=== PATIENT | female | born 1940 | race African-American/Black ===

== ENCOUNTER 2016-11-08 18:01 | Inpatient (IN) | payer OTHER ==
[~2016-11-08] VITALS: Ht 157.5 cm; Wt 77.1 kg
--- NOTE | ~2016-11-08 | S ---
[facility] [place] [address] SURGICAL PATH RPT PROCEDURE Name: ANDRESSA RUTLEDGE Room #: 424-P ADM IN M.R.#: [id number] Admission: 11/08/16 Date of : 36 Discharge: Report #: [id number] Path Case #: [id number] PATHOLOGY REPORT COLLECTION DATE: 11/10/2016 RECEIVED DATE: 11/10/2016 SUBMITTING PHYS: Dr. Ignacio Fu OTHER PHYS: Dr. Herrera Al SPECIMEN(S) RECEIVED: A.Bx of gastritis * * * * * * * * * * * * FINAL DIAGNOSIS: "Bx of gastritis," biopsy: - Gastric mucosa with mild reactive changes and mild chronic inflammation. - Negative H. pylori immunohistochemical stain (block A1); control reacted appropriately. (CLW:; d/t: 11/11/16) PATHOLOGIST: Jazmine Baeza M.D. REPORT ELECTRONICALLY SIGNED BY: Jazmine Baeza M.D. DATE/TIME: 11/11/2016 13:41 * * * * * * * * * * * * GROSS PATHOLOGY: Received in formalin labeled "Andressa Rutledge and bx of gastritis," are 4 segments of faust soft tissue measuring 1.6 x 0.3 x 0.2 cm in aggregate dimensions and ranging from 0.2 to 0.6 cm in maximum dimension. The specimen is submitted entirely in cassette A1. (TTL; 11/10/2016) CLINICAL HISTORY: Anemia INITIAL CPT CODE(S): A; 71718, 29020 Professional services performed by [facility] at [facility] [address] , [place] [address] Technical services performed by [facility] at [address] [place] [address] [place] [address] SURGICAL PATH RPT PROCEDURE Name: ANDRESSA RUTLEDGE Room #: 424-P ADM IN M.R.#: [id number] Admission: 11/08/16 Date of : 38 Discharge: Report #: [id number] Path Case #: [id number] [place] [address]. [facility] [address] [place] [address] PHONE: [phone] DIRECTOR: Jag Alatorre M.D. * * * END OF REPORT * * *
--- NOTE | ~2016-11-08 | HC ---
[facility] [place] [address] CONSULTATION Name: SIN RAMOS Room #: 424-P ADM IN M.R.#: [id number] Admission: 11/08/16 Attend Phys: Herrera Travis MD Discharge: Date of : 38 Report #: [id number] THIS REPORT FOR: //name// CC: Aishwarya Travis REASON FOR CONSULTATION: The patient is a 75-year-old woman with multiple medical problems and anemia and Hemoccult-positive stools. HISTORY OF PRESENT ILLNESS: This is a 75-year-old woman who has a history of number of medical problems including diabetes and significant peripheral vascular disease including a right siovl-zfi-frfo amputation. She has chronic kidney disease and sees Dr. Deon Al. She has had a chronic anemia for which she has been on erythropoietin agents and also she takes iron chronically. Her hemoglobin over the past several years is varied from a low of 6.1 to a high of 10.5. More recently, she has had some dizziness and lightheadedness, especially a day or so prior to admission. She did not have any syncope. Stools are always dark because of iron. They have not been loose. She has not had abdominal pain, nausea, vomiting or hematemesis. She contacted her primary care physician and was direct to the emergency room, where she is evaluated. She was found to have hemoglobin of 7.1; however, it is noted that she is chronically anemic. Stools were found to be Hemoccult positive here and she is admitted for further evaluation and treatment and did receive blood. It is noted she has never had previous GI evaluation, including colonoscopy. PAST MEDICAL HISTORY: Notable for chronic anemia. She has insulin-dependent diabetes mellitus. She has had high blood pressure, hypothyroidism and elevated cholesterol. She has had congestive heart failure. She has peripheral vascular disease and she has had a right wnqgl-kxv-dgeb amputation. She has a foot ulcer as well. She had chronic kidney disease and creatinine usually runs in the low 2 range. She has also had problem with glaucoma and it sounds like she had a retinal hemorrhage, with treatment recently. ALLERGIES: No known drug allergies. MEDICATIONS: Usual home medicines include acetaminophen 650 mg every 6 hours as needed, hydrocodone 5/325 one to two every 4 hours as needed, bisacodyl suppositories 10 mg nightly as needed, brimonidine drops to both eyes twice daily, chewable Tums 500 mg with meals, Coreg 25 mg twice daily, Plavix 75 mg daily, collagenase topically to wound as needed, docusate 100 mg twice daily, iron sulfate 325 mg twice daily, glipizide 5 mg twice daily, NovoLog insulin [address] [address] CONSULTATION Name: SIN RAMOS Room #: 424-P [facility] IN M.R.#: [id number] Admission: 11/08/16 Attend Phys: Herrera Travis MD Discharge: Date of : 38 Report #: [id number] sliding scale, Levemir insulin 20 units subq, Levothyroxine 0.025 mg daily, losartan 50 mg daily, lovastatin 20 mg daily, timolol one drop twice daily each eye, torsemide 40 mg b.i.d. and tramadol 50-100 mg every 4 hours as needed. FAMILY HISTORY: No family history of colon cancer or ulcer disease. SOCIAL HISTORY: She does not smoke. She does not consume alcohol. REVIEW OF SYSTEMS: GENERAL: No change in weight, fever or chills. CENTRAL NERVOUS SYSTEM: Generalized weakness, but no focal weakness, numbness, loss of consciousness, seizure or strokes. HEENT: She has, what sounds like, retinal hemorrhage. No change in vision here. No soreness of mouth. PULMONARY: She has had known pneumonia in the past, but not recently. No chest pain, chest tightness or palpitations. GASTROINTESTINAL: No nausea or vomiting. No hematemesis. She has never had a colonoscopy. GENITOURINARY: No dysuria or pyuria. She has chronic kidney disease. GYNECOLOGIC: No breast problems, vaginal discharges or bleeding. MUSCULOSKELETAL: No arthralgias or myalgias. She does have a right azsxj-mue-cvybzvebvx and has prosthesis and she does have some itching. She does have a heel wound. PSYCHIATRIC: No depression, anxiety or bipolar illness. ENDOCRINE: She does have diabetes and thyroid disease. No other hormonal problems. HEMATOLOGIC: No bleeding or bruising malignancies. PHYSICAL EXAMINATION: GENERAL: The patient is a well-developed, well-nourished white woman in no acute distress. VITAL SIGNS: Blood pressure 143/98. HEENT: Anicteric. Pupils are equal, round and reactive to light. Oropharynx clear. NECK: Supple. CHEST: Clear. HEART: Regular rate and rhythm, normal S1 and S2. ABDOMEN: Obese. Normal bowel sounds. Soft, nontender, without hepatosplenomegaly, masses or bruits. RECTAL: Not done. EXTREMITIES: She has a right pwfpz-avr-xwta amputation. She does have prosthesis. She has a sore on her heel, but that was not examined today. ASSESSMENT: 1. Chronic anemia. 2. Hemoccult-positive stools. [facility] [address] [place] [address] CONSULTATION Name: SIN RAMOS Room #: 424-P [facility] IN ..#: [id number] Admission: 11/08/16 Attend Phys: Herrera Travis MD Discharge: Date of : 38 Report #: [id number] 3. Black stools, on iron. 4. Chronic kidney disease. 5. Diabetes mellitus, insulin dependent. 6. 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 7. Chronic kidney disease secondary to diabetes. 8. Peripheral vascular disease. 9. High blood pressure. 10. Hypothyroidism. 11. Congestive heart failure. 12. Glaucoma. PLAN: 1. Upper endoscopy planned to do tomorrow morning. 2. Consider colonoscopy depending on the results of upper endoscopy. 3. Monitor hemoglobin. <ELECTRONICALLY SIGNED> By: Ignacio Fu MD 11/10/16 1943 1323 1537 Ignacio Fu MD /nt
--- NOTE | ~2016-11-08 | D ---
[facility] [place] [address] DISCHARGE SUMMARY Name: SIN RAMOS Room #: 424-P [facility] IN M.R.#: [id number] Admission: 11/08/16 Attend Phys: Herrera Travis MD Discharge: Date of : 38 Report #: [id number] THIS REPORT FOR: //name// CC: Aishwarya Travis DATE OF SERVICE: 11/14/2016 TYPE OF DICTATION: Discharge summary. After bxwh-ev-wrzs encounter, I did see the patient and examined her on the day of discharge, 11/14/2016. DISCHARGE DIAGNOSES: 1. Anemia of acute blood loss. 2. Gastrointestinal bleed secondary to multiple duodenal ulcers. 3. Acute renal failure on top of chronic kidney disease. 4. Diabetes mellitus. 5. Left heel diabetic wound. 6. Hypertension. 7. Hypothyroidism. 8. Hyperlipidemia. 9. Glaucoma. 10. Congestive heart failure. 11. Right leg diabetic ketoacidosis. DISCHARGE MEDICATIONS: See discharge summary. HOSPITAL COURSE: The patient was admitted to the hospital secondary to dizziness and she was found to have a GI bleed. The patient underwent colonoscopy and EGD and she was found to have multiple duodenal ulcers. The patient was started on PPI and she is doing well, and her hemoglobin since then was stable. So, she was okay with GI to release the patient on the PPI twice a day for 8 weeks and to follow with as an outpatient in 6 weeks for repeat colonoscopy and EGD. During her stay in the hospital, she has also acute tubular necrosis with creatinine jumped up until it reached 2.8. Nephrology was following the patient and today, after a bolus of 500 mL, her creatinine is trending down and she was cleared by nephrology to go home. The patient has a left heel diabetic ulcer and she was followed by the wound team, Dr. Bob Arango and he recommended her to have a wound care clinic visit after 2-3 weeks with him and for now to have Betadine daily and heel protection. The patient is going home with home health for that and to be followed up with her [facility] [address] [place] [address] DISCHARGE SUMMARY Name: SIN RAMOS Room #: 424-P [facility] IN .R.#: [id number] Admission: 11/08/16 Attend Phys: Herrera Travis MD Discharge: Date of : 38 Report #: [id number] primary care doctor, renal doctor and with the GI and wound care. The patient is stable and she is going home with home health. <ELECTRONICALLY SIGNED> By: Manolo Dickinson MD 11/14/16 1438 1001 1058 Manolo Dickinson MD /nt
--- NOTE | ~2016-11-08 | HC ---
[facility] [place] [address] CONSULTATION Name: SIN RAMOS Room #: 424-P ADM IN M.R.#: [id number] Admission: 11/08/16 Attend Phys: Herrera Travis MD Discharge: Date of : 38 Report #: [id number] THIS REPORT FOR: //name// CC: Aishwarya Travis REASON FOR CONSULTATION: CKD. REASON FOR PRESENTATION: Anemia. HISTORY OF PRESENT ILLNESS: This is a very pleasant 75-year-old who sees Dr. Al in our clinic. She is known to have diabetes mellitus, longstanding, complicated by hypertension, diabetic complications including diabetic peripheral arterial disease culminating into right below-knee amputation. Looking back at her previous medical records, she does carry a diagnosis of chronic kidney disease with a baseline creatinine of 2. She was called by her primary care physician and was asked to come to the emergency room because of the low hemoglobin. She did have some dizziness associated with her low hemoglobin. On presentation, repeat labs revealed that the patient does have anemia with hemoglobin level of 7.1. She tested positive for occult. I was consulted to manage her chronic kidney disease while she is in the hospital. She has no active urinary symptoms. She is not aware of any hematochezia or melena. In terms of kidney function, as I have stated, she is chronic kidney disease patient of Dr. Al. We checked her labs in the last week and asked her to come to our facility. She currently is maintained on torsemide, losartan for the management of her chronic kidney disease. 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 CURRENT MEDICATIONS: 1. Hydrocodone. 2. Levemir. 3. Torsemide. 4. Tramadol. 5. Lovastatin. 6. Carvedilol. 7. Glipizide. 8. Losartan. 9. Plavix. 10. Levothyroxine. PAST MEDICAL AND SURGICAL HISTORY: 1. Diabetes mellitus, longstanding, with all related complications to that. 2. CKD. 3. Hypertension. 4. Significant peripheral arterial disease, status post amputation, below knee [facility] [address] [place] [address] CONSULTATION Name: SIN RAMOS Room #: 424-P [facility] IN ..#: [id number] Admission: 11/08/16 Attend Phys: Herrera Travis MD Discharge: Date of : 38 Report #: [id number] on the right side. 5. Hypothyroidism. 6. Hyperlipidemia. 7. Anemia. SOCIAL HISTORY: No drug or alcohol abuse. She lives with her daughter. FAMILY HISTORY: Very strong family history of diabetes mellitus and diabetic heart disease. REVIEW OF SYSTEMS: GENERAL: No fever or chills. CARDIOVASCULAR: No chest pain or palpitation. PULMONARY: No cough or hemoptysis. NEUROLOGICAL: Significant for dizziness. GENITOURINARY: No frequency, no urgency. GASTROINTESTINAL: Decreased p.o. intake, but no hematochezia and no melena. PHYSICAL EXAMINATION: GENERAL: She is alert, oriented. VITAL SIGNS: Pulse rate was 89, blood pressure was 130/60 and temperature 36.8. HEAD AND NECK: No jugular venous distention, no bruit, no thyromegaly. CHEST: Clear to auscultation. CARDIOVASCULAR: No rub detected. ABDOMEN: Soft, nontender. LOWER EXTREMITIES: Right below-knee amputation with an ulcer on the left heel. LABORATORY DATA: Laboratory values reviewed. Creatinine seems to be at her baseline at 2. Repeat hemoglobin was not received yet. Hemoglobin from yesterday is 7.1. She received couple of units of blood. IMAGING: No new images. ASSESSMENT, IMPRESSION AND PLAN: 1. Chronic kidney disease with baseline creatinine of 2. 2. Anemia related to blood loss. 3. Diabetes mellitus. 4. Hypertension. 5. Left diabetic heel ulcer. 6. Glaucoma. 7. From the renal perspective, she seems to be stable with her creatinine at her baseline. I would resume her medications including the losartan and the Demadex. 8. Blood pressure control. 9. Blood sugar control. 10. Thyroid medications. [address] [place] [address] [address] CONSULTATION Name: SIN RAMOS Room #: 424-P [facility] IN .R.#: [id number] Admission: 11/08/16 Attend Phys: Herrera Travis MD Discharge: Date of : 38 Report #: [id number] 11. Discontinue IV fluid. 12. Anemia workup including GI workup. 13. Avoid nephrotoxins. 14. Iron studies are pending. 15. Local wound care for her left heel ulcer. 16. Based on her initial GI workup, we will decide about further evaluation and management of her anemia from the CKD perspective. <ELECTRONICALLY SIGNED> By: Judy Cummins MD 11/14/16 0926 0922 1248 Judy Cummins MD /nt
--- NOTE | ~2016-11-08 | P ---
[facility] [place] [address] PROCEDURE REPORT Name: SIN RAMOS Room #: 424-P [facility] IN M.R.#: [id number] Admission: 11/08/16 Attend Phys: Herrera Travis MD Discharge: Date of : 38 Report #: [id number] THIS REPORT FOR: //name// CC: Aishwarya Travis BRIEF HISTORY: The patient is a 75-year-old woman, who was admitted with anemia requiring blood transfusion as well as Hemoccult positive stools. She has chronic kidney disease and has had longstanding anemia. PREOPERATIVE DIAGNOSES: Anemia and Hemoccult-positive stools. POSTOPERATIVE DIAGNOSES: 1. Multiple duodenal ulcers. 2. Duodenal diverticulum. 3. Diffuse gastritis. 4. Small hiatus hernia. MEDICATIONS: Deep sedation with propofol per anesthesia. SPECIMEN: Biopsies of gastritis. ESTIMATED BLOOD LOSS: 3 mL. PROCEDURE: EGD with biopsy. FINDINGS: Prior to propofol sedation, procedure of upper endoscopy was discussed with the patient as well as potential risks and its complications. She indicates she understands and desires to proceed. DESCRIPTION OF PROCEDURE: With the patient in left lateral decubitus position, the SnackFeedi video endoscope was inserted in the cervical esophagus under direct vision without difficulty. Examination of this organ through its entire length revealed normal esophageal mucosa down the squamocolumnar junction. Squamocolumnar junction was inspected and noted to be unremarkable. No ulcers, erosions or bleeding was seen. Scope was advanced into a 2-3 cm sliding type hiatus hernia. ____ was normal. Scope was advanced in the stomach, which was examined on end view as well as retroflexed views. There was some antral erythema, but no ulcers or erosions. There is no blood in the stomach. Upon retroflexion, no mucosal abnormalities were seen. Pylorus was normal. Examination of duodenal bulb revealed several superficial ulcerations in the range of about 3-4 mm in the distal bulb. The scope was advanced around the bulb. There were some bloody fluid seen. Upon further inspection, there was a moderately large duodenal diverticulum. There was some bloody fluid and a small [facility] [address] [place] [address] PROCEDURE REPORT Name: SIN RAMOS Room #: 424-P ADM IN [facility].#: [id number] Admission: 11/08/16 Attend Phys: Herrera Travis MD Discharge: Date of : 38 Report #: [id number] clot within the diverticulum. This was irrigated and cleaned out and active bleeding or an ulcer was not seen within the diverticulum. Third portion of duodenum was unremarkable. We very carefully inspected in particular the second portion of duodenum. Finally, an ulcer was found at the ____ of the bulb with second portion. He was seen tangentially but clearly an ulcer base was seen. Active bleeding was not seen. I do not see any most vessels or clots. At that point, the scope was slowly withdrawn and careful circumferential views confirmed the above findings. The patient tolerated the procedure well. Biopsies obtained of the gastritis. DISPOSITION: The patient with GI bleeding. Advised the patient to avoid use of nonsteroidals. She is currently on a PPI and we will have her continue PPI at this point in time. We will have her return as an outpatient in about 6 weeks to ____ view of her bleeding. Also, suggest screening colonoscopy at that point in time. She returned to the care of Dr. Dr. Al and Dr. Aishwarya De Souza. <ELECTRONICALLY SIGNED> By: Ignacio Fu MD 11/10/16 1943 1307 1359 Ignacio Fu MD /nt
[~2016-11-08 18:01] MED LIST: ALDACTONE25 MG PO; AMLODIPINE BESY10 MG PO; BISACODYL SUPP10 MG RECTAL; BRIMONIDINE TAR1 BO1 OPHTHALMIC; C-500500 MG PO; CARVEDILOL25 MG PO; CEPHALEXIN 500500 M1 PO; CIPROFLOXACIN500 M1 PO; COLACE100 MG PO; COMBIGAN EYE DR10 ML; COZAAR 50 MG TA50 M1 PO; COZAAR 50 MG TA50 MG PO; DEMADEX20 MG PO; ENOXAPARIN30 MG/0.1 SUBQ; FUROSEMIDE 40 M40 M1 PO; GLIPIZIDE XL5 MG PO; GLUCOTROL5 MG PO; GLUMETZA500 PO; GLYBURIDE 5 MG T5 MG PO; HYDROCODONE-AP1 EAC6 PO; IRON325 PO; KEFLEX500 MG PO; LEVEMIR SUBQ; LEVOTHYROXIN0.025 MG PO; LOVASTAT20 PO; NOVOLOG100 UNIT/1 SUBQ; ONGLYZA5 MG PO; PLAVIX 75 MG TA75 M1 PO; SANTYL OINTMENT30 G1 TOP; TIMOLOL GL0.5 %/5 M1 OPHTHALMIC; TRAMADOL 50 MG50 MG PO; TUMS PO; TYLENOL325 MG PO
[2016-11-08 18:02] VITALS: BP 156/71
[2016-11-08 18:51] LABS: ABSOLUTE NEUTROPHILS 3.6 thou/uL (1.4-8.2); BASOPHILS 0.5 % (0.0-2.0); MCH 30.6 pg (26.0-34.0); MCHC 33.5 % (28.0-37.0)
[2016-11-08 18:53] LABS: HEMATOCRIT 21.1 % (37.0-47.0); LYMPHOCYTES 25.1 % (24.0-44.0); MCV 91.3 fL (80.0-100.0); MONOCYTES 11.6 % (1.0-8.0); PLATELET COUNT 209 thou/uL (150-400); POLYS 60.8 % (36.0-66.0); RBC 2.31 mil/uL (4.20-5.00); WBC 5.9 thou/uL (4.0-11.0)
[2016-11-08 18:55] LABS: ANION GAP 8 mmol/L (7-16); BUN 69 mg/dL (7-18); CALCIUM 8.4 mg/dL (8.5-10.1); CHLORIDE 101 mmol/L (98-107); CO2 27 mmol/L (21-32); GLUCOSE 246 mg/dL (70-99); POTASSIUM 4.4 mmol/L (3.5-5.1); SODIUM 136 mmol/L (136-145)
[2016-11-08 18:57] LABS: HEMOGLOBIN 7.1 gm/dL (12.0-15.0); MANUAL DIFF NO
[2016-11-08 19:02] LABS: ALBUMIN 3.2 g/dL (3.4-5.0); ALKALINE PHOSPHATASE 96 U/L (46-116); SGOT < 5 U/L (15-37); SGPT 13 U/L (30-65); TOTAL BILIRUBIN 0.2 mg/dL (<0.1-1.0); TOTAL PROTEIN 6.5 g/dL (6.4-8.2)
[2016-11-08 19:03] LABS: APTT 22.5 Seconds (24.5-32.8); PROTIME 10.7 Seconds (9.3-11.4)
[2016-11-08 22:57] VITALS: BP 130/67; BP 161/59
[2016-11-09 02:47] VITALS: BP 130/61; BP 133/61
[2016-11-09 07:54] VITALS: BP 130/61
[2016-11-09 12:17] VITALS: BP 143/90
[2016-11-09 14:52] LABS: BASOPHILS 0.3 % (0.0-2.0); EOSINOPHILS 1.5 % (0.0-3.0); HEMATOCRIT 31.9 % (37.0-47.0); LYMPHOCYTES 22.2 % (24.0-44.0); MCH 30.8 pg (26.0-34.0); MCHC 33.1 % (28.0-37.0); MCV 93.1 fL (80.0-100.0); MONOCYTES 10.7 % (1.0-8.0); PLATELET COUNT 214 thou/uL (150-400); POLYS 65.3 % (36.0-66.0); RBC 3.42 mil/uL (4.20-5.00); RDW 14.1 % (10.5-14.5); WBC 7.7 thou/uL (4.0-11.0)
[2016-11-09 14:53] LABS: HEMOGLOBIN 10.5 gm/dL (12.0-15.0); MANUAL DIFF NO
[2016-11-09 15:15] LABS: ALBUMIN 3.3 g/dL (3.4-5.0); CALCIUM 8.8 mg/dL (8.5-10.1); CREATININE 1.6 mg/dL (0.6-1.3); MAGNESIUM 1.8 mg/dL (1.8-2.4); POTASSIUM 5.1 mmol/L (3.5-5.1); TOTAL BILIRUBIN 0.3 mg/dL (<0.1-1.0)
[2016-11-09 17:17] VITALS: BP 155/70
[2016-11-09 20:00] VITALS: BP 150/69
[2016-11-10 04:00] VITALS: BP 120/56
[2016-11-10 05:57] LABS: ALBUMIN 2.8 g/dL (3.4-5.0); CALCIUM 8.3 mg/dL (8.5-10.1); CREATININE 1.9 mg/dL (0.6-1.3); PHOSPHORUS 3.3 mg/dL (2.5-4.9); POTASSIUM 4.8 mmol/L (3.5-5.1)
[2016-11-10 08:07] LABS: % SATURATION 17 % (15-55); IRON 54 ug/dL (27-139); TIBC 310 ug/dL (250-450); UIBC 256 ug/dL (118-369)
[2016-11-10 08:29] VITALS: BP 139/57
[2016-11-10 14:30] VITALS: BP 146/65
[2016-11-10 16:19] VITALS: BP 122/50
[2016-11-10 20:00] VITALS: BP 146/72
[2016-11-11 04:00] VITALS: BP 132/50
[2016-11-11 05:37] LABS: HEMATOCRIT 30.2 % (37.0-47.0); HEMOGLOBIN 9.9 gm/dL (12.0-15.0); MCH 30.5 pg (26.0-34.0); MCHC 32.7 % (28.0-37.0); MCV 93.4 fL (80.0-100.0); RBC 3.24 mil/uL (4.20-5.00)
[2016-11-11 08:33] VITALS: BP 165/81
[2016-11-11 16:20] VITALS: BP 184/51
[2016-11-11 20:00] VITALS: BP 154/58
[2016-11-12 04:30] VITALS: BP 145/52
[2016-11-12 07:33] VITALS: BP 146/53
[2016-11-12 10:36] LABS: HEMATOCRIT 29.5 % (37.0-47.0); HEMOGLOBIN 9.8 gm/dL (12.0-15.0); MANUAL DIFF YES; MCH 30.8 pg (26.0-34.0); MCHC 33.2 % (28.0-37.0); MCV 92.7 fL (80.0-100.0); PLATELET COUNT 170 thou/uL (150-400); RBC 3.18 mil/uL (4.20-5.00); RDW 14.2 % (10.5-14.5); WBC 7.1 thou/uL (4.0-11.0)
[2016-11-12 10:43] LABS: CALCIUM 8.8 mg/dL (8.5-10.1); CREATININE 2.5 mg/dL (0.6-1.3); POTASSIUM 4.3 mmol/L (3.5-5.1)
[2016-11-12 11:18] LABS: ABSOLUTE NEUTROPHILS 4.8 thou/uL (1.4-8.2); TOTAL CELL COUNT 100
[2016-11-12 15:16] VITALS: BP 110/49
[2016-11-12 20:00] VITALS: BP 138/74
[2016-11-13 04:00] VITALS: BP 102/46
[2016-11-13 04:41] LABS: HEMATOCRIT 29.8 % (37.0-47.0); HEMOGLOBIN 9.7 gm/dL (12.0-15.0); MCH 30.7 pg (26.0-34.0); MCHC 32.5 % (28.0-37.0); MCV 94.6 fL (80.0-100.0); PLATELET COUNT 174 thou/uL (150-400); RBC 3.15 mil/uL (4.20-5.00); WBC 7.7 thou/uL (4.0-11.0)
[2016-11-13 04:42] LABS: MANUAL DIFF YES
[2016-11-13 04:51] LABS: ALBUMIN 2.9 g/dL (3.4-5.0); CALCIUM 8.9 mg/dL (8.5-10.1); CREATININE 2.8 mg/dL (0.6-1.3); PHOSPHORUS 4.2 mg/dL (2.5-4.9); POTASSIUM 4.3 mmol/L (3.5-5.1)
[2016-11-13 07:23] LABS: ABSOLUTE NEUTROPHILS 4.5 thou/uL (1.4-8.2); TOTAL CELL COUNT 100
[2016-11-13 07:24] LABS: ANISOCYTOSIS SLIGHT
[2016-11-13 08:30] VITALS: BP 128/45
[2016-11-13 17:30] VITALS: BP 160/58
[2016-11-13 22:00] VITALS: BP 152/53
[2016-11-14 04:08] VITALS: BP 126/65
[2016-11-14 06:30] LABS: HEMATOCRIT 29.8 % (37.0-47.0); HEMOGLOBIN 9.7 gm/dL (12.0-15.0); MANUAL DIFF YES; MCH 30.5 pg (26.0-34.0); MCHC 32.4 % (28.0-37.0); MCV 94.1 fL (80.0-100.0); PLATELET COUNT 164 thou/uL (150-400); RBC 3.17 mil/uL (4.20-5.00); RDW 13.5 % (10.5-14.5); WBC 7.3 thou/uL (4.0-11.0)
[2016-11-14 06:45] LABS: ALBUMIN 2.7 g/dL (3.4-5.0); CALCIUM 8.5 mg/dL (8.5-10.1); CREATININE 2.2 mg/dL (0.6-1.3); PHOSPHORUS 4.1 mg/dL (2.5-4.9); POTASSIUM 4.9 mmol/L (3.5-5.1)
[2016-11-14 08:07] LABS: ABSOLUTE NEUTROPHILS 4.7 thou/uL (1.4-8.2); TOTAL CELL COUNT 100
[2016-11-14 08:08] LABS: ANISOCYTOSIS 1+; POLYCHROMASIA OCCASIONAL
[2016-11-14 08:16] VITALS: BP 138/63
[2016-11-14] MEDS ORDERED: PANTOPRAZOLE SO40 M1 PO (10:06)
[2016-11-14 10:26] VITALS: BP 138/63
[2016-11-14 15:28] VITALS: BP 124/47
[2016-11-14 17:40] VITALS: BP 138/63
== END 2016-11-14 18:39 | disposition home or self-care (01) | DRG 377 ==
LOC: ER 18:01 → EROBS 19:24 → 4E 19:24 → EDBD 11-14 18:39 → 4E 11-14 18:39
PROVIDERS: Hospitalist; Internal Medicine Nephrology; Nurse Practitioner; Physician Assistant; Specialist
PROC: 30233N1 Transfusion of Nonautologous Red Blood Cells into Peripheral Vein, Percutaneous Approach (ICD-10-PCS; principal; 2016-11-08)
PROC: 0DB68ZX Excision of Stomach, Via Natural or Artificial Opening Endoscopic, Diagnostic (ICD-10-PCS; 2016-11-10)
DX: K26.4 Chronic or unspecified duodenal ulcer with hemorrhage (principal); N17.0 Acute kidney failure with tubular necrosis; D62 Acute posthemorrhagic anemia; L97.429 Non-pressure chronic ulcer of left heel and midfoot with unspecified severity; I13.0 Hypertensive heart and chronic kidney disease with heart failure and stage 1 through stage 4 chronic kidney disease, or unspecified chronic kidney disease; E44.0 Moderate protein-calorie malnutrition; H40.9 Unspecified glaucoma; E03.9 Hypothyroidism, unspecified; E78.5 Hyperlipidemia, unspecified; E10.42 Type 1 diabetes mellitus with diabetic polyneuropathy; E10.621 Type 1 diabetes mellitus with foot ulcer; E10.51 Type 1 diabetes mellitus with diabetic peripheral angiopathy without gangrene; E10.22 Type 1 diabetes mellitus with diabetic chronic kidney disease; N18.3 Chronic kidney disease, stage 3 (moderate); I50.9 Heart failure, unspecified; K44.9 Diaphragmatic hernia without obstruction or gangrene; D63.8 Anemia in other chronic diseases classified elsewhere; Z79.899 Other long term (current) drug therapy; Z79.4 Long term (current) use of insulin; Z89.429 Acquired absence of other toe(s), unspecified side; Z82.49 Family history of ischemic heart disease and other diseases of the circulatory system; Z83.3 Family history of diabetes mellitus; Z68.31 Body mass index [BMI] 31.0-31.9, adult
CPT/HCPCS: 10183; 62110; 62900; 70005

== ENCOUNTER → 2016-11-21 | Outpatient (CLI) | payer OTHER ==
[~2016-11-21] VITALS: Ht 154.9 cm; Wt 77.1 kg
[~2016-11-21] MED LIST changes: +PANTOPRAZOLE SO40 M1 PO
--- NOTE | ~2016-11-21 | CATHLAB ---
[facility] Kyle [address]ba [facility] [place] [address] INVASIVE PROCEDURE REPORT Name: LON RAMOSN Room #: REG CL Rufino#: [id number] Admission: 11/21/16 Attend Phys: Mustapha Brooks, Discharge: Date of : 36 Date of Service: 11/21/16 1033 Report #: [id number] THIS REPORT FOR: //name// CC: Aishwarya Brooks DATE OF SERVICE: 11/21/2016 NAME OF STUDY: 1. Aortogram and left lower extremity runoff angiogram. 2. Bilateral renal angiography. 3. Left superficial femoral artery atherectomy and stent placement. 4. Secondary thrombectomy, left superficial femoral artery. 5. Drug-coated balloon angioplasty, left superficial femoral artery. INDICATIONS: Peripheral arterial disease with nonhealing ulcer, left heel. Diabetes. Coronary artery disease. Hypertension. Hypercholesterolemia. PROCEDURE: Procedure and risk of aortogram and runoff were discussed with the patient as well as atherectomy and stent placement including the risk of limb loss and contrast-induced nephropathy requiring dialysis and consent obtained. The right groin was prepped and draped in normal sterile fashion. Ultrasound was used to interrogate the right groin and showed the right common femoral artery be patent. Under ultrasound guidance, access into the right common femoral artery was obtained and a 5-Welsh sheath was placed. Through this, a flush catheter was placed in the abdominal aorta and AP aortogram was performed. Catheter was positioned at the aortic bifurcation and MAZARIEGOS oblique view of the pelvis was obtained. Catheter was exchanged for a visceral catheter, which was placed into the right renal artery and right renal angiogram was obtained. Catheter was placed in the left renal artery and left renal angiogram was obtained. Catheter was placed to the level of the left common femoral artery and left leg runoff angiogram was obtained. The patient was given 4000 units of heparin. A 6-Welsh crossover sheath was placed via the right groin to the level of the left common femoral artery. I then performed atherectomy at the area of stenosis in the proximal left superficial femoral artery with a 1.7 Second Light laser catheter. Following this, it was noted some irregularity and possible small fragments of thrombus in the area of treatment and because of this, a mechanical suction thrombectomy catheter was used to perform a secondary thrombectomy throughout the left superficial femoral artery treatment area. Drug-coated balloon angioplasty in the proximal third of this left superficial femoral artery was carried out with a 5 x 120 Zipzoomtronic Admiral catheter. Follow up angiogram showed some flow limiting dissection in the mid section of the treatment area. Because of this, a 6 x 80 SMART control stent was deployed in the proximal portion of the left superficial femoral artery. Dilatation up to 5 mm throughout the stent was again accomplished. Follow up angiogram was performed. Catheters and wires were removed. Sheath was removed and hemostasis [facility] [address] [place] [address] INVASIVE PROCEDURE REPORT Name: SIN RAMOS Room #: REG MICHAEL Joy#: [id number] Admission: 11/21/16 Attend Phys: Mustapha Brooks, Discharge: Date of : 36 Date of Service: 11/21/16 1033 Report #: [id number] obtained using the ExoSeal device. No immediate complications. A total of 42 mL of iodinated contrast was used throughout the procedure. FINDINGS: AORTOGRAM: There is 1 right and 1 left renal artery. Moderate plaque in the infrarenal abdominal aorta without significant stenosis. The right and left common iliac arteries are patent. Both internal iliac arteries are patent. The right and left external iliac arteries are patent. Both the right and left common femoral and profunda femoral arteries are patent. RIGHT RENAL ANGIOGRAM: Moderate plaque at the origin of the right renal artery causes 30% stenosis, not felt to be flow limiting. No branch vessel stenosis. LEFT RENAL ANGIOGRAM: Mild plaque at the origin of the vessel raza not cause significant stenosis. LEFT LEG: Moderate plaque proximal superficial femoral artery causing 80% stenosis. The mid and distal SFA are widely patent. Minimal stenosis in the upper popliteal artery, again not flow limiting. The proximal and mid anterior tibial artery show complete occlusion. The tibioperoneal trunk and peroneal artery show good patency. The peroneal artery refills the distal anterior tibial artery, which is a good size vessel to runoff into a moderate size dorsalis pedis, which showed some filling of the metatarsal arch. The posterior tibial artery is occluded throughout its length. The distal most posterior tibial artery is small, but refills via peroneal collaterals and small plantar arteries. LEFT SUPERFICIAL FEMORAL ARTERY: Following procedure as above, the vessel is widely patent. IMPRESSION: 80% irregular stenosis, proximal portion of the left superficial femoral artery was treated as above with good patency restored. Occlusion of the left anterior and posterior tibial arteries as reviewed above. There is good single vessel left peroneal artery runoff as described. I will follow up with the patient in the office in 3 months regarding her progress. She will be maintained on aspirin and Plavix until that time. <ELECTRONICALLY SIGNED> By: Mustapha Brooks MD 11/24/16 1132 1033 1207 Mustapha Brooks MD /nt
[2016-11-21 08:09] VITALS: BP 149/62
[2016-11-21 09:44] LABS: HEMATOCRIT 25.6 % (37.0-47.0); HEMOGLOBIN 8.7 gm/dL (12.0-15.0); MCH 31.2 pg (26.0-34.0); MCV 91.7 fL (80.0-100.0); RBC 2.8 mil/uL (4.20-5.00); RDW 13.7 % (10.5-14.5); WBC 5.4 thou/uL (4.0-11.0)
[2016-11-21 10:00] LABS: CALCIUM 8.5 mg/dL (8.5-10.1); CREATININE 2.1 mg/dL (0.6-1.3); POTASSIUM 4.7 mmol/L (3.5-5.1)
[2016-11-21 10:30] VITALS: BP 128/61
[2016-11-21 10:45] VITALS: BP 115/48
[2016-11-21 11:00] VITALS: BP 126/96
== END ==
LOC: SPEC 07:41 → EDBD 07:41
PROVIDERS: Nuclear Medicine Nuclear Cardiology
DX: I70.244 Atherosclerosis of native arteries of left leg with ulceration of heel and midfoot (principal); I25.10 Atherosclerotic heart disease of native coronary artery without angina pectoris; I11.9 Hypertensive heart disease without heart failure; E78.00 Pure hypercholesterolemia, unspecified; E11.9 Type 2 diabetes mellitus without complications

== ENCOUNTER → 2016-11-28 | Outpatient (CLI) | payer OTHER | LOC: EDBD 05:03 → ULTRA 05:03 | DX: I73.9 Peripheral vascular disease, unspecified (principal) ==

== ENCOUNTER 2017-04-20 20:09 | Inpatient (IN) | payer OTHER ==
[~2017-04-20] VITALS: Ht 154.9 cm; Wt 76.8 kg
--- NOTE | ~2017-04-20 | P ---
[facility] [place] [address] PROCEDURE REPORT Name: SIN RAMOS Room #: 305-P [facility] IN .R.#: [id number] Admission: 04/20/17 Attend Phys: Herrera Travis MD Discharge: Date of : 36 Report #: [id number] THIS REPORT FOR: //name// CC: Aishwarya Travis MD DATE OF SERVICE: 04/24/2017 PROCEDURE PERFORMED: Colonoscopy with biopsies and tattoo. HISTORY OF PRESENT ILLNESS: The patient is a 76-year-old female with anemia and heme-positive stools. No previous history of colonoscopy. She underwent an upper endoscopy by my partner, Dr. Anderson, yesterday, which was essentially negative. Plan is for colonoscopy. PROCEDURE: The risks and benefits of the procedure were explained to the patient and family, those risks including, but not limited to bleeding, perforation and the risk of sedation. She understood these risks and gave informed consent. Sedation was given using propofol per anesthesia. Next, a digital rectal exam was initially performed, which was normal. Next, using a standard The 3Doodlerinon colonoscope, the scope was placed in the patient's anus and advanced under direct vision to the cecum. The overall prep was fairly poor in some areas. Multiple washings and aspirations were performed, but I was able to visualize most areas today. On the ileocecal valve, there was a large polyp/mass, no active bleeding. polyp/mass was approximately 2.5 cm in size. Biopsies obtained and the edges were tattooed. The ascending colon was normal, but again visualization was somewhat limited. However, in the transverse colon, a larger polyp/mass was noted. This was approximately 3-4 cm with multiple polyps noted in this area. Biopsies were also obtained and the edges were tattooed. 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 The scope was then slowly withdrawn. The descending and sigmoid colon were normal. The rectal mucosa was normal. The scope was then withdrawn and the procedure terminated. The patient tolerated the procedure well. IMPRESSION: Two separate large polyp/masses, one involving the ileocecal valve area, the other in the transverse colon, both of which would need to be resected surgically. Hopefully, a right hemicolectomy could be performed in which both could be removed at the same time. We will consult general surgery and await biopsy results. [address] [address] PROCEDURE REPORT Name: RACHELSIN Room #: 305-P [facility] IN .R.#: [id number] Admission: 04/20/17 Attend Phys: Herrera Travis MD Discharge: Date of : 36 Report #: [id number] Thank you for allowing me to participate in her care. <ELECTRONICALLY SIGNED> By: Elvis Lawson MD 05/04/17 1212 1113 1253 Elvis Lawson MD /shari
--- NOTE | ~2017-04-20 | EKG ---
[place] [address] [facility] [place] [address] ELECTROCARDIOGRAM REPORT Name: SIN RAMOS Room #: 305-P ADM IN .R.#: [id number] Admission: 04/20/17 Attend Phys: Herrera Travis MD Discharge: Date of : 38 Report #: [id number] THIS REPORT FOR: //name// 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
--- NOTE | ~2017-04-20 | EKG ---
[place] [address] [facility] [place] [address] ELECTROCARDIOGRAM REPORT Name: KENNEDIJOANNASIN Room #: 305-P ADM IN M.R.#: [id number] Admission: 04/20/17 Attend Phys: Herrera Travis MD Discharge: Date of : 38 Report #: [id number] THIS REPORT FOR: //name// 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 : 1940 Requested By: Nathan Hall Order Number: [id number] MD: Sharad Murray Measurements Intervals [place] Rate: 90 P: 66 DC: 179 QRS: -45 QRSD: 109 T: 59 QT: 369 QTc: 452 Interpretive Statements Sinus rhythm Left anterior fascicular block Left ventricular hypertrophy Poor R wave progression Baseline wander in lead(s) V2,V3 Compared to ECG 04/20/2017 20:57:54 Atrial premature complex(es) no longer present Electronically Signed On 05-04-2017 8:40:49 CDT by Sharad Murray [email or web address] <ELECTRONICALLY SIGNED> By: Sharad Murray MD, [facility] 05/04/17 0840 1031 1031 Sharad Murray MD, [facility] /EPI
--- NOTE | ~2017-04-20 | 2DMMODE ---
[facility] [address] [facility] [place] [address] 2 D/M-MODE ECHOCARDIOGRAM Name: KENNEDIJOANNASIN Room #: 305-P [facility] IN [facility]#: [id number] Admission: 04/20/17 Attend Phys: Herrera Travis MD Discharge: Date of : 36 Date of Service: 04/30/17 1249 Report #: [id number] THIS REPORT FOR: //name// APPROVED REPORT Study performed: 04/30/2017 11:22:43 EXAM: Comprehensive 2D, Doppler, and color-flow Echocardiogram Patient Location: Bedside Room #: 305 Other Information Study Quality: Good Indications Diabetes Dyspnea Hypertension/HDD 2D Dimensions RVDd: 33.70 mm LVEF(%): 50.22 (>50%) IVSd: 13.59 (7-11mm) LVOT Diam: 18.28 (18-24mm) LVDd: 42.10 mm PWd: 15.48 (7-11mm) Ascending Ao: 26.92 (22-36mm) LVDs: 31.47 (25-40mm) Aortic Root: 26.55 mm IVC: 22.00 mm Doran's LVEF: 50.22 % Volumes Left Atrial Volume (Systole) Single Plane 4CH: 69.36 mL Single Plane 2CH: 77.21 mL LA ESV Index: 44.00 mL/m2 Aortic Valve AoV Peak Yogesh.: 1.39 m/s AO Peak Gr.: 7.78 mmHg LVOT Max P.32 mmHg LVOT Max V: 0.91 m/s VELIA Vmax: 1.71 cm2 Mitral Valve E/A Ratio: 0.8 MV Decel. Time: 193.22 ms MV E Max Yogesh.: 1.64 m/s MV A Yogesh.: 2.00 m/s [facility] [place] [place] [address] 2 D/M-MODE ECHOCARDIOGRAM Name: SIN RAMOS Room #: 305-P [facility] IN ..#: [id number] Admission: 04/20/17 Attend Phys: Herrera Travis MD Discharge: Date of : 38 Date of Service: 04/30/17 1249 Report #: [id number] MV PHT: 56.03 ms IVRT: 55.36 ms Pulmonary Valve PV Peak Yogesh.: 0.96 m/s PV Peak Gr.: 3.65 mmHg Pulmonary Vein P Vein S: 0.58 m/s P Vein A: 0.13 m/s P Vein D: 0.41 m/s P Vein A Dur.: 90.0 msec P Vein S/D Ratio: 1.41 Tricuspid Valve TR Peak Yogesh.: 3.90 m/s RAP Estimate: 15.00 mmHg TR Peak Gr.: 60.73 mmHg Left Ventricle The left ventricle is normal size. Moderate concentric left ventricular hypertrophy. Left ventricular systolic function is normal. LVEF is 50-55%. Mild diastolic dysfunction is present (impaired relaxation pattern). Right Ventricle The right ventricle is normal size. The right ventricular systolic function is normal. Atria Left atrium is dilated. Right atrium is dilated. Aortic Valve The aortic valve is normal in structure. No aortic regurgitation is present. There is no aortic valvular stenosis. Mitral Valve Mitral annular calcification present. Mild to moderate mitral regurgitation. No evidence of mitral valve stenosis. Tricuspid Valve The tricuspid valve is normal in structure. Trace to mild tricuspid regurgitation. Pulmonic Valve The pulmonary valve is normal in structure. Trace to mild pulmonic regurgitation. Great Vessels The aortic root is normal in size. Aortic arch is not visualized. [address] [address] 2 D/M-MODE ECHOCARDIOGRAM Name: RACHELSIN L Room #: 305-P [facility] IN [facility]#: [id number] Admission: 04/20/17 Attend Phys: Herrera Travis MD Discharge: Date of : 36 Date of Service: 04/30/17 1249 Report #: [id number] is mildly dilated and collapses <50% with inspiration. Pericardium Pleural effusion is noted. <Conclusion> The left ventricle is normal size. LVEF is 50-55%. Left atrium is dilated. Right atrium is dilated. The aortic valve is normal in structure. Mitral annular calcification present. Mild to moderate mitral regurgitation. No evidence of mitral valve stenosis. The tricuspid valve is normal in structure. Trace to mild tricuspid regurgitation. The pulmonary valve is normal in structure. Trace to mild pulmonic regurgitation. Pleural effusion is noted. <ELECTRONICALLY SIGNED> By: Gonzalo Webb MD 04/30/17 1249 1249 1249 Gonzalo Webb MD /INF
--- NOTE | ~2017-04-20 | S ---
[facility] [place] [address] SURGICAL PATH RPT PROCEDURE Name: ANDRESSA RUTLEDGE Room #: 305-P ADM IN M.R.#: [id number] Admission: 04/20/17 Date of : 36 Discharge: Report #: [id number] Path Case #: [id number] PATHOLOGY REPORT COLLECTION DATE: 04/24/2017 RECEIVED DATE: 04/24/2017 SUBMITTING PHYS: Dr. Elvis Lawson OTHER PHYS: Dr. Aishwarya Travis SPECIMEN(S) RECEIVED: A.Cecal polyp B.Polyp at transverse colon * * * * * * * * * * * * FINAL DIAGNOSIS: A. 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 B. "Polyp at transverse colon", biopsy: - Tubular adenoma; no high-grade dysplasia. (CLW:laura; d/t: 04/27/2017) PATHOLOGIST: Jazmine Baeza M.D. REPORT ELECTRONICALLY SIGNED BY: Jazmine Baeza M.D. DATE/TIME: 04/27/2017 16:18 * * * * * * * * * * * * GROSS PATHOLOGY: A. Received in formalin labeled "Andressa Rutledge, polyp at cecum," are 4 segments of faust soft tissue measuring 0.9 x 0.4 x 0.2 cm in aggregate dimensions and ranging from 0.1 to 0.4 cm in maximum dimension. The specimen is submitted entirely in cassette A1. B. Received in formalin labeled "Andressa Rutledge, polyp at transverse colon," are 7 segments of faust soft tissue measuring 1.3 x 0.5 x 0.2 cm in aggregate dimensions and ranging from 0.1 to 0.5 cm in maximum dimension. The specimen is submitted entirely in cassette B1. (KAH; 04/25/2017) CLINICAL HISTORY: Pre-op diagnosis: Anemia, black stools Post-op diagnosis: Polyps INITIAL CPT CODE(S): A; 98023 B; [address] [address] SURGICAL PATH RPT PROCEDURE Name: ANDRESSA RUTLEDGE Room #: 305-P ADM IN M.R.#: [id number] Admission: 04/20/17 Date of : 36 Discharge: Report #: [id number] Path Case #: [id number] Professional services performed by [facility] at [address], [place] [address] Technical services performed by [facility] at [address] [place] [address], [facility] [address], [place] [address]. [facility] [address] [address] PHONE: [phone] DIRECTOR: Jag Alatorre M.D. * * * END OF REPORT * * *
--- NOTE | ~2017-04-20 | O ---
[facility] [place] [address] OPERATIVE REPORT Name: SIN RAMOS Room #: 305-P ADM IN .R.#: [id number] Admission: 04/20/17 Attend Phys: Herrera Travis MD Discharge: Date of : 38 Report #: [id number] THIS REPORT FOR: //name// CC: Aishwarya Travis DATE OF SERVICE: 04/27/2017 PREOPERATIVE DIAGNOSES: 1. Unresectable transverse colon and ileocecal valve polyps/masses. 2. Type 2 diabetes mellitus. 3. Anemia. POSTOPERATIVE DIAGNOSES: 1. Unresectable transverse colon and ileocecal valve polyps/masses. 2. Epigastric incarcerated ventral hernia. 3. Jejunal diverticulosis. 4. Type 2 diabetes mellitus. 5. Anemia. SURGEON: Carlos Draper M.D. PAY PER CLICK STRATEGIST: Barron Mayes M.D. SECOND PROPOSITION PLAYER: HASMUKH Bauman. PROCEDURE: 1. Laparoscopic right hemicolectomy with [id number] ileocolic anastomosis. 2. Primary repair of incarcerated epigastric ventral hernia. ANESTHESIA: General endotracheal anesthesia and local anesthetic. ESTIMATED BLOOD LOSS: 10 mL. SPECIMEN: Right colon (including the terminal ileum, appendix, and proximal transverse colon). COMPLICATIONS: None appreciated. INDICATIONS FOR PROCEDURE: This is a 76-year-old female patient, who has had difficulty with anemia and heme positive stools. She underwent an EGD initially earlier this year, which revealed gastritis and peptic ulcer disease. The patient was placed on a proton pump inhibitor and was to follow up with EGD and colonoscopy. This was not undertaken. The patient was found to be anemic by her primary care physician and she was sent back to [facility], [facility] [address] [place] [address] OPERATIVE REPORT Name: SIN RAMOS Room #: 305-P [facility] IN [facility]#: [id number] Admission: 04/20/17 Attend Phys: Herrera Travis MD Discharge: Date of : 38 Report #: [id number] where she underwent an EGD, which was essentially negative. Colonoscopy was then performed on 04/24/2017, which revealed two separate large polyps/masses, one of which involved the ileocecal valve and the other involving the transverse colon. The larger of the polyps was located in the transverse colon and they were not able to be endoscopically resected. The patient presents now for laparoscopic right hemicolectomy. OPERATIVE FINDINGS: Upon the entrance in the abdominal cavity, the tattooed areas of the transverse colon and cecum were able to be identified. There was no other significant intraabdominal pathology identified other than an incarcerated epigastric ventral hernia in the upper abdomen near the midline. After performing a right hemicolectomy and [id number] functional end-to-end ileocolic anastomosis, the anastomosis was palpably patent. There was no undue tension on the anastomosis. No other significant intraabdominal pathology was identified. At the conclusion of the operation, the sponge, needle, and instrument counts were correct. The hernia was able to be repaired primarily with closure of the fascia. The incision extended superiorly up to that area. The incarcerated tissue was Murcia ligament/abdominal wall fat/preperitoneal fat. There was no bowel involvement. In addition, diverticuli were seen on the proximal to mid jejunum, which did not appear to be pathologic as there was no chronic or acute inflammatory changes associated with the diverticuli. The diverticuli were wide mouthed and nonpathologic. At the conclusion of the operation, there was no evidence for iatrogenic injury. The sponge, needle and instrument counts were correct. DESCRIPTION OF PROCEDURE IN DETAIL: After the benefits and risks of procedure were explained to the patient, which include but not limited to risks of bleeding, infection, injury to the bowel and underlying organs, risks of DVT, pulmonary embolus, postoperative pain, postoperative expectations, informed consent was obtained. The patient was identified in the preoperative holding area. She was given IV antibiotics as documented in the chart in line with the SCIP protocol. The patient was then taken to the operating room and she was placed in the supine position. SCDs were placed on the patient's bilateral lower extremities and pneumatic compression was initiated. The patient was then given IV sedation and she was intubated without incident. A time-out was then performed to identify the correct patient and procedure. Local anesthetic was infiltrated into the skin and subcutaneous tissue in the upper abdomen where a longitudinal 5 mm incision was made. A 5 mm Visiport was placed intraperitoneally with a 0-degree angled laparoscope. Pneumoperitoneum was achieved with insufflation of carbon dioxide to 15 mmHg. A 30-degree angled laparoscope was then inserted. A suprapubic 5 mm and left lower quadrant 5 mm ports were each placed under direct visualization after local anesthetic was infiltrated into the skin and subcutaneous tissue and appropriately sized incisions were made. The midline incisions were vertical; the left lower quadrant incision was transverse. [facility] [address] [place] [address] OPERATIVE REPORT Name: SIN RAMOS Room #: 305-P [facility] IN [place]#: [id number] Admission: 04/20/17 Attend Phys: Herrera Travis MD Discharge: Date of : 38 Report #: [id number] The patient was placed in the Trendelenburg position, rotated to her left. The white line of Toldt was divided with appropriate traction and use of the ultrasonic dissector. A port was placed in the right lower quadrant of the abdomen under direct visualization to help with retraction. Dissection was carried up around the hepatic flexure. Decision was then made to enter the lesser sac. The gastrocolic omentum was opened with the ultrasonic dissector and appropriate traction. Dissection was carried up around the hepatic flexure of the colon. The tissue between the colon and gallbladder was carefully divided. The underlying duodenum was able to be identified and was protected throughout. Mobilization of the hepatic flexure, continued in a similar fashion. After the colon was adequately mobilized with care taken to dissect as far distally as necessary, an incision was made in the upper midline including the vertical port site incision. Electrocautery was used to dissect through the subcutaneous tissue down to the fascia. The fascia was then opened longitudinally. The terminal ileum had been grasped with an atraumatic grasper. This was delivered through the incision initially. An appropriate transection site was chosen. A blue load 75-mm MAURICIO stapler was then used to staple and divide the terminal ileum in this area with, in this area, which was approximately 8-10 cm proximal to the ileocecal valve. The mesentery was then divided. The suture was placed on the antimesenteric corner of the more proximal bowel. This was delivered through a wound protector/gel port. The Gelport was then placed. The inner sleeve was folded over to serve as a wound protector. The terminal ileum, cecum and transverse colon were then delivered through the opening, through the wound protector. An appropriate transection site in the transverse colon 10 cm from the tattooed area was chosen for the site of transection. The mesentery was opened with electrocautery. Blue load 75 mm MAURICIO stapler was then used to staple and divide the colon in this area. The mesentery was divided with the ultrasonic dissector and it was divided with the LigaSure impact device with good hemostasis. The mesentery was fully divided and the specimen was removed to be sent for pathologic evaluation. There was good hemostasis of the mesentery. The [id number]-[id number] functional end-to-side anastomosis was then created in a stapled fashion. The antimesenteric corners of the bowel and colon were aligned. Excess fat on the colon was cleaned off of the colon with electrocautery. A 3-0 PDS suture was then used to approximate the antimesenteric corners of the colon and bowel. The antimesenteric corners were then excised. Each limb of the 75 mm blue load MAURICIO stapler was then passed down to each limb of the bowel and colon. The stapler was then fired and removed. The common enterocolotomy was grasped with Allis clamps. A blue load 65 mm [place] stapler was then used to staple off the common enterocolotomy. The tissue was excised and sent for specimen as well. After releasing the stapler, a 3-0 PDS suture was placed in the crotch of the anastomosis for reinforcement and to serve as an anti-tension suture. The common enterocolotomy staple line was oversewn with interrupted 3-0 PDS sutures to imbricate the staple line. The [address] [address] OPERATIVE REPORT Name: SIN RAMOS Room #: 305-P [facility] IN M.R.#: [id number] Admission: 04/20/17 Attend Phys: Herrera Travis MD Discharge: Date of : 38 Report #: [id number] anastomosis was palpably patent. The mesenteric defect between the two was quite large and did not necessitate closure. It was again ensured that there was no twisting of the small bowel and that there was no tension on the anastomosis. The anastomosis was then returned to the abdominal cavity. The Gelport was connected and the abdominal cavity was reinsufflated. The laparoscope was then used to confirm no twisting of the bowel and colon. Other findings are as noted above. The abdominal cavity was then desufflated and the Gelport and wound protector were removed. A running #1 PDS suture was then used to approximate the fascial opening, which included the hernia. The herniated content had been sent for specimen. The abdominal cavity was palpated beneath the suture to ensure no incorporation of bowel or other intraabdominal content with the closure. The suture was then tied. The wound was irrigated with normal saline. A running 4-0 Stratafix suture was then used to close the midline skin. The other incisions were closed with interrupted subcuticular 4-0 Monocryl sutures. Dermabond was applied to each suture line. The patient tolerated the procedure well. She was awakened, extubated, and taken to recovery room in stable condition with no apparent intraoperative complications. <ELECTRONICALLY SIGNED> By: Carlos Draper MD, FACS 04/28/17 0830 2157 0013 Carlos Draper MD, FACS /nt
--- NOTE | ~2017-04-20 | S ---
[facility] [place] [address] SURGICAL PATH RPT PROCEDURE Name: ANDRESSA RUTLEDGE Room #: 305-P [facility] IN M.R.#: [id number] Admission: 04/20/17 Date of : 36 Discharge: 05/04/17 Report #: [id number] Path Case #: [id number] PATHOLOGY REPORT COLLECTION DATE: 04/27/2017 RECEIVED DATE: 04/28/2017 SUBMITTING PHYS: Dr. Carlos Draper OTHER PHYS: Dr. Herrera Hall ADDENDUM REPORT (Order Date: 05/06/2017 09:35) ADDENDUM COMMENT: Per [facility] Cancer committee protocol, mismatch repair (MMR) protein immunohistochemical staining was performed. Reason for testing: To evaluate for evidence of defective mismatch repair proteins. Method: Immunohistochemical staining for the presence or absence of protein expression of one or more of the following MMR protein markers: MLH1, MSH2, MSH6 and PMS2. Tumor type: Invasive carcinoma Results: MLH1 - Preserved (Weak positive) MSH2 - Preserved MSH6 - Preserved (Weak positive) PMS2 - Preserved Mismatch Repair Status: MMR Proficient (MMR-P) Interpretation: All four MMR proteins are preserved within tumor cells. This suggests the presence of normal DNA mismatch repair function within the tumor and an observable defect in mismatch repair is not identified. The likelihood that this patient has an inherited germline mutation syndrome due to defective mismatch repair is reduced but not totally eliminated. If the patient has a strong personal or family history of HPNCC/Beatty syndrome related cancers (colorectal, endometrial, gastric, ovarian, pancreatic, ureter/renal pelvis, biliary tract, brain, small bowel and Hildebran-Mani syndrome), consider MSI testing by PCR methodology. Suggest clinical correlation and follow up. Co-review: Dr. Jazmine Baeza. These test results are designed for screening purposes only and are useful tools in identifying cancer patients that are more likely to have Beatty Syndrome related diagnoses. Tests should be interpreted in the context of clinical findings, family history and laboratory data. 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 (IUV:saniya;05/06/2017) Professional services performed by [facility] at [facility] [address] [place] [address] Technical services performed by [facility] at [address] [place] [address], [address] [place] [address]. ELECTRONICALLY SIGNED BY: Michelle Bermudez M.D. DATE/TIME:05/06/2017 11:40 SPECIMEN(S) RECEIVED: A.Incarcerated hernia contents B.Terminal ileum and transverse colon * * * * * * * * * * * * FINAL DIAGNOSIS: A. Incarcerated hernia contents, repair: - Fibroadipose tissue with congestion and reactive changes. B. Small bowel and Large intestine, terminal ileum, appendix, right colon and portion of transverse colon, extended right hemicolectomy: - INVASIVE MODERATELY DIFFERENTIATED ADENOCARCINOMA ARISING IN A BACKGROUND OF TUBULAR ADENOMA WITH HIGH GRADE DYSPLASIA; INVADES MUSCULARIS PROPRIA. - SECOND 5.7 CM POLYP SHOWING A TUBULAR ADENOMA WITH FOCI OF HIGH GRADE DYSPLASIA. - Third 1.2 cm polyp showing tubular adenoma without high grade dysplasia. - Margins of resection widely free of dysplasia or malignancy. - 21 reactive lymph nodes without malignancy (0/21). - Appendix with no diagnostic abnormalities. - Omentum with reactive changes; negative for malignancy. SYNOPTIC CANCER STAGING REPORT SPECIMEN Specimen: Terminal ileum Cecum Appendix Ascending colon Transverse colon Procedure: Right hemicolectomy TUMOR [facility] [address] [place] [address] SURGICAL PATH RPT PROCEDURE Name: RACHELANDRESSA L Room #: 305-P [facility] IN M.R.#: [id number] Admission: 04/20/17 Date of : 36 Discharge: 05/04/17 Report #: [id number] Path Case #: [id number] Primary Tumor Site: Right (ascending) colon Histologic Type: Adenocarcinoma Histologic Grade: Low-grade (well differentiated to moderately differentiated) Tumor Size: Greatest dimension (cm): 2.9 Additional Dimension (cm): 2.7 Additional Dimension (cm): 0.9 Tumor Deposits: Not identified Tumor Extent Site(s) of Direct Extent of Tumor: None identified Microscopic Tumor Extension: Tumor invades muscularis propria Macroscopic Tumor Perforation: Not Identified Accessory Tumor Findings Lymph-Vascular Invasion: Not identified Perineural Invasion: Present MARGINS All margins uninvolved by invasive carcinoma Distance of Invasive Carcinoma from Closest Margin: Specify (cm): 8.8 Specify Margin: Proximal For Resection Specimens Only Proximal Margin: Uninvolved by invasive carcinoma Distance of Tumor from Margin: Specify (cm): 8.8 Distal Margin: Uninvolved by invasive carcinoma Distance of Tumor from Margin (required only for rectal tumors): Specify (cm): 22 Circumferential (Radial) Margin: Not applicable Mesenteric Margin: Uninvolved by invasive carcinoma Distance of Tumor from Margin: Specify (cm): 5.5 LYMPH NODES Regional Lymph Nodes: Number of Lymph Nodes Examined: Specify number: 21 Number of Lymph Nodes Involved: Specify number: 0 STAGE (PTNM) Primary Tumor (pT): pT2: Tumor invades muscularis propria Regional Lymph Nodes (pN): pN0: No regional lymph node metastasis COMMENT: Slides B3 and B4 coreviewed [address] Dr. Jazmine Baeza who concurs with my diagnosis. MSI markers (MLH1, MSH1, MSH6 and PMS2 immunohistochemical stains) [address] [address] SURGICAL PATH RPT PROCEDURE Name: ANDRESSA RUTLEDGE Room #: 897-P [facility] IN Rufino#: [id number] Admission: 04/20/17 Date of : 36 Discharge: 05/04/17 Report #: [id number] Path Case #: [id number] are ordered on block B4 and the results will be reported in an addendum to follow. (IUV; 04/30/17) PATHOLOGIST: Michelle Bermudez M.D. REPORT ELECTRONICALLY SIGNED BY: Michelle Bermudez M.D. DATE/TIME: 04/30/2017 17:33 * * * * * * * * * * * * GROSS PATHOLOGY: A. Received in formalin, labeled "Andressa Rutledge-Incarcerated hernia contents" is a 6.3 x 3.4 x 2.0 cm yellow-faust lobular fatty tissue fragment. The specimen is sectioned to reveal a bright yellow, predominantly fatty cut surface. No discrete hemorrhage or necrosis is grossly identified. Shoe Turner sections are submitted in cassette A1. B. Received in formalin, labeled "Andressa Rutledge-Terminal ileum and transverse colon" is a 26 cm segment of ascending colon, ranging in circumference from approximately 8.5 cm up to approximately 12 cm. There is an attached segment of terminal ileum measuring 7.5 cm in length by 1.9 cm in average diameter. The serosa is faust-christianson, smooth and glistening. The attached yellow lobular mesentery runs the length of the specimen and measures up to 6 cm. The specimen is opened along the antimesenteric aspect to reveal 2 faust-red polypoid masses. For grossing purposes, these will be denoted mass #1 and mass #2, from proximal to distal. Mass #1 measures 2.9 x 2.7 x 0.9 cm. Mass #1 is located approximately 1.3 cm from the appendiceal orifice, adjacent to the ileocecal valve, and approximately 22 cm from the colonic resection margin. This mass is anti-mesenteric and is located approximately 5.5 cm from the closest mesenteric resection margin. The mass invades through the muscularis propria grossly. Mass #2 measures approximately 5.7 x 2.7 x 1.3 cm. Mass #2 is located 10 cm from the ileocecal valve and 7.5 cm from the colonic resection margin. This mass is predominately mesenteric and is located approximately 2 cm from the closest mesenteric resection margin. Mass #2 grossly appears to involve the adjacent muscularis propria. Additionally, there is a 1.2 x 0.9 x 0.6 cm faust-pink apparent polyp located 4.3 cm distal to mass #1, 6.1 cm proximal to mass #2, approximately 4.5 cm from the ileocecal valve, and approximately 16.5 cm from the colonic resection margin. Grossly, the polyp appears confined to the mucosal surface. The remainder of the mucosa appears grossly unremarkable. At the base of the cecum, there is a 7.6 cm vermiform appendix measuring 0.6 cm in average diameter. The appendix is sectioned and appears grossly unremarkable. The attached mesenteric tissue is palpated to [address] [address] SURGICAL PATH RPT PROCEDURE Name: RACHELANDRESSA Room #: 305-P [facility] IN M.R.#: [id number] Admission: 04/20/17 Date of : 36 Discharge: 05/04/17 Report #: [id number] Path Case #: [id number] reveal multiple possible lymph nodes. Represent a sections are submitted as follows: B1-colonic resection margin, en face B2-ileal resection margin, en face P6-T5-vuwiqijnallnfr sections of mass #1 (B5 is mass #1 to ileocecal valve) B6-mesenteric resection margin closest to mass #1, en face W1-Q81-kaeoorgfgijcvr sections of mass #2 C53-hlpgpuamdm resection margin closest to mass #2, en face D18-C99-bbdms described above, trisected in its entirety G89-gaogwafjgsulsv sections of appendix (proximal aspect inked black) B15-2 possible lymph nodes B16-6 possible lymph nodes B17-6 possible lymph nodes B18-3 possible lymph nodes, one inked black, one inked blue, and all bisected B19-1 possible lymph node, bisected B20-1 possible lymph node, sectioned C57-V35-4 possible lymph node, sectioned Also within the container, there are 2 additional tissue fragments measuring 5.5 x 3.5 x 1.5 cm in aggregate. The smaller tissue fragment appears consistent with an additional segment of colon. This tissue displays silver metallic kalie and blue suture material, grossly suggestive of a donut. The sutures and kalie are removed, and the tissue is sectioned. No discrete masses are grossly identified. The second portion of tissue is yellow-faust and lobular, consistent with omental tissue. This tissue is sectioned, and no discrete masses or lesions are grossly identified. Shoe Turner sections of this tissue (including the smaller tissue fragment in its entirety) are submitted in cassettes B24-B25. ([facility]; 04/29/2017) CLINICAL HISTORY: Colon mass plus incarcerated hernia INITIAL CPT CODE(S): A; 66914 B; 85097, 06837, 99807, 63537, 93237 Professional services performed by [facility] at [facility] [address] [place] [address] Technical services performed by [facility] at [address] [place] [address], [address], [place] [address]. [facility] [address] [place] [address] SURGICAL PATH RPT PROCEDURE Name: LON RUTLEDGENga Clement Room #: 305-P [facility] IN M.R.#: [id number] Admission: 04/20/17 Date of : 36 Discharge: 05/04/17 Report #: [id number] Path Case #: [id number] [facility] [address] [address] PHONE: [phone] DIRECTOR: Jag Alatorre M.D. * * * END OF REPORT * * *
--- NOTE | ~2017-04-20 | P ---
[facility] [place] [address] [place] [address] PROCEDURE REPORT Name: SIN RAMOS Room #: 305-P ADM IN M.R.#: [id number] Admission: 04/20/17 Attend Phys: Herrera Travis MD Discharge: Date of : 36 Report #: [id number] THIS REPORT FOR: //name// CC: Aishwarya Travis MD DATE OF SERVICE: 04/22/2017 PATIENT OF: Dr. Herrera Travis and Dr. Aishwarya De Souza. INDICATION FOR PROCEDURE: The patient has had dark stools, heme positive, on oral iron. Hemoglobin was 6.6 on admission. She has a history of multiple duodenal ulcers in November of this year. EGD is being performed as a diagnostic test as the patient has been on Plavix until 48 hours ago to see if anything is bleeding in her top side at all. Informed consent for this procedure was obtained prior to the administration of any medication. The risks of the procedure, which include bleeding, perforation, infection, complications of sedation and the possibility I could miss something have been explained to the patient and she has indicated her consent by signing. Propofol was slowly titrated before and during this procedure for the patient comfort by the anesthesia service. The [employer] upper videoscope was introduced through the upper esophageal sphincter and advanced under direct visualization to the descending duodenum. Findings are noted on withdrawal of the scope. The duodenal mucosa appears normal throughout its entirety. There was bile in the second portion of the duodenum. Pylorus, normal mucosa. Antrum, mild erythema is noted. No biopsies are taken as the patient has been on Plavix as mentioned above. Body, normal mucosa. Cardia and fundus, normal mucosa. Retroflex view did not reveal any abnormalities. I saw no ulcerations in the stomach or the duodenum. The scope was withdrawn to the esophagus. The Z-line is appropriately located at the top of the gastric folds and appears normal. The esophageal mucosa appears normal throughout its entirety. The scope was withdrawn. The patient went to the recovery area in stable condition. She tolerated the procedure well. IMPRESSION: Normal EGD to descending duodenum except for some mild erythema of the antrum. RECOMMENDATION: My recommendations are to start her on a clear liquid diet. She will be off Plavix for 4 days by Thursday and I would recommend that we prep her tomorrow for a colonoscopy on Thursday that will be 4 days off of Plavix. [address] [address] PROCEDURE REPORT Name: SIN RAMOS Room #: 305-P [facility] IN .#: [id number] Admission: 04/20/17 Attend Phys: Herrera Travis MD Discharge: Date of : 38 Report #: [id number] Thank you very much once again for allowing me to participate in her care, Dr. Travis. <ELECTRONICALLY SIGNED> By: Elisha Anderson DO 04/22/17 1400 1202 1220 Elisha Anderson DO /nt
--- NOTE | ~2017-04-20 | HC ---
[facility] [place] [address] CONSULTATION Name: SIN RAMOS Room #: 305-P [facility] IN ..#: [id number] Admission: 04/20/17 Attend Phys: Herrera Travis MD Discharge: Date of : 36 Report #: [id number] THIS REPORT FOR: //name// CC: Aishwarya Travis ATTENDING PHYSICIAN: Dr. Herrera Travis. REASON FOR CONSULTATION: Unresectable colonic polyps/masses. HISTORY OF PRESENT ILLNESS: This is a 76-year-old female patient who was admitted on 04/20/2017. She was seen by her primary care physician and found to be anemic. She reports passage of black stools, attributable esophagitis and peptic ulcer disease diagnosed in November 2016. She was placed on proton pump inhibitors. EGD on this admission was essentially negative. She underwent colonoscopy, which showed unresectable polyps/masses at the transverse colon and ileocecal valve. Dr. Lawson tattooed both areas. I have been asked to see the patient for further evaluation and treatment. PAST MEDICAL HISTORY: Significant for diabetes mellitus, anemia, hypertension, hypercholesterolemia, respiratory failure, hypothyroidism, stage III CKD, peptic ulcer disease, peripheral vascular disease. PAST SURGICAL HISTORY: Includes right below the knee amputation. MEDICATIONS: Colace, Levemir insulin, NovoLog insulin, carvedilol, atorvastatin, torsemide, iron, glipizide, losartan, Plavix, Synthroid. FAMILY HISTORY: Reviewed and noncontributory to this hospitalization. SOCIAL HISTORY: Denies use of tobacco, alcohol, or illicit drugs. REVIEW OF SYSTEMS: As per history of present illness. In addition, GENERAL: The patient denies any unintentional weight loss. Denies fever or chills. CARDIOVASCULAR: Denies chest pain or palpitations. RESPIRATORY: Denies shortness of breath or COPD. GASTROINTESTINAL: Denies nausea, vomiting, diarrhea, bright red blood per rectum, or constipation. GENITOURINARY: Denies dysuria, urgency, increased urinary frequency or hematuria. MUSCULOSKELETAL: Denies myalgia, arthralgia or arthritis. NEUROLOGIC: Denies headaches, numbness or tingling. PSYCHIATRIC: Denies depression, anxiety or suicidal ideation. SKIN AND INTEGUMENTARY: Denies new skin lesions, rashes or moles. ENDOCRINE: Denies polydipsia, polyuria, heat or cold intolerance. HEMATOLOGIC: Reports anemia. Easy bleeding and bruising on Plavix. [address] [address] CONSULTATION Name: SIN RAMOS Room #: 305-P [facility] IN [facility]#: [id number] Admission: 04/20/17 Attend Phys: Herrera Travis MD Discharge: Date of : 38 Report #: [id number] All other review of systems is negative. PHYSICAL EXAMINATION: VITAL SIGNS: Temperature afebrile, blood pressure 129/64, pulse 97, respirations 16. GENERAL: This is a 76-year-old -Congolese female patient in no acute distress. HEENT: Atraumatic, normocephalic with moist mucosal membranes. Oropharynx is clear. She has no scleral icterus. NECK: Supple. No appreciable lymphadenopathy. Trachea is midline. CHEST: Clear bilaterally. No crackles or wheezes. CARDIOVASCULAR: Regular rate and rhythm. ABDOMEN: Soft, nontender, nondistended. No palpable masses, rebound or guarding. GENITOURINARY: Normal external female genitalia. EXTREMITIES: No clubbing, cyanosis or edema of her left lower extremity; right lower extremity BKA changes. NEUROLOGIC: Cranial nerves 2-12 are grossly intact. PSYCHIATRIC: Normal mood and affect. SKIN AND INTEGUMENTARY: No acute inflammatory changes, rashes or lesions are present. LABORATORY DATA: CBC from this morning showed a normal white blood cell count and hemoglobin last night was 8.8. IMPRESSION AND PLAN: This is a 76-year-old female with unresectable polyps of the transverse colon and ileocecal valve. We discussed the pathophysiology and natural history of unresectable polyps and possible colon cancer. We then discussed treatment alternatives and surgical options. The patient would benefit from laparoscopic partial colectomy. We discussed the risks, benefits, and expectations of operation in detail. The patient expressed understanding and wishes to proceed. I will discuss further with Dr. Lawson. I sincerely appreciate the opportunity to participate in the care of this patient and I will leave further recommendations and orders in the electronic medical record as appropriate. <ELECTRONICALLY SIGNED> By: Carlos Draper MD, FACS 04/27/17 1439 [id number] [id number] Carlos Draper MD, FACS /nt
[2017-04-20 20:11] VITALS: BP 123/51
[2017-04-20 21:00] LABS: HEMOGLOBIN 7.3 gm/dL (12.0-15.0); MCH 31.2 pg (26.0-34.0); MCHC 33.4 g/dL (28.0-37.0); MCV 93.3 fL (80.0-100.0); PLATELET COUNT 171 thou/uL (150-400); RBC 2.36 mil/uL (4.20-5.00); RDW 13.4 % (10.5-14.5); WBC 4.7 thou/uL (4.0-11.0)
[2017-04-20 21:01] LABS: MANUAL DIFF YES
[2017-04-20 21:09] LABS: CALCIUM 8.7 mg/dL (8.5-10.1); CREATININE 3.1 mg/dL (0.6-1.0); POTASSIUM 4.9 mmol/L (3.5-5.1)
[2017-04-20 21:14] LABS: ALBUMIN 3.4 g/dL (3.4-5.0); TOTAL BILIRUBIN 0.2 mg/dL (<0.1-1.0); TOTAL PROTEIN 7.3 g/dL (6.4-8.2)
[2017-04-20 21:22] LABS: ABSOLUTE NEUTROPHILS 2.4 thou/uL (1.4-8.2); TOTAL CELL COUNT 100
[2017-04-20 22:36] VITALS: BP 123/51
[2017-04-20 23:10] VITALS: BP 134/55
[2017-04-21] VITALS (9 sets, daily range): BP systolic 124–146; BP diastolic 49–61
[2017-04-21] MEDS ORDERED: ZANTAC 150MG T150 MG PO (01:16)
[2017-04-21] MEDS ORDERED: COREG6.25 MG PO (01:21)
[2017-04-21] MEDS ORDERED: LIPITOR10 MG PO (01:22)
[2017-04-21] MEDS ORDERED: DEMADEX20 MG PO (01:25)
[2017-04-21 10:01] LABS: HEMATOCRIT 26.9 % (37.0-47.0); MCH 31.7 pg (26.0-34.0); MCHC 34.5 g/dL (28.0-37.0); MCV 91.8 fL (80.0-100.0); RBC 2.93 mil/uL (4.20-5.00); RDW 13.5 % (10.5-14.5); WBC 5.9 thou/uL (4.0-11.0)
[2017-04-21 10:08] LABS: HEMOGLOBIN 9.3 gm/dL (12.0-15.0)
[2017-04-21 10:17] LABS: CALCIUM 8.5 mg/dL (8.5-10.1); CREATININE 2.5 mg/dL (0.6-1.0); POTASSIUM 4.9 mmol/L (3.5-5.1)
[2017-04-22 04:25] VITALS: BP 147/62
[2017-04-22 04:47] LABS: HEMATOCRIT 26.6 % (37.0-47.0); HEMOGLOBIN 9.1 gm/dL (12.0-15.0); MCH 31.8 pg (26.0-34.0); MCHC 34.2 g/dL (28.0-37.0); RBC 2.86 mil/uL (4.20-5.00); RDW 13.8 % (10.5-14.5); WBC 7.1 thou/uL (4.0-11.0)
[2017-04-22 04:54] LABS: CALCIUM 8.3 mg/dL (8.5-10.1); CREATININE 2.1 mg/dL (0.6-1.0); POTASSIUM 4.8 mmol/L (3.5-5.1)
[2017-04-22 16:41] VITALS: BP 174/83
[2017-04-22 19:17] VITALS: BP 153/70
[2017-04-23 02:50] VITALS: BP 145/68
[2017-04-23 09:13] VITALS: BP 140/54
[2017-04-23 10:46] LABS: HEMATOCRIT 26.4 % (37.0-47.0); HEMOGLOBIN 8.8 gm/dL (12.0-15.0)
[2017-04-23 15:54] VITALS: BP 147/74
[2017-04-23 20:00] VITALS: BP 159/68
[2017-04-24 04:00] VITALS: BP 149/64
[2017-04-24 04:39] LABS: HEMATOCRIT 26.1 % (37.0-47.0); HEMOGLOBIN 8.7 gm/dL (12.0-15.0); MCH 31.3 pg (26.0-34.0); MCHC 33.3 g/dL (28.0-37.0); MCV 94.1 fL (80.0-100.0); RBC 2.78 mil/uL (4.20-5.00); RDW 13.4 % (10.5-14.5); WBC 7.8 thou/uL (4.0-11.0)
[2017-04-24 04:46] LABS: CREATININE 1.5 mg/dL (0.6-1.0); POTASSIUM 5.4 mmol/L (3.5-5.1)
[2017-04-24 17:45] VITALS: BP 184/85
[2017-04-24 20:00] VITALS: BP 153/64
[2017-04-25 04:10] VITALS: BP 177/71
[2017-04-25 08:29] VITALS: BP 172/92
[2017-04-25 17:05] VITALS: BP 164/81
[2017-04-25 20:10] VITALS: BP 171/81
[2017-04-26 04:00] VITALS: BP 157/71
[2017-04-26 05:56] LABS: HEMATOCRIT 26.7 % (37.0-47.0); HEMOGLOBIN 9.1 gm/dL (12.0-15.0); MCH 31.5 pg (26.0-34.0); MCHC 34.1 g/dL (28.0-37.0); MCV 92.2 fL (80.0-100.0); RBC 2.9 mil/uL (4.20-5.00); RDW 13.3 % (10.5-14.5); WBC 5.8 thou/uL (4.0-11.0)
[2017-04-26 06:06] LABS: CALCIUM 8.5 mg/dL (8.5-10.1); CREATININE 1.1 mg/dL (0.6-1.0); POTASSIUM 4.9 mmol/L (3.5-5.1)
[2017-04-26 08:00] VITALS: BP 172/81
[2017-04-26 16:00] VITALS: BP 144/73
[2017-04-26 20:00] VITALS: BP 147/64
[2017-04-27] VITALS (11 sets, daily range): BP systolic 114–161; BP diastolic 52–81
[2017-04-28 00:30] VITALS: BP 148/55
[2017-04-28 03:50] VITALS: BP 149/74
[2017-04-28 07:47] VITALS: BP 127/51
[2017-04-28 16:12] VITALS: BP 102/60
[2017-04-28 20:00] VITALS: BP 125/50
[2017-04-29 04:00] VITALS: BP 123/49
[2017-04-29 08:00] VITALS: BP 117/55
[2017-04-29 09:02] LABS: RBC 2.14 mil/uL (4.20-5.00)
[2017-04-29 09:05] LABS: HEMATOCRIT 20.2 % (37.0-47.0); MCH 31.2 pg (26.0-34.0); MCV 94.4 fL (80.0-100.0); RDW 13.6 % (10.5-14.5); WBC 8.5 thou/uL (4.0-11.0)
[2017-04-29 09:10] LABS: HEMOGLOBIN 6.7 gm/dL (12.0-15.0)
[2017-04-29 09:18] LABS: CALCIUM 7.6 mg/dL (8.5-10.1); CREATININE 1.7 mg/dL (0.6-1.0); POTASSIUM 4.7 mmol/L (3.5-5.1)
[2017-04-29 11:11] VITALS: BP 123/47; BP 128/48
[2017-04-29 15:20] VITALS: BP 129/50
[2017-04-29 15:30] VITALS: BP 129/50; BP 136/60; BP 145/67
[2017-04-29 19:40] VITALS: BP 132/67
[2017-04-30 03:50] VITALS: BP 128/65
[2017-04-30 06:41] LABS: HEMATOCRIT 27.1 % (37.0-47.0)
[2017-04-30 06:44] LABS: HEMOGLOBIN 9.1 gm/dL (12.0-15.0)
[2017-04-30 07:30] VITALS: BP 154/77
[2017-04-30 16:11] VITALS: BP 146/69
[2017-04-30 17:47] VITALS: BP 139/71
[2017-04-30 19:48] VITALS: BP 152/56
[2017-05-01 04:22] VITALS: BP 112/61
[2017-05-01 07:45] VITALS: BP 156/80
[2017-05-01 08:53] LABS: HEMOGLOBIN 9.7 gm/dL (12.0-15.0); MCH 31.1 pg (26.0-34.0); MCHC 33.7 g/dL (28.0-37.0); MCV 92.4 fL (80.0-100.0); RBC 3.13 mil/uL (4.20-5.00); RDW 14.1 % (10.5-14.5); WBC 6.6 thou/uL (4.0-11.0)
[2017-05-01 09:00] LABS: CALCIUM 8.1 mg/dL (8.5-10.1); CREATININE 1.3 mg/dL (0.6-1.0); POTASSIUM 4.4 mmol/L (3.5-5.1)
[2017-05-01 16:33] VITALS: BP 153/78
[2017-05-01 20:00] VITALS: BP 150/71
[2017-05-02 04:10] VITALS: BP 164/84
[2017-05-02 08:21] VITALS: BP 162/73
[2017-05-02 12:46] LABS: HEMATOCRIT 29.1 % (37.0-47.0); HEMOGLOBIN 9.8 gm/dL (12.0-15.0); MCH 30.9 pg (26.0-34.0); MCHC 33.8 g/dL (28.0-37.0); MCV 91.5 fL (80.0-100.0); RBC 3.18 mil/uL (4.20-5.00); RDW 13.8 % (10.5-14.5); WBC 5.8 thou/uL (4.0-11.0)
[2017-05-02 13:14] LABS: CALCIUM 8.1 mg/dL (8.5-10.1); CREATININE 1.3 mg/dL (0.6-1.0); POTASSIUM 4.4 mmol/L (3.5-5.1)
[2017-05-02 16:36] VITALS: BP 128/58
[2017-05-02 20:00] VITALS: BP 145/64
[2017-05-03 04:00] VITALS: BP 139/54
[2017-05-03 09:03] VITALS: BP 146/67
[2017-05-03 09:07] LABS: HEMATOCRIT 29.4 % (37.0-47.0); MCV 91.4 fL (80.0-100.0); RBC 3.22 mil/uL (4.20-5.00); RDW 13.8 % (10.5-14.5); WBC 6.1 thou/uL (4.0-11.0)
[2017-05-03 09:15] LABS: ANION GAP 7 mmol/L (7-16); BUN 26 mg/dL (7-18); CALCIUM 8.4 mg/dL (8.5-10.1); CHLORIDE 109 mmol/L (98-107); CO2 25 mmol/L (21-32); CREATININE 1.4 mg/dL (0.6-1.0); GLUCOSE 67 mg/dL (74-106); POTASSIUM 3.7 mmol/L (3.5-5.1); SODIUM 141 mmol/L (136-145)
[2017-05-03 09:22] LABS: TROPONIN-I < 0.04 ng/mL (<0.04-0.07)
[2017-05-03 09:32] LABS: MAGNESIUM 0.8 mg/dL (1.8-2.4)
[2017-05-03 16:57] LABS: CALCIUM 8.2 mg/dL (8.5-10.1); CREATININE 1.6 mg/dL (0.6-1.0); MAGNESIUM 1.5 mg/dL (1.8-2.4); POTASSIUM 4.6 mmol/L (3.5-5.1)
[2017-05-03 17:06] VITALS: BP 141/62
[2017-05-03 19:17] VITALS: BP 120/45
[2017-05-04 04:15] VITALS: BP 136/55
[2017-05-04 07:43] VITALS: BP 155/59
[2017-05-04 08:06] LABS: CALCIUM 8.4 mg/dL (8.5-10.1); CREATININE 1.7 mg/dL (0.6-1.0); POTASSIUM 3.8 mmol/L (3.5-5.1)
[2017-05-04] MEDS ORDERED: AMLODIPINE BESY10 MG PO (13:37)
[2017-05-04] MEDS ORDERED: LOPRESSOR25 PO (13:38)
== END 2017-05-04 13:46 | DRG 329 ==
LOC: ER 20:09 → 3N 21:52 → EROBS 21:52 → 3N 22:35
PROVIDERS: Hospitalist; Internal Medicine; Nurse Practitioner Acute Care; Nurse Practitioner Adult Health; Physician Assistant
PROC: 30233N1 Transfusion of Nonautologous Red Blood Cells into Peripheral Vein, Percutaneous Approach (ICD-10-PCS; 2017-04-21)
PROC: 0DJ08ZZ Inspection of Upper Intestinal Tract, Via Natural or Artificial Opening Endoscopic (ICD-10-PCS; 2017-04-22)
PROC: 0DBL8ZX Excision of Transverse Colon, Via Natural or Artificial Opening Endoscopic, Diagnostic (ICD-10-PCS; 2017-04-24)
PROC: 0DBC8ZX Excision of Ileocecal Valve, Via Natural or Artificial Opening Endoscopic, Diagnostic (ICD-10-PCS; 2017-04-24)
PROC: 0DTF4ZZ Resection of Right Large Intestine, Percutaneous Endoscopic Approach (ICD-10-PCS; principal; 2017-04-27)
PROC: 0WQF4ZZ Repair Abdominal Wall, Percutaneous Endoscopic Approach (ICD-10-PCS; principal; 2017-04-27)
DX: K92.2 Gastrointestinal hemorrhage, unspecified (principal); I50.33 Acute on chronic diastolic (congestive) heart failure; I13.0 Hypertensive heart and chronic kidney disease with heart failure and stage 1 through stage 4 chronic kidney disease, or unspecified chronic kidney disease; K43.6 Other and unspecified ventral hernia with obstruction, without gangrene; D62 Acute posthemorrhagic anemia; N17.9 Acute kidney failure, unspecified; I47.1 Supraventricular tachycardia; D12.3 Benign neoplasm of transverse colon; H40.9 Unspecified glaucoma; D12.0 Benign neoplasm of cecum; K57.10 Diverticulosis of small intestine without perforation or abscess without bleeding; E11.621 Type 2 diabetes mellitus with foot ulcer; L97.509 Non-pressure chronic ulcer of other part of unspecified foot with unspecified severity; E11.649 Type 2 diabetes mellitus with hypoglycemia without coma; N18.3 Chronic kidney disease, stage 3 (moderate); E11.51 Type 2 diabetes mellitus with diabetic peripheral angiopathy without gangrene; I34.0 Nonrheumatic mitral (valve) insufficiency; L53.9 Erythematous condition, unspecified; E03.9 Hypothyroidism, unspecified; E78.00 Pure hypercholesterolemia, unspecified; E11.22 Type 2 diabetes mellitus with diabetic chronic kidney disease; Z89.511 Acquired absence of right leg below knee; Z91.14 Patient's other noncompliance with medication regimen; Z79.4 Long term (current) use of insulin; Z79.899 Other long term (current) drug therapy; Z98.62 Peripheral vascular angioplasty status; Z87.11 Personal history of peptic ulcer disease
CPT/HCPCS: 10096; 23012; 27001; 50010; 50093; 50101; 50221; 50249; 50386; 50455; 50555; 50962; 51435; 51708; 51712; 52265; 53307; 54118; 56462; 56525; 56526; 56530; 57092; 62110; 62900; 70005

== ENCOUNTER → 2017-05-20 | Outpatient (CLI) | payer OTHER ==
[~2017-05-20] MED LIST changes: +COREG6.25 MG PO; +LIPITOR10 MG PO; +LOPRESSOR25 PO; +ZANTAC 150MG T150 MG PO
== END ==
LOC: EDBD → HYPER 01-08 07:10
DX: E11.621 Type 2 diabetes mellitus with foot ulcer (principal); L97.422 Non-pressure chronic ulcer of left heel and midfoot with fat layer exposed; E11.51 Type 2 diabetes mellitus with diabetic peripheral angiopathy without gangrene; D63.1 Anemia in chronic kidney disease; D50.9 Iron deficiency anemia, unspecified; E11.39 Type 2 diabetes mellitus with other diabetic ophthalmic complication; H40.9 Unspecified glaucoma; E03.9 Hypothyroidism, unspecified; E78.00 Pure hypercholesterolemia, unspecified; E11.22 Type 2 diabetes mellitus with diabetic chronic kidney disease; N18.9 Chronic kidney disease, unspecified; I50.9 Heart failure, unspecified; Z79.4 Long term (current) use of insulin; Z79.84 Long term (current) use of oral hypoglycemic drugs; Z89.511 Acquired absence of right leg below knee

== ENCOUNTER 2018-09-19 01:24 | Inpatient (IN) | payer OTHER ==
[~2018-09-19] VITALS: Ht 157.5 cm; Wt 79.4 kg
[2018-09-19] VITALS (7 sets, daily range): BP systolic 97–146; BP diastolic 39–65
--- NOTE | ~2018-09-19 | HC ---
[facility] [place] [address] CONSULTATION Name: SIN RAMOS Urbano Room #: 224-P ADM IN M.R.#: [id number] Admission: 09/19/18 Attend Phys: Felipe Nelson MD Discharge: Date of : 36 Report #: [id number] THIS REPORT FOR: //name// CC: Aishwarya Nelson DATE OF SERVICE: 09/20/2018 PERSONAL PHYSICIAN: Dr. Hall. CHIEF COMPLAINT: Left lateral foot ulceration. HISTORY OF PRESENT ILLNESS: This is a 77-year-old white female who is actually hospitalized for right shoulder pain, which has been present for the past 3 days. The patient states that she has been sleeping on her right side because the ulceration on her left lateral foot causes her pain. The patient describes his pain almost is a neuropathic, burning-type pain and the pain does not radiate. The patient states the pain is worse at night, better during the day. The patient states the ulceration has been present for approximately a year off and on. Says it comes almost where it is actually closed up and then will recur. The patient states that occasionally, she will have what looks like whitish creamy pus-colored fluid that comes out of the ulceration. The patient just placed a Band-Aid over that site. The patient has not sought medical care for the ulceration itself. The patient states she has had a previous ulceration on her right foot, which ended up in a lnneu-kae-xrcx amputation. PAST MEDICAL HISTORY: History of chronic renal failure, diabetes, history of previous right foot wound with now subsequent right vgnbf-nsy-suus amputation, history of hypertension, high cholesterol, congestive heart failure, peripheral arterial disease with a stent in her left leg. CURRENT MEDICATIONS: Multiple and reviewed the patient's medication list. DRUG ALLERGIES: None. SOCIAL HISTORY: The patient does not smoke or drink alcohol. Prior to this, she was living independently. FAMILY HISTORY: Not pertinent to current medical condition. REVIEW OF SYSTEMS: CONSTITUTIONAL: The patient denies fevers or chills. NEUROLOGIC: The patient has overall generalized weakness, but no isolated weakness in arms or legs. EYES: No complaints. ENT: No complaints. [address] [address] CONSULTATION Name: SIN RAMOS Room #: 224-P [facility] IN ..#: [id number] Admission: 09/19/18 Attend Phys: Felipe Nelson MD Discharge: Date of : 36 Report #: [id number] CARDIAC: The patient denies chest pain, palpitations or peripheral edema. RESPIRATORY: The patient denies shortness of breath, cough or wheezes. GASTROINTESTINAL: The patient denies nausea, vomiting or abdominal pain. GENITOURINARY: The patient denies urgency or frequency. MUSCULOSKELETAL: The patient has pain in her right shoulder. SKIN: There is a chronic ulceration on the lateral aspect of the left foot limited to breakdown of subcutaneous tissue. PHYSICAL EXAMINATION: VITAL SIGNS: Temperature 36.3, pulse 77, respirations 18, BP 143/72. GENERAL: This is an alert and oriented x 3, pleasant black female who is in absolutely no distress. HEENT: Normocephalic, atraumatic. Mucous membranes are somewhat dry. Pupils are round. Sclerae are white. NECK: Supple, nontender, without JVD. BACK: Nontender. LUNGS: Clear. HEART: Regular, 2/6 systolic ejection murmur. ABDOMEN: Soft, nontender without organomegaly. EXTREMITIES: The patient has a rwskk-twp-jhym amputation on the right with a prosthesis in place. On the left lower extremity, there is trace edema with 1+ dorsalis pedis and faint posterior tibial pulse. On the lateral aspect of the left foot along the base of fifth metatarsal, is an ulceration, which appears chronic. It is 100% slough covered. There is minimal serous drainage noted, but no actual pus. It is slightly tender to palpation, but the periulcer is without erythema, warmth or tenderness is noted to the exposed bone. NEUROLOGIC: Cranial nerves 2-12 grossly intact. Motor and sensory are grossly intact. LABORATORY DATA: White count 5.1, hemoglobin 7.7. Sed rate was 40. C-reactive protein is pending. Albumin is 2.8. IMPRESSION: 1. Chronic ulceration, left lateral foot limited to breakdown of subcutaneous tissue. 2. Diabetes mellitus with foot ulcer. 3. History of peripheral arterial disease with a stent in the left lower extremity. 4. History of previous right foot infection requiring invgt-mcs-qbgo amputation. 5. Protein calorie malnutrition -- moderate with albumin of 2.8. 6. Generalized debility. 7. Right shoulder pain, unknown etiology. Workup undergoing. PLAN: At this time, we will place the foam dressing over the ulceration pending further workup. Wound culture will be obtained. We will check an arterial [facility] [address] [place] [address] CONSULTATION Name: SIN RAMOS Room #: 224-P ADM IN M.R.#: [id number] Admission: 09/19/18 Attend Phys: Felipe Nelson MD Discharge: Date of : 36 Report #: [id number] Doppler to make sure the patient does not need any intervention on the left lower extremity for healing, make sure we maximize the patient's oral protein supplementation for healing. We utilize physical and occupational therapy for strengthening. Continue all other current medications and we will continue to follow the patient. By: 1513 0625 Bbo Arango MD /shari
[~2018-09-19 01:24] MED LIST changes: -LEVOTHYROXIN0.025 MG PO; +SYNTHROID50 MCG PO
[2018-09-19 03:17] LABS: HEMATOCRIT 25.9 % (37.0-47.0); HEMOGLOBIN 8.6 gm/dL (12.0-15.0); MCH 29.9 pg (26.0-34.0); MCHC 33.1 g/dL (28.0-37.0); MCV 90.3 fL (80.0-100.0); PLATELET COUNT 169 thou/uL (150-400); RBC 2.86 mil/uL (4.20-5.00); RDW 13.2 % (10.5-14.5); WBC 5.9 thou/uL (4.0-11.0)
[2018-09-19 03:25] LABS: CALCIUM 9.1 mg/dL (8.5-10.1); CREATININE 2.2 mg/dL (0.6-1.0); POTASSIUM 5.2 mmol/L (3.5-5.1)
[2018-09-19 03:26] LABS: BE(vivo) -3.4 mmol/L (-2 to +3); HCO3 22.9 mmol/L (22.0-26.0); PCO2 VENOUS 47.1 mmHg (41.0-51.0); PO2 VENOUS 34.9 mmHg (35.0-45.0)
[2018-09-19 03:49] LABS: URINE BILIRUBIN NEGATIVE (Negative); URINE BLOOD 3+ (Negative); URINE CLARITY TURBID; URINE GLUCOSE-RANDOM* 2+ (Negative); URINE KETONES NEGATIVE (Negative); URINE NITRITE-REFLEX NEGATIVE (Negative); URINE PROTEIN (DIPSTICK) 1+ (Negative); URINE SPECIFIC GRAVITY 1.025 (1.005-1.035); URINE UROBILINOGEN 0.2 E.U./dl (0.2-1.0)
[2018-09-19 03:54] LABS: URINE COLOR DARK YELLOW; URINE LEUKOCYTES-REFLEX 2+ (Negative)
[2018-09-19 03:55] LABS: BACTERIA-REFLEX >30 Many /HPF (None Seen); URINE WBC-REFLEX >25 Many /HPF (0-5)
[2018-09-19 03:56] LABS: CASTS None Seen /LPF (None Seen); CRYSTALS None Seen /LPF (None Seen); MUCUS 0-3 Light strn/LPF (None Seen); SQUAMOUS 0-3 Few /LPF (0-3)
[2018-09-19 03:57] LABS: URINE RBC 0-2 Rare /HPF (0-2)
[2018-09-19 04:02] LABS: ABSOLUTE NEUTROPHILS 3.2 thou/uL (1.4-8.2)
[2018-09-19] MEDS ORDERED: LOPRESSOR25 PO (05:34)
[2018-09-19] MEDS ORDERED: TRAZODONE HCL50 MG PO (05:36)
[2018-09-20 00:09] LABS: GLYCOHEMOGLOBIN (HGB A1C) 9.9 % (4.8-5.6)
[2018-09-20 04:03] LABS: HEMATOCRIT 23.2 % (37.0-47.0); HEMOGLOBIN 7.7 gm/dL (12.0-15.0); MCH 30.3 pg (26.0-34.0); MCHC 33.1 g/dL (28.0-37.0); MCV 91.4 fL (80.0-100.0); PLATELET COUNT 156 thou/uL (150-400); RBC 2.54 mil/uL (4.20-5.00); RDW 13.4 % (10.5-14.5); WBC 5.1 thou/uL (4.0-11.0)
[2018-09-20 04:07] VITALS: BP 133/63
[2018-09-20 04:20] LABS: ALBUMIN 2.8 g/dL (3.4-5.0); CALCIUM 8.2 mg/dL (8.5-10.1); CREATININE 2.5 mg/dL (0.6-1.0); MAGNESIUM 1.7 mg/dL (1.8-2.4); POTASSIUM 5.1 mmol/L (3.5-5.1); TOTAL BILIRUBIN 0.2 mg/dL (<0.1-1.0)
[2018-09-20 08:02] VITALS: BP 143/72
[2018-09-20 08:40] LABS: ABSOLUTE NEUTROPHILS 3.2 thou/uL (1.4-8.2); PLATELET ESTIMATE NORMAL
[2018-09-20 17:24] VITALS: BP 119/47
[2018-09-21 07:43] LABS: HEMATOCRIT 24.6 % (37.0-47.0); HEMOGLOBIN 8.2 gm/dL (12.0-15.0); MCH 30.5 pg (26.0-34.0); MCHC 33.3 g/dL (28.0-37.0); MCV 91.6 fL (80.0-100.0); RBC 2.69 mil/uL (4.20-5.00); RDW 13.8 % (10.5-14.5); WBC 6.6 thou/uL (4.0-11.0)
[2018-09-21 07:45] VITALS: BP 154/66
[2018-09-21 07:52] LABS: CALCIUM 8.6 mg/dL (8.5-10.1); CREATININE 1.9 mg/dL (0.6-1.0); MAGNESIUM 1.9 mg/dL (1.8-2.4)
[2018-09-21 09:50] LABS: FOLIC ACID 6.1 ng/mL (8.6-58.9)
[2018-09-21] MEDS ORDERED: CEFUROXIME250 MG PO (13:54)
[2018-09-21] MEDS ORDERED: LOPRESSOR25 PO (13:54)
[2018-09-21 14:02] VITALS: BP 154/66
[2018-09-21 21:03] VITALS: BP 154/66
== END 2018-09-21 21:00 | disposition home health service (06) | DRG 683 ==
LOC: ER 01:24 → EROBS 04:10 → 4E 04:10 → SICU 09-20 16:58
PROVIDERS: Internal Medicine; Nurse Practitioner Acute Care; Student in an Organized Health Care Education/Training Program
DX: N17.9 Acute kidney failure, unspecified (principal); N30.00 Acute cystitis without hematuria; I13.0 Hypertensive heart and chronic kidney disease with heart failure and stage 1 through stage 4 chronic kidney disease, or unspecified chronic kidney disease; L97.528 Non-pressure chronic ulcer of other part of left foot with other specified severity; E44.0 Moderate protein-calorie malnutrition; T68.XXXA Hypothermia, initial encounter; E78.00 Pure hypercholesterolemia, unspecified; E03.9 Hypothyroidism, unspecified; H40.9 Unspecified glaucoma; E11.65 Type 2 diabetes mellitus with hyperglycemia; M62.84 Sarcopenia; D63.8 Anemia in other chronic diseases classified elsewhere; N18.4 Chronic kidney disease, stage 4 (severe); E11.22 Type 2 diabetes mellitus with diabetic chronic kidney disease; E11.51 Type 2 diabetes mellitus with diabetic peripheral angiopathy without gangrene; E11.621 Type 2 diabetes mellitus with foot ulcer; M25.511 Pain in right shoulder; I50.9 Heart failure, unspecified; E83.42 Hypomagnesemia; E53.8 Deficiency of other specified B group vitamins; Z68.32 Body mass index [BMI] 32.0-32.9, adult; Z89.511 Acquired absence of right leg below knee; Z95.820 Peripheral vascular angioplasty status with implants and grafts; Z79.02 Long term (current) use of antithrombotics/antiplatelets; Z79.4 Long term (current) use of insulin; Z79.899 Other long term (current) drug therapy
CPT/HCPCS: 10084; 15002

== ENCOUNTER 2018-09-23 09:01 | Inpatient (IN) | payer OTHER ==
[2018-09-23] VITALS (31 sets, daily range): BP systolic 99–149; BP diastolic 38–72
[~2018-09-23] VITALS: Ht 162.6 cm; Wt 84.1 kg
--- NOTE | ~2018-09-23 | HC ---
[facility] [place] [address] CONSULTATION Name: RACHELSIN L Room #: 203-P ADM IN .R.#: [id number] Admission: 09/23/18 Attend Phys: Chas Palafox MD Discharge: Date of : 38 Report #: [id number] THIS REPORT FOR: //name// CC: Chas De Souza DATE OF SERVICE: 09/25/2018 REASON FOR CONSULTATION: Chronic kidney disease and rising creatinine level. HISTORY OF PRESENT ILLNESS: This is a 77-year-old female who actually presented on 09/19/2018, was discharged 2 days later with a diagnosis of some urinary tract infection and some of her chronic medical conditions as I will discuss below. She was then readmitted 2 days later on 09/23/2018 when she presented with weakness and dyspnea. She was found to have an infiltrative process in her left lung. She was intubated and moved to the Intensive Care Unit. She has been on antibiotic therapy since that time. She improved enough that she was extubated earlier this morning. Cultures have been negative. She remains on antibiotics. She is now breathing on her own, but has a sore throat and is unable to talk too much. From a renal standpoint, we have followed this patient for years. 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 She has longstanding hypertension and diabetes mellitus. She has been followed in our office since that time as well as intermittently in the hospital by Dr. Deon Al. He saw her a couple of months ago, she was fairly stable from a renal standpoint. She runs a creatinine level generally in the low 2s. During this past week, she has been between 1.9 and 2.5, but today was up to 2.6 and this prompted our consultation. As the patient was just extubated, she is not able to talk to me much or give me much history or what has gone on over the past few days, most of that is obtained from the medical records and talking with nursing and Respiratory Therapy staff. She has diabetes and hypertension probably nearly for 20 years now. She has hypothyroidism and is on replacement. She has peripheral vascular disease and has right lhizi-wob-jnfi amputation. She requires multiple medications for control of her hypertension. MEDICATIONS ON ADMISSION: Include levothyroxine 0.05 mg daily, trazodone 50 mg daily, insulin both long acting and short acting, calcium, ranitidine 300 mg daily, atorvastatin 10 mg daily, torsemide 40 mg daily, losartan 50 mg daily, Plavix 75 mg daily, several p.r.n. medications, glipizide 5 mg b.i.d., metoprolol 25 mg b.i.d. ALLERGIES: No known medical allergies. [address] [address] CONSULTATION Name: SIN RAMOS Room #: 203-P [facility] IN M.R.#: [id number] Admission: 09/23/18 Attend Phys: Chas Palafox MD Discharge: Date of : 38 Report #: [id number] FAMILY HISTORY: Noncontributory. SOCIAL HISTORY: The patient is , lives in [place], [place]. REVIEW OF SYSTEMS: Again, not much available from the patient at this time. PHYSICAL EXAMINATION: GENERAL: The patient is pleasant, awake and responsive, although mildly lethargic. Again, speech is difficult. VITAL SIGNS: Blood pressure 151/62, heart rate is 107, oxygen saturation 93% with respiratory rate of 24. She is afebrile today. HEENT: Pupils are equal and reactive. Sclerae nonicteric. Oral mucosa is somewhat dry as she was just extubated. NECK: Supple, no JVD. CHEST: Shows some rales and rhonchi diffusely with rather poor air excursion at this time. HEART: Has a regular tachycardia with what appears to be a sinus rhythm. ABDOMEN: Has active bowel sounds, soft and nontender. EXTREMITIES: She has the jrvhb-gro-pffz amputation noted. She has no peripheral edema at this time. LABORATORY DATA: Today, sodium 146, potassium 4.5, chloride 114, bicarbonate 21, BUN 59, creatinine 2.6, glucose 219, calcium 8.6. Hemoglobin 8.0, hematocrit 24.2, white count 9.3. Urinalysis from 2 days ago, specific gravity of 1.020, pH of 5.5, 1+ protein, 3+ glucose, 2+ blood with greater than 25 white cells and a few bacteria. Cultures are negative at this point. ASSESSMENT: 1. Chronic kidney disease stage 4 due to longstanding diabetes and hypertension. She has some lability associated with this. I think the acute rise in her creatinine up to her current level is related to her acute illness, intubation, and mild changes in hemodynamic status. Blood pressure is actually good at this time. Volume is not bad. I expect this should turn around fairly readily. Concerning her long-term chronic kidney disease, we need to keep a blood pressure controlled. We will get her back on her usual management once things stabilize. 2. Hypertension, longstanding. Again, she normally requires several different medications and we will work to get her back on those as she is cleared to take things orally. 3. Respiratory failure with recent infiltrate. Remains on multiple antibiotics. She is now extubated and oxygenating adequately. 4. Peripheral vascular disease, prior right opnan-qoj-eseo amputation. 5. Anemia. PLAN: 1. At this point, I think we can stop her current IV fluids. Serum sodium is [facility] [address] [place] [address] CONSULTATION Name: SIN RAMOS Room #: 203-P ADM IN ..#: [id number] Admission: 09/23/18 Attend Phys: Chas Palafox MD Discharge: Date of : 38 Report #: [id number] borderline high. She is on D5W with 3 amps of sodium bicarbonate, which gives concentration of 150 mEq per liter. Again, we do not want to boost that sodium even higher. We will need to stop that and see how she does. I think she will equilibrate fairly readily. We will let that bag of IV fluids run and then stop it altogether. 2. Repeat labs in the morning. 3. Going forward, we will get her back on her losartan for renal protection measures. Again, we will wait till things start to stabilize more. 4. We will follow along the care of this patient. <ELECTRONICALLY SIGNED> By: Dheeraj Velazquez MD 10/11/18 0719 1210 1256 Dheeraj Velazquez MD /nt
--- NOTE | ~2018-09-23 | EKG ---
[address] [place] [address] ELECTROCARDIOGRAM REPORT Name: LON RAMOSN Urbano Room #: 170-6 ADM IN ..#: [id number] Admission: 09/23/18 Attend Phys: Chas Palafox MD Discharge: Date of : 38 Report #: [id number] THIS REPORT FOR: //name// [facility] ED Test Date: 2018-09-23 Test Time: 09:26:06 Pat Name: SIN RAMOS Department: Room: 170 Gender: F Post Secondary Professional: : 1940 Requested By: Kash Gibbs Order Number: [id number] MD: Sharad Murray Measurements Intervals [place] Rate: 95 P: 69 AK: 210 QRS: -37 QRSD: 122 T: 47 QT: 365 QTc: 459 Interpretive Statements Sinus rhythm Borderline prolonged AK interval Left bundle branch block Baseline wander in lead(s) I,aVR Compared to ECG 05/03/2017 10:31:24 Left bundle-branch block now present Electronically Signed On 09-23-2018 10:54:18 [employer] by Sharad Murray [email or web address] <ELECTRONICALLY SIGNED> By: Sharad Murray MD, FACC 09/23/18 1054 5 Sharad Murray MD, [facility] /EPI
--- NOTE | ~2018-09-23 | HC ---
[facility] [place] [address] CONSULTATION Name: SIN RAMOS Room #: 203-P ADM IN ..#: [id number] Admission: 09/23/18 Attend Phys: Chas Palafox MD Discharge: Date of : 38 Report #: [id number] THIS REPORT FOR: //name// CC: Chas De Souza DATE OF SERVICE: 10/07/2018 CHIEF COMPLAINT: Left foot ulceration. HISTORY OF PRESENT ILLNESS: This is a 77-year-old female patient with whom I am familiar from previous hospitalization. She has been admitted here in mid-September with right shoulder pain. She is also noted to have a foot ulcer with some drainage. I have been asked to see her with regard to wound care. PAST MEDICAL HISTORY: Positive for diabetes, anemia, hypertension, hypothyroidism, hyperlipidemia, congestive heart failure, and chronic kidney disease. ALLERGIES: None. ADMISSION MEDICATIONS: Include Synthroid, Desyrel, brimonidine, Colace, [place], Levemir, NovoLog, timolol ophthalmic solution, Ultram, Tums, Tylenol, Zantac, Lipitor, Demadex, iron, glipizide, Cozaar, Dulcolax, Plavix, Combigan. SOCIAL HISTORY: Negative for alcohol or tobacco. FAMILY HISTORY: Noncontributory. REVIEW OF SYSTEMS: CONSTITUTIONAL: The patient denies fever, chills or weight loss. NEUROLOGICAL: The patient denies focal weakness, numbness or tingling. EYES: The patient denies visual changes, redness or drainage. ENT: The patient denies earache, drainage or sore throat. CARDIOVASCULAR: The patient denies chest pain, palpitations or diaphoresis. PULMONARY: The patient denies cough or shortness of breath. CARDIOVASCULAR: The patient has had some chest pain on her initial admission. Denies any presently. ORTHOPEDIC: The patient denies pain, swelling, or limitation in range of motion. EXTREMITIES: She does have a previous right below knee amputation. She does complain of burning in her left foot. Other systems are negative. PHYSICAL EXAMINATION: VITAL SIGNS: At this time include pulse rate 116, respiratory rate of 16, blood pressure 150/60, temperature 98.3. [address] [address] CONSULTATION Name: SIN RAMOS Room #: 203-P [facility] IN [facility]#: [id number] Admission: 09/23/18 Attend Phys: Chas Palafox MD Discharge: Date of : 38 Report #: [id number] GENERAL: This is a chronically ill-appearing female patient who appears to be in no distress. HEENT: Head normocephalic. Nose and throat clear. NECK: Supple. HEART: Irregular. LUNGS: Diminished. ABDOMEN: Soft. EXTREMITIES: Lower extremities demonstrate right below knee amputation. She has left foot intact. She has a small circular ulcer at the base of the left fifth metatarsal. There is some fibrin on the surface that is easily came cleaned away revealing some clean bleeding tissue with no evidence of infection or exposure of deep structures. CLINICAL IMPRESSION: 1. 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 2. Obesity. 3. Chronic kidney disease. RECOMMENDATIONS: At this point in time, we will recommend local care with a bordered foam to the left foot. Recommend PRAFO boot while in bed for pressure prophylaxis. She appears to have good pulses and I do not think any further vascular assessment is required at this time. Recommend continuing current medications, aggressive nutritional support to maximize wound healing and glycemic control. <ELECTRONICALLY SIGNED> By: Devon Vazquez MD 10/11/18 0754 2319 0108 Devon Vazquez MD /nt
[~2018-09-23 09:01] MED LIST changes: +CEFUROXIME250 MG PO; +TRAZODONE HCL50 MG PO
[2018-09-23 09:32] LABS: HEMATOCRIT 25.7 % (37.0-47.0); HEMOGLOBIN 8.2 gm/dL (12.0-15.0); MCH 30.1 pg (26.0-34.0); MCHC 31.9 g/dL (28.0-37.0); MCV 94.3 fL (80.0-100.0); RBC 2.73 mil/uL (4.20-5.00); RDW 14.3 % (10.5-14.5)
[2018-09-23 09:33] LABS: PLATELET COUNT 300 thou/uL (150-400)
[2018-09-23 09:35] LABS: ANION GAP 8 mmol/L (7-16); BUN 58 mg/dL (7-18); CHLORIDE 109 mmol/L (98-107); CO2 20 mmol/L (21-32); GLUCOSE 479 mg/dL (74-106); POTASSIUM 5.3 mmol/L (3.5-5.1); SODIUM 137 mmol/L (136-145)
[2018-09-23 09:44] LABS: TROPONIN-I <0.06 ng/mL (<0.06)
[2018-09-23 09:47] LABS: BE(vivo) -11.5 mmol/L (-2 to +3); HCO3 15.7 mmol/L (22.0-26.0); PCO2 40.4 mmHg (35.0-45.0); PO2 67.2 mmHg (80.0-100.0); pH 7.206 (7.360-7.450); sO2 89.3 % (92.0-98.0)
[2018-09-23 10:02] LABS: ABSOLUTE NEUTROPHILS 16.2 thou/uL (1.4-8.2); PLATELET ESTIMATE NORMAL
[2018-09-23 14:06] LABS: BE(vivo) -9.5 mmol/L (-2 to +3); HCO3 16.9 mmol/L (22.0-26.0); PCO2 39.1 mmHg (35.0-45.0); pH 7.254 (7.360-7.450); sO2 96.3 % (92.0-98.0)
[2018-09-23 15:01] LABS: URINE BILIRUBIN NEGATIVE (Negative); URINE BLOOD 2+ (Negative); URINE CLARITY CLEAR; URINE COLOR YELLOW; URINE GLUCOSE-RANDOM* 3+ (Negative); URINE KETONES NEGATIVE (Negative); URINE NITRITE-REFLEX NEGATIVE (Negative); URINE PROTEIN (DIPSTICK) 1+ (Negative); URINE UROBILINOGEN 0.2 E.U./dl (0.2-1.0)
[2018-09-23 15:02] LABS: URINE LEUKOCYTES-REFLEX 1+ (Negative)
[2018-09-23 15:31] LABS: BACTERIA-REFLEX 1-9 Few /HPF (None Seen); CASTS None Seen /LPF (None Seen); CRYSTALS None Seen /LPF (None Seen); SQUAMOUS 0-3 Few /LPF (0-3); URINE RBC 0-2 Rare /HPF (0-2); URINE WBC-REFLEX >25 Many /HPF (0-5)
[2018-09-24] VITALS (18 sets, daily range): BP systolic 94–129; BP diastolic 37–66
[2018-09-24 04:42] LABS: MCH 30.8 pg (26.0-34.0)
[2018-09-24 04:46] LABS: MCHC 33.4 g/dL (28.0-37.0); MCV 92.2 fL (80.0-100.0); RBC 1.91 mil/uL (4.20-5.00); RDW 13.9 % (10.5-14.5); WBC 9.7 thou/uL (4.0-11.0)
[2018-09-24 04:49] LABS: CALCIUM 8.9 mg/dL (8.5-10.1); CREATININE 2.2 mg/dL (0.6-1.0); HEMATOCRIT 17.6 % (37.0-47.0); HEMOGLOBIN 5.9 gm/dL (12.0-15.0); POTASSIUM 4.7 mmol/L (3.5-5.1)
[2018-09-24 05:15] LABS: MCH 30.6 pg (26.0-34.0); RBC 1.87 mil/uL (4.20-5.00); WBC 9.2 thou/uL (4.0-11.0)
[2018-09-24 05:16] LABS: MCHC 33.2 g/dL (28.0-37.0); RDW 14.3 % (10.5-14.5)
[2018-09-24 05:18] LABS: HEMATOCRIT 17.2 % (37.0-47.0); HEMOGLOBIN 5.7 gm/dL (12.0-15.0)
[2018-09-24 11:42] LABS: HEMOGLOBIN 6.6 gm/dL (12.0-15.0)
[2018-09-24 19:18] LABS: HEMOGLOBIN 7.8 gm/dL (12.0-15.0)
[2018-09-25] VITALS (24 sets, daily range): BP systolic 99–179; BP diastolic 38–116
[2018-09-25 04:40] LABS: ABSOLUTE NEUTROPHILS 7.6 thou/uL (1.4-8.2); BASOPHILS 0.7 % (0.0-2.0); EOSINOPHILS 1.1 % (0.0-3.0); HEMATOCRIT 24.2 % (37.0-47.0); LYMPHOCYTES 8.9 % (24.0-44.0); MCV 90.8 fL (80.0-100.0); MONOCYTES 8.1 % (1.0-8.0); PLATELET COUNT 168 thou/uL (150-400); POLYS 81.2 % (36.0-66.0); RBC 2.66 mil/uL (4.20-5.00); RDW 15.6 % (10.5-14.5); WBC 9.3 thou/uL (4.0-11.0)
[2018-09-25 04:49] LABS: CALCIUM 8.6 mg/dL (8.5-10.1); CREATININE 2.6 mg/dL (0.6-1.0); POTASSIUM 4.5 mmol/L (3.5-5.1)
[2018-09-25 05:07] LABS: BE(vivo) -9.6 mmol/L (-2 to +3); HCO3 16.8 mmol/L (22.0-26.0); PCO2 38.9 mmHg (35.0-45.0); PO2 104.5 mmHg (80.0-100.0)
[2018-09-25 05:08] LABS: pH 7.254 (7.360-7.450)
[2018-09-25 09:13] LABS: BE(vivo) -8.5 mmol/L (-2 to +3); HCO3 17.3 mmol/L (22.0-26.0); PCO2 36.7 mmHg (35.0-45.0); PO2 94.4 mmHg (80.0-100.0); pH 7.292 (7.360-7.450); sO2 96.5 % (92.0-98.0)
[2018-09-25 15:35] LABS: BE(vivo) -4.6 mmol/L (-2 to +3); HCO3 21.9 mmol/L (22.0-26.0); PCO2 46.7 mmHg (35.0-45.0); sO2 79.7 % (92.0-98.0)
[2018-09-25 15:47] LABS: PO2 48.8 mmHg (80.0-100.0); pH 7.288 (7.360-7.450)
[2018-09-26] VITALS (24 sets, daily range): BP systolic 116–165; BP diastolic 37–83
[2018-09-26 04:46] LABS: ABSOLUTE NEUTROPHILS 9.7 thou/uL (1.4-8.2); BASOPHILS 0.4 % (0.0-2.0); EOSINOPHILS 0.8 % (0.0-3.0); HEMATOCRIT 25.1 % (37.0-47.0); HEMOGLOBIN 8.4 gm/dL (12.0-15.0); LYMPHOCYTES 5.9 % (24.0-44.0); MCHC 33.4 g/dL (28.0-37.0); MCV 89.8 fL (80.0-100.0); MONOCYTES 10.4 % (1.0-8.0); PLATELET COUNT 174 thou/uL (150-400); POLYS 82.5 % (36.0-66.0); RBC 2.79 mil/uL (4.20-5.00); RDW 15.2 % (10.5-14.5); WBC 11.8 thou/uL (4.0-11.0)
[2018-09-26 04:53] LABS: CALCIUM 8.8 mg/dL (8.5-10.1); CREATININE 2.5 mg/dL (0.6-1.0); POTASSIUM 3.8 mmol/L (3.5-5.1)
[2018-09-26 09:56] LABS: BE(vivo) -3.2 mmol/L (-2 to +3); HCO3 21.8 mmol/L (22.0-26.0); PCO2 38.9 mmHg (35.0-45.0); pH 7.366 (7.360-7.450)
[2018-09-26 09:57] LABS: PO2 53.7 mmHg (80.0-100.0)
[2018-09-27] VITALS (24 sets, daily range): BP systolic 95–135; BP diastolic 38–65
[2018-09-27 02:49] LABS: CALCIUM 8.6 mg/dL (8.5-10.1); CREATININE 3.2 mg/dL (0.6-1.0)
[2018-09-27 02:52] LABS: ABSOLUTE NEUTROPHILS 10.9 thou/uL (1.4-8.2); BASOPHILS 0.3 % (0.0-2.0); EOSINOPHILS 0.2 % (0.0-3.0); HEMATOCRIT 23.7 % (37.0-47.0); HEMOGLOBIN 7.6 gm/dL (12.0-15.0); LYMPHOCYTES 6.4 % (24.0-44.0); MCH 29.4 pg (26.0-34.0); MCV 91.8 fL (80.0-100.0); PLATELET COUNT 162 thou/uL (150-400); POLYS 84.1 % (36.0-66.0); RBC 2.58 mil/uL (4.20-5.00); RDW 15.3 % (10.5-14.5)
[2018-09-28] VITALS (28 sets, daily range): BP systolic 95–131; BP diastolic 41–59
[2018-09-28 05:37] LABS: ALBUMIN 1.8 g/dL (3.4-5.0); CALCIUM 8.8 mg/dL (8.5-10.1); PHOSPHORUS 4.6 mg/dL (2.5-4.9); POTASSIUM 4.7 mmol/L (3.5-5.1)
[2018-09-28 05:42] LABS: MCH 30.2 pg (26.0-34.0)
[2018-09-28 05:44] LABS: ABSOLUTE NEUTROPHILS 8.6 thou/uL (1.4-8.2); BASOPHILS 0.5 % (0.0-2.0); EOSINOPHILS 0.5 % (0.0-3.0); LYMPHOCYTES 8.1 % (24.0-44.0); MCHC 32.7 g/dL (28.0-37.0); MCV 92.5 fL (80.0-100.0); PLATELET COUNT 150 thou/uL (150-400); POLYS 81.9 % (36.0-66.0); RBC 2.12 mil/uL (4.20-5.00); RDW 16.2 % (10.5-14.5); WBC 10.5 thou/uL (4.0-11.0)
[2018-09-28 05:49] LABS: HEMATOCRIT 19.7 % (37.0-47.0); HEMOGLOBIN 6.4 gm/dL (12.0-15.0)
[2018-09-28 17:17] LABS: HEMATOCRIT 24.3 % (37.0-47.0)
[2018-09-29] VITALS (29 sets, daily range): BP systolic 90–125; BP diastolic 35–58
[2018-09-29 05:12] LABS: HEMATOCRIT 24.8 % (37.0-47.0); HEMOGLOBIN 8.2 gm/dL (12.0-15.0); MCH 30.5 pg (26.0-34.0); MCHC 33.2 g/dL (28.0-37.0); MCV 91.9 fL (80.0-100.0); RBC 2.7 mil/uL (4.20-5.00); RDW 15.4 % (10.5-14.5); WBC 9.8 thou/uL (4.0-11.0)
[2018-09-29 05:15] LABS: ALBUMIN 1.7 g/dL (3.4-5.0); CALCIUM 8.9 mg/dL (8.5-10.1); PHOSPHORUS 5.6 mg/dL (2.5-4.9); POTASSIUM 4.8 mmol/L (3.5-5.1)
[2018-09-29 05:22] LABS: CREATININE 6.4 mg/dL (0.6-1.0)
[2018-09-29 09:42] LABS: HEMATOCRIT 25.2 % (37.0-47.0); HEMOGLOBIN 8.4 gm/dL (12.0-15.0)
[2018-09-29 15:06] LABS: HEPATITIS B SURFACE AG Negative (Negative)
[2018-09-29 18:32] LABS: HEMATOCRIT 26.4 % (37.0-47.0); HEMOGLOBIN 8.9 gm/dL (12.0-15.0)
[2018-09-30] VITALS (61 sets, daily range): BP systolic 92–147; BP diastolic 37–67
[2018-09-30 05:51] LABS: POTASSIUM 4.2 mmol/L (3.5-5.1)
[2018-09-30 05:54] LABS: CREATININE 4.5 mg/dL (0.6-1.0)
[2018-09-30 05:55] LABS: HEMATOCRIT 24.5 % (37.0-47.0); HEMOGLOBIN 8.3 gm/dL (12.0-15.0); MCH 30.6 pg (26.0-34.0); MCHC 33.7 g/dL (28.0-37.0); MCV 90.8 fL (80.0-100.0); RBC 2.7 mil/uL (4.20-5.00); RDW 15.2 % (10.5-14.5); WBC 7.5 thou/uL (4.0-11.0)
[2018-09-30 11:05] LABS: HEMATOCRIT 24.9 % (37.0-47.0); HEMOGLOBIN 8.4 gm/dL (12.0-15.0)
[2018-10-01] VITALS (46 sets, daily range): BP systolic 94–152; BP diastolic 28–60
[2018-10-01 04:36] LABS: HEMATOCRIT 24.1 % (37.0-47.0); HEMOGLOBIN 8.3 gm/dL (12.0-15.0); MCH 30.9 pg (26.0-34.0); MCHC 34.5 g/dL (28.0-37.0); MCV 89.5 fL (80.0-100.0); RBC 2.69 mil/uL (4.20-5.00); RDW 15.4 % (10.5-14.5); WBC 8.5 thou/uL (4.0-11.0)
[2018-10-01 05:01] LABS: ALBUMIN 1.6 g/dL (3.4-5.0); CALCIUM 7.5 mg/dL (8.5-10.1); MAGNESIUM 1.8 mg/dL (1.8-2.4); POTASSIUM 3.6 mmol/L (3.5-5.1); TOTAL BILIRUBIN 0.9 mg/dL (<0.1-1.0); TOTAL PROTEIN 4.8 g/dL (6.4-8.2)
[2018-10-02] VITALS (28 sets, daily range): BP systolic 93–140; BP diastolic 30–51
[2018-10-02 06:10] LABS: POTASSIUM 3.5 mmol/L (3.5-5.1)
[2018-10-02 06:21] LABS: CALCIUM 7.4 mg/dL (8.5-10.1); CREATININE 3.4 mg/dL (0.6-1.0)
[2018-10-03] VITALS (21 sets, daily range): BP systolic 110–154; BP diastolic 27–59
[2018-10-03 03:26] LABS: ALBUMIN 1.6 g/dL (3.4-5.0); CALCIUM 7.8 mg/dL (8.5-10.1); CREATININE 4.5 mg/dL (0.6-1.0); PHOSPHORUS 2.8 mg/dL (2.5-4.9); POTASSIUM 3.3 mmol/L (3.5-5.1)
[2018-10-04] VITALS (13 sets, daily range): BP systolic 136–174; BP diastolic 48–68
[2018-10-04 04:24] LABS: CALCIUM 7.8 mg/dL (8.5-10.1); CREATININE 4.9 mg/dL (0.6-1.0); POTASSIUM 3.5 mmol/L (3.5-5.1)
[2018-10-04 04:31] LABS: HEMATOCRIT 24.5 % (37.0-47.0); HEMOGLOBIN 8.1 gm/dL (12.0-15.0); MCH 29.8 pg (26.0-34.0); MCHC 33.3 g/dL (28.0-37.0); MCV 89.5 fL (80.0-100.0); RBC 2.74 mil/uL (4.20-5.00); RDW 15.4 % (10.5-14.5); WBC 12.7 thou/uL (4.0-11.0)
[2018-10-05 00:28] VITALS: BP 143/50
[2018-10-05 04:29] LABS: ALBUMIN 1.9 g/dL (3.4-5.0); CALCIUM 7.9 mg/dL (8.5-10.1); CREATININE 2.7 mg/dL (0.6-1.0); PHOSPHORUS 2.5 mg/dL (2.5-4.9); POTASSIUM 4.1 mmol/L (3.5-5.1)
[2018-10-05 05:01] VITALS: BP 153/72
[2018-10-05 07:40] VITALS: BP 151/66
[2018-10-05 11:25] VITALS: BP 153/68
[2018-10-05 19:39] VITALS: BP 134/61
[2018-10-06 05:39] VITALS: BP 155/75
[2018-10-06 06:30] LABS: ALBUMIN 1.8 g/dL (3.4-5.0); CALCIUM 8.2 mg/dL (8.5-10.1); CREATININE 3.4 mg/dL (0.6-1.0); PHOSPHORUS 4.2 mg/dL (2.5-4.9); POTASSIUM 4.8 mmol/L (3.5-5.1)
[2018-10-06 07:10] VITALS: BP 137/65
[2018-10-06 11:52] VITALS: BP 139/63
[2018-10-06 15:05] VITALS: BP 149/59
[2018-10-06 19:50] VITALS: BP 158/68
[2018-10-07 04:33] VITALS: BP 158/62
[2018-10-07 05:46] LABS: ALBUMIN 1.9 g/dL (3.4-5.0); CALCIUM 8.3 mg/dL (8.5-10.1); CREATININE 3.7 mg/dL (0.6-1.0); PHOSPHORUS 4.4 mg/dL (2.5-4.9); POTASSIUM 4.4 mmol/L (3.5-5.1)
[2018-10-07 05:47] LABS: HEMOGLOBIN 7.7 gm/dL (12.0-15.0); MCH 30.2 pg (26.0-34.0); MCHC 33.3 g/dL (28.0-37.0); MCV 90.8 fL (80.0-100.0); RBC 2.53 mil/uL (4.20-5.00); RDW 15.3 % (10.5-14.5); WBC 9.8 thou/uL (4.0-11.0)
[2018-10-07 08:22] VITALS: BP 176/55
[2018-10-07 12:02] VITALS: BP 149/68
[2018-10-07 15:57] VITALS: BP 171/80
[2018-10-07 20:30] VITALS: BP 161/54
[2018-10-08 04:30] VITALS: BP 175/86
[2018-10-08 05:56] LABS: HEMATOCRIT 24.2 % (37.0-47.0); HEMOGLOBIN 7.9 gm/dL (12.0-15.0); MCH 29.7 pg (26.0-34.0); MCHC 32.6 g/dL (28.0-37.0); MCV 91.3 fL (80.0-100.0); PLATELET COUNT 279 thou/uL (150-400); RBC 2.65 mil/uL (4.20-5.00); RDW 15.6 % (10.5-14.5); WBC 10.3 thou/uL (4.0-11.0)
[2018-10-08 06:05] LABS: ALBUMIN 2.1 g/dL (3.4-5.0); CALCIUM 8.6 mg/dL (8.5-10.1); CREATININE 3.8 mg/dL (0.6-1.0); PHOSPHORUS 3.8 mg/dL (2.5-4.9); POTASSIUM 5.4 mmol/L (3.5-5.1)
[2018-10-08 07:29] LABS: ABSOLUTE NEUTROPHILS 7.5 thou/uL (1.4-8.2); ANISOCYTOSIS SLIGHT; ATYPICAL LYMPHS 1 %; LARGE PLATELETS OCCASIONAL; MYELOCYTES 1 %; POIKILOCYTOSIS SLIGHT; POLYCHROMASIA SLIGHT
[2018-10-08 08:07] VITALS: BP 167/81
[2018-10-08 10:08] LABS: CALCIUM 8.5 mg/dL (8.5-10.1); CREATININE 3.9 mg/dL (0.6-1.0); POTASSIUM 5.5 mmol/L (3.5-5.1)
[2018-10-08 11:13] LABS: CALCIUM 8.6 mg/dL (8.5-10.1); CREATININE 3.8 mg/dL (0.6-1.0); POTASSIUM 5.7 mmol/L (3.5-5.1)
[2018-10-08 11:20] VITALS: BP 149/67
[2018-10-08 15:45] VITALS: BP 158/76
[2018-10-08 20:43] VITALS: BP 150/68
[2018-10-09 05:07] VITALS: BP 141/68
[2018-10-09 05:12] LABS: CALCIUM 8.3 mg/dL (8.5-10.1); PHOSPHORUS 3.4 mg/dL (2.5-4.9)
[2018-10-09 07:25] VITALS: BP 141/71; BP 155/74
[2018-10-09 11:13] VITALS: BP 151/75
[2018-10-09 16:00] VITALS: BP 156/71
[2018-10-09 19:53] VITALS: BP 155/70
[2018-10-10 04:54] VITALS: BP 148/70
[2018-10-10 04:58] LABS: ALBUMIN 2.1 g/dL (3.4-5.0); CALCIUM 7.9 mg/dL (8.5-10.1); CREATININE 3.9 mg/dL (0.6-1.0); PHOSPHORUS 4.1 mg/dL (2.5-4.9)
[2018-10-10 11:05] VITALS: BP 150/58
[2018-10-10 15:13] VITALS: BP 135/56
[2018-10-10 19:42] VITALS: BP 170/72
[2018-10-11 03:05] VITALS: BP 181/78
[2018-10-11 04:43] VITALS: BP 138/68
[2018-10-11 05:24] LABS: ALBUMIN 2.3 g/dL (3.4-5.0); CALCIUM 7.8 mg/dL (8.5-10.1); CREATININE 3.6 mg/dL (0.6-1.0); PHOSPHORUS 3.6 mg/dL (2.5-4.9); POTASSIUM 5.7 mmol/L (3.5-5.1)
[2018-10-11 05:40] LABS: HEMATOCRIT 23.9 % (37.0-47.0); HEMOGLOBIN 7.7 gm/dL (12.0-15.0); MCH 29.9 pg (26.0-34.0); MCHC 32.1 g/dL (28.0-37.0); MCV 93.1 fL (80.0-100.0); RBC 2.57 mil/uL (4.20-5.00); RDW 15.9 % (10.5-14.5); WBC 10.6 thou/uL (4.0-11.0)
[2018-10-11 08:44] LABS: APTT 29.4 Seconds (24.5-32.8); INR 1.1; PROTIME 11.1 Seconds (9.3-11.4)
[2018-10-11 12:45] VITALS: BP 168/75
[2018-10-11 15:35] VITALS: BP 126/58
[2018-10-11 19:17] VITALS: BP 127/56
[2018-10-12 04:16] VITALS: BP 134/73
[2018-10-12 05:12] LABS: ALBUMIN 2.3 g/dL (3.4-5.0); CALCIUM 7.7 mg/dL (8.5-10.1); PHOSPHORUS 4.1 mg/dL (2.5-4.9); POTASSIUM 4.9 mmol/L (3.5-5.1)
[2018-10-12 05:34] LABS: HEMATOCRIT 21.4 % (37.0-47.0); HEMOGLOBIN 7.2 gm/dL (12.0-15.0); MCH 31.2 pg (26.0-34.0); MCHC 33.7 g/dL (28.0-37.0); MCV 92.6 fL (80.0-100.0); RBC 2.31 mil/uL (4.20-5.00); RDW 15.5 % (10.5-14.5); WBC 7.6 thou/uL (4.0-11.0)
[2018-10-12 07:15] VITALS: BP 150/77
[2018-10-12 11:00] VITALS: BP 112/41
[2018-10-12 15:25] VITALS: BP 114/53
[2018-10-12 19:51] VITALS: BP 121/30
[2018-10-13 02:56] LABS: ALBUMIN 2.3 g/dL (3.4-5.0); CALCIUM 7.5 mg/dL (8.5-10.1); CREATININE 2.8 mg/dL (0.6-1.0); PHOSPHORUS 3.4 mg/dL (2.5-4.9); POTASSIUM 4.6 mmol/L (3.5-5.1)
[2018-10-13 03:51] LABS: HEMATOCRIT 20.7 % (37.0-47.0); MCH 31.4 pg (26.0-34.0); MCHC 33.8 g/dL (28.0-37.0); MCV 92.8 fL (80.0-100.0); RBC 2.23 mil/uL (4.20-5.00); RDW 16.4 % (10.5-14.5); WBC 6.8 thou/uL (4.0-11.0)
[2018-10-13 06:18] VITALS: BP 132/34
[2018-10-13 07:31] VITALS: BP 121/53
[2018-10-13 11:17] VITALS: BP 115/41
[2018-10-13 15:24] VITALS: BP 121/42
[2018-10-13 19:42] VITALS: BP 106/40
[2018-10-14 04:07] LABS: ALBUMIN 2.2 g/dL (3.4-5.0); CALCIUM 7.9 mg/dL (8.5-10.1); HEMOGLOBIN 6.6 gm/dL (12.0-15.0); PHOSPHORUS 5.1 mg/dL (2.5-4.9); POTASSIUM 4.6 mmol/L (3.5-5.1); WBC 8.9 thou/uL (4.0-11.0)
[2018-10-14 04:11] LABS: HEMATOCRIT 20.3 % (37.0-47.0); MCH 30.7 pg (26.0-34.0); MCHC 32.7 g/dL (28.0-37.0); MCV 93.9 fL (80.0-100.0); RBC 2.16 mil/uL (4.20-5.00); RDW 16.7 % (10.5-14.5)
[2018-10-14 04:13] LABS: CREATININE 3.9 mg/dL (0.6-1.0)
[2018-10-14 05:15] VITALS: BP 144/76
[2018-10-14 07:53] VITALS: BP 131/46
[2018-10-14] MEDS ORDERED: LOPRESSOR25 PO (13:44)
[2018-10-14 15:36] VITALS: BP 127/49
== END 2018-10-14 18:00 | DRG 871 ==
LOC: ER 09:01 → EROBS 10:45 → ICU 10:45 → 2N 10-04 10:57
PROVIDERS: Emergency Medicine; Hospitalist; Internal Medicine; Internal Medicine Nephrology; Internal Medicine Pulmonary Disease; Nurse Practitioner Family; Pediatrics; Radiology Vascular & Interventional Radiology
PROC: 5A1945Z Respiratory Ventilation, 24-96 Consecutive Hours (ICD-10-PCS; principal; 2018-09-23)
PROC: 0BH17EZ Insertion of Endotracheal Airway into Trachea, Via Natural or Artificial Opening (ICD-10-PCS; principal; 2018-09-23)
PROC: 5A09357 Assistance with Respiratory Ventilation, Less than 24 Consecutive Hours, Continuous Positive Airway Pressure (ICD-10-PCS; 2018-09-26)
PROC: 5A09357 Assistance with Respiratory Ventilation, Less than 24 Consecutive Hours, Continuous Positive Airway Pressure (ICD-10-PCS; 2018-09-27)
PROC: 5A09357 Assistance with Respiratory Ventilation, Less than 24 Consecutive Hours, Continuous Positive Airway Pressure (ICD-10-PCS; 2018-09-28)
PROC: 5A1D70Z Performance of Urinary Filtration, Intermittent, Less than 6 Hours Per Day (ICD-10-PCS; 2018-09-29)
PROC: 5A1D70Z Performance of Urinary Filtration, Intermittent, Less than 6 Hours Per Day (ICD-10-PCS; 2018-09-30)
PROC: 5A1D70Z Performance of Urinary Filtration, Intermittent, Less than 6 Hours Per Day (ICD-10-PCS; 2018-10-01)
PROC: 5A1D70Z Performance of Urinary Filtration, Intermittent, Less than 6 Hours Per Day (ICD-10-PCS; 2018-10-04)
PROC: 5A1D70Z Performance of Urinary Filtration, Intermittent, Less than 6 Hours Per Day (ICD-10-PCS; 2018-10-11)
PROC: 02H633Z Insertion of Infusion Device into Right Atrium, Percutaneous Approach (ICD-10-PCS; 2018-10-11)
PROC: 02H633Z Insertion of Infusion Device into Right Atrium, Percutaneous Approach (ICD-10-PCS; 2018-10-11)
PROC: 0JH83XZ Insertion of Tunneled Vascular Access Device into Abdomen Subcutaneous Tissue and Fascia, Percutaneous Approach (ICD-10-PCS; 2018-10-11)
PROC: 30233N1 Transfusion of Nonautologous Red Blood Cells into Peripheral Vein, Percutaneous Approach (ICD-10-PCS; 2018-10-11)
PROC: B244YZZ Ultrasonography of Right Heart using Other Contrast (ICD-10-PCS; 2018-10-11)
PROC: 5A1D70Z Performance of Urinary Filtration, Intermittent, Less than 6 Hours Per Day (ICD-10-PCS; 2018-10-12)
PROC: 5A1D70Z Performance of Urinary Filtration, Intermittent, Less than 6 Hours Per Day (ICD-10-PCS; 2018-10-14)
DX: A41.9 Sepsis, unspecified organism (principal); J18.9 Pneumonia, unspecified organism; L89.303 Pressure ulcer of unspecified buttock, stage 3; J96.01 Acute respiratory failure with hypoxia; I50.33 Acute on chronic diastolic (congestive) heart failure; G92 Toxic encephalopathy; N18.4 Chronic kidney disease, stage 4 (severe); E87.0 Hyperosmolality and hypernatremia; D62 Acute posthemorrhagic anemia; I13.0 Hypertensive heart and chronic kidney disease with heart failure and stage 1 through stage 4 chronic kidney disease, or unspecified chronic kidney disease; N17.9 Acute kidney failure, unspecified; R65.20 Severe sepsis without septic shock; H40.9 Unspecified glaucoma; E03.9 Hypothyroidism, unspecified; E78.00 Pure hypercholesterolemia, unspecified; E11.22 Type 2 diabetes mellitus with diabetic chronic kidney disease; E11.51 Type 2 diabetes mellitus with diabetic peripheral angiopathy without gangrene; E78.5 Hyperlipidemia, unspecified; E11.621 Type 2 diabetes mellitus with foot ulcer; E66.9 Obesity, unspecified; E87.8 Other disorders of electrolyte and fluid balance, not elsewhere classified; E87.70 Fluid overload, unspecified; Y95 Nosocomial condition; R13.10 Dysphagia, unspecified; E11.65 Type 2 diabetes mellitus with hyperglycemia; E87.5 Hyperkalemia; E83.42 Hypomagnesemia; Z79.4 Long term (current) use of insulin; Z89.429 Acquired absence of other toe(s), unspecified side; Z95.820 Peripheral vascular angioplasty status with implants and grafts; Z89.511 Acquired absence of right leg below knee; Z68.31 Body mass index [BMI] 31.0-31.9, adult; Z87.11 Personal history of peptic ulcer disease
CPT/HCPCS: 10078; 10081; 10196; 32100

== ENCOUNTER 2019-02-07 13:37 | Emergency (ER) | payer OTHER ==
[~2019-02-07] VITALS: Ht 154.9 cm; Wt 77.1 kg
[~2019-02-07 13:37] MED LIST changes: -COMBIGAN EYE DR10 ML; +COMBIGAN EYE DR10 ML OPHTHALMIC
[2019-02-07 14:07] LABS: URINE BILIRUBIN NEGATIVE (Negative); URINE BLOOD 2+ (Negative); URINE CLARITY CLOUDY; URINE COLOR YELLOW; URINE GLUCOSE-RANDOM* NEGATIVE (Negative); URINE KETONES NEGATIVE (Negative); URINE LEUKOCYTES 3+ (Negative); URINE NITRITE NEGATIVE (Negative); URINE PROTEIN (DIPSTICK) 2+ (Negative); URINE SPECIFIC GRAVITY 1.015 (1.005-1.035); URINE UROBILINOGEN 0.2 E.U./dl (0.2-1.0)
[2019-02-07 14:14] LABS: BACTERIA >30 Many /HPF (None Seen); CASTS None Seen /LPF (None Seen); CRYSTALS None Seen /LPF (None Seen); SQUAMOUS 0-3 Few /LPF (0-3); URINE RBC None Seen /HPF (0-2); URINE WBC >25 Many /HPF (0-5)
[2019-02-07] MEDS ORDERED: LOPRESSOR25 PO (14:29)
[2019-02-07] MEDS ORDERED: NOVOLOG FL100 UNIT/M SUBQ (14:31)
[2019-02-07] MEDS ORDERED: CLARITIN10 MG PO (14:32)
[2019-02-07] MEDS ORDERED: ANTACID650 MG PO (14:38)
[2019-02-07] MEDS ORDERED: TYLENOL EXTRA500 MG PO (14:47)
[2019-02-07] MEDS ORDERED: OTHER (14:48)
[2019-02-07 15:25] LABS: HEMATOCRIT 26.1 % (37.0-47.0); HEMOGLOBIN 8.9 gm/dL (12.0-15.0); MCH 31.4 pg (26.0-34.0); MCHC 34.3 g/dL (28.0-37.0); MCV 91.8 fL (80.0-100.0); PLATELET COUNT 204 thou/uL (150-400); RBC 2.85 mil/uL (4.20-5.00); RDW 14.3 % (10.5-14.5); WBC 7.6 thou/uL (4.0-11.0)
[2019-02-07 15:36] LABS: ANION GAP 6 mmol/L (7-16); BUN 59 mg/dL (7-18); CALCIUM 9.8 mg/dL (8.5-10.1); CHLORIDE 106 mmol/L (98-107); CO2 25 mmol/L (21-32); CREATININE 1.8 mg/dL (0.6-1.0); GLUCOSE 120 mg/dL (74-106); POTASSIUM 5.1 mmol/L (3.5-5.1); SODIUM 137 mmol/L (136-145)
[2019-02-07 15:41] LABS: ALBUMIN 3.3 g/dL (3.4-5.0); MAGNESIUM 1.7 mg/dL (1.8-2.4); SGOT 10 U/L (15-37); SGPT 13 U/L (30-65); TOTAL BILIRUBIN 0.3 mg/dL (<0.1-1.0); TOTAL PROTEIN 6.9 g/dL (6.4-8.2); TROPONIN-I <0.06 ng/mL (<0.06)
[2019-02-07 15:48] LABS: ABSOLUTE NEUTROPHILS 3.7 thou/uL (1.4-8.2); ANISOCYTOSIS 1+; HYPOCHROMASIA 1+
[2019-02-07 15:49] LABS: POLYCHROMASIA OCCASIONAL
[2019-02-07] MEDS ORDERED: KEFLEX500 M1 PO (16:28)
[2019-02-07] MEDS ORDERED: MAG-OXIDE400 MG PO (16:28)
[2019-02-07 17:04] VITALS: BP 154/67
--- NOTE | 2019-02-08 16:39 | EKG ---
[address] [place] [address] ELECTROCARDIOGRAM REPORT Name: LON RAMOSN Urbano Room #: [facility]#: [id number] ������������������ Admission: 02/07/19 ������������������ Attend Phys: Discharge: 02/07/19 ������������������ Date of : 38 Report #: [id number] ����������������������������������������������������������������� [id number] THIS REPORT FOR: //name// ED Test Date: 2019-02-07 Test Time: 15:16:22 Pat Name: SIN RAMOS Department: Room: Gender: F Supervisor [employer]: ORALIA : 1940 Requested By: Armand Earl Order Number: [id number] MD: Sharad Murray Measurements Intervals [place] Rate: 75 P: 54 ME: 208 QRS: -46 QRSD: 115 T: 11 QT: 405 QTc: 453 Interpretive Statements Sinus rhythm Left anterior fascicular block Poor R wave progression Compared to ECG 09/23/2018 09:26:06 ST and T wave abnormality is less pronounced Electronically Signed On 02-08-2019 16:39:37 CDT by Sharad Murray [email or web address] ��������������������������������������������� <ELECTRONICALLY SIGNED> ���������������������������������������� By: Sharad Murray MD, [facility] ��������������������������������������������� 02/08/19 1639 1516 1516 Sharad Murray MD, [facility] /EPI
== END 2019-02-07 17:05 | disposition home or self-care (01) ==
LOC: ER 13:37
PROVIDERS: Emergency Medicine
DX: I13.0 Hypertensive heart and chronic kidney disease with heart failure and stage 1 through stage 4 chronic kidney disease, or unspecified chronic kidney disease (principal); N18.3 Chronic kidney disease, stage 3 (moderate); I50.9 Heart failure, unspecified; N39.0 Urinary tract infection, site not specified; E83.42 Hypomagnesemia; D64.9 Anemia, unspecified; E78.00 Pure hypercholesterolemia, unspecified; R53.1 Weakness; E03.9 Hypothyroidism, unspecified

== ENCOUNTER 2019-04-28 12:42 | Inpatient (IN) | payer OTHER ==
[~2019-04-28] VITALS: Ht 154.9 cm; Wt 76.7 kg
--- NOTE | ~2019-04-28 | HC ---
[facility] [place] [address] CONSULTATION Name: SIN RAMOS Room #: 429-P ADM IN M.R.#: [id number] Admission: 04/28/19 ������������������ Attend Phys: Chas Palafox MD Discharge: ������������������ Date of : 38 Report #: [id number] THIS REPORT FOR: //name// CC: Chas De Souza DATE OF SERVICE: 04/29/2019 ATTENDING PHYSICIAN: Dr. Palafox REASON FOR CONSULTATION: Chronic kidney disease. HISTORY OF PRESENT ILLNESS: The patient is well known to us, followed in the office for many years with diabetic nephropathy. She has been on and off dialysis a couple of times. She has had previous right BKA for peripheral arterial disease, has wounds on her left foot, is being followed for those. She has had diabetes with chronic kidney disease and has been on Procrit for anemia chronically. She also has hypothyroidism. She also has a history of colon cancer and has had a partial colectomy, most recent colonoscopy was within the last couple of months. REVIEW OF SYSTEMS: In general, she has been feeling reasonably well. She was admitted with a possible rectal bleeding, possible vaginal bleeding really unknown. SOCIAL HISTORY: No cigarettes or alcohol. REVIEW OF SYSTEMS: GENERAL: She has been feeling reasonably well. EYES: Her vision is okay. ENT: Hearing okay, swallows okay. No mouth sores or ulcers. ENDOCRINE: Positive for the diabetes. RESPIRATORY: Not short of air. CARDIAC: No chest pain or angina. GASTROINTESTINAL: No nausea, vomiting or diarrhea and again unclear where the blood is coming from. GENITOURINARY: No dysuria, flank pain, renal stones. NEUROLOGIC: Mentally, she is actually quite competent, of course she has the amputation and some peripheral neuropathy. PHYSICAL EXAMINATION: GENERAL: This is a reasonably appearing, lucid, pleasant patient, in no acute distress. SKIN: Otherwise unremarkable. SKELETAL: Right csuld-dhe-qpcu amputation. HEENT: Extraocular movements are full. Vision is intact. No scleral icterus. [facility] [address] [place] [address] CONSULTATION Name: SIN RAMOS Room #: 429-[facility] IN ..#: [id number] Admission: 04/28/19 ������������������ Attend Phys: Chas Palafox MD Discharge: ������������������ Date of : 38 Report #: [id number] Hearing intact. Mucous membranes moist. Tongue, buccal mucosa benign. NECK: Supple. CHEST: Clear to auscultation. HEART: Regular. ABDOMEN: Soft. EXTREMITIES: The wounds on the left foot are wrapped up. BKA noted. LABORATORY DATA: Hemoglobin is 9.5, white count 6.8, platelets 198. Sodium 143, potassium 5, chloride 110, bicarbonate 24, BUN 48, creatinine 1.8. ASSESSMENT: 1. Chronic kidney disease rather stable, followed in the office. Overall GFR is likely worsening as her creatinine would indicate due to decreased muscle mass. 2. Peripheral arterial disease, status post right eeyox-oxe-imlb amputation wounds on the left foot. 3. Rectal versus vaginal bleed, unknown. She did have a colonoscopy within the last couple of months. 4. History of colon cancer status post resection. 5. Diabetes mellitus with nephropathy and neuropathy. 6. History of hypertension. ��������������������������������������������� ���������������������������������������� By: ��������������������������������������������� 1035 0257 Deon Al MD /nt
[~2019-04-28 12:42] MED LIST changes: +ANTACID650 MG PO; +CLARITIN10 MG PO; +KEFLEX500 M1 PO; +MAG-OXIDE400 MG PO; +NOVOLOG FL100 UNIT/M SUBQ; +OTHER; +TYLENOL EXTRA500 MG PO
[2019-04-28 12:43] VITALS: BP 170/76
[2019-04-28 13:12] LABS: HEMATOCRIT 32.4 % (37.0-47.0); HEMOGLOBIN 10.6 gm/dL (12.0-15.0); MCH 29.7 pg (26.0-34.0); MCHC 32.9 g/dL (28.0-37.0); MCV 90.2 fL (80.0-100.0); PLATELET COUNT 235 thou/uL (150-400); RBC 3.59 mil/uL (4.20-5.00); RDW 14.7 % (10.5-14.5); WBC 8.3 thou/uL (4.0-11.0)
[2019-04-28 13:26] LABS: POTASSIUM 4.6 mmol/L (3.5-5.1)
[2019-04-28 13:29] LABS: APTT 27.3 Seconds (24.5-32.8)
[2019-04-28 13:32] LABS: ALBUMIN 3.1 g/dL (3.4-5.0); TOTAL BILIRUBIN 0.3 mg/dL (<0.1-1.0); TOTAL PROTEIN 6.7 g/dL (6.4-8.2)
[2019-04-28 13:39] LABS: ABSOLUTE NEUTROPHILS 5.6 thou/uL (1.4-8.2); PLATELET ESTIMATE NORMAL
[2019-04-28 15:24] LABS: URINE BILIRUBIN NEGATIVE (Negative); URINE BLOOD 3+ (Negative); URINE CLARITY CLOUDY; URINE GLUCOSE-RANDOM* TRACE (Negative); URINE KETONES NEGATIVE (Negative); URINE LEUKOCYTES-REFLEX 3+ (Negative); URINE NITRITE-REFLEX NEGATIVE (Negative); URINE PROTEIN (DIPSTICK) 3+ (Negative); URINE SPECIFIC GRAVITY 1.015 (1.005-1.035); URINE UROBILINOGEN 0.2 E.U./dl (0.2-1.0)
[2019-04-28 15:25] LABS: URINE COLOR DARK YELLOW
[2019-04-28] MEDS ORDERED: NORVASC5 MG PO (15:25)
[2019-04-28] MEDS ORDERED: MIRALAX17 GM PO (15:28)
[2019-04-28 15:32] LABS: AMORPHOUS URATES Few /LPF (None Seen); CASTS None Seen /LPF (None Seen); SQUAMOUS None Seen /LPF (0-3); URINE RBC >20 Many /HPF (0-2); URINE WBC-REFLEX >25 Many /HPF (0-5)
[2019-04-28] MEDS ORDERED: CEFDINIR300 MG PO (18:06)
[2019-04-28 19:40] VITALS: BP 162/74
[2019-04-28 19:55] VITALS: BP 167/74
[2019-04-28] MEDS ORDERED: VITAMINC500 PO (20:50)
[2019-04-28 21:30] VITALS: BP 164/59
[2019-04-29 04:42] LABS: CALCIUM 8.4 mg/dL (8.5-10.1); CREATININE 1.8 mg/dL (0.6-1.0); MAGNESIUM 1.5 mg/dL (1.8-2.4)
[2019-04-29 04:57] VITALS: BP 145/59
[2019-04-29 05:15] LABS: HEMATOCRIT 28.8 % (37.0-47.0); HEMOGLOBIN 9.5 gm/dL (12.0-15.0); MCHC 33.1 g/dL (28.0-37.0); MCV 90.7 fL (80.0-100.0); RBC 3.17 mil/uL (4.20-5.00); RDW 14.9 % (10.5-14.5); WBC 6.8 thou/uL (4.0-11.0)
--- NOTE | 2019-04-29 06:35 | NUR ---
PT ARRIVED TO UNIT APPROX 2029, ADMISSION AND ASSESSMENT COMPLETED, CONSENTS SIGNED. VERIFIED MEDICAL HISTORY WITH DAUGHTER/DPOA RANDALL, WHOM PT LIVES WITH. ACCORDING TO RANDALL, SHE AND HER BROTHER YARIEL ARE THE DPOA FOR MRS. RAMOS; THE OTHER DAUGHTER MELISA MARQUES, CAN KNOW THE PT'S MEDICAL STATUS, BUT IS NOT ALLOWED TO MAKE ANY DECISIONS FOR HER; RANDALL STATED THAT MELISA HAS CALLED IN AND PRETENDED TO BE HER IN ORDER TO AFFECT CHANGES TO HER MOTHER'S CARE. RANDALL WOULD PREFER ANY COMMUNICATIONS TO ORIGINATE FROM THE HOSPITAL TO HER, RATHER THAN IF SHE CALLED IN, JUST TO ENSURE HER SISTER IS NOT THE ONE SPEAKING. PT A&Ox4, PLEASANT, ANSWERS APPROPRIATELY. HISTORY OF RIGHT BKA AND USES PROSTHESIS AND WALKER TO AMBULATE SHORT DISTANCES. PT IS TYPICALLY CONTINENT DURING THE DAY, BUT HAS SOME INCONT AT NIGHT; ADMITTED WITH BLOOD IN EITHER URINE OR VAGINAL DISCHARGE, BUT HAVE NOT NOTED ANY BLOOD OUT OVERNIGHT. ACCUCHECK AC/HS, GAVE 20 UNITS LANTUS AT HS. IV FLUIDS INFUSING OVERNIGHT. PT REPORTS OCCASIONAL PAIN IN LEFT FOOT WHERE SHE HAS 3 WOUNDS RELATED TO PVD/DIABETES, SEE WOUND DOCUMENTATION. NO OTHER CONCERNS, WILL CONTINUE TO MONITOR.
[2019-04-29 07:43] VITALS: BP 136/50
--- NOTE | 2019-04-29 07:50 | EKG ---
[address] [address] [facility] [place] [address] ELECTROCARDIOGRAM REPORT Name: RACHELSIN L Room #: 429-P ADM IN M.R.#: [id number] ������������������ Admission: 04/28/19 ������������������ Attend Phys: Chas Palafox MD Discharge: ������������������ Date of : 38 Report #: [id number] ����������������������������������������������������������������� [id number] THIS REPORT FOR: //name// [facility] ED Test Date: 2019-04-28 Test Time: 12:46:31 Pat Name: SIN RAMOS Department: Room: 429 Gender: F Supervisor [employer]: RJ : 1940 Requested By: Milind Henley Order Number: [id number] MD: Sharad Murray Measurements Intervals [place] Rate: 83 P: 71 NE: 205 QRS: -55 QRSD: 118 T: -18 QT: 383 QTc: 450 Interpretive Statements Sinus rhythm LVH with IVCD, LAD and secondary repol abnrm Poor R wave progression Compared to ECG 02/07/2019 15:16:22 T wave abnormality is now present Electronically Signed On 04-29-2019 7:50:23 CDT by Sharad Murray [email or web address] ��������������������������������������������� <ELECTRONICALLY SIGNED> ���������������������������������������� By: Sharad Murray MD, [facility] ��������������������������������������������� 04/29/19 0750 1246 1246 Sharad Murray MD, [facility] /EPI
--- NOTE | 2019-04-29 09:44 | NUR ---
Assess due to RD consult received for pt with wounds to left foot. Wound care has been consulted. Admission is not related to wounds, but for hematuria, pyelonephrostomy. Has hx right BKA, DM. Required dialysis in past but not currently on. Visit during breakfast, sitting up in chair and eating. States appetite is fine, does not eat as much at home as she is doing here. Large wt fluctuations in past related to fluids and additionally pt states sometimes they weigh her with leg prostesis on or off. Without it, reports UBW around 170 lb. Pt denied protein drinks at this time. Recommend remove renal diet restriction and just order carb controlled. Low nutrition risk
--- NOTE | 2019-04-29 09:48 | NUR ---
Recommend liberalize diet order by removing renal diet restriction and just order carb controlled
--- NOTE | 2019-04-29 12:34 | NUR ---
WOUND CONSULT; ROUNDING WITH DR CANDIDA VAZ AND [facility]. THE LEFT LAT AND LEFT LAT HEEL WOUNDS HAVE SOME FIBRINOUS DEBRIS IN THE WOUND BED. CURRENTLY USING THERAHONEY, WE WILL CONTINUE THIS IT REMAINS APPROPRIATE. NO ODEOR OR ANY S/S OF INFECTION IDENTIFIED. OLIMPIA, BOARDERED FOAM CHANGE M/W/F DISCUSSD WITH SNOW
--- NOTE | 2019-04-29 15:24 | NUR ---
PT ADMITTED RELATED TO BLEEDING, UTI, PYELO. CM REVIEWED CHART AND SPOKE WITH CARE TEAM. CM MET WITH PT AT BEDSIDE THIS DAY. PT IS A&O X4. CM ROLE INTRODUCED. PT INDICTED SHE LIVES IN A HOUSE WITH HER DTR, GRAND DAUGHTERS, AND GREAT GRANDKIDS. SHE INDICTED THERE IS A RAMP TO ENTER AND 7 STEPS TO HER BEDROOM. PT INDICATED SHE HAS A FWW AND A WHEELCHAIR. PT HAS RIGHT PROSTHESIS. PT IS ON SERVICE WITH [facility]. SHE INDICATED SHE WANTS TO RESUME WITH THEM [place]. PT PLANS TO RETURN HOME ONCE MEDICALLY STABLE.
[2019-04-29 15:46] VITALS: BP 141/50
--- NOTE | 2019-04-29 15:55 | NUR ---
PT HAD [facility] FAXED REFERRAL TO [facility] [place] SPOKE WITH ERICK IN ADM SHE WILL BE ABLE TO [facility] [place]. IF PT DISCHARGES OVER WEEKEND FAX DC ORDERS/SUMMARY TO [phone] AND CALL [phone].
--- NOTE | 2019-04-29 18:26 | NUR ---
PT UP IN BEDSIDE CHAIR ALERT XS 4. NO PAIN OR RESP DISTRESS. WOUND CARE TEAM DID TREATMENT CHANGES, DR BROWN AWARE OF PATIENT AND HER CARE. PT IS ON IV ABT FOR UTI UNDER CARE OF DR HAYWOOD. HAS RIGHT BKA PROTHESIS ON.
[2019-04-29 20:10] VITALS: BP 145/61
--- NOTE | 2019-04-30 03:19 | NUR ---
PATIENT ALERT AND ORIENTED X4. UP WITH WALKER TO BSC AND FROM CHAIR TO BED WITH PROSTHESIS AND TWO ASSIST. IVF INFUSING W/O COMPLICATION. MEDICATED X1 FOR LEFT FOOT PAIN. NO BLOOD NOTED IN URINE AT TIME OF NOTE. DAUGHTER AT BEDSIDE IN EARLY EVENING. THIS NURSE ANSWERED QUESTIONS. DAUGHTER WILL BE BACK IN THE AM TO SPEAK WITH DOCTOR ON ROUNDS. BS MONITORED PER ORDER. RESTING QUIETLY AT TIME OF NOTE. LEFT LOWER LEG WITH WRAP DRY AND INTACT. WILL MONITOR.
[2019-04-30 05:12] VITALS: BP 159/72
[2019-04-30 07:26] VITALS: BP 156/70
[2019-04-30 16:55] VITALS: BP 150/59
[2019-04-30 19:30] VITALS: BP 155/33
[2019-05-01 05:39] LABS: ALBUMIN 2.3 g/dL (3.4-5.0); CREATININE 1.8 mg/dL (0.6-1.0); PHOSPHORUS 3.4 mg/dL (2.5-4.9); POTASSIUM 4.9 mmol/L (3.5-5.1)
--- NOTE | 2019-05-01 05:53 | NUR ---
PT LYING IN BED. DENIES PAIN. VOIDING PER BEDPAN. RESTING COMFORTABLY. NO NEEDS VOICED. CALL LIGHT WITHIN REACH. WILL CONTINUE TO PROVIDE FREQUENT OBSERVATION.
[2019-05-01 08:15] VITALS: BP 159/78
[2019-05-01 17:20] VITALS: BP 164/60
[2019-05-01 19:33] VITALS: BP 164/60
[2019-05-01 19:40] VITALS: BP 136/55
[2019-05-02] VITALS (7 sets, daily range): BP systolic 128–135; BP diastolic 59–70
[2019-05-02 05:54] LABS: ALBUMIN 2.5 g/dL (3.4-5.0); CALCIUM 8.3 mg/dL (8.5-10.1); CREATININE 1.8 mg/dL (0.6-1.0); PHOSPHORUS 3.5 mg/dL (2.5-4.9); POTASSIUM 5.4 mmol/L (3.5-5.1)
--- NOTE | 2019-05-02 11:57 | NUR ---
PT A&OX4, AMBULATES WITH WALKER AND ASSIST X1. IV INTACT IN R AC. R BKA NOTED USES PROSTHETIC. DAUGHTER AT BEDSIDE. DENIES ANY PAIN VSS. WILL CONT POC.
--- NOTE | 2019-05-02 13:11 | NUR ---
WOUND CARE FOLLOW UP; ROUNDING WITH DR VAZ AND KATHY RN. THE LEFT LAT AND HIGH ANKLE WOUNDS ARE 90% CLEAN WOUND BEDS. NO S/S OF INFECTION. PLAN; CONTINUE CURRENT ORDERS/PATIENT MAY HAVE WRAPS OFF HS. DISCUSSED WITH RN
--- NOTE | 2019-05-02 13:16 | NUR ---
WOUND CARE FOLLOW UP; ROUNDING WITH DR VAZ AND K[facility]Y ADAMSON. THE WOUNDS ARE HEALED. DRY FLAKEY, VENOUS INSUFFICENCY SKIN CHANGES REMAIN. PLAN USE AMMOINIA LACTATE LOTION AND D/C WRAPS, USE TUBIGRIP INSTEAD. DISCUSSED WITH RN
--- NOTE | 2019-05-02 13:36 | HC ---
[facility] [place] [address] CONSULTATION Name: SIN RAMOS Room #: 429-P ADM IN .R.#: [id number] Admission: 04/28/19 ������������������ Attend Phys: Chas Palafox MD Discharge: ������������������ Date of : 38 Report #: [id number] THIS REPORT FOR: //name// CC: Chas De Souza DATE OF SERVICE: 04/29/2019 PERSONAL PHYSICIAN: Deon Al MD CHIEF COMPLAINT: Left lower extremity leg ulcers -- chronic. HISTORY OF PRESENT ILLNESS: This is an 78-year-old white female who was admitted through the Emergency Department last evening for what she thought was rectal bleeding; however, it turned out to be a blood in her urine secondary to pyelonephritis. The patient upon admission was noted to have chronic ulceration on her left lateral lower extremity as well as a healed previous ulceration on her left heel. We have been asked to consult for these chronic ulcerations on her left leg. The patient denies pain in legs, ulcers. The patient does have a history of venous insufficiency with mild edema. The patient had a previous right dtiri-xez-sncu amputation. The patient denies any other associated ulcerations at this time. The patient states that what she noticed was blood when she wiped after urination. She felt it was coming possibly from her rectum given the fact she has got a previous history of colon cancer. PAST MEDICAL HISTORY: Significant for insulin-dependent diabetes, hypertension, hypercholesterolemia, congestive heart failure, chronic renal insufficiency with previous dialysis now off dialysis. History of right xuzni-sza-bhzp amputation, peripheral arterial disease with left leg stent, history of colon cancer in 2017 with colon resection. CURRENT MEDICATIONS: Multiple, I reviewed the patient's medication list. DRUG ALLERGIES: None. SOCIAL HISTORY: The patient does not smoke or drink alcohol. Lives independently. FAMILY HISTORY: Not pertinent to current medical condition. REVIEW OF SYSTEMS: CONSTITUTIONAL: The patient denies fevers or chills. NEUROLOGIC: The patient has mild generalized weakness, but no isolated weakness in arms or legs. EYES: No complaints. ENT: No complaints. [facility] [address] [place] [address] CONSULTATION Name: RACHELSIN L Room #: 429-P [facility] IN [facility]#: [id number] Admission: 04/28/19 ������������������ Attend Phys: Chas Palafox MD Discharge: ������������������ Date of : 38 Report #: [id number] CARDIAC: The patient denies chest pain, palpitations. Does have chronic mild lower extremity edema in the left leg. RESPIRATORY: The patient denies shortness of breath, cough or wheezes. GASTROINTESTINAL: The patient thought that she possibly had blood in her stools, but no associated nausea, vomiting, abdominal pain. GENITOURINARY: The patient was noted to have blood in her urine in the Emergency Department, no urgency or frequency. MUSCULOSKELETAL: No complaints. SKIN: There is chronic ulceration in the left lower extremity secondary to venous insufficiency. PHYSICAL EXAMINATION: VITAL SIGNS: Temperature 37.5, pulse 89, respirations 17, BP 136/50. GENERAL: This is an alert and oriented x 3, pleasant, elderly black female who is in no obvious distress. HEENT: Normocephalic, atraumatic. Mucous membranes are somewhat dry. Pupils are round. Sclerae white. NECK: Supple, nontender, without JVD. LUNGS: Clear. HEART: Regular. ABDOMEN: Soft, nontender. EXTREMITIES: The patient has mnwyx-luy-pgdl amputation on the right with prosthesis in place. Evaluation of left lower extremity reveals chronic ulcerations x 2 on the lateral aspect of the left lower extremity just above the malleolus. These are 100% slough filled with serous drainage without odor. Periwound is intact. There is no undermining or tunneling. Left heel was slightly boggy. However, there are no open ulcerations. There is no tenderness. Left dorsalis pedis is 1+, left posterior tibial pulse is faint, left foot and toes are without open ulcerations. NEUROLOGIC: Cranial nerves 2-12 grossly intact. Motor and sensory grossly intact. LABORATORY DATA: White count 6.8, hemoglobin 9.5, BUN 48, creatinine 1.8, glucose 248, albumin 3.1. IMPRESSION: 1. Chronic venous leg ulceration on the left x 2, limited breakdown of subcutaneous tissue. 2. History of venous insufficiency with mild left lower extremity swelling. 3. History of peripheral arterial disease. 4. Status post below-knee amputation on the right. 5. Chronic kidney disease stage 3. 6. Urinary tract infection with pyelonephritis. PLAN: At this time, we will start TheraHoney to both the ulcerations, cover with gauze and then place ABD over the top of this with Kerlix and Marcos from toes [address] [address] CONSULTATION Name: SIN RAMOS Room #: 429-P [facility] IN M.R.#: [id number] Admission: 04/28/19 ������������������ Attend Phys: Chas Palafox MD Discharge: ������������������ Date of : 38 Report #: [id number] to knee for control of mild edema. We will have this changed every 2 days. Maximized the patient's protein supplementation as per her renal diet for healing. We will consult physical and occupational therapy for strengthening. We will continue all other current medications. We will continue to follow the patient. I appreciate the ability to consult. ��������������������������������������������� <ELECTRONICALLY SIGNED> ���������������������������������������� By: Bob Arango MD ��������������������������������������������� 05/02/19 1336 1020 0209 Bob Arango MD /nt
[2019-05-02] MEDS ORDERED: DOXYCYCLINE HYC50 MG PO ×2 (14:26→14:38)
[2019-05-02] MEDS ORDERED: TIMOLOL MALEATE5 M1 OPHTHALMIC (14:27)
--- NOTE | 2019-05-02 14:47 | NUR ---
PT DISCHARGING TODAY TO HOME WITH [facility] . FAXED DC ORDERS/SUMMARY TO [facility] SPOKE WITH ERICK IN INTAKE AND SHE RECEIVED DC ORDERS AND WILL NOTIFY PT AND FAMILY TIME OF VISITS.
--- NOTE | 2019-05-02 19:35 | NUR ---
DC ORDERS RECEIVED.IV REMOVED FROM R AC. DC INSTRUCTIONS, F/U APPOIBNT, SCRIPTS CALLED TO PHARMACY BY ANJEL TORRES NP. VOLUNTEE WHEELED PT TO MAIN ENTRANCE.
== END 2019-05-02 19:15 | disposition home health service (06) | DRG 689 ==
LOC: ER 12:42 → 4E 19:23 → EROBS 19:23 → 4E 20:19 → ENTRNSPT 05-02 18:58 → 4E 05-02 19:15
PROVIDERS: Emergency Medicine; Hospitalist; Nurse Practitioner Acute Care; ADMIT Hospitalist
DX: N12 Tubulo-interstitial nephritis, not specified as acute or chronic (principal); E43 Unspecified severe protein-calorie malnutrition; I13.0 Hypertensive heart and chronic kidney disease with heart failure and stage 1 through stage 4 chronic kidney disease, or unspecified chronic kidney disease; L97.829 Non-pressure chronic ulcer of other part of left lower leg with unspecified severity; E11.39 Type 2 diabetes mellitus with other diabetic ophthalmic complication; H42 Glaucoma in diseases classified elsewhere; E03.9 Hypothyroidism, unspecified; E78.00 Pure hypercholesterolemia, unspecified; E11.22 Type 2 diabetes mellitus with diabetic chronic kidney disease; I50.9 Heart failure, unspecified; E11.51 Type 2 diabetes mellitus with diabetic peripheral angiopathy without gangrene; I87.2 Venous insufficiency (chronic) (peripheral); E11.40 Type 2 diabetes mellitus with diabetic neuropathy, unspecified; N18.4 Chronic kidney disease, stage 4 (severe); D63.8 Anemia in other chronic diseases classified elsewhere; E11.649 Type 2 diabetes mellitus with hypoglycemia without coma; E87.5 Hyperkalemia; E83.42 Hypomagnesemia; B96.1 Klebsiella pneumoniae [K. pneumoniae] as the cause of diseases classified elsewhere; Z89.511 Acquired absence of right leg below knee; Z85.79 Personal history of other malignant neoplasms of lymphoid, hematopoietic and related tissues; Z90.49 Acquired absence of other specified parts of digestive tract; Z79.4 Long term (current) use of insulin; Z79.899 Other long term (current) drug therapy; Z68.31 Body mass index [BMI] 31.0-31.9, adult
CPT/HCPCS: 10084; 10183

== ENCOUNTER 2019-07-04 19:27 | Emergency (ER) | payer OTHER ==
[~2019-07-04] VITALS: Ht 154.9 cm; Wt 77.1 kg
[~2019-07-04 19:27] MED LIST changes: +CEFDINIR300 MG PO; +DOXYCYCLINE HYC50 MG PO; +MIRALAX17 GM PO; +NORVASC5 MG PO; +TIMOLOL MALEATE5 M1 OPHTHALMIC; +VITAMINC500 PO
[2019-07-04 20:08] LABS: HEMATOCRIT 31.2 % (37.0-47.0); HEMOGLOBIN 10.2 gm/dL (12.0-15.0); MCH 30.8 pg (26.0-34.0); MCHC 32.8 g/dL (28.0-37.0); MCV 93.8 fL (80.0-100.0); PLATELET COUNT 247 thou/uL (150-400); RBC 3.32 mil/uL (4.20-5.00); RDW 14.1 % (10.5-14.5); WBC 5.7 thou/uL (4.0-11.0)
[2019-07-04 20:16] LABS: URINE BILIRUBIN NEGATIVE (Negative); URINE BLOOD 3+ (Negative); URINE CLARITY SL CLOUDY; URINE COLOR YELLOW; URINE GLUCOSE-RANDOM* 3+ (Negative); URINE KETONES NEGATIVE (Negative); URINE NITRITE-REFLEX NEGATIVE (Negative); URINE PROTEIN (DIPSTICK) 2+ (Negative); URINE UROBILINOGEN 0.2 E.U./dl (0.2-1.0)
[2019-07-04 20:18] LABS: URINE LEUKOCYTES-REFLEX 2+ (Negative)
[2019-07-04 20:21] LABS: CALCIUM 9.1 mg/dL (8.5-10.1)
[2019-07-04 20:25] LABS: SQUAMOUS 0-3 Few /LPF (0-3); URINE WBC-REFLEX >25 Many /HPF (0-5)
[2019-07-04 20:25] LABS: POTASSIUM 6.1 mmol/L (3.5-5.1)
[2019-07-04 20:26] LABS: CASTS None Seen /LPF (None Seen); CRYSTALS None Seen /LPF (None Seen)
[2019-07-04 20:53] LABS: CALCIUM 8.8 mg/dL (8.5-10.1); POTASSIUM 5.2 mmol/L (3.5-5.1)
[2019-07-04 21:28] LABS: ABSOLUTE NEUTROPHILS 3.7 thou/uL (1.4-8.2); LARGE PLATELETS OCCASIONAL; PROMYELOCYTES 1 %
[2019-07-04] MEDS ORDERED: KEFLEX500 M2 PO (21:42)
[2019-07-04 22:00] VITALS: BP 155/64
--- NOTE | 2019-07-05 09:14 | EKG ---
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: : 1940 Requested By: Miles Pierre Order Number: [id number] MD: Sharad Murray Measurements Intervals [place] Rate: 88 P: 63 SC: 216 QRS: -52 QRSD: 121 T: 64 QT: 362 QTc: 438 Interpretive Statements Sinus rhythm Borderline prolonged SC interval Left anterior hemiblock Poor R wave progression LVH Compared to ECG 04/28/2019 12:46:31 T-wave abnormality is less pronounced Electronically Signed On 07-05-2019 9:14:27 CDT by Sharad Murray [email or web address] <ELECTRONICALLY SIGNED> By: Sharad Murray MD, [facility] 07/05/1916 23 23 Sharad Murray MD, [facility] /EPI
== END 2019-07-04 22:11 | disposition home or self-care (01) ==
LOC: ER 19:27
PROVIDERS: Emergency Medicine
DX: N39.0 Urinary tract infection, site not specified (principal); I13.0 Hypertensive heart and chronic kidney disease with heart failure and stage 1 through stage 4 chronic kidney disease, or unspecified chronic kidney disease; I50.9 Heart failure, unspecified; N18.3 Chronic kidney disease, stage 3 (moderate); E11.22 Type 2 diabetes mellitus with diabetic chronic kidney disease; E03.9 Hypothyroidism, unspecified; E78.00 Pure hypercholesterolemia, unspecified; Z85.038 Personal history of other malignant neoplasm of large intestine; Z89.511 Acquired absence of right leg below knee; Z79.4 Long term (current) use of insulin; Z86.2 Personal history of diseases of the blood and blood-forming organs and certain disorders involving the immune mechanism

== ENCOUNTER 2019-07-17 23:40 | Inpatient (IN) | payer OTHER ==
[~2019-07-17] VITALS: Ht 157.5 cm; Wt 74.8 kg
[~2019-07-17 23:40] MED LIST changes: +KEFLEX500 M2 PO
[2019-07-17 23:41] VITALS: BP 197/90
[2019-07-18 00:21] LABS: HEMOGLOBIN 9.3 gm/dL (12.0-15.0); RBC 3.04 mil/uL (4.20-5.00)
[2019-07-18 00:23] LABS: HEMATOCRIT 28.2 % (37.0-47.0); MCH 30.6 pg (26.0-34.0); MCHC 33.1 g/dL (28.0-37.0); MCV 92.6 fL (80.0-100.0); PLATELET COUNT 224 thou/uL (150-400); RDW 14.4 % (10.5-14.5)
[2019-07-18 00:32] LABS: URINE BILIRUBIN NEGATIVE (Negative); URINE BLOOD 3+ (Negative); URINE CLARITY CLEAR; URINE COLOR YELLOW; URINE GLUCOSE-RANDOM* NEGATIVE (Negative); URINE KETONES NEGATIVE (Negative); URINE NITRITE-REFLEX NEGATIVE (Negative); URINE PROTEIN (DIPSTICK) 3+ (Negative); URINE UROBILINOGEN 0.2 E.U./dl (0.2-1.0)
[2019-07-18 00:38] LABS: AMP/METHAMP Negative (Negative); BARBITURATES Negative (Negative); BENZODIAZEPINES Negative (Negative); COCAINE Negative (Negative); METHADONE Negative (Negative); OPIATES Negative (Negative); PCP Negative (Negative)
[2019-07-18 00:39] LABS: URINE LEUKOCYTES-REFLEX 3+ (Negative)
[2019-07-18 00:41] LABS: BACTERIA-REFLEX >30 Many /HPF (None Seen); CASTS None Seen /LPF (None Seen); CRYSTALS None Seen /LPF (None Seen); MUCUS 0-3 Light strn/LPF (None Seen); SQUAMOUS 4-10 Moderate /LPF (0-3); URINE RBC >20 Many /HPF (0-2); URINE WBC-REFLEX >25 Many /HPF (0-5)
[2019-07-18 00:54] LABS: LARGE PLATELETS FEW
[2019-07-18 01:01] LABS: ABSOLUTE NEUTROPHILS 4.4 thou/uL (1.4-8.2)
[2019-07-18 01:19] LABS: ANION GAP 10 mmol/L (7-16); BUN 70 mg/dL (7-18); CHLORIDE 107 mmol/L (98-107); CO2 25 mmol/L (21-32); GLUCOSE 175 mg/dL (74-106); POTASSIUM 5.7 mmol/L (3.5-5.1); SODIUM 142 mmol/L (136-145)
[2019-07-18 01:28] LABS: CALCIUM 9.4 mg/dL (8.5-10.1); TROPONIN-I <0.06 ng/mL (<0.06)
[2019-07-18 04:11] VITALS: BP 187/96
[2019-07-18 04:50] VITALS: BP 182/76
--- NOTE | 2019-07-18 06:41 | NUR ---
PATIENT AOX2 AND FORGETFUL. PATIENT HAS A DIABETIC ULCER ON RLE 3 X 2 X 0. WOUND HAD MINIMUM DRAINAGE, NO ODOR. PICURE TAKEN AND IN THE CHART. DAUGHTER AT BEDSIDE AND HELPED WITH ASSESSMENT. PATIENT HAS RIGHT BTK. FALL PRECAUTION IN PLACE. PATIENT NEEDS MAXIMUM ASSISTANCE WITH ADL, BED MOBILITY, TRANSFER AND TOILETING, X 2 ASSIST. PATIENT USES BED VENEGAS. PATIENT VOIDED THIS SHIFT NO BLEEDING THIS SHIFT. PATIENT DENIED PAIN OR DISCOMFORT. PATIENT IN BED ASLEEP AT THIS TIME BREATHING REGULAR AND UNLABOURED.
[2019-07-18 07:11] VITALS: BP 156/65
--- NOTE | 2019-07-18 08:02 | EKG ---
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
--- NOTE | 2019-07-18 11:29 | NUR ---
PT A&OX3 AND FORGETFUL, VSS, DENIES PAIN. PT HAS RIGHT BKA STUMP INTACT, WARM TO TOUCH. LEFT LEG DARK/DISCOLORED, SKIN COOL, WEAK PULSE FELT. PT ABLE TO MOVE TOES AND FEEL SENSATION. PT HAS ULCER NEAR LEFT CALF. WOUND ORDERS IN PLACE. LOOSE STOOL OBSERVED, URINE YELLOW NO BLOOD OBSERVED. WILL CONTINUE TO MONITOR.
--- NOTE | 2019-07-18 13:13 | NUR ---
dp sent hh referral to [facility]/ Patient wants to resume hh upon discharge iwmiri Miranda. DC date unknown at this time.
--- NOTE | 2019-07-18 14:36 | NUR ---
PT ADMITTED RELATED TO DERLIUM. CM REVIEWED CAHRT AND SPOKE WITH CARE TEAM. CM MET WITH PT AND HER DTR RANDALL AT BEDSIDE THIS DAY. PT WAS SLEEPING SO DTR ANSWERED ASSESSMENT QUESTIONS. SHE INDICATED PT RESIDES IN A HOUSE WITH FAMILY WITH A RAMP TO ENTER AND 6 OR 7 STEPS SHE USES INSIDE. SHE INDICATED THAT PT HAS A WC, FWW, PROSTHESIS, GRAB BARS, AND BED RAILS TO ASSIST WITH MOBILITY AT HOME. SHE INDICATED THAT PT HAD BEEN ON SERVICE WITH [facility] REMELT OPERATOR AND THAY THEY WOULD LIKE TO RESUME SERVICES WITH THEM UPON DC. DTR INDICATED THAT THEY ANTICIPATE PT RETURNING HOME ONCE MEDICALLY STABLE. CM TO FOLLOW INDICATED WITH DC PLANNING. PT AND OT WERE ORDERED TO SEE PT.
[2019-07-18 19:55] VITALS: BP 155/63
--- NOTE | 2019-07-19 02:39 | NUR ---
PATIENT AOX3 MAKES NEEDS KNOWN. PATIENT BLOOD SUGAR WAS 75 PATIENT REFUSED LANTUS. LLE WOUND DRESSING IS C/D/I. PATIENT DENIED PAIN OR DISCOMFORT. FALL PRECAUTION IN PLACE. CALL LIGHT WITHIN REACH. PATIENT IN BED ASLEEP AT THIS TIME BREATHING REGULAR AND UNLABOURED.
[2019-07-19 06:07] LABS: CALCIUM 9.1 mg/dL (8.5-10.1); CREATININE 1.7 mg/dL (0.6-1.0); POTASSIUM 4.7 mmol/L (3.5-5.1)
[2019-07-19 07:40] LABS: TSH 5.124 uIU/mL (0.358-3.740)
[2019-07-19 07:46] VITALS: BP 152/51
[2019-07-19 16:08] VITALS: BP 161/65
[2019-07-19 19:28] VITALS: BP 152/64
--- NOTE | 2019-07-19 21:07 | NUR ---
PT A&OX4, VSS, DENIES PAIN. PT TOLERATED PHYSICAL THERAPY TODAY. PT CAN PLACE OWN PROSTHESIS TO RIGHT LEG, AND PIVOT WITH 1 ASSIST TO BEDSIDE COMMODE. NO SIGNS OF DISTRESS. PATIENT TOLERATING DIET. MISSING MEDICATION FROM MED REC VERIFIED WITH DOCTOR AND PLACED ON EMAR PER PHONE VERBAL ORDER. WILL CONTINUE TO MONITOR.
--- NOTE | 2019-07-20 03:20 | NUR ---
assumed care of pt @1900. pt a&ox4. no c/o pain. pt recieved both of her eye drops before bed. pt gets up with 1 assist stand pivot to bsc but would rather use the bedpan overnight. no s/s of distress. fall prec in place. call wagner within reach. will cont to monitor
[2019-07-20 07:29] VITALS: BP 149/53
[2019-07-20 15:34] VITALS: BP 141/56
[2019-07-20 19:10] VITALS: BP 174/57
--- NOTE | 2019-07-20 21:06 | NUR ---
PATIENT UP WITH MINIMAL ASSIST USING GAIT BELT, WALKER, AND PROSTHETIC. FALL PRECAUTIONS IN PLACE, CALLS FOR ASSIST. PATIENT AMBULATED TO DOOR IN ROOM AND BACK WITH THERAPY THIS SHIFT.
[2019-07-20 23:38] VITALS: BP 172/66
--- NOTE | 2019-07-21 01:33 | NUR ---
ASSESSMENT COMPLETED. PT A&OX4. CALL APPROP AND LET NEEDS KNOWN. PT USES THE BEDPAN OVERNIGHT BUT CAN GET UP TO THE BSC. WOUND CARE DONE. THERE WAS NO THERAHONEY TO CHANGE DRESSING WITH, SALINE WAS USED TO CLEANSE WOUND AND OPTIFOAM WITH SILVER WAS PLACED OVER IT. A REQUEST FOR THERAHONEY WAS PLACED. CALL POZO WITHIN REACH, FALL PREC IN PLACE. NO S/S OF DISTRESS. WILL CONT TO MONITOR
[2019-07-21 07:39] VITALS: BP 160/57
[2019-07-21 11:02] LABS: HEMATOCRIT 25.3 % (37.0-47.0); HEMOGLOBIN 8.3 gm/dL (12.0-15.0); MCH 30.9 pg (26.0-34.0); MCHC 32.6 g/dL (28.0-37.0); MCV 94.5 fL (80.0-100.0); RBC 2.68 mil/uL (4.20-5.00); RDW 14.2 % (10.5-14.5); WBC 6.5 thou/uL (4.0-11.0)
[2019-07-21 11:14] LABS: CALCIUM 8.8 mg/dL (8.5-10.1); CREATININE 1.7 mg/dL (0.6-1.0); MAGNESIUM 1.6 mg/dL (1.8-2.4); POTASSIUM 5.1 mmol/L (3.5-5.1)
--- NOTE | 2019-07-21 12:20 | HC ---
[facility] [place] [address] CONSULTATION Name: SIN RAMOS Room #: 452-P ADM IN M.R.#: [id number] Admission: 07/18/19 Attend Phys: Chas Palafox MD Discharge: Date of : 38 Report #: [id number] THIS REPORT FOR: //name// CC: Chas De Souza DATE OF SERVICE: 07/18/2019 WOUND CARE CONSULTATION PERSONAL PHYSICIAN: Non-staff. CHIEF COMPLAINT: Left lower extremity ulcer. HISTORY OF PRESENT ILLNESS: This is an 78-year-old white female who has been a patient of mine in the past for chronic ulceration, left lower extremity secondary to venous insufficiency. The patient is currently admitted to the hospital for altered mental status associated with the urinary tract infection. While here we have been asked to see the patient for care of the wound. The patient and the patient's daughter states there are no new associated wounds. The patient has been having home health come out and do 3 times a week dressing changes. The patient denies any other associated concerns at this time. PAST MEDICAL HISTORY: Significant for diabetes mellitus, hypertension, chronic kidney disease, hypothyroidism, previous right nssuh-mpq-wfvw amputation secondary to leg infection, recurrent urinary tract infections. CURRENT MEDICATIONS: Multiple, I reviewed the patient's medication list. DRUG ALLERGIES: Include IRON. SOCIAL HISTORY: The patient resides at home with family, has noted no history of smoking or alcohol use. FAMILY HISTORY: Not pertinent to current medical condition. REVIEW OF SYSTEMS: CONSTITUTIONAL: The patient denies fevers or chills. NEUROLOGIC: The patient had altered mental status prior to admission, which was felt to be secondary to urinary tract infection. The patient now denies any associated headache, numbness, tingling or isolated weakness in arms or legs. EYES: No complaints. ENT: No complaints. CARDIAC: The patient denies chest pain, palpitations or peripheral edema. RESPIRATORY: The patient denies shortness of breath, cough or wheezes. GASTROINTESTINAL: The patient denies nausea, vomiting or abdominal pain. [facility] [address] [place] [address] CONSULTATION Name: SIN RAMOS Urbano Room #: 452-P [facility] IN ..#: [id number] Admission: 07/18/19 Attend Phys: Chas Palafox MD Discharge: Date of : 38 Report #: [id number] GENITOURINARY: The patient denies urgency or frequency. MUSCULOSKELETAL: No complaints. SKIN: Chronic ulcer on the left lateral lower extremity. PHYSICAL EXAMINATION: VITAL SIGNS: Temperature 36.8, pulse 86, respirations 16, BP 155/63. GENERAL: This is an alert and oriented x [address], but not time, elderly white female who is in no obvious distress. HEENT: Normocephalic, atraumatic. Mucous membranes are dry. Pupils are round. Sclerae white. NECK: Without JVD. LUNGS: Clear. HEART: Regular. ABDOMEN: Obese, soft, nontender. EXTREMITIES: The patient has trace to 1+ edema bilateral lower extremities. Distal pulses are 1+. Evaluation of left heel, foot and toes are without open ulcerations. Right lower extremity has had ukzbs-iyl-hpjq amputation with a well-healed incision on the left lateral leg just proximal to the lateral malleolus. It is chronic venous leg ulcer, which is 100% slough. There are no undermining or tunneling. There are no signs of distal deeper structure involvement. There is moderate amount of serosanguineous drainage noted without odor. Lluvia-wound is otherwise intact. NEUROLOGIC: Cranial nerves 2-12 grossly intact. Motor and sensory grossly intact. LABORATORY DATA: White count 6.0, hemoglobin 9.3. Previous albumin back in 05/02/2019 was 2.5. IMPRESSION: 1. Chronic venous leg ulcer on left lateral lower extremity, full thickness with involvement of subcutaneous tissue. 2. Venous insufficiency with mild edema. 3. History of urinary tract infection with altered mental status. 4. History of protein-calorie malnutrition -- severe. 5. Generalized debility. PLAN: At this time, we will start TheraHoney to the ulcer site covered with a foam dressing changes three times weekly. We will use Kerlix and Marcos for control of mild edema of the left lower extremity. 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 We will continue to maximize the patient's oral protein supplementation [place] [address] CONSULTATION Name: SIN RAMOS Room #: 452-P [facility] IN ..#: [id number] Admission: 07/18/19 Attend Phys: Chas Palafox MD Discharge: Date of : 38 Report #: [id number] physical and occupational therapy for strengthening. We will continue to follow the patient. I appreciate the ability to consult. <ELECTRONICALLY SIGNED> By: Bob Arango MD 07/21/19 1220 0839 2059 Bob Arango MD /nt
[2019-07-21 13:51] VITALS: BP 160/57
--- NOTE | 2019-07-21 14:47 | NUR ---
PT A&OX4, VSS, DENIES PAIN. PATIENT HAS USED BEDSIDE COMMODE AND SAT IN RECLINER. PATIENT HAS PARTICIPATED IN PT AND OT. RIGHT BKA SKIN INTACT. LEFT LOWER LEG, HYPERPIGMENTED WITH ULCER. WOUND CARE COMPLETED TODAY TO ADD THERAHONEY TO WOUND BED. 1+ PULSE IN LEFT FOOT, SENSATION FELT, SKIN WARM TO TOUCH. DOCTOR AWARE OF PT FLUCTUATING BLOOD SUGAR. PATIENT REMAINS ASYMPTOMATIC. NO SIGNS OF DISTRESS, WILL CONTINUE TO MONITOR.
[2019-07-21] MEDS ORDERED: B-12500 MCG PO (15:06)
[2019-07-21] MEDS ORDERED: CEFUROXIME500 MG PO (15:06)
[2019-07-21] MEDS ORDERED: LANTUS SUBQ (15:06)
[2019-07-21] MEDS ORDERED: LOPRESSOR50 PO (15:06)
--- NOTE | 2019-07-21 15:37 | NUR ---
DISCHARGE ORDERS [id number]. PATIENT DISCHARGING TO HOME WITH [facility]. DISCHARGE/HH ORDERS AND DISCHARGE SUMMARY FAXED TO [facility]. CALL PLACED TO [facility] TO NOTIFY. [facility] TO FACILITATE HH NEEDS.
[2019-07-21 17:03] VITALS: BP 160/57
[2019-07-21 19:40] VITALS: BP 158/54
--- NOTE | 2019-07-22 03:14 | NUR ---
assumed care of pt @ 1900. pt was discharged to go home with [facility]. daughter was concernedd about pt's low BG in the morning. long acting insulin was changed from BID to HS. Daughter wanted pt to stay the night for some monitoring. PONDMAN Marj was notified. Spot check BG @0300 was 60. apple juice given. pt is assymptomatic. will cont to monitor. call wagner within reach
[2019-07-22 07:51] VITALS: BP 145/55
[2019-07-22] MEDS ORDERED: LANTUS100 UNIT/M SUBQ (12:47)
[2019-07-22 14:30] VITALS: BP 151/52
--- NOTE | 2019-07-22 16:27 | NUR ---
PT DISCHARGED HOME WITH HOME HEALTH. A&OX4, VSS, BLOOD SUGAR STABLE, DENIES PAIN, DENIES SOA. WOUND DRESSING CHANGED. DISCHARGE PHOTO TAKEN 07/21/19 LESS THAN 24 HOURS. NO SIGNS OF DISTRESS. IV REMOVED, ALL BELONGINGS WITH PATIENT. DAUGHTER AT BEDSIDE. DAUGHTER STATES SHE WILL MAKE APPOINTMENT WITH DR SOFIA TO FOLLOW PT AND BLOOD SUGAR.
[2019-07-22 16:31] VITALS: BP 160/57
== END 2019-07-22 17:45 | disposition home health service (06) | DRG 871 ==
LOC: ER 23:40 → EROBS 07-18 03:58 → 4W 07-18 03:58 → 4S 07-22 12:11 → ENTRNSPT 07-22 17:01 → 4S 07-22 17:45
PROVIDERS: Emergency Medicine; Internal Medicine; ADMIT Hospitalist
DX: A41.9 Sepsis, unspecified organism (principal); G92 Toxic encephalopathy; L97.929 Non-pressure chronic ulcer of unspecified part of left lower leg with unspecified severity; N12 Tubulo-interstitial nephritis, not specified as acute or chronic; I13.0 Hypertensive heart and chronic kidney disease with heart failure and stage 1 through stage 4 chronic kidney disease, or unspecified chronic kidney disease; N18.4 Chronic kidney disease, stage 4 (severe); N17.9 Acute kidney failure, unspecified; R41.0 Disorientation, unspecified; E11.22 Type 2 diabetes mellitus with diabetic chronic kidney disease; E11.622 Type 2 diabetes mellitus with other skin ulcer; E11.65 Type 2 diabetes mellitus with hyperglycemia; E03.9 Hypothyroidism, unspecified; E78.00 Pure hypercholesterolemia, unspecified; I50.9 Heart failure, unspecified; I87.2 Venous insufficiency (chronic) (peripheral); D50.9 Iron deficiency anemia, unspecified; E53.8 Deficiency of other specified B group vitamins; E87.5 Hyperkalemia; D63.8 Anemia in other chronic diseases classified elsewhere; Z79.4 Long term (current) use of insulin; Z89.511 Acquired absence of right leg below knee; Z85.038 Personal history of other malignant neoplasm of large intestine
CPT/HCPCS: 10040

== ENCOUNTER 2019-08-05 13:09 | Inpatient (IN) | payer OTHER ==
[~2019-08-05] VITALS: Ht 154.9 cm; Wt 78.9 kg
[~2019-08-05 13:09] MED LIST changes: +B-12500 MCG PO; +CEFUROXIME500 MG PO; +LANTUS SUBQ; +LANTUS100 UNIT/M SUBQ; +LOPRESSOR50 PO
[2019-08-05 13:47] LABS: ABSOLUTE NEUTROPHILS 3.7 thou/uL (1.4-8.2); BASOPHILS 0.5 % (0.0-2.0); EOSINOPHILS 2.4 % (0.0-3.0); HEMATOCRIT 22.8 % (37.0-47.0); HEMOGLOBIN 7.4 gm/dL (12.0-15.0); LYMPHOCYTES 18.4 % (24.0-44.0); MCH 31.1 pg (26.0-34.0); MCHC 32.6 g/dL (28.0-37.0); MCV 95.4 fL (80.0-100.0); MONOCYTES 9.8 % (1.0-8.0); PLATELET COUNT 180 thou/uL (150-400); POLYS 68.9 % (36.0-66.0); RBC 2.39 mil/uL (4.20-5.00); RDW 15.5 % (10.5-14.5); WBC 5.4 thou/uL (4.0-11.0)
[2019-08-05 13:58] LABS: ANION GAP 11 mmol/L (7-16); BUN 72 mg/dL (7-18); CALCIUM 8.9 mg/dL (8.5-10.1); CHLORIDE 105 mmol/L (98-107); CO2 21 mmol/L (21-32); CREATININE 1.7 mg/dL (0.6-1.0); GLUCOSE 277 mg/dL (74-106); POTASSIUM 5.6 mmol/L (3.5-5.1); SODIUM 137 mmol/L (136-145)
[2019-08-05 14:00] LABS: URINE BILIRUBIN NEGATIVE (Negative); URINE BLOOD 1+ (Negative); URINE CLARITY CLEAR; URINE COLOR YELLOW; URINE GLUCOSE-RANDOM* NEGATIVE (Negative); URINE KETONES NEGATIVE (Negative); URINE LEUKOCYTES-REFLEX 3+ (Negative); URINE NITRITE-REFLEX NEGATIVE (Negative); URINE PROTEIN (DIPSTICK) 3+ (Negative); URINE UROBILINOGEN 0.2 E.U./dl (0.2-1.0)
[2019-08-05 14:07] LABS: TROPONIN-I <0.06 ng/mL (<0.06)
[2019-08-05 14:29] LABS: BACTERIA-REFLEX >30 Many /HPF (None Seen); CASTS None Seen /LPF (None Seen); CRYSTALS None Seen /LPF (None Seen); SQUAMOUS 0-3 Few /LPF (0-3); URINE RBC 0-2 Rare /HPF (0-2); URINE WBC-REFLEX >25 Many /HPF (0-5)
[2019-08-05 16:03] VITALS: BP 178/70
[2019-08-05 16:45] VITALS: BP 183/63
[2019-08-05 17:36] VITALS: BP 156/58
--- NOTE | 2019-08-05 18:16 | NUR ---
Admitted from ER at 1730 due
[2019-08-05 18:59] VITALS: BP 141/53
--- NOTE | 2019-08-05 19:54 | NUR ---
Admitted from the ER due to weakness, transferred to bed safely. A+Ox4. On O2 at 2lpm via nasal cannula due to comfort, pt not on any home O2. Assisted in ADLs. On blood sugar monitoring, taken and recorded, pre-insulin dinner not given, pt just had a portion of her dinner- maintenance technician 3rd shift nurse informed. Admission forms signed, admission care rendered. With SL at L AC- intact and flushing well. Med rec done as reported by ER staff. Admission photo to be taken- maintenance technician 3rd shift informed. With Right BKA, with prosthesis at bedside. With LLE diabetic foot ulcer- wound care consult placed, a/w assessment. To continue monitoring.
--- NOTE | 2019-08-06 03:58 | NUR ---
assumed care of of pt @1915. pt a&ox4. no c/o of pain. pt had a restful night with no concerns. picture of left lower ext diabetic ulcer taken and dressing changed to the site. wound is well approximated with minimal drainage. pt used bedpan overnight for elimination. pt can transfer to the bsc with 1 assist. fall prec in place. no s/s of distress. callbell within reach. following with POC
[2019-08-06 04:04] VITALS: BP 148/49
[2019-08-06 06:46] LABS: ABSOLUTE NEUTROPHILS 3.3 thou/uL (1.4-8.2); BASOPHILS 0.6 % (0.0-2.0); EOSINOPHILS 2.5 % (0.0-3.0); LYMPHOCYTES 17.4 % (24.0-44.0); MCH 31.9 pg (26.0-34.0); MCHC 33.2 g/dL (28.0-37.0); MONOCYTES 9.1 % (1.0-8.0); PLATELET COUNT 170 thou/uL (150-400); POLYS 70.4 % (36.0-66.0); RBC 2.19 mil/uL (4.20-5.00); RDW 15.8 % (10.5-14.5); WBC 4.6 thou/uL (4.0-11.0)
[2019-08-06 07:06] LABS: ALBUMIN 2.6 g/dL (3.4-5.0); CALCIUM 8.4 mg/dL (8.5-10.1); CREATININE 1.8 mg/dL (0.6-1.0); MAGNESIUM 1.7 mg/dL (1.8-2.4); PHOSPHORUS 4.2 mg/dL (2.5-4.9); POTASSIUM 5.4 mmol/L (3.5-5.1)
[2019-08-06 08:00] VITALS: BP 148/65
--- NOTE | 2019-08-06 12:14 | NUR ---
Received awake on bed. Due medicatons given as prescribed, able to swallow meds w/o difficulty. A+Ox4. With O2 at 1lpm via nasal cannula, night clerk auditor nurse informed me that she tried to wean pt off oxygen but she desaturated to 89%, oxygen continued at 1lpm via nasal cannula. On blood sugar monitoring- taken and recorded accordingly, with prescribed insulin given as prescribed. Vital signs stable. Able to sit out on chair. Assisted in ADLs. Tolerating meals, no nausea, no vomiting and abdominal pain noted. With wound at LLE, dressing C/D/I.
[2019-08-06 15:00] VITALS: BP 117/38
[2019-08-06 19:55] VITALS: BP 135/45
[2019-08-07 04:22] LABS: WBC 5.1 thou/uL (4.0-11.0)
[2019-08-07 04:26] LABS: MCH 31.6 pg (26.0-34.0); MCHC 32.9 g/dL (28.0-37.0); MCV 96.3 fL (80.0-100.0); RBC 2.03 mil/uL (4.20-5.00); RDW 15.8 % (10.5-14.5)
[2019-08-07 04:41] LABS: % SATURATION 34 % (20-39); IRON 68 ug/dL (50-170); TIBC 201 ug/dL (250-450)
[2019-08-07 04:43] LABS: ALBUMIN 2.4 g/dL (3.4-5.0); CALCIUM 8.5 mg/dL (8.5-10.1); CREATININE 2.1 mg/dL (0.6-1.0); PHOSPHORUS 3.9 mg/dL (2.5-4.9); POTASSIUM 5.3 mmol/L (3.5-5.1)
[2019-08-07 04:47] LABS: HEMATOCRIT 19.5 % (37.0-47.0); HEMOGLOBIN 6.4 gm/dL (12.0-15.0)
--- NOTE | 2019-08-07 05:24 | HC ---
[facility] [place] [address] CONSULTATION Name: SIN RAMOS Urbano Room #: 451-P ADM IN M.Ivet.#: [id number] Admission: 08/05/19 Attend Phys: Felipe Nelson MD Discharge: Date of : 38 Report #: [id number] THIS REPORT FOR: //name// CC: Aishwarya Nelson DATE OF SERVICE: 08/06/2019 INFECTIOUS DISEASE CONSULTATION ATTENDING PHYSICIAN: Dr. Nelson. REASON FOR EVALUATION: Complicated urinary tract infection with relapse. HISTORY OF PRESENT ILLNESS: Chart reviewed, patient examined. This is an 78-year-old woman with extensive medical history, has diabetes mellitus with significant sequelae including vasculopathy, she has previous right below knee amputation, has prosthesis, chronic left distal lower extremity foot wounds, who was admitted through the Emergency Room, had progressive weakness, fatigue, does have some urinary difficulties. Urinalysis showed marked pyuria, marked bacteriuria. Lactic acid of 0.7. White count was in the normal range. She was fairly profoundly anemic, felt to have suspected complicated urinary tract infection. She was started on single dose of ceftriaxone. Review of cultures from July of this year showed Klebsiella pneumoniae, which was resistant to ampicillin, intermediate to nitrofurantoin, although quite susceptible. At this point, she states she feels better. She is on low-dose supplemental oxygen at half a liter, although sat was 99%. Denies significant pulmonary or gastrointestinal related complaints. She states her appetite has been only fair. She is not encephalopathic. ALLERGIES: IRON. CURRENT MEDICATIONS: Include ceftriaxone, lactobacillus, cyanocobalamin, metoprolol, ascorbic acid, loratadine, pantoprazole, levothyroxine, trazodone, ferrous sulfate. PAST MEDICAL HISTORY: Includes diabetes mellitus type 2 complicated by vasculopathy, has known peripheral vascular disease, previous right below knee amputation, left lower extremity stenting. She has chronic ulceration, history of glaucoma, hypertension, hypothyroidism, high cholesterol, cardiomyopathy, history of congestive heart failure, chronic renal insufficiency, history of colon cancer with partial colectomy in 2017, recurrent urinary tract infections. SOCIAL HISTORY: Nonsmoker, no ethanol, no illicit drug use. FAMILY HISTORY: Noncontributory. [facility] [address] [place] [address] CONSULTATION Name: SIN RAMOS Room #: 451-P [facility] IN [facility].#: [id number] Admission: 08/05/19 Attend Phys: Felipe Nelson MD Discharge: Date of : 38 Report #: [id number] REVIEW OF SYSTEMS: Otherwise, unremarkable 10-point review of systems except noted above. PHYSICAL EXAMINATION: GENERAL: She appears chronically ill, undernourished. She is pleasant, cooperative, perhaps some mild degree of dementia, in ruvz-wc-agwsiurs distress. VITAL SIGNS: Temperature 97.8, pulse 72, respirations 17, blood pressure 140/49. SKIN: Warm, dry, excessively so on her distal left lower extremity. HEENT: Normocephalic. Extraocular muscles intact. NECK: Supple. LUNGS: Diminished breath sounds. HEART: Regular, soft systolic murmur. ABDOMEN: Soft, nontender, nondistended. EXTREMITIES: Distal left lower extremity is quite dry. There is somewhat of an eschar over the lateral aspect. There is no clear ulcer at this point, diminished pulses. /RECTAL: Deferred. LABORATORY DATA: Initial CBC: White count of 5.4, H and H 7.4 and 22.8, platelets of 180. Electrolytes: Sodium 137, potassium 5.6, chloride 105, bicarbonate is 21, anion gap of 11, BUN and creatinine 72 and 1.7, glucose of 277. Urinalysis described above, greater than 25 white cells, greater than 30 bacteria. Lactic acid 0.7. ASSESSMENT AND PLAN: Complicated urinary tract infection, apparently recurrence. We will await culture results. Noted to have Klebsiella in mid July based on hospitalization here, was generally susceptible. Continue the ceftriaxone for now. We will not expectantly add incentive spirometry. Certainly limited in her mobility but increasing activity, I think would be beneficial try to optimize her nutritional status. <ELECTRONICALLY SIGNED> By: González Cummings MD 08/07/19 0524 0721 [id number] González Cummings MD /nt
[2019-08-07 07:57] VITALS: BP 152/53
[2019-08-07 08:24] VITALS: BP 155/54; BP 162/70
--- NOTE | 2019-08-07 08:41 | NUR ---
PROGRESS VSS, PT DENIES PAIN, IV ANTIBIOTICS GIVEN ORDERED HGB DOWN TO 6.4 AGA NEIL NOTIFIED 1 UNIT PRBC'S ORDERED PT AWARE CONSENT PREPARED DAY SHIFT TO TRANSFUSE
[2019-08-07 12:02] LABS: HEMATOCRIT 25.9 % (37.0-47.0)
[2019-08-07 12:03] LABS: HEMOGLOBIN 8.5 gm/dL (12.0-15.0)
--- NOTE | 2019-08-07 12:06 | HC ---
[facility] [place] [address] CONSULTATION Name: SIN RAMOS Ubrano Room #: 451-P [facility] IN M.R.#: [id number] Admission: 08/05/19 Attend Phys: Felipe Nelson MD Discharge: Date of : 38 Report #: [id number] THIS REPORT FOR: //name// CC: Aishwarya Nelson DATE OF SERVICE: 08/06/2019 CONSULTING PHYSICIAN: Carolyn Berman. REASON FOR CONSULTATION: Uncontrolled type 2 diabetes mellitus. HISTORY OF PRESENT ILLNESS: This is an 78-year-old female patient with an extensive medical background as noted for type 2 diabetes mellitus, hypertension, chronic kidney disease, peripheral vascular disease, and hypothyroidism. The patient was admitted yesterday after having presented to the ER with complaints of progressive weakness, tiredness, and fatigue. She was found to have a hemoglobin of 7 as well as a UTI and was admitted for further monitoring and management. The patient notes that she has been a diabetic for many years and that she is currently insulin-dependent on a regimen of Lantus insulin 8 units q.p.m. in addition to Humalog insulin 5-6 units t.i.d. a.c. She is pretty certain that she is not currently on oral antidiabetic agents. The patient believes that her blood glucose control over the past month has been fairly steady with most values falling into the low-to-mid 100 mg/dL range and without much hypoglycemia. The patient has cataracts and a history of diabetic retinopathy, she also is known to have chronic kidney disease and peripheral neuropathy. Moreover, the patient is status post right BKA in 2011 and currently uses a prosthesis and utilizes a walker to ambulate. The patient believes that she has some form of heart disease, but was not able to elaborate further on the nature of that disease. The patient is also known to have hypothyroidism and is maintained on levothyroxine 25 mcg daily. REVIEW OF SYSTEMS: CONSTITUTIONAL: Fatigue, tiredness, intermittent subjective fever. HEENT: Negative for sinus pain, ear drainage, eye itching, or lacrimation. PULMONARY: Occasional shortness of breath and cough, but no hemoptysis. CARDIAC: Lower extremity edema, dyspnea on exertion, but no chest pain or palpitations. GASTROINTESTINAL: Occasional abdominal distention and discomfort, nausea but no vomiting, or major changes in bowel movement frequency. NEUROLOGY: Negative for loss of consciousness, severe frequent headaches, or [facility] [address] [place] [address] CONSULTATION Name: LON RAMOSNga Clement Room #: 451-P [facility] IN [facility].#: [id number] Admission: 08/05/19 Attend Phys: Felipe Nelson MD Discharge: Date of : 38 Report #: [id number] seizure activity. SKIN: Negative for rash, ulceration, or other major abnormalities. PSYCH: Negative for hallucinations, delusions, or other major psych issues. Otherwise, review of systems is noncontributory other than those mentioned in HPI. PAST MEDICAL HISTORY: 1. Type 2 diabetes mellitus. 2. Diabetic retinopathy. 3. Cataracts. 4. Diabetic nephropathy and chronic kidney disease. 5. Diabetic neuropathy. 6. Peripheral vascular disease, status post right BKA in 2011. 7. Hypothyroidism. 8. Anemia. 9. Paroxysmal atrial tachycardia. 10. UTI. 11. Iron deficiency anemia. 12. Hyperlipidemia. 13. Hypertension. 14. Glaucoma. 15. Lower extremity stent placement due to peripheral vascular disease. 16. Colon cancer. ALLERGIES: IV IRON. OUTPATIENT MEDICATIONS: Trazodone 50 mg at bedtime, ferrous sulfate 325 mg p.o. b.i.d., levothyroxine 25 mcg daily, Combigan eyedrops b.i.d., Demadex 20 mg daily, NovoLog insulin 5-6 units t.i.d. a.c., Lantus insulin 8 units q.p.m., loratadine 10 mg daily. SOCIAL HISTORY: The patient has 4 children. She denies use of tobacco or alcohol. She lives with her daughter. PHYSICAL EXAMINATION: GENERAL: Pleasant, -Eth[place]ian female patient who is not in apparent pain or distress. She is sitting comfortably in her chair. VITAL SIGNS: Blood pressure is 148/65 mmHg, heart rate is 76 beats per minute, respirations 20 per minute, temperature 36.7 degrees. CONSTITUTIONAL: She appears comfortable, sitting in her reclining chair, not in apparent distress. HEENT: Anicteric sclerae. Intact extraocular motions. NECK: Supple, without JVD, carotid bruits, or lymphadenopathy. I do not appreciate thyromegaly. HEART: Regular rate and rhythm without murmurs, rubs, or gallops. CHEST: Moderate air entry bilaterally. Scattered rales and rhonchi. [facility] [address] [address] CONSULTATION Name: SIN RAMOS Room #: 451-P [facility] IN M.R.#: [id number] Admission: 08/05/19 Attend Phys: Felipe Nelson MD Discharge: Date of : 38 Report #: [id number] crackles, but no wheezes. ABDOMEN: Soft and lax without tenderness or organomegaly. She has active bowel sounds. EXTREMITIES: Lower extremity exam is noted for a right BKA with prosthesis in place. Left lower extremity is noted for +1 edema and stasis dermatitis. NEUROLOGIC: Awake, alert, and oriented to time, place and person, moves all extremities spontaneously. PSYCHIATRY: Awake, alert, pleasant, interactive. Normal mood and affect. SKIN: No rash, ulceration, or other major abnormalities. LABORATORY RESULTS: Blood glucose values during her current stay have ranged from 180-297 mg/dL, sodium 139, potassium 5.4, chloride 108, CO2 24, anion gap 7, BUN 75, creatinine 1.8, AST 13, total bilirubin 0.3, calcium 8.4, phosphorus 4.2, magnesium 1.7, albumin 2.6, EGFR 33, lactic acid 0.7. Troponin undetectable. White blood count 4.6, hemoglobin 7.0, hematocrit 21, platelets 170. TSH is 5.124 in July 2019. Hemoglobin A1c was 9.9% in September 2018. ASSESSMENT AND PLAN: 1. Type 2 diabetes mellitus, uncontrolled. The patient seems to have an uncontrolled baseline as per her previous hemoglobin A1c values on reported blood glucose values in addition to the occurrence of several, severe end-organ complications including retinopathy, peripheral vascular disease, culminating in right BKA and chronic kidney disease. However, the patient notes that as of recently, her blood glucose control had been reasonably within target on her stated home regimen. That said, I will raise her Lantus insulin to 8 units q.p.m. and include a fixed dose of Humalog at 4 units before meals in addition to coverage with low-intensity Humalog supplemental scale. Blood glucose monitoring will commence a.c. and at bedtime to help adjust her antidiabetic regimen as needed. I would like to get an up-to-date hemoglobin A1c to gain a better understanding of her glycemic state over the past few months. 2. Hypothyroidism. The patient stated as hypothyroid and is placed on levothyroxine 25 mcg daily. Her TFTs were indicative of inadequately controlled hypothyroidism last month. I will update those as well to get a better understanding of her current state and as to whether or not therapeutic changes will need to be made. 3. Hypertension. The patient is currently on torsemide, metoprolol, and tolerating these well, she is to continue with the same. 4. Chronic kidney disease. The patient has stage 3b/stage 4 chronic kidney disease and seems to be her baseline more or less. [facility] is following this closely. I certainly appreciate this consultation. <ELECTRONICALLY SIGNED> By: Samantha Yan MD 08/07/19 1206 1153 1358 Samantha Yan MD /nt
--- NOTE | 2019-08-07 13:21 | EKG ---
[place] [address] [facility] [place] [address] ELECTROCARDIOGRAM REPORT Name: LON RAMOSN Urbano Room #: 451-P ADM IN M.R.#: [id number] Admission: 08/05/19 Attend Phys: Felipe Nelson MD Discharge: Date of : 38 Report #: [id number] THIS REPORT FOR: //name// [facility] ED Test Date: 2019-08-05 Test Time: 14:13:26 Pat Name: SIN RAMOS Department: Room: [facility] Gender: F Pharmacy Intake Technician: [place] : 1940 Requested By: Kash Gibbs Order Number: [id number] MD: Sharad Murray Measurements Intervals [place] Rate: 76 P: 73 MA: 202 QRS: -44 QRSD: 121 T: 20 QT: 404 QTc: 455 Interpretive Statements Sinus rhythm Nonspecific IVCD with LAD Left ventricular hypertrophy Anterior Q waves, possibly due to LVH Compared to ECG 07/18/2019 00:09:56 No significant change was found Electronically Signed On 08-07-2019 13:21:11 CDT by Sharad Murray [email or web address] <ELECTRONICALLY SIGNED> By: Sharad Murray MD, [facility] 08/07/19 1321 1413 1413 Sharad Murray MD, [facility] /EPI
[2019-08-07 14:33] VITALS: BP 171/60
[2019-08-07 19:55] VITALS: BP 135/56
--- NOTE | 2019-08-07 19:55 | NUR ---
PT A&OX4, VSS, DENIES PAIN. WOUND CARE COMPLETED TO LEFT LEG. PATIENT HAS HAD NAUSEA AND VOMITING TWICE TODAY, ZOFRAN GIVEN. PATIENT WANTED TO SIT IN RECLINER MOST OF DAY. BLOOD SUGAR DROPPED TO 35 DURING DINNER ACCU CHECK. 8OZ OF APPLE JUICE GIVEN AND CRACKERS. PATIENTS BLOOD SUGAR UP TO 96, INSULIN HELD FOR DINNER, PATIENT WAS ASYMPTOMATIC AND STATED SHE FELT FINE. NO SIGNS OF DISTRESS. WILL CONTINUE TO MONITOR.
--- NOTE | 2019-08-08 04:10 | NUR ---
Pt. rested quietly during the night when checked on during frequent rounds. She offers no c/o nausea or pain. Dressing to left leg is intact. HS blood sugar was 171. Bedtime snack was given. Bed alarm is on.
[2019-08-08 05:08] LABS: HEMATOCRIT 23.1 % (37.0-47.0); HEMOGLOBIN 7.4 gm/dL (12.0-15.0); MCH 30.6 pg (26.0-34.0); MCHC 32.3 g/dL (28.0-37.0); RBC 2.43 mil/uL (4.20-5.00); RDW 16.1 % (10.5-14.5); WBC 5.1 thou/uL (4.0-11.0)
[2019-08-08 05:17] LABS: ALBUMIN 2.3 g/dL (3.4-5.0); CALCIUM 8.3 mg/dL (8.5-10.1); CREATININE 2.1 mg/dL (0.6-1.0); PHOSPHORUS 4.4 mg/dL (2.5-4.9); POTASSIUM 5.5 mmol/L (3.5-5.1)
[2019-08-08 07:25] VITALS: BP 136/45
--- NOTE | 2019-08-08 08:50 | NUR ---
WOUND CONSULT; THIS IS A KNOWN PT TO [facility] ADMITTED 08/05/19. THERE IS A WOUND TO THE POSTERIOR LE THAT IS MACERATED, WITH A PALE WOUNDBED. SEROUS DRAINAGE. PT DENIES PAIN. THERE IS SOME NON PITTING EDEMA. NO CLASSIS S/S OF INFECTION BUT THE WOUND IS SUGGESTIVE OF COMTAMINATION. RECOMMENDATION; APPLY AQUACEL AG TO WOUND BED, COVER WITH A BOARDERED FOAM,SECURE WITH AN AGUILA WRAP. ELEVATE THE EXTREMITY ANS MUCH POSSIBLE. DISCUSSED WITH STAFF
--- NOTE | 2019-08-08 14:04 | NUR ---
Assess due to RD consult received. Admit with UTI, weakness, iron def anemia, and hyperkalemia. Hx DM, and temp dialysis in past. Also with diabetic foot ulcer to LL extremity. Pt reportss appetite is good, wts stable around 175 lb since April, sometimes higher when weighed with prosthesis on. visit during lunch, ate 100% of hamburger and requesting addition of glucerna on trays. obtained food preferences, needed explanation of low K food to avoid due to K of 5.5. Otherwise low nutrition risk
[2019-08-08 14:05] VITALS: BP 125/42
--- NOTE | 2019-08-08 16:14 | NUR ---
PT ADMITTED RELATED TO UTI; WEAKNESS; ANEMIA. CM REVIEWED CHART AND SPOKE WITH CARE TEAM. PT IS FAMILIAR TO CM FROM PREVIOUS ADMISSION. CM MET WITH PT AT BEDSIDE THIS DAY. PT IS A&O X4. CM ROLE INTRODUCED. PT INDICATED SHE LIVES IN A HOUSE WITH HER DTR, GRANDDTRS, AND GREAT GRANDKIDS. PT INDICATED SHE HAD USED A WC AND A FWW TO ASSIST WITH MOBILITY BURSAR. PT INDICATED SHE HAD BEEN ON SERVICE WITH [facility] B[facility] AND THAT SHE HOPES TO USE THEM AGAIN UPON DC. CM TO FOLLOW INDICATED WITH DC PLANNING.
--- NOTE | 2019-08-08 16:50 | NUR ---
dp sending hh referral to [facility], possible discharge tomorrow.
--- NOTE | 2019-08-08 17:57 | HC ---
[facility] [place] [address] CONSULTATION Name: LON RAMOSNga Clement Room #: 451-P ADM IN M.R.#: [id number] Admission: 08/05/19 Attend Phys: Felipe Nelson MD Discharge: Date of : 38 Report #: [id number] THIS REPORT FOR: //name// CC: Aishwarya Nelson DATE OF SERVICE: 08/06/2019 NEPHROLOGY CONSULTATION REASON FOR CONSULTATION: Chronic kidney disease and related problems. HISTORY OF PRESENT ILLNESS: This is an 78-year-old female who we have seen multiple times. She has been a long-term patient in our practice. She has come in frequently to the hospital with a combination of problems including chronic kidney disease, urinary tract infections, hematuria, GI blood losses, progressive anemia. In fact, she has numerous hospitalizations over the last 12 months. Her chronic kidney disease is due to diabetic nephropathy. She has had longstanding proteinuria. She also has longstanding hypertension. She runs a creatinine level between 1.8 and 2. She likely has worse renal function that would be indicated by her labs due to very poor muscle mass. She continues on medications for control of blood pressure. She has chronic lower extremity edema. She also has recurrent urinary tract infections. She thinks she has had some gross hematuria. Really not much in the way of dysuria at this time. She has not been febrile since admission. Urine showed significant pyuria which is not a new finding for her. She has been started on broad-spectrum antibiotic. Additionally, she has had recurring GI bleeds and that has been worked up in the past. She continues to be anemic with a hemoglobin on admission of 7.4 and at 7.0 today. No overt blood loss has been seen since admission. PAST MEDICAL HISTORY: In addition to the hypertension, diabetes, chronic kidney disease and anemia she has had a prior right czain-nyp-pvdi amputation for peripheral artery disease. She has chronic edema of the left leg. She has had recurring urinary tract infection. She also has hypothyroidism and a prior partial colectomy for colon cancer with no recurrence. MEDICATIONS: Include levothyroxine 0.05 mg daily, torsemide 20 mg daily, sodium bicarbonate 650 mg p.o. b.i.d., loratadine 10 mg daily, iron 325 mg b.i.d., trazodone 50 mg at bedtime, insulin and metoprolol 50 mg daily. ALLERGIES: She has had some reaction to IRON INFUSIONS in the past. Again she was maintained on the oral iron. [address] [address] CONSULTATION Name: SIN RAMOS Room #: 451-P [facility] IN [facility]#: [id number] Admission: 08/05/19 Attend Phys: Felipe Nelson MD Discharge: Date of : 38 Report #: [id number] FAMILY HISTORY: Noncontributory. SOCIAL HISTORY: The patient is , lives in [place], [place]. She has a daughter who helps with the care. REVIEW OF SYSTEMS: Today, she states that she is feeling a better normal self. She denies dyspnea or cough. No chest pain or palpitations. She has eaten breakfast without nausea or vomiting. She has been trying to have a bowel movement this morning. No diarrhea. No gross hematochezia or melena. No hematemesis. She says urination has been mildly difficult and she thought she had some gross hematuria. No other additional pain, fevers, chills or sweats. PHYSICAL EXAMINATION: GENERAL: Very pleasant 78-year-old female. VITAL SIGNS: Blood pressure 148/65, heart rate 76, respiratory rate 20, oxygen saturation 97%, temperature 36.7 and she has been afebrile since admission. HEENT: Shows pupils are equal and reactive. Sclerae nonicteric. Oral mucosa is moist. NECK: Shows no adenopathy, thyromegaly, JVD or bruit. CHEST: Clear bilaterally. CARDIOVASCULAR: Heart has a regular rate and rhythm. ABDOMEN: Has active bowel sounds, is soft and nontender. EXTREMITIES: Show the right xhelq-myn-wbhp amputation. She has 2+ brawny edema of the left lower extremity. LABORATORY DATA: From the Emergency Room sodium 137, potassium 5.6, chloride 105, bicarb 21, BUN 72, creatinine 1.7, glucose 227, calcium 8.4, phosphorus 4.2, magnesium 1.7. White count 5.4, hemoglobin 7.4, hematocrit 22.8. This morning hemoglobin 7.0, hematocrit 21.0, platelets 180,000. Urinalysis, specific gravity of 1.020, pH 6.0, 3+ protein, 1+ blood, greater than 25 white cells, many bacteria. ASSESSMENT: 1. Chronic kidney disease stage 4. She is at baseline. She has mild lower extremity edema which is a chronic problem. We will get her back on her usual torsemide. Hemodynamically her blood pressure is good and her volume is otherwise okay. She has very mild hyperkalemia, which should help be controlled with the addition of the torsemide. 2. Anemia, chronic and severe. She has had numerous hospitalizations requiring transfusions. If she goes any lower, we will transfuse her again at this time. I will recheck iron and iron parameters and erythropoietin levels. 3. Hypertension, currently well controlled. 4. Recurring GI bleeds, no evidence at this time. 5. Prior right tlxcx-enc-hejh amputation, stable. PLAN: [facility] [address] [place] [address] CONSULTATION Name: RACHELSIN Room #: 451-P ADM IN M.R.#: [id number] Admission: 08/05/19 Attend Phys: Felipe Nelson MD Discharge: Date of : 38 Report #: [id number] 1. Await urine cultures. In the meantime, she is on Rocephin. 2. Check iron studies and erythropoietin. 3. Recheck labs in the morning with consideration of need for transfusion of packed red blood cells. 4. Continue to follow along in her renal function. 5. We will continue to follow along the care of this pleasant patient. <ELECTRONICALLY SIGNED> By: Dheeraj Velazquez MD 08/08/19 1757 1119 1323 Dheeraj Velazquez MD /nt
[2019-08-08 19:56] VITALS: BP 140/52
--- NOTE | 2019-08-08 21:17 | NUR ---
PT A&OX4, VSS, DENIES PAIN. WOUND CARE COMPLETED BY WOUND NURSE. DAUGHTER AT BEDSIDE. NO SIGNS OF DISTRESS. ANTIBIOTICS RAN ORDERED. PROCRIT NEW ORDER PLACED PER DOCTOR. WILL CONTINUE TO MONITOR.
--- NOTE | 2019-08-09 04:49 | NUR ---
Assumed pt care at 1900. Pt is A/OX4, VSS. Denies pain on assessment. Pt voiding w/o complaining of any dysuria.Pt normally gets up with assist of .Fall precautions in place,calls appropriately. Resting quietly at this time,no distress noted. Will continue to monitor pt.
[2019-08-09 08:00] VITALS: BP 149/56
[2019-08-09 15:00] VITALS: BP 141/53
--- NOTE | 2019-08-09 15:50 | NUR ---
REFERRAL HAD BEEN SENT TO [facility] YESTERDAY PT HAD BEEN ON SERVICE WITH THEM FIRST FRONT VENTILATOR. THIS CALLED CM THIS AM AND INDICATED THAT THEY WOULDN'T ACCEPT PT BACK DUE TO NONCOMPLIANCE. CM NOTIFIED PT'S DTR AND SHE DIDN'T INDICATED ANOTHER PROVIDER THEY MIGHT WANT. CM ASKED [facility] [employer] TO FAX REFERRAL TO [facility] FOR REVIEW. IT IS ANTICPATED THAT PT WILL DC HOME WITH HH ONCE MEDICALLY STABLE. CM TO FOLLOW INDICATED WITH DC PLANNING.
--- NOTE | 2019-08-09 15:53 | NUR ---
cat sent hh referral to [facility] HH patient to [facility] today or tomorrow. cat called [facility] and spoke with Nola, she received referral and it is under review, they will let us know if they can accept.
--- NOTE | 2019-08-09 17:01 | NUR ---
Assumed pt care this am, eight BKA stump with skin intact. Wound care done on the left lower leg, hyperpigmentation and excesive dryness is noted on this leg, and skin is cool to the tough. Pt denies any pain. Pt has urinary urgency and and may be incontinent at times, pt was able to void a big amount when she was placed on the commode. Fall precautions in place, pt spent her afternoon on the recliner. Blood sugar was low this am, resolved with apple juice and breakfast. No signs or verbalizations of distress have been noted, POC followed, will continue to monitor.
[2019-08-09 20:43] VITALS: BP 143/43
--- NOTE | 2019-08-10 03:40 | NUR ---
ASSUMED CARE AROUND 1900. AXOX4. REFUSES SUBQ INSULIN. PER PT, BUTCHER HELPER TOLD PT THAT SHE DOES NOT REQUIRE INSULIN ANYMORE. TRIED TO EXPLAIN THAT THE AC SS WAS DISCONTINUED AND LONG ACTING INSULIN DOESE WAS ADJUSTED BY PT STILL REQUIRES SS AT BEDTIME. STILL REFUSED INSULIN. WILL GIVE REPORT TO DAY RN SO CAN MAYBE CLARIFY TO PT ABOUT SLIDING SCALE INSULIN. BLADDER SCAN COMPLETE PER 'S ORDER AND PT DID NOT REQUIRE STRAIGHT CATH. NO S/S ACUTED DISTRESS NOTED OR REPORTED AT THIS TIME. WILL CONT TO MONITOR FOR ANY CHANGES IN CONDITION.
[2019-08-10 05:45] LABS: ALBUMIN 2.4 g/dL (3.4-5.0); CALCIUM 8.5 mg/dL (8.5-10.1); CREATININE 2.4 mg/dL (0.6-1.0); PHOSPHORUS 4.6 mg/dL (2.5-4.9)
[2019-08-10 07:13] VITALS: BP 164/56
--- NOTE | 2019-08-10 10:17 | NUR ---
WOUND CONSULT; A SMALL AMOUNT OF DRAINAGE NOTED, YELLOW TINGED, NO ODOR. PT DENIED PAIN. NO ODOR OR ANY OTHER S/S OF INFECTION SEEN. RECOMMENDATION; WE WILL CHANGE THE TREATMENT TO THERAHONEY. AND ADD A SLIGHT BIT OF COMPRESSION WITH AN AGUILA WRAP. DISCUSSED WITH RN
[2019-08-10] MEDS ORDERED: CEFDINIR300 MG PO (11:49)
[2019-08-10] MEDS ORDERED: LANTUS SUBQ (11:53)
[2019-08-10 12:52] LABS: HEMATOCRIT 23.7 % (37.0-47.0); HEMOGLOBIN 7.8 gm/dL (12.0-15.0); MCH 31.3 pg (26.0-34.0); RBC 2.49 mil/uL (4.20-5.00); RDW 16.2 % (10.5-14.5); WBC 6.5 thou/uL (4.0-11.0)
[2019-08-10 13:14] VITALS: BP 164/56
[2019-08-10 13:29] VITALS: BP 164/56
[2019-08-10 14:38] VITALS: BP 164/56
[2019-08-10 14:41] VITALS: BP 135/43
--- NOTE | 2019-08-10 15:09 | NUR ---
DISCHARGE ORDERS COMPLETED. PATIENT DISCHARGING TO HOME WITH [facility] AND NEW OXYGEN NEEDS. [facility] TO PROVIDE OXYGEN TO PATIENT PRIOR TO DISCHARGE. DISCHARGE ORDERS FAXED TO [facility]. CALL PLACED TO NAIDA TO NOTIFY. [facility] TO FACILITATE.
--- NOTE | 2019-08-10 15:26 | NUR ---
CARE TEAM INDICATED THAT PT IS MEDICALLY STABLE TO DC HOME THIS DAY. PT QUALIFIED FOR HOME O2 WITH 2L WITH ACTIVITY. CM SENT ORDER TO [facility] AND WE ARE AWAITING DELIVERY OF PORTABLE TANK AT THIS TIME. PT IS TO HAVE [facility] HOME [facility] PT, OT, AND NURSING UPON DC. CM NOTIFIED PT'S DTR SHE IS AWARE AND AGREEABLE. NO OTHER CM INTERVENTION INDICATED. CASE CLOSED.
--- NOTE | 2019-08-10 18:32 | NUR ---
Assumed pt care in the am, vs stable. PT worked with the pt and her O2c sat went down to [address] Palafox, repeat CBC done and O2 study done by RT. REcommendation is to have 2L of O2 via nasal cannula when doing activity. CM set up home health, O2 tank delivered, instructed the daughter to call [facility] to facilitate when tank for the home is to be delivered. Pt was able to ambulate and tranfer from bed to commed and walk around the room with a gait belt and walker. DC orders given. Wound care done and pictures taken, IV removed. DC instructions given, prescriptions were sent electronically to the pharmacy of choice as per Hallie Palafox. Awaiting onesimo for burr picker.
== END 2019-08-10 19:36 | disposition home health service (06) | DRG 811 ==
LOC: ER 13:09 → 4W 15:50 → EROBS 15:50 → 4W 16:36
PROVIDERS: Emergency Medicine; Hospitalist; Internal Medicine; Internal Medicine Nephrology; Nurse Practitioner; ADMIT Internal Medicine
PROC: 30233N1 Transfusion of Nonautologous Red Blood Cells into Peripheral Vein, Percutaneous Approach (ICD-10-PCS; principal; 2019-08-07)
DX: D50.9 Iron deficiency anemia, unspecified (principal); E43 Unspecified severe protein-calorie malnutrition; N39.0 Urinary tract infection, site not specified; N18.4 Chronic kidney disease, stage 4 (severe); I13.0 Hypertensive heart and chronic kidney disease with heart failure and stage 1 through stage 4 chronic kidney disease, or unspecified chronic kidney disease; I42.9 Cardiomyopathy, unspecified; L97.929 Non-pressure chronic ulcer of unspecified part of left lower leg with unspecified severity; E03.9 Hypothyroidism, unspecified; E11.22 Type 2 diabetes mellitus with diabetic chronic kidney disease; E11.51 Type 2 diabetes mellitus with diabetic peripheral angiopathy without gangrene; E11.65 Type 2 diabetes mellitus with hyperglycemia; E11.42 Type 2 diabetes mellitus with diabetic polyneuropathy; E11.649 Type 2 diabetes mellitus with hypoglycemia without coma; E11.319 Type 2 diabetes mellitus with unspecified diabetic retinopathy without macular edema; E87.5 Hyperkalemia; R31.9 Hematuria, unspecified; E78.00 Pure hypercholesterolemia, unspecified; B96.89 Other specified bacterial agents as the cause of diseases classified elsewhere; I50.9 Heart failure, unspecified; Z85.038 Personal history of other malignant neoplasm of large intestine; Z89.511 Acquired absence of right leg below knee; Z79.84 Long term (current) use of oral hypoglycemic drugs; Z79.899 Other long term (current) drug therapy; Z88.8 Allergy status to other drugs, medicaments and biological substances; Z95.828 Presence of other vascular implants and grafts
CPT/HCPCS: 10040

== ENCOUNTER 2019-09-14 00:56 | Emergency (ER) | payer OTHER ==
[~2019-09-14] VITALS: Ht 162.6 cm; Wt 72.6 kg
[2019-09-14 01:06] VITALS: BP 185/75
== END 2019-09-14 01:25 | disposition home or self-care (01) ==
LOC: ER 00:56
DX: I13.0 Hypertensive heart and chronic kidney disease with heart failure and stage 1 through stage 4 chronic kidney disease, or unspecified chronic kidney disease (principal); I50.9 Heart failure, unspecified; N18.3 Chronic kidney disease, stage 3 (moderate); E11.22 Type 2 diabetes mellitus with diabetic chronic kidney disease; Z79.4 Long term (current) use of insulin; Z88.8 Allergy status to other drugs, medicaments and biological substances

== ENCOUNTER 2019-10-05 09:37 | Inpatient (IN) | payer OTHER ==
[~2019-10-05] VITALS: Ht 154.9 cm; Wt 73.5 kg
[2019-10-05 09:38] VITALS: BP 106/72
[2019-10-05 10:17] LABS: ABSOLUTE NEUTROPHILS 3.8 thou/uL (1.4-8.2); BASOPHILS 0.7 % (0.0-2.0); EOSINOPHILS 1.8 % (0.0-3.0); HEMATOCRIT 22.7 % (37.0-47.0); HEMOGLOBIN 7.2 gm/dL (12.0-15.0); LYMPHOCYTES 15.8 % (24.0-44.0); MCH 30.6 pg (26.0-34.0); MCHC 31.6 g/dL (28.0-37.0); MONOCYTES 8.4 % (1.0-8.0); PLATELET COUNT 149 thou/uL (150-400); POLYS 73.3 % (36.0-66.0); RBC 2.34 mil/uL (4.20-5.00); RDW 18.7 % (10.5-14.5); WBC 5.2 thou/uL (4.0-11.0)
[2019-10-05 10:25] LABS: ANION GAP 7 mmol/L (7-16); BUN 80 mg/dL (7-18); CALCIUM 9.2 mg/dL (8.5-10.1); CHLORIDE 113 mmol/L (98-107); CO2 22 mmol/L (21-32); GLUCOSE 350 mg/dL (74-106); POTASSIUM 5.9 mmol/L (3.5-5.1); SODIUM 142 mmol/L (136-145)
[2019-10-05 10:34] LABS: MAGNESIUM 2.4 mg/dL (1.8-2.4); TROPONIN-I <0.06 ng/mL (<0.06)
[2019-10-05 10:42] LABS: URINE BILIRUBIN NEGATIVE (Negative); URINE BLOOD TRACE (Negative); URINE CLARITY SL CLOUDY; URINE COLOR YELLOW; URINE GLUCOSE-RANDOM* 2+ (Negative); URINE KETONES NEGATIVE (Negative); URINE LEUKOCYTES-REFLEX NEGATIVE (Negative); URINE NITRITE-REFLEX NEGATIVE (Negative); URINE PROTEIN (DIPSTICK) 3+ (Negative); URINE SPECIFIC GRAVITY 1.025 (1.005-1.035); URINE UROBILINOGEN 0.2 E.U./dl (0.2-1.0)
[2019-10-05] MEDS ORDERED: LEVEMIR100 UNIT/1 SUBQ (10:58)
[2019-10-05] MEDS ORDERED: NOVOLOG100 UNIT/M SUBQ (10:58)
[2019-10-05] MEDS ORDERED: TORSEMIDE20 MG PO (10:59)
[2019-10-05 11:27] LABS: AMORPHOUS URATES Moderate /LPF (None Seen); CASTS None Seen /LPF (None Seen); SQUAMOUS 0-3 Few /LPF (0-3)
[2019-10-05 11:28] LABS: URINE RBC 0-2 Rare /HPF (0-2); URINE WBC-REFLEX 0-5 Rare /HPF (0-5)
[2019-10-05 12:10] LABS: ANISOCYTOSIS 2+
[2019-10-05 12:12] LABS: MACROCYTES FEW; MICROCYTES FEW; POLYCHROMASIA OCCASIONAL
[2019-10-05 12:13] LABS: TEARDROPS OCCASIONAL
[2019-10-05 15:03] VITALS: BP 154/53
[2019-10-05 15:21] VITALS: BP 125/56
--- NOTE | 2019-10-05 17:22 | NUR ---
PT CARE ASSUMED APPROX 1600. ASSESSMENT CHARTED. PT DENIES PAIN AND SOA. VSS. GRANDDAUGHTER AT BEDSIDE. PROVIDING MEDICAL INFO NEEDED. PT ALSO APPROVED FOR GRAND-DAUGHTER TO SIGN ADMISSION PAPERWORK. PT TEMP WAS LOW SO ORDER OBTAINED FOR [facility]. IN PLACE AT THIS TIME. NO ASYMPTOMATIC OF LOW TEMP. UP IN BED EATING DINNER AT THIS TIME. NO DISTRESS NOTED.
[2019-10-05 19:40] VITALS: BP 142/58
[2019-10-06 05:29] VITALS: BP 151/55
--- NOTE | 2019-10-06 05:44 | NUR ---
ASSUMED CARE OF PT AT 1900. A&Ox2, COOPERATIVE. VS STABLE. DPOA WAS AT BEDSIDE, ASKED LOTS OF QUESTIONS. SHE WAS VERY CONCERNED ABOUT TESTS AND HGB LEVEL. SHE STATED THE LAST TIMES HER LEVELS WERE THIS LOW THEY FOUND AN UPPER GI BLEED AND THE NEXT TIME A LOWER GI BLEED. DPOA STATED SHE WANTS LOTS OF TESTS DONE TO FIGURE OUT WHY THEY ARE ON THIS CONTINUOUS CYCLE OF GOING TO THE HOSPITAL. PT'S GLUCOSE LEVELS WERE HIGH ALL DAY, 295-306. 8 UNITS OF LONG-ACTING GIVEN AND SS WAS INCREASED TO MODERATE DOSE PER PROTOCOL. GIVEN W/ SNACKS BUT PT WOULD NOT EAT. PT C/O NOT FEELING WELL. CHECKED GLUCOSE, 65. SNACKS, JUICE GIVEN AGAIN, GLUCOSE INCREASED TO 88. PT AGAIN C/O NOT FEELING WELL, GLUCOSE WAS 42. 1 AMP D50 GIVEN, GLUCOSE IS NOW 122. WILL CONTINUE TO MONITOR. PT CONTINUED TO FEEL SOA W/ PURSED LIP BREATHING. 2.5 L O2 NC CONTINUED. SLOW PROGRESSION TOWARDS POC GOALS.
[2019-10-06 06:08] LABS: HEMOGLOBIN 6.6 gm/dL (12.0-15.0)
[2019-10-06 06:16] LABS: HEMATOCRIT 20.3 % (37.0-47.0); MCH 31.4 pg (26.0-34.0); MCHC 32.6 g/dL (28.0-37.0); MCV 96.5 fL (80.0-100.0); PLATELET COUNT 123 thou/uL (150-400); RDW 19.5 % (10.5-14.5); WBC 6.6 thou/uL (4.0-11.0)
[2019-10-06 06:19] LABS: CALCIUM 9.1 mg/dL (8.5-10.1); CREATININE 2.3 mg/dL (0.6-1.0); MAGNESIUM 2.2 mg/dL (1.8-2.4)
[2019-10-06 06:30] LABS: POTASSIUM 6.2 mmol/L (3.5-5.1)
[2019-10-06 07:58] VITALS: BP 145/60
[2019-10-06 09:02] LABS: ABSOLUTE NEUTROPHILS 4.8 thou/uL (1.4-8.2); ANISOCYTOSIS 2+; HYPOCHROMASIA 2+; NUCLEATED RBCS 3 /100WBC; PLATELET ESTIMATE NORMAL
[2019-10-06 11:14] VITALS: BP 127/51
--- NOTE | 2019-10-06 14:12 | NUR ---
INITIAL ASSESSMENT: SW reviewed chart and spoke with nursing and attending physician. Pt was admitted from home due to pneumonia/pleural effusion/weakness. SW met with pt and granddtr at bedside. Introduced role of SW. Pt is alert/orientated. Pt lives at home with her dtr, Josefina. Pt with hx of right BKA and has prosthesis. Pt has a w/c, walker and home O2 ([facility]) in place. Pt is currently on service with [facility] . Pt's PCP is Dr. Aishwarya De Souza. SW discussed possible post-acute placement. Pt's granddtr states that pt has been to [facility] in the past. Family is agreeable with SNF referral should pt need placement. community development planner to fax referral to [facility] for review. SW notified [facility] agency service coordinator of new referral. Awaiting therapy evals at this time. MARCE is following to assist as needed with discharge planning.
--- NOTE | 2019-10-06 14:31 | NUR ---
DISCHARGE PLANNING. POSSIBLE POST ACUTE NEEDED AT DISCHARGE, PENDING THERAPY RECOMMENDDATIONS. PATIENT REFERRAL FAXED TO [facility]. CALL PLACED TO [place] [facility] ADMISSIONS TO NOTIFY. NO DISCHARGE DATE AT THIS TIME. FOLLOWING TO ASSIST WITH DISCHARGE NEEDS.
[2019-10-06 15:30] VITALS: BP 138/60
--- NOTE | 2019-10-06 17:26 | EKG ---
[place] [address] [facility] [place] [address] ELECTROCARDIOGRAM REPORT Name: KENNEDIJOANNASIN Room #: 363-P ADM IN .R.#: [id number] Admission: 10/05/19 Attend Phys: Herrera Travis MD Discharge: Date of : 38 Report #: [id number] THIS REPORT FOR: //name// [facility] ED Test Date: 2019-10-05 Test Time: 09:49:37 Pat Name: SIN RAMOS Department: Room: 363 Gender: F Overlock Hemmer: ULICES : 1940 Requested By: Miles Pierre Order Number: [id number] MD: Sharad Murray Measurements Intervals [place] Rate: 59 P: -15 PA: 212 QRS: -39 QRSD: 125 T: -24 QT: 448 QTc: 444 Interpretive Statements Sinus rhythm Borderline prolonged PA interval Nonspecific IVCD with LAD Nonspecific ST and T wave abnormality Compared to ECG 08/05/2019 14:13:26 No significant change was found Electronically Signed On 10-06-2019 17:25:53 [employer] by Sharad Murray [email or web address] <ELECTRONICALLY SIGNED> By: Sharad Murray MD, [facility] 10/06/19 1725 0949 0949 Sharad Murray MD, [facility] /EPI
--- NOTE | 2019-10-06 18:35 | NUR ---
Patient has rested in bed through the day. she is alert oriened x4. Diet downgraded this pm. she denies pain. pleasant with care. assisted to bedside commode where she had a good bm. will cont with plan of care.
[2019-10-06 19:32] VITALS: BP 137/58
[2019-10-06 23:43] VITALS: BP 152/58
--- NOTE | 2019-10-07 00:25 | NUR ---
PT RESTING IN BED UPON ARRIVAL TO SHIFT. O2 PER NC. GRAND DAUGHTER AT BEDSIDE. PT LLE EDEMA +1, FOAM DRESSING ON ANKLE INTACT. R BKA. HEART RATE DISTANT, LUNGS DIMINISHED. BS DECREASED. FEMALE EXTERNAL CATHETER INTACT. PT FSBS 69 HAD JUICE INCREASED TO 140. PTS DAUGHTER DPOA VISITED THIS LICHA, DAUGHTER FROM [place] CALLED. REMAINS ON PUREED DIET THIN LIQUIDS. PT ASSISTS WITH REPOSITIONING, ALERT OX4. BLUNTED AFFECT.
[2019-10-07 04:38] VITALS: BP 153/63
[2019-10-07 05:59] LABS: ALBUMIN 2.4 g/dL (3.4-5.0); CALCIUM 8.5 mg/dL (8.5-10.1); CREATININE 2.5 mg/dL (0.6-1.0); PHOSPHORUS 4.8 mg/dL (2.5-4.9)
[2019-10-07 06:00] LABS: POTASSIUM 6.2 mmol/L (3.5-5.1)
[2019-10-07 07:50] VITALS: BP 165/66
--- NOTE | 2019-10-07 08:09 | HC ---
[facility] [place] [address] CONSULTATION Name: SIN RAMOS Urbano Room #: 363-P [facility] IN [facility]#: [id number] Admission: 10/05/19 Attend Phys: Herrera Travis MD Discharge: Date of : 38 Report #: [id number] THIS REPORT FOR: //name// CC: Aishwarya Travis DATE OF SERVICE: 10/06/2019 CONSULTING PHYSICIAN: Dr. Chas Palafox. REASON FOR CONSULTATION: Uncontrolled type 2 diabetes mellitus. HISTORY OF PRESENT ILLNESS: This is an 78-year-old female patient whose medical background is significant for multiple medical issues including type 2 diabetes mellitus, hypertension, hyperlipidemia, hypothyroidism as well as chronic kidney disease, who presented to the ER following progressive issues with generalized weakness, fatigue, and decline in her well being. On arrival to the ER, the patient was noted to have an oxygen saturation of 80% on room air as well as a blood sugar of 340 mg/dL and it was decided to admit her for further care and monitoring. The patient notes that she had been diagnosed with diabetes mellitus for many years and that she is currently maintained on a home insulin regimen that is essentially based on basal bolus therapy. The patient takes Levemir insulin at 10 units q.p.m. as well as a NovoLog insulin at a variable dose according to her blood glucose and food intake, but averaging at about 10 units 2-3 times a day with meals. She is not currently on oral antidiabetic therapy. The patient notes that over the past few months, her blood glucose values were predominantly elevated. Denies having dealt with much hypoglycemia difficulties. The patient is not aware of background that is noted for diabetic retinopathy, but does have glaucoma. The patient does have chronic kidney disease. She reports occasional numbness in her hands and left foot. She is status post right BKA a few years ago. Also, the patient has hypothyroidism and is on chronic therapy with levothyroxine 50 mcg daily. The patient has hypertension and is also reported to have hyperlipidemia. REVIEW OF SYSTEMS: CONSTITUTIONAL: Fatigue, tiredness, intermittent issues with fever, chills, decline in appetite, possible weight loss. HEENT: Negative for sore throat, ear pain, ear drainage, sinus pain. PULMONARY: Occasional difficulties with shortness of breath and cough, but no hemoptysis. CARDIAC: Occasional dyspnea on exertion, lower extremity edema, but negative for chest pain or palpitations. [address] [address] CONSULTATION Name: LON RAMOSN Urbano Room #: 363-P [facility] IN [facility]#: [id number] Admission: 10/05/19 Attend Phys: Herrera Travis MD Discharge: Date of : 38 Report #: [id number] NEUROLOGY: Negative for loss of consciousness, headaches or seizure activity. GASTROINTESTINAL: Intermittent abdominal discomfort, abdominal distention, but no nausea, vomiting or dramatic changes in bowel movements. PSYCHIATRIC: Negative for delusions, hallucinations. Otherwise, review of systems noncontributory other than those mentioned in HPI. PAST MEDICAL HISTORY: 1. Type 2 diabetes mellitus. 2. Hypertension. 3. Hypothyroidism. 4. Hyperlipidemia. 5. Congestive heart failure. 6. Chronic kidney disease, baseline creatinine is 2.0. 7. Peripheral vascular disease, status post right below-knee amputation. 8. Colon cancer, status post colectomy. 9. Recurrent issues with UTI and pyelonephritis. 10. Glaucoma. OUTPATIENT MEDICATIONS: Include metoprolol 50 mg daily, vitamin B12 daily, trazodone 50 mg at bedtime, vitamin C daily, ferrous sulfate 325 mg b.i.d., NovoLog insulin 10 units b.i.d. to t.i.d., Levemir insulin 10 units q.p.m., Claritin 10 mg daily, levothyroxine 50 mcg daily, torsemide 20 mg daily. ALLERGIES: IRON INFUSIONS. FAMILY HISTORY: Noncontributory. SOCIAL HISTORY: The patient lives with her daughter and granddaughter. She denies use of tobacco, alcohol or illicit drugs. PHYSICAL EXAMINATION: GENERAL: Pleasant -Stateless female patient who is not in apparent pain or distress, but she appears lethargic and somewhat somnolent. VITAL SIGNS: Blood pressure is 127/51 mmHg, heart rate of 74 beats per minute, respirations 20 per minute, temperature 36.9 degrees. CONSTITUTIONAL: The patient appears lethargic, somnolent, but not in apparent pain or distress. HEENT: Anicteric sclerae. Intact extraocular motions. NECK: Supple, without JVD, carotid bruits and no thyromegaly. CHEST: Noted for moderate entry bilaterally with scattered rales and rhonchi. HEART: Regular rate and rhythm without murmurs or gallops. ABDOMEN: Soft and lax without tenderness or guarding. She has active bowel sounds. EXTREMITIES: Lower extremity exam is noted for right BKA. Left lower extremity is noted for pitting edema up to the knee level. Stasis dermatitis. No skin breaks. Pedal pulses are faint. Sensation to light touch is significantly [facility] [address] [place] [address] CONSULTATION Name: SIN RAMOS Room #: 363-P ADM IN [place]#: [id number] Admission: 10/05/19 Attend Phys: Herrera Travis MD Discharge: Date of : 38 Report #: [id number] diminished. NEUROLOGIC: Lethargic, somnolent. Moves all extremities spontaneously. Sensory deficit over lower extremities. PSYCHIATRIC: Pleasant, cooperative, answers my questions appropriately, but tired and somnolent. LABORATORY DATA: Blood glucose on arrival was 295. Shortly thereafter went as high as 306 and then followed by 65, 88 and a low of 42. Her most recent was 51 mg/dL. Other labs, sodium 144, potassium 5.4, chloride 114, CO2 of 20, anion gap 10, BUN 83, creatinine 2.3. Total bilirubin 0.3, alkaline phosphatase 129. EGFR 25. Lactic acid 0.8. Troponin undetectable. BNP 15,349, free T4 in 07/2019 was 1.1. White blood count 6.6, hemoglobin 6.6, hematocrit 20.3, platelets 123. TSH in July was 5.124. Hemoglobin A1c in 08/2019 was 8.0. ASSESSMENT AND PLAN: 1. Type 2 diabetes mellitus. As noted above, the patient has had a prolonged course with type 2 diabetes mellitus with several significant end-organ complications including advanced chronic kidney disease as well as peripheral vascular disease, culminating in her right lower extremity limb loss. The patient is maintained on basal bolus insulin therapy at home and describes having had to deal with persistent hyperglycemia at home, which is also echoed by her hemoglobin A1c 2 months ago at 8.0%. Nonetheless, since coming in, the patient has received minimal insulin therapy with Lantus at 8 units q.p.m. as well as a moderate scale Humalog supplemental scale. With that, the patient developed severe hypoglycemia repeatedly including shortly before this dictation. This represents the significant and interesting change from her baseline insulin responsiveness, and as such, I would be interested in examining the possibility of adrenal insufficiency as a potential cause for this change. Another factor that could have led to this dynamic change could be advancing and worsening chronic kidney disease, whereby she is currently in stage 4 chronic kidney disease. Regardless of the immediate cause of this dynamic change, it would be prudent to employ extreme caution when approaching her glycemic management so as to avoid hypoglycemia. That said, I will hold all long-acting insulin therapy and I would instead resort to a customized low-dose insulin therapy, whereby she would receive insulin only if her blood glucose is above 200 mg/dL. Blood glucose monitoring will commence a.c. and at bedtime as she gets started on Tradjenta monotherapy for the time being. Later on, as the patient's overall state settles, we could certainly advise her therapeutic needs and go from there. 2. Hypothyroidism. The patient has a longstanding history of hypothyroidism. Thyroid function studies done 3 months ago were indicative of a slight under replacement on her current regimen. I would like to visit this again with a TSH and free T4 to help adjust her regimen as needed. 3. Hypertension. The patient's level of blood pressure control has fluctuated, but has been mostly reasonable, she is to continue with the same. [address] [address] CONSULTATION Name: SIN RAMOS Room #: 363-P [facility] IN M.R.#: [id number] Admission: 10/05/19 Attend Phys: Herrera Travis MD Discharge: Date of : 38 Report #: [id number] 4. Chronic kidney disease. The patient's current kidney function studies are consistent with stage 4 chronic kidney disease. I will defer further care and monitoring to the Hospital Medicine team. I have reviewed clinical care notes, laboratory results both current and past that are pertinent to this patient's care for over 35 minutes. I appreciate this consultation by Dr. Palafox. <ELECTRONICALLY SIGNED> By: Samantha Yan MD 10/07/19 0809 1224 [id number] Samantha Yan MD /nt
--- NOTE | 2019-10-07 08:10 | HC ---
[facility] [place] [address] CONSULTATION Name: LON RAMOSNga Clement Room #: 363-P [facility] IN ..#: [id number] Admission: 10/05/19 Attend Phys: Herrera Travis MD Discharge: Date of : 38 Report #: [id number] THIS REPORT FOR: //name// CC: Aishwarya Travis DATE OF SERVICE: 10/06/2019 ENDOCRINE CONSULTATION NOTE CONSULTING PHYSICIAN: Chas Palafox M.D. REASON FOR CONSULTATION: Uncontrolled type 2 diabetes mellitus. HISTORY OF PRESENT ILLNESS: This is an 78-year-old female patient whose medical background is significant for multiple medical issues including type 2 diabetes mellitus, hypertension, hyperlipidemia, and hypothyroidism, who presented yesterday to the Emergency Department with progressive generalized weakness. On presentation, the patient was found to have severe hyperglycemia at 340 mg/dL with an O2 sat of 80% and was subsequently admitted for further care and monitoring. It appears that this course had progressed rapidly over the few days preceding admission. The patient indicates that she has had type 2 diabetes mellitus for many years and that she is maintained on a combination of Lantus insulin 10 units at night in addition to NovoLog insulin that is taken at variable doses as per sliding scale at about 10 units per meal 2-3 times a day. She notes that she predominantly deals with hyperglycemia and does not have major issues with hypoglycemia at home. The patient is not aware of diabetic retinopathy issues, but does have glaucoma. She is status post right below knee amputation, she has end-stage kidney disease. DICTATION ENDS HERE <ELECTRONICALLY SIGNED> By: Samantha Yan MD 10/07/19 0810 0941 [id number] Samantha Yan MD /nt
[2019-10-07 11:08] VITALS: BP 138/52
[2019-10-07 12:17] LABS: % SATURATION 28 % (20-39); IRON 57 ug/dL (50-170); TIBC 206 ug/dL (250-450)
--- NOTE | 2019-10-07 14:16 | NUR ---
MARCE reviewed chart and spoke with nursing and attending physician. Pt is slowly progressing towards goals for discharge. No weekend discharge planned. [facility] is able to accept pt when discharged. MARCE spoke with pt's dtr, Josefina, via phone to provide update. Josefina is agreeable with plan and states that she will discuss with pt. MARCE is following to assist as needed with discharge planning.
[2019-10-07 14:59] VITALS: BP 130/46; BP 156/57
--- NOTE | 2019-10-07 16:02 | NUR ---
ASSUMED CARE OF PT AT 0700. PT AOX3 IN NO ACUTE DISTRESS. REPORTS NO COMPLAINTS. SOCIALIZING WITH FAMILY AT BEDSIDE. GOOD APPETITE. CURRENTLY TRANSFUSING 1 UNIT PRBC PER ORDER. INCONTINENT OF BOWEL BLADDER. SHOWING NO SIGNS OF BLEEDING TODAY. VITALS STABLE. WILL CONT TO MONITOR.
[2019-10-07 17:35] VITALS: BP 156/57
[2019-10-07 19:17] VITALS: BP 134/48
--- NOTE | 2019-10-08 03:03 | NUR ---
Patient making slow progress towards outcome goals. Vital signs and rhythm stable. Uses call ligh appropriately for needs. Diuresing from Lasix. No active signs of bleeding.
[2019-10-08 04:24] VITALS: BP 158/69
[2019-10-08 06:31] LABS: ALBUMIN 2.4 g/dL (3.4-5.0); CALCIUM 8.7 mg/dL (8.5-10.1); CREATININE 2.5 mg/dL (0.6-1.0); PHOSPHORUS 5.3 mg/dL (2.5-4.9)
[2019-10-08 06:40] LABS: POTASSIUM 6.2 mmol/L (3.5-5.1)
--- NOTE | 2019-10-08 06:45 | NUR ---
Urine final culture VRE. Contact isolation. Patient educated, verbalized understanding.
[2019-10-08 08:36] VITALS: BP 171/62
[2019-10-08 09:30] LABS: ABSOLUTE NEUTROPHILS 4.5 thou/uL (1.4-8.2); BASOPHILS 0.8 % (0.0-2.0); EOSINOPHILS 3.9 % (0.0-3.0); HEMATOCRIT 25.3 % (37.0-47.0); MCH 30.8 pg (26.0-34.0); MCHC 31.7 g/dL (28.0-37.0); MCV 97.4 fL (80.0-100.0); PLATELET COUNT 105 thou/uL (150-400); POLYS 69.3 % (36.0-66.0); RBC 2.59 mil/uL (4.20-5.00); RDW 18.8 % (10.5-14.5); WBC 6.6 thou/uL (4.0-11.0)
[2019-10-08 17:12] VITALS: BP 156/60
--- NOTE | 2019-10-08 18:05 | NUR ---
DR CRANDALL NOTIFIED STAFF PATIENT ID POSITIVE FOR VRE...CONTACT ISOLATION INITIATED AND ANTIBIOTICS CHANGED PER DR MUNOZ...DAUGHTER MATTHEW NOTIFIED OF ISOLATION...
[2019-10-08 19:30] VITALS: BP 140/62
--- NOTE | 2019-10-09 03:24 | NUR ---
Pt making slow progress towards outcome goals. Vital signs and rhythm stable. No active signs of bleeding. Diuresing from lasix, large urine output.
[2019-10-09 04:05] VITALS: BP 155/58
[2019-10-09 05:51] LABS: ALBUMIN 2.4 g/dL (3.4-5.0); CREATININE 2.6 mg/dL (0.6-1.0); PHOSPHORUS 5.2 mg/dL (2.5-4.9); POTASSIUM 5.6 mmol/L (3.5-5.1)
[2019-10-09 07:56] VITALS: BP 178/64
--- NOTE | 2019-10-09 08:35 | HC ---
[facility] [place] [address] CONSULTATION Name: LON RAMOSNga Clement Room #: 363-P ADM IN ..#: [id number] Admission: 10/05/19 Attend Phys: Herrera Travis MD Discharge: Date of : 38 Report #: [id number] THIS REPORT FOR: //name// CC: Aishwarya Travis DATE OF SERVICE: 10/06/2019 REASON FOR PRESENTATION: Shortness of breath. REASON FOR CONSULTATION: Chronic kidney disease. HISTORY OF PRESENT ILLNESS: This is an 78-year-old with past medical history of chronic kidney disease with a baseline creatinine of around 2.5. She previously required dialysis. She has longstanding diabetes mellitus, hypertension, anemia, hypothyroidism, peripheral vascular disease, status post right below knee amputation. She was followed by Dr. Al in our clinic. She has had repeated episodes of urinary tract infection and she just finished a course of antibiotic. She presented with worsening shortness of breath over the last few days. This was associated with what seems to be fever, chills, loss of appetite. The patient was unable to function as she used to function. She denies any nausea or vomiting. She denies any changes in the medications. She presented to the hospital for further evaluation and was found to have what seems to be right-sided pleural effusion. She was also found to be anemic and thrombocytopenic. Potassium was mildly elevated; however, her creatinine is at her baseline. PAST MEDICAL HISTORY: 1. Chronic kidney disease with a baseline creatinine of around 2.5. 2. Diabetes mellitus. 3. Recurrent urinary tract infections. 4. Anemia. 5. Hyperlipidemia. 6. Hypothyroidism. 7. Status post right below knee amputation. 8. Colon cancer with colon resection. 9. Repeated hospitalizations for numerous issues including nosocomial infections, hyponatremia. 10. Previously required dialysis. SOCIAL HISTORY: Nonpertinent. FAMILY HISTORY: Hypertension. MEDICATIONS: 1. Omnicef. [facility] [address] [place] [address] CONSULTATION Name: SIN RAMOS Room #: 363-P [facility]#: [id number] Admission: 10/05/19 Attend Phys: Herrera Travis MD Discharge: Date of : 38 Report #: [id number] 2. Sodium bicarbonate. 3. Levothyroxine. 4. Torsemide. 5. Metoprolol. 6. Cyanocobalamin. REVIEW OF SYSTEMS: GENERAL: Significant for weakness and lethargy. CARDIOVASCULAR: Significant for shortness of breath. No chest pain. PULMONARY: Significant for cough and shortness of breath. GASTROINTESTINAL: Significant for decreased oral intake, but no nausea or vomiting. GENITOURINARY: No frequency, no urgency, recently finished a course of antibiotic. SKIN: She has some ulcers on her left foot. NEUROLOGICAL: Significant for weakness, but no seizure activities. MUSCULOSKELETAL: Status post right below knee amputation. She is using prosthesis. Occasional back pain and myalgias. PHYSICAL EXAMINATION: VITAL SIGNS: Mildly distressed with a temperature of 37.8, blood pressure 140/60. She is on binasal oxygen. HEAD AND NECK: No jugular venous distention. CHEST: Bilateral crackles. CARDIOVASCULAR: No rub detected. Regular. ABDOMEN: Soft, nontender. EXTREMITIES: Lower extremities, right below-knee amputation. LABORATORY DATA: Values reviewed. White blood cell count is 6.6, platelet is 123. Sodium is 144, potassium 6.2, BUN is 83, creatinine is 2.3. ASSESSMENT, IMPRESSION AND PLAN: 1. Chronic kidney disease at baseline. 2. Pulmonary edema and right-sided pleural effusion. 3. Hyperkalemia. 4. Anemia. 5. Multiple other comorbid conditions including diabetes mellitus, hypertension, and peripheral vascular disease. 6. We will initiate the patient on appropriate diuretic regimen. 7. Obtain Pulmonary consultation. 8. Initiated on antibiotic yesterday. 9. Anemia workup given her low hemoglobin. I will review her clinic course and [address] [address] CONSULTATION Name: LON RAMOSN Urbano Room #: 363-P [facility] IN [facility]#: [id number] Admission: 10/05/19 Attend Phys: Herrera Travis MD Discharge: Date of : 38 Report #: [id number] medication to decide about erythropoietin dosage. 10. We will continue to follow. <ELECTRONICALLY SIGNED> By: Judy Cummins MD 10/09/19 0835 0839 0849 Judy Cummins MD /shari
[2019-10-09 15:44] VITALS: BP 170/67
[2019-10-09 19:22] VITALS: BP 144/55
--- NOTE | 2019-10-09 20:24 | NUR ---
PT AND DAUGHTER WANT TO DISCUSS POSSIBLE EGD/COLONOSCOPY WITH GI DR TOMORROW...
--- NOTE | 2019-10-10 03:26 | NUR ---
Bairon making slow progress towads outcome goals. Vital signs and rhythm stable. No active signs of bleeding. Uses call light appropriately for needs.
[2019-10-10 04:18] VITALS: BP 181/69
[2019-10-10 05:19] LABS: HEMATOCRIT 25.7 % (37.0-47.0); HEMOGLOBIN 8.2 gm/dL (12.0-15.0); MCHC 32.1 g/dL (28.0-37.0); MCV 96.3 fL (80.0-100.0); RBC 2.66 mil/uL (4.20-5.00); RDW 17.3 % (10.5-14.5); WBC 6.3 thou/uL (4.0-11.0)
[2019-10-10 05:26] LABS: ALBUMIN 2.5 g/dL (3.4-5.0); CALCIUM 8.9 mg/dL (8.5-10.1); CREATININE 2.7 mg/dL (0.6-1.0); PHOSPHORUS 4.6 mg/dL (2.5-4.9); POTASSIUM 5.6 mmol/L (3.5-5.1)
[2019-10-10 07:43] VITALS: BP 185/83
--- NOTE | 2019-10-10 10:08 | NUR ---
WOUND CARE CONSULT daughter at , states wound on left lower started last summer after pt was off diuretic and leg swelling causing this wound, has seen wound dr and cardiac/vascular sonographer in past but has not seen dr regarding wound in last 2 months, has home health seeing pt for wound care, daughter called home health agency to find out tx at home, was using silver foam drsg, wound healing according to daughter, pink viable tissue present, feet warm, pulses weak, no edema, skin dry, encouraged to keep wound, pillow support prn RECOMMENDATIONS; silver foam drsg 3x week, M/W/F, and prn, will order low air loss pump for bed, pressure relief, off loading encouraged aoc aadc operations staff officerSNOW shelley
[2019-10-10 16:36] VITALS: BP 179/79
[2019-10-10 19:43] VITALS: BP 169/70
--- NOTE | 2019-10-10 20:12 | NUR ---
PT CURRENTLY LIVES WITH HER DTR AND GRANDTR BUT PLANS TO DISCHARGE TO [facility] FOR A SHORT STAY THEN RETURN HOME WITH HER FAMILY..PLANS FOR EGD TOMORROW OLIVIA 10/11 @ NOON...
[2019-10-11 04:52] VITALS: BP 151/66
[2019-10-11 05:33] LABS: HEMATOCRIT 24.7 % (37.0-47.0); HEMOGLOBIN 7.9 gm/dL (12.0-15.0); MCH 31.1 pg (26.0-34.0); MCHC 32.1 g/dL (28.0-37.0); MCV 96.9 fL (80.0-100.0); RBC 2.55 mil/uL (4.20-5.00); RDW 16.6 % (10.5-14.5); WBC 6.3 thou/uL (4.0-11.0)
--- NOTE | 2019-10-11 05:43 | NUR ---
PATIENT IS ADVANCING SLOWLY IN HER CARE PLAN. VITAL SIGNS STABLE WITH PATIENT HAVING NO COMPLAINTS OF PAIN OR NAUSEA. CONFUSED, PATIENT IS UNABLE TO CALL APPROPRIATELY FOR NEEDS AND REQUIRES FREQUENT ROUNDING. BREATHING STABLE ON OXYGEN EVIDENCED BY ASSESSMENT AND SPOT OXYGENATION CHECKS. PATIENT HAS BEEN NPO FROM MIDNIGHT IN ANTICIPATION OF TODAYS PROCEDURE. GOOD OUTPUT THROUGH EXTERNAL CATHETER. PATIENT WAS CHECKED FREQUENTLY FOR BOWEL INCONTINENCE AND WAS PROVIDED SKIN CARE. CONTINUE PLAN OF CARE.
[2019-10-11 06:05] LABS: ALBUMIN 2.5 g/dL (3.4-5.0); CALCIUM 9.3 mg/dL (8.5-10.1); CREATININE 2.7 mg/dL (0.6-1.0); PHOSPHORUS 4.5 mg/dL (2.5-4.9); POTASSIUM 5.6 mmol/L (3.5-5.1)
[2019-10-11 07:27] VITALS: BP 185/75
[2019-10-11 12:45] LABS: CALCIUM 9.7 mg/dL (8.5-10.1); CREATININE 2.7 mg/dL (0.6-1.0); POTASSIUM 5.3 mmol/L (3.5-5.1)
--- NOTE | 2019-10-11 15:58 | NUR ---
Assumed care approx. 0700 this AM. Patient drowsy but oriented x4. Female external cath in place. 1 incont BM that was dark green in color. Right AC IV taken out as it wouldn't flush. Right hand IV started in GI lab prior to EGD. Family to visit at bedside today. Contact isolation remains in place. No new changes thus far. Pt progressing toward plan of care goals.
[2019-10-11 16:30] VITALS: BP 151/60
[2019-10-11 19:36] VITALS: BP 127/55
[2019-10-12 04:23] VITALS: BP 168/66
[2019-10-12 05:10] LABS: ALBUMIN 2.5 g/dL (3.4-5.0); CALCIUM 8.7 mg/dL (8.5-10.1); CREATININE 2.8 mg/dL (0.6-1.0); PHOSPHORUS 4.5 mg/dL (2.5-4.9); POTASSIUM 5.9 mmol/L (3.5-5.1)
--- NOTE | 2019-10-12 05:52 | NUR ---
PT HAS SLEPT WELL TONIGHT. REMAINS WITH HTN AT TIMES. PT SR ON MONITOR. PT TOLERATING 1L O2 PER NC SATS WELL.
[2019-10-12 08:45] VITALS: BP 173/71
--- NOTE | 2019-10-12 10:05 | NUR ---
WOUND CARE F/U assess wound w/ waitstaff REANNA, ulcer left lower leg healing, pink viable tissue, pt cooperative and alert, daughter present, encouraged to turn more, pressure relief, photo taken RECOMMENDATIONS cont current tx w/ optifoam AG, M/W/F and prn, cont low air loss pump to bed, encouraged to turn more, pressure relief, waitstaff aware
[2019-10-12 12:29] VITALS: BP 147/58
--- NOTE | 2019-10-12 16:45 | NUR ---
SW reviewed chart and spoke with nursing and attending physician. Pt is progressing towards goals for discharge. [place] [facility] [place]. Pt's dtr notified by information systems planner. SW is following to assist as needed with discharge planning.
[2019-10-12 17:30] VITALS: BP 140/58
--- NOTE | 2019-10-12 18:20 | NUR ---
ASSUMED CARE 0700. ALERT X 4, SLOW TO RESPOND, PAIN IN LEFT LOWER EXTREMITY WITH MOVEMENT. WOUND CARE PROVIDED BY WOUND NURSE WITH PICTURE TAKEN. LIKELY DC TO SNF TOMORROW. ELVATED POTASSIUM TX WITH [facility] PER DR FINNEY ORDERS. REPISTIONS TOLERATED. ATE 40% MEALS DRINKS 100% OF SUPPLEMENT. CALLS FOR ASSISTANCE.
[2019-10-12 19:38] VITALS: BP 145/52
[2019-10-13 00:10] VITALS: BP 119/45
[2019-10-13 05:18] VITALS: BP 157/64
--- NOTE | 2019-10-13 06:10 | NUR ---
Patient was assisted with ananya-care related to incontinence NOC PRN. Her heels were floated. Nuring will continue to monitor.
[2019-10-13 08:09] VITALS: BP 141/56
[2019-10-13 10:58] LABS: CALCIUM 9.3 mg/dL (8.5-10.1); CREATININE 3.2 mg/dL (0.6-1.0); POTASSIUM 5.1 mmol/L (3.5-5.1)
[2019-10-13] MEDS ORDERED: LINEZOLID600 MG PO (12:04)
[2019-10-13] MEDS ORDERED: NORVASC10 MG PO (12:05)
[2019-10-13] MEDS ORDERED: VELTASSA8.4 GM PO (12:05)
[2019-10-13] MEDS ORDERED: MUCINEX600 MG PO (12:05)
[2019-10-13] MEDS ORDERED: PULMICORT0.5 MG/21 INH (12:05)
[2019-10-13] MEDS ORDERED: TRADJENTA5 MG PO (12:06)
[2019-10-13] MEDS ORDERED: HUMALOG100 UNIT/1 SUBQ (12:06)
[2019-10-13] MEDS ORDERED: SYNTHROID75 MCG PO (12:07)
--- NOTE | 2019-10-13 14:45 | NUR ---
DISCHARGE NOTE: SW reviewed chart and spoke with nursing and attending physician. Pt is medically stable for discharge to [facility] today. systems planner to coordinate and notify family. Chart copy requested. Nursing provided with number to call report. Stretcher transportation scheduled for 1630. No additional SW needs identified at this time, but is available to assist should needs arise.
[2019-10-13 16:26] VITALS: BP 116/74
--- NOTE | 2019-10-13 17:05 | NUR ---
pt knows her name, but pt reponses questions slowly, pt is continuing o2 3L/MIN/NC, PT'S vs , BS and o2sat are stable, pt needs help ADL and meals, pt was D/C TO SNF AT 1640PM, RN has giving report, and pt's daughter has notified about pt's DC.
--- NOTE | 2019-10-19 08:11 | P ---
[facility] [place] [address] PROCEDURE REPORT Name: LON RAMOSNga Clement Room #: 363-P [facility]#: [id number] Admission: 10/05/19 Attend Phys: Herrera Travis MD Discharge: 10/13/19 Date of : 36 Report #: [id number] THIS REPORT FOR: //name// CC: Judy Travis MD DATE OF SERVICE: 10/11/2019 PROCEDURE PERFORMED: Upper endoscopy. HISTORY OF PRESENT ILLNESS: The patient is an 78-year-old female with multiple medical problems, has a history of chronic anemia, Hemoccult positive stool during this hospitalization, she received 1 unit of packed cells. She had a Hemoccult positive stool in August. She has a previous history of colon cancer diagnosed in 2016, status post right hemicolectomy, apparently did have a colonoscopy at a different facility in March showing surgical anastomosis, internal hemorrhoids, but otherwise essentially negative. She has been having dark stool. She is on iron. Prior to this admission, she was not on PPI therapy, she has been since this admission. She was diagnosed with pleural effusion as well as possible infiltrate. She has been on antibiotics since her admission. She is currently on 2 liters nasal cannula oxygen. Plan is for EGD. DESCRIPTION OF PROCEDURE: The risks and benefits of the procedure were explained to the patient, those risks including but not limited to bleeding, perforation and the risk of sedation. She and her family understood these risks and gave informed consent. Sedation was given using propofol per anesthesia. Next, using a standard Olympus upper endoscope, the scope was placed in the patient's mouth and advanced under direct vision through the esophagus, stomach and into the second portion of the duodenum. The larynx was normal in appearance. The esophagus was normal throughout. The GE junction was normal. Upon entering the stomach, a small hiatal hernia was noted. There was a mild gastritis noted in the body. Several erosions were noted. Previous biopsies by Dr. Fu my partner 2 years ago were negative for H. pylori. There was no evidence of active bleeding noted. The gastric antrum was normal. The pylorus was normal and patent. The duodenal bulb and first portion were normal. In the second portion, a duodenal diverticulum was noted. There was no blood noted in the duodenum. No AVMs were seen. No evidence of ulcerations. At this point, the scope was then withdrawn and the procedure terminated. The patient tolerated the procedure well. IMPRESSION: 1. Gastritis with several small erosions. No active bleeding. 2. Small hiatal hernia. 3. Otherwise, normal upper endoscopy. [address] [address] PROCEDURE REPORT Name: SIN RAMOS Room #: 363-P [facility] IN M.R.#: [id number] Admission: 10/05/19 Attend Phys: Herrera Travis MD Discharge: 10/13/19 Date of : 36 Report #: [id number] RECOMMENDATIONS: Would continue daily PPI therapy and monitoring hemoglobin. The patient may have had bleeding from gastric erosions recently, which are now in the process of healing as she has been on PPI therapy for the last week. If her anemia persists, could consider next an M2 capsule endoscopy for further evaluation. Thank you for allowing me to participate in her care. <ELECTRONICALLY SIGNED> By: Elvis Lawson MD 10/19/19 0811 [id number] [id number] Elvis Lawson MD /nt
== END 2019-10-13 17:12 | DRG 682 ==
LOC: ER 09:37 → 3W 10:53 → EROBS 10:53 → 3W 15:39
PROVIDERS: Anesthesiology; Emergency Medicine; Hospitalist; Nurse Practitioner; ADMIT Hospitalist
PROC: 30233N1 Transfusion of Nonautologous Red Blood Cells into Peripheral Vein, Percutaneous Approach (ICD-10-PCS; principal; 2019-10-07)
PROC: 0DJ08ZZ Inspection of Upper Intestinal Tract, Via Natural or Artificial Opening Endoscopic (ICD-10-PCS; 2019-10-11)
DX: N17.9 Acute kidney failure, unspecified (principal); J18.9 Pneumonia, unspecified organism; J96.01 Acute respiratory failure with hypoxia; E46 Unspecified protein-calorie malnutrition; N39.0 Urinary tract infection, site not specified; I13.0 Hypertensive heart and chronic kidney disease with heart failure and stage 1 through stage 4 chronic kidney disease, or unspecified chronic kidney disease; N12 Tubulo-interstitial nephritis, not specified as acute or chronic; E87.70 Fluid overload, unspecified; E11.621 Type 2 diabetes mellitus with foot ulcer; E87.5 Hyperkalemia; D50.9 Iron deficiency anemia, unspecified; E03.9 Hypothyroidism, unspecified; E78.00 Pure hypercholesterolemia, unspecified; I50.9 Heart failure, unspecified; N18.3 Chronic kidney disease, stage 3 (moderate); E11.22 Type 2 diabetes mellitus with diabetic chronic kidney disease; E78.5 Hyperlipidemia, unspecified; E11.51 Type 2 diabetes mellitus with diabetic peripheral angiopathy without gangrene; K29.70 Gastritis, unspecified, without bleeding; K44.9 Diaphragmatic hernia without obstruction or gangrene; E11.622 Type 2 diabetes mellitus with other skin ulcer; K21.9 Gastro-esophageal reflux disease without esophagitis; E11.649 Type 2 diabetes mellitus with hypoglycemia without coma; B95.2 Enterococcus as the cause of diseases classified elsewhere; Z79.4 Long term (current) use of insulin; Z89.511 Acquired absence of right leg below knee; Z95.820 Peripheral vascular angioplasty status with implants and grafts; Z85.038 Personal history of other malignant neoplasm of large intestine; Z82.49 Family history of ischemic heart disease and other diseases of the circulatory system; Z90.49 Acquired absence of other specified parts of digestive tract; Z68.30 Body mass index [BMI] 30.0-30.9, adult; Z87.11 Personal history of peptic ulcer disease; Z79.899 Other long term (current) drug therapy; K29.00 Acute gastritis without bleeding
CPT/HCPCS: 10879; 62110; 62900; 70005

== ENCOUNTER 2020-01-01 10:29 | Inpatient (IN) | payer OTHER ==
[~2020-01-01] VITALS: Ht 162.6 cm; Wt 77.5 kg
[2020-01-01] VITALS (26 sets, daily range): BP systolic 123–197; BP diastolic 49–111
[~2020-01-01 10:29] MED LIST changes: +HUMALOG100 UNIT/1 SUBQ; +LEVEMIR100 UNIT/1 SUBQ; +LINEZOLID600 MG PO; +MUCINEX600 MG PO; +NORVASC10 MG PO; +NOVOLOG100 UNIT/M SUBQ; +PULMICORT0.5 MG/21 INH; +SYNTHROID75 MCG PO; +TORSEMIDE20 MG PO; +TRADJENTA5 MG PO; +VELTASSA8.4 GM PO
[2020-01-01 11:35] LABS: ANION GAP 10 mmol/L (7-16); BUN 62 mg/dL (7-18); CALCIUM 8.9 mg/dL (8.5-10.1); CHLORIDE 106 mmol/L (98-107); CO2 21 mmol/L (21-32); CREATININE 1.8 mg/dL (0.6-1.0); GLUCOSE 122 mg/dL (74-106); POTASSIUM 5.2 mmol/L (3.5-5.1); SODIUM 137 mmol/L (136-145)
[2020-01-01 11:39] LABS: HEMATOCRIT 30.5 % (37.0-47.0); HEMOGLOBIN 9.6 gm/dL (12.0-15.0); MCH 29.9 pg (26.0-34.0); MCHC 31.4 g/dL (28.0-37.0); MCV 95.3 fL (80.0-100.0); PLATELET COUNT 215 thou/uL (150-400); RDW 15.7 % (10.5-14.5); WBC 6.4 thou/uL (4.0-11.0)
[2020-01-01 11:45] LABS: ALBUMIN 2.9 g/dL (3.4-5.0); SGOT 23 U/L (15-37); SGPT 10 U/L (30-65); TOTAL BILIRUBIN 0.5 mg/dL (<0.1-1.0); TOTAL PROTEIN 6.6 g/dL (6.4-8.2); TROPONIN-I <0.06 ng/mL (<0.06)
[2020-01-01 11:53] LABS: APTT 30.9 Seconds (24.5-32.8); PROTIME 9.9 Seconds (9.3-11.4)
[2020-01-01 12:17] LABS: ABSOLUTE NEUTROPHILS 4.7 thou/uL (1.4-8.2); ANISOCYTOSIS 3+; POLYCHROMASIA SLIGHT
[2020-01-01] MEDS ORDERED: TRAZODONE HCL50 MG PO (13:02)
--- NOTE | 2020-01-01 18:26 | NUR ---
pt admitted to ICU post tPA. pt isan nih of 1 and a gcs of 15. pt given an HCG bath and settleed down in room. family has been notified and have seen pt. education for tPA side effects have been given to pt. vss, pt is afibrile. pt eating dinner currently.
[2020-01-02] VITALS (28 sets, daily range): BP systolic 126–199; BP diastolic 47–84
[2020-01-02] MEDS ORDERED: VYZULTA5 ML OPHTHALMIC (00:23)
[2020-01-02] MEDS ORDERED: XALATAN2.5 ML EA. EYE (00:32)
--- NOTE | 2020-01-02 05:52 | NUR ---
Shift summary: Uneventful night. Oriented x 4. Tired from being woke up every hour for neuro checks. VSS. Afebrile. SR. O2 2L NC. Lungs clear. BS hypoactive. ACCUCHECK achs with SSC. ADA diet. Female external catheter in place draining cloudy yellow urine. NIH 2 -- decreased vision left eye baseline. Pt feels like her neuro status is at baseline. AM labs pending. Daughter to have home medication list faxed to hospital this am. Pt needs home medications reordered. Plan of care reviewed and updated at [facility]. Hourly VS and neuro checks until 1300 per Post TPA orders.
[2020-01-02 05:59] LABS: CHOLESTEROL 111 mg/dL (<200); HDL CHOLESTEROL 38 mg/dL (>40); LDL CHOLESTEROL 60 mg/dL (<100); TC:HDL 2.9 Ratio (Not establshd); TRIGLYCERIDE 65 mg/dL (<150); VLDL 13 mg/dL (<40)
[2020-01-02 06:01] LABS: SERUM ASSESSMENT Clear
--- NOTE | 2020-01-02 06:57 | NUR ---
Report to oncoming shift, Carla ADAMSON
--- NOTE | 2020-01-02 10:00 | NUR ---
chart review, pt back to room from test, speech at bedside while pt tries breakfast. intro to cm, transition of care ie hh and post acute. per pt and daughter deep " house with 8 family members. alone sometime, she on hh with [facility], been to [facility] came home on november 26, she used all her skilled days there. has wheel chair, walker that she doesnt use much. manage own medication. have ramp, btx and home o2 that she doesnt use that often. 8 steps up to her bedroom. have remote lock on doors so no one has to ever breakdown the doors to get in. has life alert. don't work far from her and only 5 min from here, can call if needed anytime. # [phone]"/renard. will cont following as needed for dc needs.
--- NOTE | 2020-01-02 13:51 | 2DMMODE ---
[facility] [place] [address] 2 D/M-MODE ECHOCARDIOGRAM Name: SIN RAMOS Room #: 239-P ADM IN M.R.#: [id number] Admission: 01/01/20 Attend Phys: Felipe Nelson MD Discharge: Date of : 38 Report #: [id number] THIS REPORT FOR: cc: Aishwarya De Souza MD, Cynthia MD Park,Dylan Degroot MD ~ APPROVED REPORT Study performed: 01/02/2020 12:53:30 EXAM: Comprehensive 2D, Doppler, and color-flow Echocardiogram Patient Location: ICU Room #: 239 Status: routine BSA: 1.83 HR: 90 bpm BP: 161/68 mmHg Rhythm: NSR Other Information Study Quality: Good Indications Left sided weakness. Hx: CHF, PVD (bka), DM, HTN, HLP. Echo Enhancing Agent Indication: Rule out Shunt Agent(s) / Amount(s) Used: Agitated Saline 7 cc 2D Dimensions RVDd: 37.27 mm IVSd: 14.00 (7-11mm) LVOT Diam: 19.00 (18-24mm) LVDd: 42.00 mm PWd: 13.00 (7-11mm) Ascending Ao: 30.77 (22-36mm) LVDs: 30.68 (25-40mm) Aortic Root: 32.95 mm Volumes Left Atrial Volume (Systole) Single Plane 4CH: 73.69 mL Single Plane 2CH: 83.70 mL LA ESV Index: 46.00 mL/m2 Aortic Valve [facility] [place] [address] [place] [address] 2 D/M-MODE ECHOCARDIOGRAM Name: SIN RAMOS Room #: 239-P ADM IN M.R.#: [id number] Admission: 01/01/20 Attend Phys: Felipe Nelson MD Discharge: Date of : 38 Report #: [id number] AoV Peak Yogesh.: 1.29 m/s AO Peak Gr.: 6.68 mmHg LVOT Max P.31 mmHg LVOT Max V: 0.91 m/s VELIA Vmax: 2.04 cm2 Mitral Valve MV Decel. Time: 295.73 ms MV PHT: 85.76 ms MVA (PHT): 2.55 cm2 Pulmonary Valve PV Peak Yogesh.: 1.07 m/s PV Peak Gr.: 4.54 mmHg Tricuspid Valve TR Peak Yogesh.: 2.86 m/s RAP Estimate: 5.00 mmHg TR Peak Gr.: 33.00 mmHg PA Pressure: 38.00 mmHg Left Ventricle The left ventricle is normal size. There is normal LV segmental wall motion. Moderate concentric left ventricular hypertrophy. Left ventricular systolic function is normal. LVEF is 55%. Mild diastolic dysfunction is present (impaired relaxation pattern). Right Ventricle The right ventricle is normal size. The right ventricular systolic function is normal. Atria Left atrium is moderately dilated. No shunting noted with contrast bubble injection. The right atrium size is normal. Aortic Valve The aortic valve is normal in structure. Leaflets are mildly thickened. No aortic regurgitation is present. There is no aortic valvular stenosis. Mitral Valve Mitral valve leaflets are moderately thickened and calcified. Moderate mitral annular calcification. Moderate mitral regurgitation. Mild to moderate mitral stenosis. Mean pressure gradient of 12mmHg, Peak of 20mmHg. Tricuspid Valve The tricuspid valve is normal in structure. Mild tricuspid regurgitation. Estimated PAP is 38mmHg. [facility] [place] [address] 2 D/M-MODE ECHOCARDIOGRAM Name: SIN RAMOS Room #: 239-P [facility] IN M.R.#: [id number] Admission: 01/01/20 Attend Phys: Felipe Nelson MD Discharge: Date of : 36 Report #: [id number] Pulmonic Valve The pulmonary valve is normal in structure. Mild to moderate pulmonic regurgitation. Great Vessels The aortic root is normal in size. The ascending aorta is normal in size. IVC is normal in size and collapses >50% with inspiration. Pericardium There is no pericardial effusion. <Conclusion> The left ventricle is normal size. Moderate concentric left ventricular hypertrophy. Left ventricular systolic function is normal. Mild diastolic dysfunction is present (impaired relaxation pattern). The right ventricle is normal size. Left atrium is moderately dilated. No shunting noted with contrast bubble injection. The aortic valve is normal in structure. Leaflets are mildly thickened. Mitral valve leaflets are moderately thickened and calcified. Moderate mitral annular calcification. Moderate mitral regurgitation. Mild to moderate mitral stenosis. Mean pressure gradient of 12mmHg, Peak of 20mmHg. Mild tricuspid regurgitation. Estimated PAP is 38mmHg. <ELECTRONICALLY SIGNED> By: Dylan Dunlap MD 01/02/20 1350 1350 1350 Dylan Dunlap MD /INF
--- NOTE | 2020-01-02 17:45 | NUR ---
ASSESSMENTS AND INTERVENTIONS DOCCUMENTED. NO MAJOR CHANGES THROUGH OUT SHIFT.PATIENT ALERT AND SHOWING NO SIGNS OF STROKE. PATIENT WENT TO MRI AND TOLERATED IT WELL. PATIENT ALSO WORKING WITH PT AND OT AND DID WELL. PATIENT PROGRESSING TOWARDS GOALS EVIDENCE BY BEING MORE ALERT AND WORKING WITH THERAPY.
[2020-01-03] VITALS (15 sets, daily range): BP systolic 147–180; BP diastolic 57–76
[2020-01-03 00:10] LABS: GLYCOHEMOGLOBIN (HGB A1C) 6.1 % (4.8-5.6)
[2020-01-03 05:03] LABS: URINE BILIRUBIN NEGATIVE (Negative); URINE BLOOD 1+ (Negative); URINE CLARITY CLOUDY; URINE COLOR YELLOW; URINE GLUCOSE-RANDOM* NEGATIVE (Negative); URINE KETONES NEGATIVE (Negative); URINE NITRITE-REFLEX NEGATIVE (Negative); URINE PROTEIN (DIPSTICK) 3+ (Negative); URINE UROBILINOGEN 0.2 E.U./dl (0.2-1.0)
[2020-01-03 05:07] LABS: URINE LEUKOCYTES-REFLEX 3+ (Negative)
[2020-01-03 05:11] LABS: SQUAMOUS 0-3 Few /LPF (0-3); URINE RBC 3-10 Few /HPF (0-2); URINE WBC-REFLEX >25 Many /HPF (0-5)
[2020-01-03 05:12] LABS: CASTS None Seen /LPF (None Seen); CRYSTALS None Seen /LPF (None Seen); MUCUS 4-6 Moderate strn/LPF (None Seen)
--- NOTE | 2020-01-03 08:41 | NUR ---
SEE [employer] FOR COMPLETE ASSESSMENT. SLEEPING AWAKENS EASILY. NO NEURO DEFICITS NOTED. NIH 2-DUE TO VISION, BUT PREVIOUS LT EYE BLURRED VISION PER PT DUE TO CATARACTS. VS WNL. GOOD UO. SINTIA PO FLUIDS. REMAINS SL. CONT PLAN OF CARE. PT PROGRESSING TOWARD GOALS
[2020-01-03] MEDS ORDERED: LOPRESSOR25 PO (10:14)
[2020-01-03] MEDS ORDERED: NORVASC 2.5 MG2.5 M1 PO (10:14)
--- NOTE | 2020-01-03 10:44 | HC ---
[facility] [place] [address] CONSULTATION Name: SIN RAMOS Room #: 239-P ADM IN M.R.#: [id number] Admission: 01/01/20 Attend Phys: Felipe Nelson MD Discharge: Date of : 38 Report #: [id number] THIS REPORT FOR: cc: Aishwarya De Souza MD,Samantha Ch MD, MD ~ CC: Aishwarya Grewalu DATE OF SERVICE: 01/02/2020 ENDOCRINE CONSULTATION NOTE CONSULTING PHYSICIAN: Dr. Felipe Nelson. REASON FOR CONSULTATION: Type 2 diabetes mellitus. HISTORY OF PRESENT ILLNESS: This is an 79-year-old female patient whose medical background is significant for multiple medical issues including type 2 diabetes mellitus, hypertension, congestive heart failure and hypothyroidism, who presented to the ER yesterday with concerns of speech difficulties as well as left-sided facial droop and left-sided weakness. The patient was admitted for further care and monitoring and is currently in the ICU. Again, the patient is known to have type 2 diabetes mellitus for many years. She is currently maintained on a regimen of Lantus insulin 18 units q.a.m. in addition to linagliptin 5 mg daily. The patient notes that her blood glucose values generally fall under good control, but was not able to provide specific glycemic data to that effect. She has not had major issues with hypoglycemia. The patient does not believe that she has diabetic retinopathy, but she did have cataracts issues that require surgery in the past. Also, she is known to have chronic kidney disease, diabetic peripheral neuropathy, peripheral vascular disease, status post right BKA in 2015. The patient is known to have congestive heart failure issues, but does not believe that she has had an IL in the past. She is also known to have hypothyroidism and is maintained on levothyroxine 75 mcg daily, which has been more or less stable dose. The patient has hyperlipidemia and hypertension. REVIEW OF SYSTEMS: CONSTITUTIONAL: Fatigue, tiredness, but no fever or chills or body weight changes. HEENT: Negative for sore throat, sinus pain, ear drainage. PULMONARY: Noted for occasional dyspnea on exertion, orthopnea, but no cough or hemoptysis. [address] [address] CONSULTATION Name: SIN RAMOS Room #: 239-P [facility] IN M.R.#: [id number] Admission: 01/01/20 Attend Phys: Felipe Nelson MD Discharge: Date of : 38 Report #: [id number] CARDIAC: Noted for baseline issues with congestive heart failure, lower extremity edema, orthopnea, but not chest pain or palpitations. GASTROINTESTINAL: Noted for occasional abdominal discomfort, nausea, but no vomiting or significant changes in bowel movements. NEUROLOGY: A slurred speech, left-sided weakness, dizziness, but not loss of consciousness or seizure activity. UROLOGY: Negative for dysuria, hematuria. PSYCHIATRIC: Negative for delusions, hallucinations. Otherwise, review of systems is noncontributory other than those mentioned in HPI. PAST MEDICAL HISTORY: 1. Type 2 diabetes mellitus. 2. Peripheral diabetic neuropathy. 3. Cataracts. 4. Glaucoma. 5. Peripheral vascular disease, status post right BKA in 2014. 6. Chronic kidney disease, baseline creatinine 2.0. 7. History of colon cancer. 8. Hypertension. 9. Hyperlipidemia. 10. Hypothyroidism. OUTPATIENT MEDICATIONS: Includes Lantus insulin 18 units q.a.m., linagliptin 5 mg daily, metoprolol 50 mg daily, vitamin B12 500 mcg daily, linezolid 600 mg b.i.d., amlodipine 10 mg daily, Mucinex 1200 mg b.i.d., levothyroxine 75 mcg daily, trazodone 50 mg at bedtime, ascorbic acid 500 mg daily, ferrous sulfate 325 mg b.i.d., loratadine 10 mg daily, torsemide 20 mg daily. ALLERGIES: IRON INFUSIONS. FAMILY HISTORY: Noncontributory. SOCIAL HISTORY: The patient lives with her daughter. She denies use of tobacco, alcohol or illicit drugs. PHYSICAL EXAMINATION: GENERAL: Pleasant elderly -[place] female patient who is not in apparent pain or distress. VITAL SIGNS: Blood pressure is 199/83 mmHg, heart rate is 91 beats per minute, respirations 24 per minute, temperature 37 Celsius. CONSTITUTIONAL: The patient is sitting upright in bed. She seems relatively comfortable, not in apparent distress. HEENT: Anicteric sclerae. Intact extraocular motions. NECK: Supple, without JVD, carotid bruits or lymphadenopathy. CHEST: Noted for moderate air entry bilaterally. Scattered rales and rhonchi. [address] [address] CONSULTATION Name: SIN RAMOS Room #: 239-P [facility] IN M.R.#: [id number] Admission: 01/01/20 Attend Phys: Felipe Nelson MD Discharge: Date of : 38 Report #: [id number] HEART: Regular rate and rhythm without murmurs or gallops. ABDOMEN: Soft, lax. No guarding. Active bowel sounds. EXTREMITIES: Lower extremity exam is noted for right BKA. Left lower extremity edema. Diminished sensation to light touch with faint pedal pulses. NEUROLOGIC: Awake, alert and oriented to time, place and person. The remainder of her examination is noted for slight left-sided motor weakness. PSYCHIATRIC: Pleasant, interactive. Normal mood and affect. LABORATORY DATA: Blood glucose on arrival was 120, it got to a high of 241 yesterday, this morning it was at 78 mg/dL. Sodium 137, potassium 5.2, chloride 106, CO2 of 21, anion gap 10, BUN 62, creatinine 1.8, lipase 648, total bilirubin 0.5, calcium 8.9, alkaline phosphatase 116, ALT 10, total protein 6.6, albumin 2.9, EGFR 33, lactic acid 0.8. Total CPK 48, total cholesterol 111, HDL 38, LDL 60, VLDL 13. BNP 15,349 in 10/2019. Actually white blood count 6.4, hemoglobin 9.6, hematocrit 30.5, platelets 215. TSH 11.477 in 10/2019. ASSESSMENT AND PLAN: 1. Type 2 diabetes mellitus. The patient is known to have type 2 diabetes mellitus for many years. She reports what she described as a good control level over the past several weeks. Hemoglobin A1c is being processed to further understand that. In the meantime, the patient is maintained on Humalog supplemental scale. It is worth noting that the patient has had fairly adequate glycemic control and actually had a value of 78 mg/dL this morning without active Lantus intake. That said, I will keep her off of Lantus for the time being and reinitiate linagliptin 5 mg daily, as we continue to monitor her blood glucose values a.c. and at bedtime and introduce further changes as needed. 2. Hypothyroidism. The patient has chronic hypothyroidism and is currently on a stable dose of levothyroxine 75 mcg daily. I would like to check her TSH and free T4 to gain further insight into her level of control and adjust her regimen as necessary. 3. Hyperlipidemia. The patient's level of control is adequate as per the lipid panel acquired on admission. 4. Hypertension. The patient's level of blood pressure control is inadequate. However, she would not require aggressive control in the setting of a likely ischemic stroke or possible ischemic stroke. I will defer this aspect of care to her Primary Hospital Medicine Team. 5. Cerebrovascular accident. The patient presented with symptoms that are concerning for a cerebrovascular accident, specifically left-sided weakness and slurred speech. According to her initial CT scan of the head was only noted for small vessel ischemic disease, but no acute changes. Further workup and monitoring is underway. 6. Chronic kidney disease. The patient is known to have chronic kidney disease and is currently at a creatinine of 1.8, which is her baseline. Further monitoring will continue as she remains here. I have reviewed the patient's clinical care notes, laboratory data, [place] [address] CONSULTATION Name: RACHELSIN L Room #: 239-P [facility] IN M.R.#: [id number] Admission: 01/01/20 Attend Phys: Felipe Nelson MD Discharge: Date of : 38 Report #: [id number] studies past and present for over 35 minutes. I appreciate this consultation by Dr. Nelson. <ELECTRONICALLY SIGNED> By: Samantha Yan MD 01/03/20 1044 0916 1009 Samantha Yan MD /nt
[2020-01-03] MEDS ORDERED: KEFLEX500 M2 PO (16:33)
--- NOTE | 2020-01-03 17:15 | NUR ---
PT DISCHARGING TODAY TO HOME WITH [facility] SPOKE WITH INTAKE AND THEY WILL RESUME CARE FAXED DC ORDERS/SUMMARY RECEIVED CONFIRMATION.
--- NOTE | 2020-01-03 17:48 | NUR ---
ASSESSMENT DOCUMNETED, BP 167-170/57-74, DR HAYWOOD NOTIFIED AND NEW ORDERS RECIEVED. PROGRESSING TOWARDS GOALS. PATIENT AND FAMILY UPDATED ON PLAN TO DISCHARGE PATIENT TODAY PER DR HAYWOOD ORDERS. PATIENT'S DAUGHTER VOICED THAT HER MOTHER IN NOT READY FOR DISCHARGE HOME, DR HAYWOOD NOTIFIED, AND NO FURTHER ORDERS RECIEVED.
[2020-01-04] VITALS (67 sets, daily range): BP systolic 84–247; BP diastolic 41–117
[2020-01-04 01:23] LABS: HEMATOCRIT 30.8 % (37.0-47.0); HEMOGLOBIN 9.3 gm/dL (12.0-15.0); MCH 30.2 pg (26.0-34.0); MCHC 30.2 g/dL (28.0-37.0); RBC 3.07 mil/uL (4.20-5.00)
--- NOTE | 2020-01-04 01:28 | NUR ---
PT CODED IN ROOM 460 AT 0050; ROSC OBTAINED AT 0110 AND PT TRANSFERRED TO ICU ROOM 240. PT LOST PULSE AGAIN AT [address] BHAT AND Zane GARCIA NP NOTIFIED.
[2020-01-04 01:34] LABS: APTT 33.4 Seconds (24.5-32.8); D-DIMER 2.65 ug/mLFEU (0.19-0.50); PROTIME 10.3 Seconds (9.3-11.4)
[2020-01-04 01:34] LABS: BE(vivo) -15.2 mmol/L (-2 to +3); HCO3 13.9 mmol/L (22.0-26.0); PCO2 46.4 mmHg (35.0-45.0); PO2 62.7 mmHg (80.0-100.0); pH 7.094 (7.360-7.450); sO2 82.8 % (92.0-98.0)
[2020-01-04 01:40] LABS: ALBUMIN 2.2 g/dL (3.4-5.0); ANION GAP 9 mmol/L (7-16); BUN 65 mg/dL (7-18); CALCIUM 8.9 mg/dL (8.5-10.1); CHLORIDE 109 mmol/L (98-107); CO2 22 mmol/L (21-32); CREATININE 2.4 mg/dL (0.6-1.0); GLUCOSE 302 mg/dL (74-106); SGOT 226 U/L (15-37); SGPT 162 U/L (30-65); SODIUM 140 mmol/L (136-145); TOTAL BILIRUBIN 0.7 mg/dL (<0.1-1.0); TOTAL PROTEIN 5.1 g/dL (6.4-8.2); TROPONIN-I <0.06 ng/mL (<0.06)
[2020-01-04 01:42] LABS: POTASSIUM 6.1 mmol/L (3.5-5.1)
--- NOTE | 2020-01-04 01:56 | NUR ---
AROUND 0050, PT'S FAMILY MEMBER REPORTED PT HAVING DIFFICULTY BREATHING. UNABLE TO OBTAIN VITAL SIGNS. [employer] ADVISOR AT BEDSIDE. PT BECAME UNRESPONSIVE AND NO CAROTID PULSE PALPABLE. CODE BLUE INITIATED AT 0050. INITIATED CPR, CRASH CART AT BEDSIDE. CODE TEAM ARRIVED. FROM ER TOOK OVER. PT WAS TRANSFERRED TO ICU AFTER ROSC. MORE FAMILY MEMBER ARRIVE AND FAMILY DIRECTED TO ICU.
--- NOTE | 2020-01-04 02:10 | NUR ---
ASSUMED CARE OF PT FROM ICU AT 0000HRS. PT CODED WITHIN 40MINS OF BEING ON THE FLOOR. PT WAS INTUBATIED, PULSE REGAINED AND TX BACK TO ICU AT 0110 HRS.
--- NOTE | 2020-01-04 02:33 | NUR ---
MULTIPLE TRIES FOR IV ACCESS WITHOUT SUCCESS. DR. CHEW CALLING DR. CRESPO TO NOTIFY HIM OF LABS AND UPDATE HIM ON PT. ICU charge nurse spoke with Dr. Crespo initially at 0157 to notify him of consult.
[2020-01-04 03:45] LABS: HCO3 22.4 mmol/L (22.0-26.0); PCO2 46.3 mmHg (35.0-45.0); PO2 58.9 mmHg (80.0-100.0); pH 7.302 (7.360-7.450); sO2 87.8 % (92.0-98.0)
--- NOTE | 2020-01-04 03:55 | NUR ---
DR. CRESPO HERE AT 0230 TO SEE PT, TALKED WITH FAMILY. CENTRAL LINE AND ARTERIAL LINE PLACED PER DR. CRESPO AT 0300. OG INSERTED PER NURSING. ET TUBE, CENTRAL LINE AND OG ALL CONFIRMED BY X-RAY.
--- NOTE | 2020-01-04 04:57 | NUR ---
Pt to CT for stat head and chest scan.
[2020-01-04 05:51] LABS: HEMOGLOBIN 9.1 gm/dL (12.0-15.0); MCH 30.5 pg (26.0-34.0); MCHC 31.5 g/dL (28.0-37.0); MCV 96.9 fL (80.0-100.0); PLATELET COUNT 215 thou/uL (150-400); RBC 2.99 mil/uL (4.20-5.00); RDW 16.6 % (10.5-14.5)
[2020-01-04 06:00] LABS: ALBUMIN 2.2 g/dL (3.4-5.0); CALCIUM 10.7 mg/dL (8.5-10.1); CREATININE 2.5 mg/dL (0.6-1.0); POTASSIUM 5.7 mmol/L (3.5-5.1); TOTAL BILIRUBIN 0.8 mg/dL (<0.1-1.0); TOTAL PROTEIN 5.3 g/dL (6.4-8.2)
--- NOTE | 2020-01-04 08:01 | NUR ---
STAT CHEST AND HEAD CT DONE. TOLERATING SEDATION WELL YET FOLLOWING COMMANDS. ARTERIAL LINE DISLODGED. DR CRESPO AWARE. PATIENT DECOMPASATED FROM ORIGINAL GOALS HOWEVER STABLE AT THE MOMENT.
--- NOTE | 2020-01-04 08:39 | NUR ---
PER RN, PT TRANSFERRED UPSTAIRS AND CODED SO BACK IN ICU ON VENT. AWAIT NEW OT ORDERS.
[2020-01-04 09:02] LABS: ABSOLUTE NEUTROPHILS 13.9 thou/uL (1.4-8.2); ANISOCYTOSIS 1+; PLATELET ESTIMATE NORMAL
[2020-01-04 09:28] LABS: CALCIUM 10.1 mg/dL (8.5-10.1); CREATININE 2.5 mg/dL (0.6-1.0); POTASSIUM 5.2 mmol/L (3.5-5.1); TROPONIN-I 0.23 ng/mL (<0.06)
[2020-01-04 10:08] LABS: HEMATOCRIT 24.2 % (37.0-47.0); HEMOGLOBIN 7.8 gm/dL (12.0-15.0); MCH 30.5 pg (26.0-34.0); MCHC 32.2 g/dL (28.0-37.0); MCV 94.7 fL (80.0-100.0); RBC 2.55 mil/uL (4.20-5.00); RDW 15.9 % (10.5-14.5); WBC 7.6 thou/uL (4.0-11.0)
[2020-01-04 10:23] LABS: INR 1.1; PROTIME 10.9 Seconds (9.3-11.4)
--- NOTE | 2020-01-04 10:38 | 2DMMODE ---
[address] [address] 2 D/M-MODE ECHOCARDIOGRAM Name: SIN RAMOS Room #: 240-P ADM IN M.R.#: [id number] Admission: 01/01/20 Attend Phys: Felipe Nelson MD Discharge: Date of : 36 Report #: [id number] THIS REPORT FOR: cc: Aishwarya De Souza MD, Cynthia MD Park, Jin S. MD ~ APPROVED REPORT Study performed: 01/04/2020 09:52:25 EXAM: Comprehensive 2D, Doppler, and color-flow Echocardiogram Patient Location: ICU Room #: [facility] Status: routine BSA: 1.83 HR: 81 bpm BP: 88/47 mmHg Rhythm: NSR Other Information Study Quality: Good Indications S^P Code 2D Dimensions RVDd: 36.85 mm IVC: 25.00 mm Tricuspid Valve TR Peak Yogesh.: 3.50 m/s TR Peak Gr.: 49.08 mmHg PA Pressure: 64.00 mmHg Left Ventricle The left ventricle is normal size. Left ventricular systolic function is mildly decreased. LVEF is 45%. Right Ventricle The right ventricle is normal size. The right ventricular systolic function is normal. Atria Left atrium is dilated. The right atrium size is normal. [facility] [address] [address] 2 D/M-MODE ECHOCARDIOGRAM Name: SIN RAMOS Room #: 240-P ADM IN M.R.#: [id number] Admission: 01/01/20 Attend Phys: Felipe Nelson MD Discharge: Date of : 38 Report #: [id number] network is noted in the right atrium. Aortic Valve The aortic valve is normal in structure. The Aortic valve is sclerotic. Mitral Valve There is mitral annular calcification. Mitral valve leaflets are calcified. Mitral valve leaflets have restricted excursion. Mild mitral regurgitation. Tricuspid Valve The tricuspid valve is normal in structure. There is mild tricuspid regurgitation. Estimated PAP 64 mmHg There is moderate pulmonary hypertension. Pulmonic Valve The pulmonary valve is normal in structure. Great Vessels The aortic root is normal in size. The inferior vena cava is dilated with no inspiratory collapse. Pericardium There is no pericardial effusion. <Conclusion> The left ventricle is normal size. Left ventricular systolic function is mildly decreased. The right ventricle is normal size. Left atrium is dilated. The Aortic valve is sclerotic. Mitral valve leaflets have restricted excursion. Mild mitral regurgitation. There is mild tricuspid regurgitation. Estimated PAP 64 mmHg <ELECTRONICALLY SIGNED> By: Dylan Dunlap MD 01/04/20 1036 1036 Dylan Dunlap MD /INF
[2020-01-04 10:44] LABS: APTT 31.9 Seconds (24.5-32.8)
--- NOTE | 2020-01-04 10:45 | NUR ---
PT PLACED ON HOLD FROM P.T. SECONDARY TO DECLINE IN MEDICAL STATUS; S/P CODE BLUE X 2 AND SUBSEQUENT INTUBATION WITH TX TO ICU. REQUEST NEW P.T. ORDERS ONCE PT IS MEDICALLY STABLE AND ABLE TO PARTICIPATE IN THERAPEUTIC FUNCTIONAL MOBILITY.
--- NOTE | 2020-01-04 13:04 | NUR ---
1227- NURSE PAGED DR. FINNEY, URINE OUTPUT <30ML/HR
--- NOTE | 2020-01-04 13:06 | NUR ---
1305- DR. FINNEY RETURNED NURSES PAGE. ORDER FOR LASIX OBTAINED. WILL CONTINUE TO MONITOR INTAKE AND OUPUT.
--- NOTE | 2020-01-04 15:46 | NUR ---
FAXED CLINICAL UPDATE TO [facility] SPOKE WITH CASTILLO IN INTAKE SHE RECEIVED UPDATE PT ON SERVICE WITH [facility] PRIOR TO ADMISSION. DP TO FOLLOW.
--- NOTE | 2020-01-04 16:33 | NUR ---
PT RECEIVED ONE UNIT PRBC, TOLERATED WELL. NO S/S OF REACTION. LASIX GIVEN DUE TO POOR URINE OUTPUT; CORRECTED. PT'S RIGHT PUPIL 3MM AND NON REACTIVE TO LIGHT. PT DOES FOLLOW COMMANDS AND IS ORIENTED WHILE ON SEDATION VACATION, MOVES ALL EXTREMITIES.
[2020-01-05] VITALS (67 sets, daily range): BP systolic 79–168; BP diastolic 33–68
[2020-01-05 05:25] LABS: ALBUMIN 1.6 g/dL (3.4-5.0); CALCIUM 8.3 mg/dL (8.5-10.1); CREATININE 2.7 mg/dL (0.6-1.0); MAGNESIUM 1.4 mg/dL (1.8-2.4); PHOSPHORUS 3.9 mg/dL (2.5-4.9); POTASSIUM 4.5 mmol/L (3.5-5.1)
[2020-01-05 05:52] LABS: HEMATOCRIT 24.7 % (37.0-47.0); MCH 30.3 pg (26.0-34.0); MCHC 32.3 g/dL (28.0-37.0); MCV 93.7 fL (80.0-100.0); RBC 2.63 mil/uL (4.20-5.00); RDW 15.6 % (10.5-14.5); WBC 7.4 thou/uL (4.0-11.0)
[2020-01-05 06:00] LABS: CALCIUM 9.2 mg/dL (8.5-10.1); POTASSIUM 4.9 mmol/L (3.5-5.1)
--- NOTE | 2020-01-05 07:48 | NUR ---
Received report from offgoing RN and assumed patient care. Patient noted to be lightly sedated and on the ventilator. Patient has Propofol infusing and Heparin gtt was stopped at this time. Patient follows all commands appropriately. Patient's VS remained stable and no distress was noted. However, patient stopped producing urine around [address] Velazquez was notified after a couple of hours passed with no urine output. Dr. Velazquez stated that since her VS were stable that he is not concerned with her not having any urine output as he just said this 6 hours ago. No orders were received and MD did not want to stop her fluids or order any Lasix. No other acute events occurred during this shift. Family updated on care plan.
--- NOTE | 2020-01-05 08:14 | EKG ---
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 Tender: Miko ESPINO : 1940 Requested By: Nola Gamino Order Number: [id number] MD: Sharad Murray Measurements Intervals [place] Rate: 83 P: 60 UT: 204 QRS: -50 QRSD: 114 T: 2 QT: 369 QTc: 434 Interpretive Statements Sinus rhythm Left anterior fascicular block T-wave abnormality, consider lateral ischemia Compared to ECG 01/01/2020 10:48:51 No significant change was found Electronically Signed On 01-05-2020 8:13:15 [employer] by Sharad Murray [email or web address] <ELECTRONICALLY SIGNED> By: Sharad Murray MD, [facility] 01/05/20812 0 0 Sharad Murray MD, FAC /EPI
[2020-01-05 10:33] LABS: BE(vivo) -0.9 mmol/L (-2 to +3); HCO3 24.2 mmol/L (22.0-26.0); PO2 149.1 mmHg (80.0-100.0); pH 7.378 (7.360-7.450); sO2 98.9 % (92.0-98.0)
--- NOTE | 2020-01-05 13:56 | NUR ---
Nutrition: RN indicates tube feeds to start. Considering current propofol rate, REC Nepro formula to reach 35 mL/hr. Defer fluid needs to physician.
--- NOTE | 2020-01-05 15:52 | NUR ---
PT STARTED ON LASIX GTT, AND TUBE FEED. CPAP TRIAL FAILED AFTER 2-3 MINUTES, PATIENTS TIDAL VOLUMES REACHING NO MORE THAN 250ML. INCREASED GAGGING. HEPARIN GTT STILL RUNNING, APTT WIHIN LIMITS. WILL REDRAW IN THE AM. SEDATION VACATION FROM 9731-1022, PT FOLLOWS COMMANDS AND IS ORIENTED, RIGHT PUPIL NON REACTIVE TO LIGHT. INSULIN CHANGED TO LOW-DOSE SSI. PRECEDEX STARTED TO WEAN OFF OF PROPOFOL. PT AND FAMILY UPDATED AND EDUCATED. WILL CONTINUE TO MONITOR.
[2020-01-06] VITALS (14 sets, daily range): BP systolic 117–186; BP diastolic 36–71
[2020-01-06 05:48] LABS: HEMATOCRIT 24.2 % (37.0-47.0); HEMOGLOBIN 7.9 gm/dL (12.0-15.0); MCH 30.5 pg (26.0-34.0); MCHC 32.6 g/dL (28.0-37.0); MCV 93.4 fL (80.0-100.0); RBC 2.6 mil/uL (4.20-5.00); RDW 16.1 % (10.5-14.5); WBC 7.2 thou/uL (4.0-11.0)
[2020-01-06 06:21] LABS: ALBUMIN 1.8 g/dL (3.4-5.0); CALCIUM 8.7 mg/dL (8.5-10.1); CREATININE 3.2 mg/dL (0.6-1.0); PHOSPHORUS 4.4 mg/dL (2.5-4.9); POTASSIUM 5.3 mmol/L (3.5-5.1)
--- NOTE | 2020-01-06 07:49 | NUR ---
NO CHANGES OVERNIGHT. PT ON LASIX GTT, ADEQUATE URINE OUTPUT. NOW AT GOAL RATE FOR TUBE FEEDING AND TOLERATING WELL, LOW RESIDUALS THROUGHOUT THE NIGHT. HYDRALAZINE GIVEN X1 FOR SBP > 180. PT IS PROGRESSING. WILL CONTINUE TO MONITOR.
--- NOTE | 2020-01-06 11:10 | NUR ---
pt remains on vent. discussed during los. no anticipated dc over weekend. per report pt follows commands on sed vacation. will cont following as needed for dc needs.
[2020-01-06 12:48] LABS: BE(vivo) 2.3 mmol/L (-2 to +3); HCO3 27.7 mmol/L (22.0-26.0); PCO2 47.1 mmHg (35.0-45.0); PO2 103.4 mmHg (80.0-100.0); pH 7.387 (7.360-7.450); sO2 97.6 % (92.0-98.0)
--- NOTE | 2020-01-06 14:26 | NUR ---
ASSESSMENTS AND INTERVENTIONS DOCCUMENTED. PATIENT REMIANS ON CPAP TRIAL FOR 4 HOURS, PATIENT STABLE AND NO MAJOR CHANGES IN VITALS. DR CRESPO CALLED AND ABGS AND CPAP SETTING DISCUSSED, DR. CRESPO GIVING ORDERS TO EXTUBATE. RT CALLED. POC IS TO EXTUBATE.
--- NOTE | 2020-01-06 15:34 | EKG ---
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: LIANA : 1940 Requested By: Kash Gibbs Order Number: [id number] MD: Joon Harding Measurements Intervals [place] Rate: 85 P: 88 IN: 193 QRS: -49 QRSD: 119 T: 60 QT: 381 QTc: 453 Interpretive Statements Sinus rhythm LVH with IVCD, LAD and secondary repol abnrm Baseline wander in lead(s) V2 Compared to ECG 10/05/2019 09:49:37 Left ventricular hypertrophy now present Early repolarization now present ST (T wave) deviation no longer present Electronically Signed On 01-01-2020 13:15:17 [employer] by Joon Harding [email or web address] <ELECTRONICALLY SIGNED> By: Joon Harding MD 01/01/20 1315 1048 1048 Joon Harding MD /EPI
[2020-01-07] VITALS (25 sets, daily range): BP systolic 118–165; BP diastolic 43–87
[2020-01-07 05:59] LABS: CALCIUM 9.3 mg/dL (8.5-10.1); CREATININE 3.2 mg/dL (0.6-1.0); PHOSPHORUS 4.6 mg/dL (2.5-4.9)
[2020-01-07 06:02] LABS: POTASSIUM 4.3 mmol/L (3.5-5.1)
[2020-01-07 06:03] LABS: HEMOGLOBIN 8.1 gm/dL (12.0-15.0); MCH 30.3 pg (26.0-34.0); MCHC 32.3 g/dL (28.0-37.0); RBC 2.66 mil/uL (4.20-5.00); RDW 15.8 % (10.5-14.5); WBC 6.7 thou/uL (4.0-11.0)
--- NOTE | 2020-01-07 07:00 | NUR ---
NO CHANGES OVERNIGHT. PT EXTUBATED YESTERDAY AFTERNOON. DENIES SHORTNESS OF AIR. NOW ON 2L O2 NC. PT C/O PAIN AND NOT BEING ABLE TO SLEEP. PT IS PROGRESSING. WILL CONTINUE TO MONITOR.
--- NOTE | 2020-01-07 11:30 | NUR ---
DR. HAYWOOD HERE. REPORTED BLACK SMEAR, PT ON PROTONIX, NO NEW ORDERS.
--- NOTE | 2020-01-07 18:27 | NUR ---
PT PROGRESSING TOWARDS GOALS. TOLORATING DIET, POOR APPETITE. HEPARING CHANGED TO LOVONOX.
[2020-01-08] VITALS (18 sets, daily range): BP systolic 120–162; BP diastolic 43–58
[2020-01-08 06:39] LABS: HEMATOCRIT 23.5 % (37.0-47.0); HEMOGLOBIN 7.7 gm/dL (12.0-15.0); MCH 30.5 pg (26.0-34.0); MCHC 32.5 g/dL (28.0-37.0); MCV 93.9 fL (80.0-100.0); RBC 2.51 mil/uL (4.20-5.00); RDW 15.3 % (10.5-14.5)
[2020-01-08 06:51] LABS: ALBUMIN 1.9 g/dL (3.4-5.0); CALCIUM 9.1 mg/dL (8.5-10.1); CREATININE 3.4 mg/dL (0.6-1.0); PHOSPHORUS 3.7 mg/dL (2.5-4.9); POTASSIUM 4.1 mmol/L (3.5-5.1)
[2020-01-09 01:24] VITALS: BP 145/36
[2020-01-09 05:51] LABS: CALCIUM 8.5 mg/dL (8.5-10.1); CREATININE 3.5 mg/dL (0.6-1.0); PHOSPHORUS 3.6 mg/dL (2.5-4.9)
--- NOTE | 2020-01-09 06:00 | NUR ---
A VERY DELIGHTFUL LITTLE LADY. awake and alert. VSS SINUS RHYTHM DENIES DISCOMFORT. WILL CONT T O MONITOR.
[2020-01-09 09:41] VITALS: BP 148/57
--- NOTE | 2020-01-09 09:44 | NUR ---
pt up in bed, daughter deep at bedside. pt took po crushed medication for bedside nurse. cont education on dcp and possible might need some skilled rehab prior to going home with sonja eller. " been to [facility] and liked it so ok to send referral there to see if she has any days left or if she is in between her 90days out time frame."/daughter. pt, ot, and st eval and tx. referral to be sent to [facility] skilled rehab.
[2020-01-09 12:12] VITALS: BP 139/49
[2020-01-09 16:12] VITALS: BP 149/57
--- NOTE | 2020-01-09 17:37 | NUR ---
ASSUMED CARE AT 1700, ASSESSMENT AND VITAL SIGNS COMPLETED PER CCU PROTOCOL. PT CALM AND COOPERATIVE, NO CONCERNS VOICED.
[2020-01-09 20:33] VITALS: BP 152/62
[2020-01-10] VITALS (8 sets, daily range): BP systolic 133–167; BP diastolic 44–68
--- NOTE | 2020-01-10 04:40 | NUR ---
ASSUMED PT CARE AT 1900. PT IS ALERT AND ORIENTED WITH NO SIGN OF DISTRESS NOTED. PT IS RESTING IN BED COMFORTABLY. WINTER IN PLACE. FALL PRECAUTION IN PLACE. ASSESSMENT COMPLETED AND DOCUMENTED. VERBALIZES PAIN. PAIN MED ADMINISTERED UPON REQUEST. SCHEDULED MEDS ADMINISTERED TO PT. TOLERATED PO INTAKE. DENIES ANY FURTHER NEEDS AT THIS TIME. CONTINUE TO MONITOR PT.
[2020-01-10 06:53] LABS: HEMOGLOBIN 6.8 gm/dL (12.0-15.0); MCHC 32.4 g/dL (28.0-37.0)
[2020-01-10 06:54] LABS: MCH 30.3 pg (26.0-34.0); MCV 93.5 fL (80.0-100.0); RBC 2.24 mil/uL (4.20-5.00); RDW 15.1 % (10.5-14.5)
[2020-01-10 07:01] LABS: ALBUMIN 1.9 g/dL (3.4-5.0); CALCIUM 7.8 mg/dL (8.5-10.1); CREATININE 3.5 mg/dL (0.6-1.0); PHOSPHORUS 3.8 mg/dL (2.5-4.9); POTASSIUM 4.3 mmol/L (3.5-5.1)
--- NOTE | 2020-01-10 08:32 | NUR ---
ASSUMED CARE OF PT AT SHIFT CHANGE. C/O PAIN GENERALIZED. FOOD SET UP, WEAK SUZY HAND MARKETING ADMIN. SEE SEPARATE INTERVENTIONS FOR ASSESSMENTS. NO SKIN ISSUES, TURN Q2, STATES SHE AMBULATES OCCASIONALLY W/PROSTHESIS AND WALKER. HAS GOOD APPETITE. POSSIBLE HEART CATH DISCUSSED YET KIDNEY FAILURE, PHYSICIAN SPEAKING TO HER ABOUT POSSIBILITIES. WILL CONTINUE TO MONITOR. DOES NOT WEAR 02 AT HOME, WEARING IT HERE AT 0.5L
--- NOTE | 2020-01-10 15:18 | NUR ---
patient transferred to CCU from ICU. [facility] following possible candidate for acute rehab. Sp with patient and dtr at bedside. Referral to [facility]. Patient dc approx 10/13/90 to [facility] and family reports dc from [facility] 11/26/19. Patient used approx 44 days. She has medicare A and [employer] secondary. First choice for dc planning is [facility] and second choice is [facility]. [facility] following.
--- NOTE | 2020-01-10 16:22 | NUR ---
[facility] SPOKE WITH MAURA IN ADM SHE RECEIVED REFERRAL AND WILL BE ABLE TO ACCEPT AT DISCHARGE. DP TO FOLLOW.
[2020-01-11 04:39] VITALS: BP 151/53
[2020-01-11 06:19] LABS: HEMATOCRIT 25.9 % (37.0-47.0); HEMOGLOBIN 8.5 gm/dL (12.0-15.0); MCH 29.8 pg (26.0-34.0); MCHC 32.9 g/dL (28.0-37.0); MCV 90.6 fL (80.0-100.0); RBC 2.86 mil/uL (4.20-5.00); RDW 15.7 % (10.5-14.5); WBC 9.2 thou/uL (4.0-11.0)
[2020-01-11 06:28] LABS: ALBUMIN 2.1 g/dL (3.4-5.0); CALCIUM 7.7 mg/dL (8.5-10.1); CREATININE 3.6 mg/dL (0.6-1.0); PHOSPHORUS 4.2 mg/dL (2.5-4.9); POTASSIUM 4.4 mmol/L (3.5-5.1)
--- NOTE | 2020-01-11 06:53 | NUR ---
AAAUMED PT CARE AT 1900, PT IS ALERT AND ORIENTEDX4, NO COMPLAINS OF PAIN OR DISCOMFORT, SR/BBB ON THE MONITOR, REMAINS ON BEDREST WITH D2TECMA , REMAINS NPO AFTER MIDNIGHT, B/S STABLE, VITALS STABLE WITH BP LITTLE ELEVATED, RESTED WELL, WILL CONTINUE TO MONITOR
[2020-01-11 07:51] VITALS: BP 169/56
[2020-01-11 10:52] VITALS: BP 123/40
--- NOTE | 2020-01-11 14:31 | NUR ---
[facility] accepting. [facility] following and will have answer tomorrow regarding acceptance. bed avail on [facility] on Thursday.
[2020-01-11 16:49] VITALS: BP 133/50
--- NOTE | 2020-01-11 17:52 | NUR ---
ASSUMED CARE OF PT AT SHIFT CHANGE. ASSESSMENTS CHARTED. MEDS GIVEN PER DEC. PT A&OX4. NO C/O PAIN OR SOA. PT ON 1L NC FOR COMFORT. STRESS TEST WAS COMPLETE TODAY. LUNG SCAN SCHEDULED FOR THURSDAY. WINTER IN PLACE. PT'S DAUGHTER REQUESTED DR. MUNOZ REPLACE DR. HAYWOOD HOSPITALIST. COMMUNICATED THIS TO DR. MUNOZ WHO AGREE TO THE CHANGE STARTING IN THE MORNING. DAUGHTER AT BEDSIDE. WILL CONTINUE TO MONITOR AND FOLLOW POC.
[2020-01-11 19:28] VITALS: BP 157/58
[2020-01-12 03:50] VITALS: BP 149/54
--- NOTE | 2020-01-12 05:20 | NUR ---
ASSUMED PT CARE AT 1900. PT IS ALERT AND ORIENTEDX4, COMPLAINED OF PAIN IN THE LOWER EXTREMITIES, TYL GIVEN WITH COMPLETE RELIEF, SR/BBB ON THE MONITOR, DENIES CHEST PAIN OR SOB, WINTER CATHTER IN PLACE DRAINING WELL, ASSESSMENTS CHARTED, VS STABLE, CONTINUES ON ABT, Q2 TURNS, RESTED WELL, WILL CONTINUE TO MONITOR
[2020-01-12 05:45] LABS: ALBUMIN 2.1 g/dL (3.4-5.0); CREATININE 3.3 mg/dL (0.6-1.0); PHOSPHORUS 4.4 mg/dL (2.5-4.9); POTASSIUM 4.6 mmol/L (3.5-5.1)
[2020-01-12 07:40] VITALS: BP 176/57
[2020-01-12 11:40] VITALS: BP 124/40
[2020-01-12 12:05] LABS: HEMATOCRIT 23.8 % (37.0-47.0); HEMOGLOBIN 7.8 gm/dL (12.0-15.0); MCH 30.1 pg (26.0-34.0); MCHC 32.7 g/dL (28.0-37.0); MCV 91.8 fL (80.0-100.0); RBC 2.59 mil/uL (4.20-5.00); RDW 15.7 % (10.5-14.5); WBC 8.9 thou/uL (4.0-11.0)
--- NOTE | 2020-01-12 14:35 | NUR ---
[facility] declined the pt d/t low tolerance. They have updated the pt's dtr. [facility] updated and they have a bed available and can accept when medically ready. VQ Scan ordered for tomorrow. Possible dc to snf if neg. Will follow. Care team updated.
[2020-01-12 16:00] VITALS: BP 123/39
--- NOTE | 2020-01-12 18:21 | NUR ---
ASSUMED CARE PT SHIFT CHANGE. ASSESSMENTS CHARTED. MEDS GIVEN PER DEC. PT ALERT AND ORIENTED X3, FORGETFUL AT TIMES. VSS. DENIES PAIN. O2 SATS WNL ON 1-2L O2. PT UP WITH PT/OT TOLERATING LESS THAN ADEQUATE. PT ASSISTED WITH MEALS PT UNABLE TO SUCCESSFULLY FEED SELF. PT ATE AND SWALLOWED FOOD/MEDS SUCCESSFULLY WITHOUT ANY EVIDENCE OF ASPIRATING. DAUGHTER AT BEDSIDE AND UPDATED ON POC THROUGHOUT SHIFT. PT SEEN BY GI. PLAN IS FOR PT TO HAVE VQ LUNG SCAN TOMORROW. PT AND DAUGHTER AWARE. PT CURRENTLY RESTING IN BED DENYING OF NEEDS AT THIS TIME. WILL CONT TO MONITOR AND FOLLOW POC.
[2020-01-12 19:37] VITALS: BP 145/55
[2020-01-13 04:09] VITALS: BP 132/55
--- NOTE | 2020-01-13 05:54 | NUR ---
PT RESTING QUIETLY IN ROOM, WITH FREQUENT REPOSITIONING NEEDED, C/O LE PAIN AND ALL OVER PAIN WHEN MOVING, WINTER CON'T TO DRAIN YELLOW URINE, VQ SCAN PLANNED FOR THIS AM, VSS, WILL CON'T TO MONITOR PER PPOC.
[2020-01-13 06:25] LABS: HEMATOCRIT 22.3 % (37.0-47.0); HEMOGLOBIN 7.2 gm/dL (12.0-15.0); MCH 29.7 pg (26.0-34.0); MCHC 32.3 g/dL (28.0-37.0); MCV 92.1 fL (80.0-100.0); RBC 2.42 mil/uL (4.20-5.00); RDW 15.6 % (10.5-14.5)
[2020-01-13 06:46] LABS: CALCIUM 7.5 mg/dL (8.5-10.1); CREATININE 3.2 mg/dL (0.6-1.0); PHOSPHORUS 4.4 mg/dL (2.5-4.9); POTASSIUM 4.6 mmol/L (3.5-5.1)
[2020-01-13 06:49] LABS: DIRECT BILIRUBIN 0.3 mg/dL (<0.1-0.2); TOTAL BILIRUBIN 0.4 mg/dL (<0.1-1.0); TOTAL PROTEIN 5.3 g/dL (6.4-8.2)
[2020-01-13 07:40] VITALS: BP 146/46
--- NOTE | 2020-01-13 08:29 | HC ---
[facility] [place] [address] CONSULTATION Name: SIN RAMOS Room #: 206-P ADM IN M.R.#: [id number] Admission: 01/01/20 Attend Phys: Felipe Nelson MD Discharge: Date of : 38 Report #: [id number] THIS REPORT FOR: cc: Aishwarya De Souza MD,Aishwarya Cummins,Judy Saleh MD ~ CC: Aishwarya Tolbert REASON FOR CONSULTATION: Chronic kidney disease. REASON FOR PRESENTATION: Slurred speech and neurological deficits. HISTORY OF PRESENT ILLNESS: This is obtained from the medical chart. The patient is currently intubated. The patient is well known to me. She has a chronic kidney disease with baseline creatinine of around 2.5. She previously required hemodialysis. She was admitted on 01/01/2020 for stroke symptoms. She received TPA and was admitted to the ICU. This was for monitoring. Her initial presentation was suggestive of an acute ischemic stroke with slurred speech and lower extremity weakness. This was discussed by the neurologist between the neurologist and the family members and decision was made to give the patient TPA. The patient was monitored in the ICU, then was transferred to the floor. Apparently, the patient was in the usual floor for about 1 hour when she went into what was described by the medical record as a pulseless electrical activity. Code was initiated. The patient was transferred to the ICU after being intubated and after receiving appropriate resuscitation. She is not able to provide me with the history. She was found to have what seems to be aspiration pneumonitis. Initial lactate level was 5.7. This has come down to 2.6. Potassium was marginally elevated initially at 6.1 and this has gone down to 5.7. PAST MEDICAL HISTORY: 1. Chronic kidney disease, baseline creatinine of around 2.5. 2. Extensive other medical histories including anemia. 3. Diabetes mellitus. 4. Hypothyroidism. 5. Remote history of dialysis dependence. 6. Right BKA. 7. Colon cancer post-resections. 8. Repeated nosocomial infections. REPORTED HOME MEDICATIONS: 1. Torsemide. 2. Levemir. 3. Insulin. 4. Ascorbic acid. [facility] [address] [place] [address] CONSULTATION Name: SIN RAMOS Room #: 206-P [facility] IN [facility].#: [id number] Admission: 01/01/20 Attend Phys: Felipe Nelson MD Discharge: Date of : 38 Report #: [id number] 5. Linagliptin. 6. Metoprolol. 7. Norvasc. REVIEW OF SYSTEMS: Unobtainable given the patient's current mental status. ALLERGIES: IRON. FAMILY HISTORY: Unobtainable given the patient's current mental status. SOCIAL HISTORY: Unobtainable given the patient's current mental status. PHYSICAL EXAMINATION: GENERAL: The patient is awake on the vent, orally intubated. VITAL SIGNS: Pulse rate is 97, blood pressure is 133/67. HEAD AND NECK: ET tube in place. CHEST: Crackles on the right side. CARDIOVASCULAR: No rub detected. ABDOMEN: Soft, nontender. LOWER EXTREMITIES: No edema. LABORATORY VALUES: White blood cell count is 16.0. Sodium is 144, potassium is 5.7, BUN is 69, creatinine is 2.5. AST is 1223. ALT is 865. IMPRESSION AND PLAN: 1. Chronic kidney disease at baseline. 2. Status post pulseless electrical activity arrest. 3. Aspiration pneumonitis. 4. Hyperkalemia. 5. Continue current ventilator support. 6. Continue intravenous fluid, but reduce the fluid rate. 7. Antibiotic for her aspiration pneumonitis. 8. Treat hyperkalemia. 9. We will continue to follow during her hospital stay. <ELECTRONICALLY SIGNED> By: Judy Cummins MD 01/13/20 0829 0754 0908 Judy Cummins MD /nt
[2020-01-13 11:20] VITALS: BP 133/41
--- NOTE | 2020-01-13 13:35 | HC ---
[facility] [place] [address] CONSULTATION Name: SIN RAMOS Room #: 206-P ADM IN M.R.#: [id number] Admission: 01/01/20 Attend Phys: Felipe Nelson MD Discharge: Date of : 38 Report #: [id number] THIS REPORT FOR: cc: Aishwarya De Souza MD,Aishwarya Pacheco,Mustapha Aceves MD ~ CC: Aishwarya Nelson Chace Batchu DATE OF SERVICE: 01/02/2020 HISTORY OF PRESENT ILLNESS: The patient is an 79-year-old -[place] female admitted with slurred speech, problems saying her words, left-sided facial droop, left-sided weakness, and increased gait disturbance. She was evaluated by Neurology given TPA. She was noted to have a suspected acute right brain CVA. She has had improvement, post the TPA. She is currently in the intensive care unit. Therapies were on hold after the TPA. We are seeing her in rehabilitation medicine consultation. PAST MEDICAL HISTORY: Includes a prior inpatient hospitalization here at [facility], 10/05/2019 to 10/10/2019 for acute respiratory failure, [id number] renal insufficiency, diabetes mellitus, recurrent urinary tract infections, left lower extremity diabetic ulcer, peripheral arterial disease with prior right below-knee amputation with prosthesis. She has had prior colon CA, status post resection. MEDICATIONS: Please see the full medication listing. ALLERGIES: IRON. SOCIAL HISTORY: She lives in a home with 8 family members, there is a ramp to get into the house. She typically spends her day in the wheelchair, as it is easier for her then ambulating all around on her prosthesis. She does; however, ambulate short distances with a walker and the prosthesis to get in and out of the bathroom as the wheelchair, does not fit in there. She also ambulates utilizing stair rail and her prosthesis up to 8 steps to get up to her bedroom. Otherwise, she pretty much is in the wheelchair. REVIEW OF SYSTEMS: No current complaints of chest pain, shortness of breath, or abdominal discomfort. PHYSICAL EXAMINATION: GENERAL: She is an 79-year-old right-handed -[place] female, in no obvious distress. [address] [address] CONSULTATION Name: SIN RAMOS Room #: 206-P [facility] IN [facility].#: [id number] Admission: 01/01/20 Attend Phys: Felipe Nelson MD Discharge: Date of : 38 Report #: [id number] VITAL SIGNS: Temperature 37, pulse 91, respirations 24, blood pressure is 199/83. She is alert, pleasant. HEENT: Appeared to be benign. I could not detect any obvious facial weakness or facial droop. No obvious visual field neglect to confrontation. EXTREMITIES: Functional range of motion of the upper extremities. Strength is grade 3+ to 4-/5. DTRs are trace to 1. Tone appeared to be intact. Negative Elena's. In her lower extremities, left lower extremity strength is probably at least a grade 3+/5. Right lower extremity reveals the below-knee amputation. She has good strength of that right knee with flexion and extension. There is no calf swelling. I did not assess lower extremity sensation. ASSESSMENT: An 79-year-old -[place] female, right-handed, with the following problem list: 1. Right brain, acute ischemic cerebrovascular accident with left facial droop, left-sided weakness, slurred speech and gait abnormality. 2. The patient is status post TPA with improvement in her above symptomatology. 3. Functional mobility, ADL, and cognitive issues. 4. Prior right below-knee amputation. 5. Diabetes mellitus. 6. History of colon cancer, status post resection. 7. Recent hospitalization for acute respiratory failure. 8. History of recurrent urinary tract infections. PLAN: Therapies are to evaluate her. We will be glad to see what her current function is. She may warrant a short acute in-hospital inpatient rehabilitation stay. At this point, we will be glad to follow along with you regarding her rehab therapy needs. <ELECTRONICALLY SIGNED> By: Mustapha Pacheco MD 01/13/20 1335 1052 1408 Mustapha Pacheco MD /[facility]
[2020-01-13 15:25] VITALS: BP 141/47
--- NOTE | 2020-01-13 16:47 | NUR ---
No dc indicated today. VQ scan negative. Low hgb. Latha at [facility] updated. They can accept the pt over the weekend but will need to discuss her vitals and get clinical update from nursing before arranging transport. Weekend staff to call Latha at cell [phone] to coordinate if dc ready this weekend. Pt's dtr would need to be notified and chart copy sent with the pt and orders faxed.
[2020-01-13 20:45] VITALS: BP 157/50
[2020-01-14] VITALS (7 sets, daily range): BP systolic 140–167; BP diastolic 49–66
--- NOTE | 2020-01-14 03:39 | NUR ---
ASSUMED PT CARE AT AROUND 1900, PT IS A&OX3 AND FORGETFUL, VSS, SR/BBB ON THE MONITOR, ON 2L O2 NC, WINTER IN PLACE, PATENT AND DRAINING LIGHT YELLOW URINE, CONTINUES ON IV ABT, COMPLAINED OF PAIN IN THE LE, PAIN MEDICATION GIVEN PRN ORDERED, NO FURTHER COMPLAINS, FREQUENT REPOSITIONING, RESTING IN BED WITH NO DISTRESS NOTED, WILL CONTINUE TO MONITOR
[2020-01-14 05:55] LABS: HEMATOCRIT 21.7 % (37.0-47.0); HEMOGLOBIN 7.1 gm/dL (12.0-15.0); MCH 30.1 pg (26.0-34.0); MCHC 32.6 g/dL (28.0-37.0); MCV 92.3 fL (80.0-100.0); RBC 2.35 mil/uL (4.20-5.00); WBC 8.8 thou/uL (4.0-11.0)
[2020-01-14 06:16] LABS: ALBUMIN 2.1 g/dL (3.4-5.0); CALCIUM 7.5 mg/dL (8.5-10.1); CREATININE 3.1 mg/dL (0.6-1.0); PHOSPHORUS 4.1 mg/dL (2.5-4.9); POTASSIUM 5.3 mmol/L (3.5-5.1)
--- NOTE | 2020-01-14 12:02 | NUR ---
AAOX3. SLEEP INTERRUPTED. FED BREAKFAST. REPOSITIONED, BED LINENS CHANGED. ABNORMAL LABS NOTED. SR PER TELE. WILL CONTINUE TO FOLLOW CLOSELY.
--- NOTE | 2020-01-14 16:28 | NUR ---
REC REPORT FROM DEPARTING RN APPROX 1535. INTRO'D SELF TO PT, READJUSTED IN BED, GOT HER A DRINK. ENCOURAGED HER TO USE CALL LIGHT FOR ANY NEEDS
[2020-01-15 03:15] LABS: HEMOGLOBIN 6.9 gm/dL (12.0-15.0); WBC 9.5 thou/uL (4.0-11.0)
[2020-01-15 03:17] LABS: MCH 30.5 pg (26.0-34.0); MCHC 32.9 g/dL (28.0-37.0); MCV 92.8 fL (80.0-100.0); PLATELET COUNT 257 thou/uL (150-400); RBC 2.26 mil/uL (4.20-5.00); RDW 14.9 % (10.5-14.5)
--- NOTE | 2020-01-15 03:26 | NUR ---
Patient making progress towards outcome goals. Oxygenation optimal with 2L/NC. Denies pain. High fall risks, fall precautions in place. Uses call light appropriately for needs. Vital signs and rhythm stable.
[2020-01-15 03:39] LABS: ALBUMIN 2.1 g/dL (3.4-5.0); CALCIUM 8.2 mg/dL (8.5-10.1); CREATININE 3.1 mg/dL (0.6-1.0); PHOSPHORUS 4.2 mg/dL (2.5-4.9); POTASSIUM 5.4 mmol/L (3.5-5.1)
[2020-01-15 04:45] VITALS: BP 141/45
[2020-01-15 06:10] LABS: ABSOLUTE NEUTROPHILS 6.2 thou/uL (1.4-8.2); ANISOCYTOSIS 1+; ATYPICAL LYMPHS 1 %; HYPOCHROMASIA 1+; MICROCYTES 1+; POLYCHROMASIA OCCASIONAL
[2020-01-15 08:52] VITALS: BP 146/43
--- NOTE | 2020-01-15 10:08 | NUR ---
AAOX4. CALM. COOPERATIVE. SOME APHASIA BUT ABLE TO MAKE NEEDS KNOWN. ALMOST A COMPLETE FEED. FULL BED BATH BY CHARLEY MELGAR. USES CALL LIGHT AUGMENTED BY YELLING. SR PER TELE. WILL CONTINUE TO FOLLOW CLOSELY.
[2020-01-15 12:35] VITALS: BP 138/44
[2020-01-15 16:00] VITALS: BP 140/53
[2020-01-15 20:03] VITALS: BP 133/45
[2020-01-16 04:15] VITALS: BP 145/49
--- NOTE | 2020-01-16 04:23 | NUR ---
PT ALERT AND ORIENTED. DAUGHTER AT BEDSIDE AT BEGINNING OF SHIFT. NO DISTRESS NOTED. PT C/O MILD CHEST PAIN WHEN LYING FLAT. SHE REPORTS THE PAIN NOT BEING CONTINOUS OR RADIATING. VSS. SR ON THE MONITOR. Q2 TURNS TOLERATED. UNABLE TO TRANSFUSE ORDERED BLOOD DUE TO UNAVAILABLE TYPE AND CROSS RESULTS. BLOOD BANK CALLED AND WAS NOTIFIED THAT PTs TYPE AND CROSS HAD TO BE SENT OUT TO [facility] DUE TO PRESENCE OF UNEXPECTED ANTIBODIES. PT IS A CHRONIC ANEMIA. WILL POSSIBLY TRANSFUSE TODAY WHEN TYPE SCREEEN RESULTS ARE OBTAINED. NO OTHER CONCERN AT THIS POINT. PT OTHERWISE STABLE. WILL CONTINUE WITH POC.
[2020-01-16 05:14] LABS: HEMATOCRIT 21.7 % (37.0-47.0); HEMOGLOBIN 7.5 gm/dL (12.0-15.0); MCH 31.2 pg (26.0-34.0); MCHC 34.4 g/dL (28.0-37.0); MCV 90.8 fL (80.0-100.0); RBC 2.39 mil/uL (4.20-5.00); RDW 14.8 % (10.5-14.5); WBC 9.1 thou/uL (4.0-11.0)
[2020-01-16 05:21] LABS: CALCIUM 8.1 mg/dL (8.5-10.1); POTASSIUM 5.7 mmol/L (3.5-5.1)
[2020-01-16 07:30] VITALS: BP 148/43
[2020-01-16 11:50] VITALS: BP 125/45
--- NOTE | 2020-01-16 11:53 | NUR ---
DISCHARGE NOTE: MARCE reviewed chart and spoke with nursing and attending physician. Pt is medically stable for discharge to [facility] today. Awaiting finalized discharge orders/summary. SW spoke with pt's dtrJosefina, via phone to provide update and notify of discharge. Pt's dtr is agreeable with discharge plan. Pt's dtr had question regarding order for procrit. Pt has been getting it every two weeks. Pt had dose on 01/13, and it is ordered as weekly. SW notified attending physician to clarify next dose with renal. Chart copy requested. production control planner to follow and coordinate transportation. Pt's dtr, Josefina ([phone]) to be contacted when arrangements in place. MARCE is available to assist should needs arise.
--- NOTE | 2020-01-16 12:13 | NUR ---
ASSUMED PT CARE AT 0700, PT SLEEPING SOUNDLY, ASSESSED AT 0800, VSS, ORIENTED TO POC, PT VERBALIZED UNDERSTANDING, AM MEDS EXPLAINED AND GIVEN, SET UP MEAL TRAY, PT EATING. DAUGHTER CAME AROUND 0945. REVIEWED POC WITH HER. SHE UNDERSTANDS AND AGREES WITH TRANSFER TO SNF.
[2020-01-16] MEDS ORDERED: TORSEMIDE20 MG PO (13:31)
[2020-01-16] MEDS ORDERED: LANTUS100 UNIT/M SUBQ (13:31)
[2020-01-16 13:51] VITALS: BP 167/68
[2020-01-16 15:25] VITALS: BP 135/44
--- NOTE | 2020-01-16 16:55 | NUR ---
PT TO DISCHARGE TODAY TO [facility] FAXED DC ORDERS/SUMMARY TO FACILITY AND SPOKE WITH NARGIS IN ADM SHE RECEIVED ORDERS BUT THE DON AND ADMINISTRATION IS WANTING MORE INFO SINCE PT HAS RESPIRATORY ILLNESS. FAXED ALL OF PT'S VITAL SIGNS AND RESP. PROGRESS NOTES AND THEY ARE REVIEWING THEM NOW GAVE NARGIS THE NUMBER TO [facility] TO CALL WITH TIME OF TRANSPORT IF IT HAPPENS TODAY SHE WAS NOT FOR SURE.
[2020-01-16 19:16] VITALS: BP 158/66
[2020-01-17 04:03] VITALS: BP 140/57
--- NOTE | 2020-01-17 04:29 | NUR ---
ASSUMED PT CARE AT 1900, PT IS ALERT AND ORIENTEDX4, VS STABLE, COMPLAINED OF NON-CARDIAC CHEST PAIN, PAIN MEDICATION GIVEN WITH RELIEVE, SR ON THE MONITOR, STABLE ON 1L O2 VIA NC, WINTER IN PLACE DRAINING WITHOUT DIFFICULTY, TOOK MEDS ORDERED, BS STABLE, RESTING IN BED WITH NO SIGNS OF DISTRESS AT THIS TIME, WILL CONTINUE TO MONITOR
[2020-01-17 06:08] LABS: ALBUMIN 2.3 g/dL (3.4-5.0); CALCIUM 8.3 mg/dL (8.5-10.1); CREATININE 2.7 mg/dL (0.6-1.0); POTASSIUM 5.8 mmol/L (3.5-5.1)
[2020-01-17 07:30] VITALS: BP 157/50
[2020-01-17 11:15] VITALS: BP 142/46
--- NOTE | 2020-01-17 12:31 | NUR ---
PT TO DISCHARGE TODAY [place] [facility] SPOKE WITH NARGIS AND THE DON REVIEWED THE CLINICAL UPDATE AND SAID TO PROCEED WITH ADMISSION TO FACILITY. FAXED DC ORDERS/SUMMARY SPOKE WITH NARGIS IN ADM SHE RECEIVED ORDERS AND ARRANGED TRANSPORT BY [facility] FOR 1430 TODAY. NOTIFIED PT'S DTR (JESSICA) OF DC AND TIME OF TRANSPORT. UNIT NOTIFIED AND CHART COPY PER US. RN TO CALL REPORT TO [phone].
--- NOTE | 2020-01-17 14:07 | NUR ---
DISCHARGE NOTE: SW reviewed chart. Pt did not discharge yesterday due to facility requesting additional information on pt's respiratory status. Pt is medically stable for discharge today. [facility] is able to accept. management planner coordinated and notified family. No additional SW needs identified at this time, but is available to assist should needs arise.
--- NOTE | 2020-01-17 16:14 | NUR ---
Patient was assessed q4 hrs, Alert x Oriented x4. Patient changed position q2hrs as patient needed assistance in changing position as patient had below the right knee amputation. Patient was discharged to rehab. Urinary catheter and triple lumen (left subclavian) was removed.
== END 2020-01-17 15:20 | DRG 61 ==
LOC: ER 10:29 → ICU 12:47 → EROBS 12:47 → ICU 14:25 → 4W 01-03 23:53 → ICU 01-04 01:20 → 2N 01-09 16:57
PROVIDERS: Emergency Medicine; Hospitalist; Internal Medicine Gastroenterology; Nurse Practitioner; Pediatrics; ADMIT Internal Medicine
PROC: 3E03317 Introduction of Other Thrombolytic into Peripheral Vein, Percutaneous Approach (ICD-10-PCS; 2020-01-01)
PROC: B548ZZA Ultrasonography of Superior Vena Cava, Guidance (ICD-10-PCS; principal; 2020-01-04)
PROC: 5A12012 Performance of Cardiac Output, Single, Manual (ICD-10-PCS; principal; 2020-01-04)
PROC: 03HY33Z Insertion of Infusion Device into Upper Artery, Percutaneous Approach (ICD-10-PCS; principal; 2020-01-04)
PROC: 30233N1 Transfusion of Nonautologous Red Blood Cells into Peripheral Vein, Percutaneous Approach (ICD-10-PCS; principal; 2020-01-04)
PROC: 0BH18EZ Insertion of Endotracheal Airway into Trachea, Via Natural or Artificial Opening Endoscopic (ICD-10-PCS; principal; 2020-01-04)
PROC: 5A1945Z Respiratory Ventilation, 24-96 Consecutive Hours (ICD-10-PCS; principal; 2020-01-04)
PROC: 02HV33Z Insertion of Infusion Device into Superior Vena Cava, Percutaneous Approach (ICD-10-PCS; principal; 2020-01-04)
DX: I63.9 Cerebral infarction, unspecified (principal); J69.0 Pneumonitis due to inhalation of food and vomit; I46.9 Cardiac arrest, cause unspecified; J96.01 Acute respiratory failure with hypoxia; J96.02 Acute respiratory failure with hypercapnia; I13.0 Hypertensive heart and chronic kidney disease with heart failure and stage 1 through stage 4 chronic kidney disease, or unspecified chronic kidney disease; L97.929 Non-pressure chronic ulcer of unspecified part of left lower leg with unspecified severity; N39.0 Urinary tract infection, site not specified; N17.9 Acute kidney failure, unspecified; E87.2 Acidosis; I50.30 Unspecified diastolic (congestive) heart failure; G81.94 Hemiplegia, unspecified affecting left nondominant side; R57.9 Shock, unspecified; R47.01 Aphasia; N18.3 Chronic kidney disease, stage 3 (moderate); R47.81 Slurred speech; R29.810 Facial weakness; E03.9 Hypothyroidism, unspecified; E78.00 Pure hypercholesterolemia, unspecified; D63.8 Anemia in other chronic diseases classified elsewhere; E11.621 Type 2 diabetes mellitus with foot ulcer; E11.22 Type 2 diabetes mellitus with diabetic chronic kidney disease; E11.42 Type 2 diabetes mellitus with diabetic polyneuropathy; E11.51 Type 2 diabetes mellitus with diabetic peripheral angiopathy without gangrene; E87.5 Hyperkalemia; B96.1 Klebsiella pneumoniae [K. pneumoniae] as the cause of diseases classified elsewhere; E11.649 Type 2 diabetes mellitus with hypoglycemia without coma; I08.3 Combined rheumatic disorders of mitral, aortic and tricuspid valves; K21.9 Gastro-esophageal reflux disease without esophagitis; R13.10 Dysphagia, unspecified; Z89.511 Acquired absence of right leg below knee; Z95.820 Peripheral vascular angioplasty status with implants and grafts; Z85.038 Personal history of other malignant neoplasm of large intestine; Z90.49 Acquired absence of other specified parts of digestive tract; Z87.01 Personal history of pneumonia (recurrent); Z87.440 Personal history of urinary (tract) infections; Z79.899 Other long term (current) drug therapy; Z79.4 Long term (current) use of insulin; Z88.8 Allergy status to other drugs, medicaments and biological substances; Z89.421 Acquired absence of other right toe(s); Z68.29 Body mass index [BMI] 29.0-29.9, adult
CPT/HCPCS: 10040; 10078; 10081; 85026; 85076

== ENCOUNTER 2020-06-25 14:40 | Emergency (ER) | payer OTHER ==
[~2020-06-25] VITALS: Ht 157.5 cm; Wt 68.0 kg
[~2020-06-25 14:40] MED LIST changes: +NORVASC 2.5 MG2.5 M1 PO; +VYZULTA5 ML OPHTHALMIC; +XALATAN2.5 ML EA. EYE
[2020-06-25 15:28] LABS: HEMATOCRIT 30.2 % (37.0-47.0); HEMOGLOBIN 10.2 gm/dL (12.0-15.0); MCH 31.4 pg (26.0-34.0); MCHC 33.6 g/dL (28.0-37.0); MCV 93.6 fL (80.0-100.0); PLATELET COUNT 188 thou/uL (150-400); RBC 3.23 mil/uL (4.20-5.00); WBC 6.2 thou/uL (4.0-11.0)
[2020-06-25 15:34] LABS: ANION GAP 6 mmol/L (7-16); BUN 60 mg/dL (7-18); CALCIUM 8.9 mg/dL (8.5-10.1); CHLORIDE 104 mmol/L (98-107); CO2 26 mmol/L (21-32); CREATININE 2.3 mg/dL (0.6-1.0); GLUCOSE 227 mg/dL (74-106); POTASSIUM 5.9 mmol/L (3.5-5.1); SODIUM 136 mmol/L (136-145)
--- NOTE | 2020-06-25 15:38 | EKG ---
[facility] [place] [address] ELECTROCARDIOGRAM REPORT Name: SIN RAMOS Room #: [facility]..#: [id number] Admission: Attend Phys: Discharge: Date of : 36 Report #: [id number] THIS REPORT FOR: cc: Aishwarya De Souza MD, Cynthia MD Lundgren,Sharad Hatch MD [facility] ~ THIS REPORT FOR: //name// [facility] ED Test Date: 2020-06-25 Test Time: 15:06:32 Pat Name: SIN RAMOS Department: Room: Gender: F Rn Documentation Specialist: dagoberto : 1940 Requested By: Phong Downey Order Number: [id number] MD: Sharad Murray Measurements Intervals [place] Rate: 79 P: 68 MD: 212 QRS: -44 QRSD: 122 T: 67 QT: 396 QTc: 455 Interpretive Statements Sinus rhythm Borderline prolonged MD interval Nonspecific IVCD with LAD Left ventricular hypertrophy Poor R wave progression Compared to ECG 01/04/2020 09:11:55 Lateral T wave abnormality is less pronounced Electronically Signed On 06-25-2020 15:38:18 CDT by Sharad Murray [email or web address] <ELECTRONICALLY SIGNED> By: Sharad Murray MD, FACC 06/25/20 1538 [id number] [id number] Sharad Murray MD, [facility] /EPI
[2020-06-25 15:44] LABS: ALBUMIN 3.1 g/dL (3.4-5.0); SGOT 23 U/L (15-37); SGPT 22 U/L (30-65); TOTAL BILIRUBIN 0.3 mg/dL (0.2-1.0); TOTAL PROTEIN 7.1 g/dL (6.4-8.2); TROPONIN-I <0.06 ng/mL (<0.06)
[2020-06-25 16:11] LABS: ABSOLUTE NEUTROPHILS 4.3 thou/uL (1.4-8.2); PLATELET ESTIMATE NORMAL
[2020-06-25 17:08] LABS: URINE BILIRUBIN NEGATIVE (Negative); URINE BLOOD TRACE (Negative); URINE CLARITY CLEAR; URINE COLOR YELLOW; URINE GLUCOSE-RANDOM* TRACE (Negative); URINE KETONES NEGATIVE (Negative); URINE LEUKOCYTES-REFLEX TRACE (Negative); URINE NITRITE-REFLEX NEGATIVE (Negative); URINE PROTEIN (DIPSTICK) 2+ (Negative); URINE SPECIFIC GRAVITY 1.015 (1.005-1.035); URINE UROBILINOGEN 0.2 E.U./dl (0.2-1.0)
[2020-06-25 17:32] LABS: SQUAMOUS 0-3 Few /LPF (0-3)
[2020-06-25 17:33] LABS: BACTERIA-REFLEX 1-9 Few /HPF (None Seen); CASTS None Seen /LPF (None Seen); CRYSTALS None Seen /LPF (None Seen); URINE RBC 0-2 Rare /HPF (0-2); URINE WBC-REFLEX 0-5 Rare /HPF (0-5)
[2020-06-25] MEDS ORDERED: CIPRO500 M1 PO (19:32)
[2020-06-25 20:45] VITALS: BP 173/68
--- NOTE | 2020-06-27 07:02 | NUR ---
BETTY FROM LAB CALLED TO NOTIFY REGARDING POSITIVE BLOOD CULTURES, GRAM NEGATIVE RODS
== END 2020-06-25 21:00 | disposition home or self-care (01) ==
LOC: ER 14:40
PROVIDERS: Physician Assistant
DX: N39.0 Urinary tract infection, site not specified (principal); E03.9 Hypothyroidism, unspecified; E78.5 Hyperlipidemia, unspecified; I13.0 Hypertensive heart and chronic kidney disease with heart failure and stage 1 through stage 4 chronic kidney disease, or unspecified chronic kidney disease; E11.22 Type 2 diabetes mellitus with diabetic chronic kidney disease; N18.3 Chronic kidney disease, stage 3 (moderate); I50.9 Heart failure, unspecified; Z20.828 Contact with and (suspected) exposure to other viral communicable diseases; Z79.4 Long term (current) use of insulin; Z79.899 Other long term (current) drug therapy; Z91.018 Allergy to other foods

== ENCOUNTER 2020-06-28 23:15 | Inpatient (IN) | payer OTHER ==
[~2020-06-28] VITALS: Ht 154.9 cm; Wt 65.8 kg
--- NOTE | ~2020-06-28 | HC ---
[facility] [place] [address] CONSULTATION Name: SIN RAMOS Room #: 456-P ADM IN M.R.#: [id number] Admission: 06/29/20 Attend Phys: Felipe Nelson MD Discharge: Date of : 36 Report #: [id number] THIS REPORT FOR: cc: Aishwarya De Souza MD,Aishwarya Pacheco,Mustapha Aceves MD ~ CC: Aishwarya Nelson DATE OF SERVICE: 07/02/2020 HISTORY OF PRESENT ILLNESS: The patient is an 79-year-old -Beninese female, admitted with confusion and mental status changes. She was noted to have sepsis, bacteremia, persistent urinary tract infection, chronic kidney disease stage 3. She is on IV antibiotics. Daughter is concerned regarding her decreased cognition overall and discussed toxic metabolic encephalopathy with her. We are seeing her in rehabilitation medicine consultation. PAST MEDICAL HISTORY: Her prior medical history includes prior history of cardiac arrest and PEA with hypoxic respiratory failure and left-sided weakness in 01/2020. She has a history of a right below-knee amputation, chronic left lower extremity diabetic ulcer, diabetes mellitus type 1, aspiration pneumonia. MEDICATIONS: Please see the full medication listing. SOCIAL HISTORY: She lives in a house with her daughter, ramp to get in. Primarily uses a wheelchair to get around. Daughter is currently working from home with the COVID pandemic. The patient had been able to transfer herself, but prior to coming to the hospital, was increasing in weakness and has been needing more assistance by the daughter as far as basic transfers and dressing. She had been able to don her prosthesis, but is needing more assistance with that just recently. REVIEW OF SYSTEMS: No current complaints of chest pain, shortness of breath or abdominal discomfort. MEDICATIONS: Please see the full medication listing. ALLERGIES: As noted. PHYSICAL EXAMINATION: GENERAL: The patient is in no distress. VITAL SIGNS: As noted, temperature 98.3, pulse 86, respirations 18, blood pressure 141/52. HEENT: Facies appeared to be symmetric. NEUROMUSCULOSKELETAL: She has functional range of motion with some decreased [address] [address] CONSULTATION Name: SIN RAMOS Room #: 456-P [facility] IN M.R.#: [id number] Admission: 06/29/20 Attend Phys: Felipe Nelson MD Discharge: Date of : 38 Report #: [id number] range of the shoulders, which appears to be chronic. I would grade her strength a grade 3+/5. Lower extremities, her right below-knee amputation is well healed. Reasonable range of motion of the knee. There is no distal swelling or erythema. Strength of the right lower extremity is probably a grade 3+ to 4-/5, left lower extremity is also 3+ to 4-/5. She has been max assist sit to supine. ASSESSMENT: An 79-year-old female with history of the following problem list: 1. Toxic metabolic encephalopathy. 2. Sepsis with bacteremia. 3. Recurrent persistent urinary tract infection. 4. Urosepsis. 5. Chronic kidney disease stage 3. 6. Diabetes mellitus type 2. 7. Iron deficiency anemia. 8. Prior history of cardiac arrest with pulseless electrical activity. 9. Prior history of hypoxic respiratory failure. PLAN: Discussion with the daughter. The goal is definitely to try to get the patient back into the home setting if she can improve in her strength and endurance. Daughter is very supportive. From my perspective, we can plan on transfer to the acute in-hospital inpatient rehabilitation heard when medically cleared. The daughter agrees and thinks that her endurance is better at this time and that she would be able to tolerate an acute rehab stay. She will likely need a low endurance program. By: [id number] Mustapha Pacheco MD /nt
[2020-06-28 23:15] VITALS: BP 179/73
[~2020-06-28 23:15] MED LIST changes: +CIPRO500 M1 PO
[2020-06-28 23:41] LABS: HEMATOCRIT 30.1 % (37.0-47.0); HEMOGLOBIN 10.3 gm/dL (12.0-15.0); MCH 31.9 pg (26.0-34.0); MCHC 34.3 g/dL (28.0-37.0); PLATELET COUNT 194 thou/uL (150-400); RBC 3.23 mil/uL (4.20-5.00); RDW 13.2 % (10.5-14.5); WBC 6.1 thou/uL (4.0-11.0)
[2020-06-28 23:59] LABS: ANION GAP 8 mmol/L (7-16); BUN 57 mg/dL (7-18); CALCIUM 9.3 mg/dL (8.5-10.1); CHLORIDE 103 mmol/L (98-107); CO2 25 mmol/L (21-32); CREATININE 2.5 mg/dL (0.6-1.0); GLUCOSE 230 mg/dL (74-106); POTASSIUM 5.1 mmol/L (3.5-5.1); SODIUM 136 mmol/L (136-145)
[2020-06-29 00:03] LABS: ALBUMIN 3.3 g/dL (3.4-5.0); DIRECT BILIRUBIN < 0.1 mg/dL (<0.1-0.2); SGOT 18 U/L (15-37); SGPT 19 U/L (30-65); TOTAL BILIRUBIN 0.3 mg/dL (0.2-1.0); TOTAL PROTEIN 7.3 g/dL (6.4-8.2)
[2020-06-29 00:44] LABS: ABSOLUTE NEUTROPHILS 3.2 thou/uL (1.4-8.2)
[2020-06-29 00:45] LABS: PLATELET ESTIMATE NORMAL
[2020-06-29 01:52] LABS: URINE BILIRUBIN NEGATIVE (Negative); URINE BLOOD TRACE (Negative); URINE CLARITY CLEAR; URINE COLOR YELLOW; URINE GLUCOSE-RANDOM* TRACE (Negative); URINE KETONES NEGATIVE (Negative); URINE LEUKOCYTES-REFLEX TRACE (Negative); URINE NITRITE-REFLEX NEGATIVE (Negative); URINE PROTEIN (DIPSTICK) 2+ (Negative); URINE SPECIFIC GRAVITY 1.015 (1.005-1.035); URINE UROBILINOGEN 0.2 E.U./dl (0.2-1.0)
[2020-06-29 02:01] LABS: CASTS None Seen /LPF (None Seen); MUCUS None Seen strn/LPF (None Seen); SQUAMOUS None Seen /LPF (0-3)
[2020-06-29 02:02] LABS: BACTERIA-REFLEX 1-9 Few /HPF (None Seen); CRYSTALS None Seen /LPF (None Seen); URINE RBC 0-2 Rare /HPF (0-2); URINE WBC-REFLEX 0-5 Rare /HPF (0-5); WBC CLUMPS Occasional (None Seen)
[2020-06-29 04:28] VITALS: BP 179/83
[2020-06-29 06:06] VITALS: BP 179/83
[2020-06-29 07:52] VITALS: BP 171/68
[2020-06-29 16:31] VITALS: BP 147/61
[2020-06-29 19:51] VITALS: BP 143/52
[2020-06-30 05:38] LABS: HEMOGLOBIN 9.6 gm/dL (12.0-15.0); MCH 30.9 pg (26.0-34.0); MCV 93.6 fL (80.0-100.0); RBC 3.1 mil/uL (4.20-5.00); RDW 13.4 % (10.5-14.5); WBC 5.6 thou/uL (4.0-11.0)
[2020-06-30 05:54] LABS: CALCIUM 9.1 mg/dL (8.5-10.1); CREATININE 2.1 mg/dL (0.6-1.0); MAGNESIUM 1.7 mg/dL (1.8-2.4); POTASSIUM 4.1 mmol/L (3.5-5.1)
[2020-06-30 07:45] VITALS: BP 118/51
[2020-06-30 16:10] VITALS: BP 87/32
[2020-06-30 16:35] VITALS: BP 106/39
[2020-06-30 20:55] VITALS: BP 133/47
[2020-07-01 07:40] VITALS: BP 135/51
[2020-07-01 15:02] VITALS: BP 140/53
[2020-07-01 19:16] VITALS: BP 121/56
[2020-07-02 05:52] LABS: HEMATOCRIT 27.2 % (37.0-47.0); HEMOGLOBIN 9.1 gm/dL (12.0-15.0); MCH 31.5 pg (26.0-34.0); MCHC 33.6 g/dL (28.0-37.0); MCV 93.7 fL (80.0-100.0); RBC 2.9 mil/uL (4.20-5.00); WBC 5.1 thou/uL (4.0-11.0)
[2020-07-02 06:03] LABS: APTT 30.8 Seconds (24.5-32.8); CALCIUM 8.6 mg/dL (8.5-10.1); POTASSIUM 4.4 mmol/L (3.5-5.1)
[2020-07-02 06:04] LABS: CREATININE 3.1 mg/dL (0.6-1.0)
[2020-07-02 07:44] VITALS: BP 141/52
[2020-07-02 15:26] VITALS: BP 118/40
[2020-07-02 19:35] VITALS: BP 132/56
[2020-07-03 07:00] VITALS: BP 165/64
[2020-07-03 09:04] VITALS: BP 164/65
[2020-07-03 11:09] LABS: HEMATOCRIT 26.5 % (37.0-47.0); MCH 31.8 pg (26.0-34.0); MCHC 34.2 g/dL (28.0-37.0); MCV 93.1 fL (80.0-100.0); PLATELET COUNT 180 thou/uL (150-400); RBC 2.84 mil/uL (4.20-5.00); RDW 13.2 % (10.5-14.5); WBC 6.7 thou/uL (4.0-11.0)
[2020-07-03 11:29] LABS: ALBUMIN 2.8 g/dL (3.4-5.0); CREATININE 2.8 mg/dL (0.6-1.0); MAGNESIUM 1.8 mg/dL (1.8-2.4); POTASSIUM 3.9 mmol/L (3.5-5.1); TOTAL BILIRUBIN 0.4 mg/dL (0.2-1.0); TOTAL PROTEIN 6.4 g/dL (6.4-8.2)
[2020-07-03 11:35] LABS: CALCIUM 8.6 mg/dL (8.5-10.1)
[2020-07-03 12:26] LABS: ABSOLUTE NEUTROPHILS 4.7 thou/uL (1.4-8.2); ANISOCYTOSIS SLIGHT; POIKILOCYTOSIS SLIGHT
== END 2020-07-03 16:30 | DRG 871 ==
LOC: ER 23:15 → 4W 06-29 02:25 → EROBS 06-29 02:25 → 4W 06-29 05:40
PROVIDERS: Emergency Medicine; Nurse Practitioner; ADMIT Internal Medicine; ATTEND Internal Medicine
DX: A41.9 Sepsis, unspecified organism (principal); N17.0 Acute kidney failure with tubular necrosis; G92 Toxic encephalopathy; I50.33 Acute on chronic diastolic (congestive) heart failure; N39.0 Urinary tract infection, site not specified; I13.0 Hypertensive heart and chronic kidney disease with heart failure and stage 1 through stage 4 chronic kidney disease, or unspecified chronic kidney disease; B96.89 Other specified bacterial agents as the cause of diseases classified elsewhere; E11.22 Type 2 diabetes mellitus with diabetic chronic kidney disease; E78.00 Pure hypercholesterolemia, unspecified; N18.3 Chronic kidney disease, stage 3 (moderate); E03.9 Hypothyroidism, unspecified; Z85.038 Personal history of other malignant neoplasm of large intestine; Z90.49 Acquired absence of other specified parts of digestive tract; G47.30 Sleep apnea, unspecified; Z79.899 Other long term (current) drug therapy; Z79.4 Long term (current) use of insulin; Z88.8 Allergy status to other drugs, medicaments and biological substances; D50.9 Iron deficiency anemia, unspecified; E11.51 Type 2 diabetes mellitus with diabetic peripheral angiopathy without gangrene; R63.4 Abnormal weight loss; G47.00 Insomnia, unspecified; E53.8 Deficiency of other specified B group vitamins; Z68.27 Body mass index [BMI] 27.0-27.9, adult
CPT/HCPCS: 10045

== ENCOUNTER 2020-07-02 16:19 | Inpatient (IN) | payer OTHER ==
[~2020-07-02] VITALS: Ht 154.9 cm; Wt 58.9 kg
[~2020-07-02 16:19] MED LIST changes: +METOPROLOL TART25 MG PO
--- NOTE | 2020-07-03 11:43 | NUR ---
chart review. consult for dcp. cm visited with pt while on 4w prior to being moved to acute rehab today. pt able to make her needs know, pleasant with some forgetfulness. noted per chart, lives at home with daughter deep and other family. have ramp, walker and wheel chair. grab bars, lift alert and prosthesis . able to feed her self. had hh in past, skilled rehab and been to [facility] acute rehab in past. will cont following as needed for dc needs.
--- NOTE | 2020-07-03 17:58 | NUR ---
ASSUMED CARE AT 1645. PT IS A NEW ADMISSION CAME UP WITH 2 HOSPITAL PERSONNEL ON A BED. PT IS ALERT AND ORIENTATED X 4. ON ROOM AIR. PT REPORTED OCCASIONAL PRODUCTIVE COUGH AND HAS SMALL TO MEDIUM CLEAR SPUTUM. DENIES ANY SHORT OF BREATH OR CHILLS. TESTED NEGATIVE FOR COVID PER PT AND DAUGHTER. PT HAD A WINTER AND WAS REMOVED PRIOR TO ADMISSION. PT HAS OCCASIONAL BLADDER AND BOWEL INCONTINENCE. LUNGS CLEAR TO AUSCULTATION, BOWEL SOUNDS PRESENT, LAST BM WAS ON 07/03/20. NO IV ACCESS. SKIN IS WARM TO TOUCH AND NO BREAKDOWN NOTED. PER DAUGHTER PT APPETITE IS FAIR AND HAS LOST 10LBS IN THE LAST 3 MONTHS. DAUGHTER EXPRESSED CONCERNS FOR PT'S MENTATION WHICH IS SPORADIC WHICH SOMETIMES SHE CAN BE CONFUSED AND FORGETFUL AND DOES NOT MAKE ANY SENSE, THIS TYPE OF BEHAVIOUR IS MORE APPARENT SINCE HER INFECTION (UTI). PER THIS BLOCK CLEANER, PT SEEMS APPEARS ORIENTATED AND ABLE TO ANSWER MEMORY QUESTIONS. PT USES WALKER AND MOSTLY WC AT HOME AND LIVES WITH DAUGHTER AND GRAND KIDS. SHE HAD A R BKA IN 2016 AND HAS A PROSTHESIS. PT IS HOPING TO INCREASE STRENGTH AND ENDURANCE AND ABLE TO WALK AND BE STRONGER. PHYSICAL THERAPY, OCCUPATIONAL THERAPY AND SPEECH WILL EVAL AND TREAT. CONT TO MONITOR.
[2020-07-03 19:18] VITALS: BP 146/60
--- NOTE | 2020-07-04 00:11 | NUR ---
ASSUMED CARE OF PT AT 1915 ON 07/03/20. PT IS A&OX4. IS ON ROOM AIR. IS STABLE. DENIES PIAN. HAS RLE BKA WITH PROSTATIC WHEN AMBULATING. IS UP WITH MAX ASSIST OF 2, GB, WALKER. FALL PRECAUTIONS & HOURLY ROUNDING CONTINUED THIS SHIFT. PT HAS BLISTER ON LEFT HAND THAT WAS PRESENT AT ADMISSION ACCORDING TO DAY SHIFT NURSE. PT IS TURNED Q2H. USES FEMALE EXTERNAL CATH AT HS. PT IS CURRENTLY SLEEPING. CALL LIGHT WITHIN REACH. WILL CONTNUE TO MONITOR.
[2020-07-04 05:39] LABS: HEMATOCRIT 24.9 % (37.0-47.0); HEMOGLOBIN 8.3 gm/dL (12.0-15.0); MCH 31.1 pg (26.0-34.0); MCHC 33.4 g/dL (28.0-37.0); MCV 93.1 fL (80.0-100.0); RBC 2.68 mil/uL (4.20-5.00); RDW 12.8 % (10.5-14.5); WBC 5.8 thou/uL (4.0-11.0)
[2020-07-04 05:51] LABS: CALCIUM 8.6 mg/dL (8.5-10.1); POTASSIUM 3.8 mmol/L (3.5-5.1)
[2020-07-04 09:15] VITALS: BP 142/61
[2020-07-04 10:12] LABS: FOLIC ACID 8.7 ng/mL (8.6-58.9)
--- NOTE | 2020-07-04 10:46 | NUR ---
ON-GOING ASSESSMENT: CM REVIEWED CHART AND RECEIVED CALL FROM CASTILLO AT [facility] WHO STATES "PT IS IN SERVICE WITH THEM FOR HOME HEALTH AND THEY CAN ACCEPT HER BACK ON SERVICE WHEN PATIENT DISCHARGES HOME" CASTILLO. CM NOTIFIED [employer] TO PLEASE FAX REFERRAL TO [facility] FOR THEM TO FOLLOW ALONG. CM WILL CONTINUE TO FOLLOW TO ASSIST NEEDED.
--- NOTE | 2020-07-04 14:41 | NUR ---
FAXED REFERRAL TO [facility] SPOKE WITH CAROLINE THEY CAN ACCEPT AT DISCHARGE.
[2020-07-04 14:45] VITALS: BP 142/61
--- NOTE | 2020-07-04 17:45 | NUR ---
PATIENT WAS AWAKE IN BED WHEN CARE ASSUMED. PATIENT IS ALERT AND ORIENTED X 3-4, CAN BE FORGETFUL AT TIMES. PATIENT ASSISTED UP IN WHEELCHAIR BY THERAPY. PATIENT IS CALM COOPERATIVE WITH CARE. PATIENT TOOK ALL MEDICATION WHOLE, ONE AT A TIME THIS MORNING. SHE IS ABLE TO FEED SELF, EATING, AND DRINKING FLUID WELL. VISIBLE TREMORS NOTED TO SUZY HANDS PATIENT'S BLOOD SUGAR THIS MORNING WITH RESULT OF 105, NO INSULIN REQUIRED. AT LUNCH TIME, BLOOD SUGAR WAS 160 3UNIT INSLIN GIVEN PER SLIDING SCALE ORDER. AT SUPPER, BLOOD SUGAR WITH RESULT OF 35, 2 CUPS APPLE JUICE, 3 GLUCOSE CHEWABLE TABLES GIVEN, BLOOD SUGAR RECHECKED, WITH RESULT OF 80. PATIENT DENIES BLURRED VISION, CONFUSION, OR LIGHT HEADEDNESS. NO SWEATING NOTED. PATIENT RESPONDING APPROPRIATELY TO ASSESSMENT QUESTIONS. DR. HAYWOOD NOTIFIED, NO NEW ORDER NOTED AT THIS TIME. DR. HAYWOOD STATES HE WILL LOOK INTO PATIENT'S INSULIN ORDERS. PATIENT CURRENTLY SITTING UP IN WHEEL CHAIR EATING SUPPER. PATIENT DAUGHTER AT BEDSIDE. PATIENT'S DAUGHTER -DPOA (RANDALL CABEZAS) STATES THAT PATIENT WAS NOT ABLE TO TASTE FOOD PRIOR TO ADMISSION, THAT SHE HAS MENTIONED IT BEFORE, NOT SURE IT WAS WRITTERN DOWN OR NOT. RANDALL ALSO STATES THAT PATIENT JUST STARTED CRYING FOR NO APPERENT REASON, AND "THAT IS NOT NORMAL FOR HER". NO SIGN OF ACUTE DISTRESS NOTED AT THIS TIME, WILL MONITOR FOR SAFETY.
[2020-07-04 20:43] VITALS: BP 187/76
--- NOTE | 2020-07-05 00:12 | NUR ---
PT ALERT AND ORIENTED X 2, CONFUSED AT TIMES. INCONT OF URINE AND STOOL. BLOOD SUGAR 168 AT HS. NO INSULIN GIVEN PER REQUEST OF PT'S DAUGHTER. PT DENIES PAIN OR DISCOMFORT. BED ALARM ON FOR SAFETY. PT CHECKED ON HOURLY ROUNDS.
[2020-07-05 08:00] VITALS: BP 124/54
--- NOTE | 2020-07-05 11:14 | NUR ---
eliazar with [facility] called and left message requesting a call back. cm called her back, she passed on that julissa on service with [facility] and will follow if needs hh when dc. will cont following as needed for dc needs.
--- NOTE | 2020-07-05 11:17 | NUR ---
ASSUMED CARE AT 0700. PT IS AWAKE, ALERT AND ORIENTATED TO SELF, PLACE AND YEAR. PLEASANT AND FORGETFUL. MAX ASSIST WITH AMBULATION. BG 91, INSULIN AND TRADJENTA HELD. SPOKE TO DAUGHTER, GRACIA, USUALLY INSULIN NOT GIVEN IF BG < 200. PT ATE ALMOST 60% OF HER BREAKFAST TODAY. DENIES ANY PAIN OR DISCOMFORT. SHE REPORTED SHE SLEPT WELL LAST NIGHT. HAD A LOOSE BOWEL MOVEMENT EARLIER TODAY. PT IS INCONTINENCE OF BLADDER AND ORDERS RECEIVED TO STRAIGHT CATH AND COLLECT A UA. DAUGHTER IS ALSO CONCERNED ABOUT HER MOTHER'S PROGRESSIVELY GETTING WORSE IN TERMS OF COGNITION. PT TOLD HER DAUGHTER SHE HAS LOSS OF TASTE AND WAS INITIALLY TESTED NEGATIVE FOR COVID. PT IS AFEBRILE, HAS LOOSE COUGH, DENIES ANY SHORT OF AIR. CONCERNS ADDRESSED WITH [employer] ENGINEER. PT IS SLOW PROGRESSION WITH THERAPY DUE TO PHYSICAL AND COGNITION IMPAIRMENT. CONT TO MONITOR.
[2020-07-05 15:30] LABS: URINE BILIRUBIN NEGATIVE (Negative); URINE BLOOD TRACE (Negative); URINE CLARITY CLEAR; URINE COLOR YELLOW; URINE GLUCOSE-RANDOM* NEGATIVE (Negative); URINE KETONES NEGATIVE (Negative); URINE LEUKOCYTES-REFLEX 1+ (Negative); URINE NITRITE-REFLEX NEGATIVE (Negative); URINE PROTEIN (DIPSTICK) 1+ (Negative); URINE UROBILINOGEN 0.2 E.U./dl (0.2-1.0)
[2020-07-05 15:33] LABS: SQUAMOUS 0-3 Few /LPF (0-3); URINE RBC None Seen /HPF (0-2); URINE WBC-REFLEX 6-15 Few /HPF (0-5)
[2020-07-05 15:34] LABS: BACTERIA-REFLEX 1-9 Few /HPF (None Seen); CRYSTALS None Seen /LPF (None Seen)
[2020-07-05 20:38] VITALS: BP 152/65
[2020-07-06 00:06] LABS: GLYCOHEMOGLOBIN (HGB A1C) 6.8 % (4.8-5.6)
--- NOTE | 2020-07-06 03:22 | NUR ---
PATIENT AOX1 CONFUSED AND FORGETFUL. PATIENT SEEM TO BE TALKING TO UNSEEN OTHER. PATIENT EPISODE OF AGITATION AT TIMES. PATIENT ENCOURAGED FLUIDS.PATIENT NEEDS MAXIMUM ASSISTANCE WITH ADL, BED MOBILITY, TRANSFER AND TOILETING. WINTER CATH DONE THIS SHIFT. PATIENT HAS BEEN UP OFF AND ON,THIS SHIFT DEMANDING FOR MORE SLEEPING MEDS. PATIENT IN BED ASLEEP AT THIS TIME BREATHING REGULAR AND UNLABOURED.
[2020-07-06 08:51] VITALS: BP 133/70
--- NOTE | 2020-07-06 15:00 | NUR ---
christelle spoke with daughter deep. daughter voiced many concerns. cm passed on to technology and engineering teacher. she stated she did not mean to cuss at but how many times to have to repeat myself, thank you though for calling i will be up in hr or so and would like to talk with kristin schrader if i can my more is confused more than ever and told be she getting tomorrow to man not talk with in years and mom says she is not sleeping per deep. christelle spoke with technology and engineering teacher and passed on information. will cont following as needed for dc needs.
--- NOTE | 2020-07-06 15:22 | NUR ---
NM GIVEN REPORT THAT PATIENT'S DAUGHTER CALLED A MEMBER OF THE PATIENT EXPERIENCE TEAM EARLIER TODAY TO VOICE CONCERNS/QUESTIONS REGARDING THE FOLLOWIN. SHE DID NOT WANT THE PATIENT TO GET ORANGE JUICE OR VITAMIN C DUE TO THE PATIENT'S HX OF ELEVATED CREATININE AND RENAL ISSUES. 2. SHE DID NOT WANT THE PATIENT TO GET INSULIN IF HER FSBS IS LESS THAN 200. 3. SHE WANTED TO KNOW ALL OF THE MEDICATIONS THAT THE PATIENT IS CURRENTLY TAKING. 4. SHE WANTED A CALL BACK REGARDING HER CONCERNS. ALL OF THIS INFORMATION WAS NOTED TO RADHA JONES NP, WHO PROMPTLY CALLED THE DAUGHTER TO ALLEVIATE HER CONCERNS AND ADDRESS ALL NEEDS. FAUSTINO PEREIRA, WAS NOT PRESENT AT THE THAT IS IN [employer], AND RADHA LEFT A MESSAGE. AWAITING A CALL BACK FROM THE FAMILY. NM CALLING DTR AGAIN TO TRY TO CONNECT. NOTED THAT ORDERS WERE PLACED FOR THE DIET CHANGES TO REMOVE ORANGE JUICE, VITAMIN C WAS DISCONTINUED, AND A CALL WAS PLACED TO DR. HAYWOOD TO REVIEW THE SSI ORDERS AND CONSIDER A CONSULT FOR ENDOCRINOLOGY.
[2020-07-06 19:00] VITALS: BP 128/62
--- NOTE | 2020-07-06 19:43 | NUR ---
CALLED CONSULTS TO DR FINNEY NEPHROLOGY [phone] EPSTEIN ENDOCRINOLGY AT [phone] AT 19:45 SPOKE ANSWERING SERVIVE STAFF. CALLED DR BRAVO EARLIER IN SHIFT AT [phone] FOR CONSULT SHE HAS NEVER CALLED BACK. DAUGHTER HAS CONCERNED THAT THIS NURSE HAS PASSED ON. KCL TO BE CHARTED IN AM.
--- NOTE | 2020-07-07 00:27 | NUR ---
PT ALERT, CONFUSED. WINTER PATENT DRAINING CLEAR YELLOW URINE. PT TOOK HS MEDS ONE AT A TIME WITHOUT DIFFICULTY. BLOOD SUGAR 224 AT HS. PT DENIES PAIN OR DISCOMFORT. BED ALARM ON FOR SAFETY. PT HAS BEEN SLEEPING SINCE MEDS GIVEN AT HS.
[2020-07-07 05:37] LABS: HEMATOCRIT 26.4 % (37.0-47.0); MCH 31.6 pg (26.0-34.0); MCHC 34.1 g/dL (28.0-37.0); MCV 92.8 fL (80.0-100.0); PLATELET COUNT 225 thou/uL (150-400); RBC 2.84 mil/uL (4.20-5.00); RDW 13.1 % (10.5-14.5); WBC 8.3 thou/uL (4.0-11.0)
[2020-07-07 05:55] LABS: CALCIUM 8.8 mg/dL (8.5-10.1); CREATININE 2.9 mg/dL (0.6-1.0); POTASSIUM 4.4 mmol/L (3.5-5.1)
[2020-07-07 07:33] LABS: ABSOLUTE NEUTROPHILS 5.3 thou/uL (1.4-8.2); PLATELET ESTIMATE NORMAL
[2020-07-07 08:00] VITALS: BP 153/70
[2020-07-07 19:50] VITALS: BP 129/63
--- NOTE | 2020-07-07 20:12 | NUR ---
ASSUMED CARE OF PT AT 0700. PT IN AM ANSWERING QUESTIONS APPROPRIATELY, BUT BY LUNCH TIME BECAME AGITATED AND ALERT AND ORIENTED TO PERSON ONLY. PT MAKING STATEMENTS SUCH "I'M GETTING TODAY", "[facility] IS COMING TO MY [place]", "I NEED TO CALL THE SCIENTOLOGY". PT MAKING ATTEMTS TO CALL PHONE NUMBERS ON TELEVISION, PHONE DISCONNECTED WITH PERMISSION FROM DAUGHTER. DAUGHTER AT BEDSIDE IN EVENING, DISCUSSED HER CONCERNS ABOUT PT CONFUSION AND HOW TO BEST ADDRESS IT. INFORMED DAUGHTER TO ATTEMPT TO DISTRACT PT AND REDIRECT HER WHEN FIXATING ON DELUSIONS. PT BECAME AGGITATED AT APPROX 1800 AND PO MEDICATIONS ADMINISTERED TO HELP PT CALM DOWN. ACCU CHECKS ACHS. WINTER CATHETER IN PLACE AND DRAINING APPROPRIATELY. FALL PRECAUTIONS IN PLACE AND NURSING WILL CONTINUE TO MONITOR.
--- NOTE | 2020-07-08 02:48 | NUR ---
ASSUMED CARE OF PT AT 1900HRS. PT AOX2 AND CONFUSED AT THE TIME OF ASSESSMENT. FALL PRECAUTION IN PLACE. WINTER IN PLACE AND IS PATIENT. SNACKS PROVIDED TO PT. PT DENIES PAIN, NAUSEA OR SOA. ASSESSMENT CHARTED. PT WAS ABLE TO TAKE ALL MEDS WHOLE WITH WATER. PT WAS ABLE TO GET COMFORTABLE AND SLEEP PART OF THE SHIFT. VSS AND NO S/S OF ACUTE DISTRESS. WILL CONTINUE TO MONITOR FOR CHANGES.
[2020-07-08 08:00] VITALS: BP 158/72
--- NOTE | 2020-07-08 12:24 | HC ---
[facility] [place] [address] CONSULTATION Name: SIN RAMOS Room #: 514-P [facility] IN M.R.#: [id number] Admission: 07/03/20 Attend Phys: Mustapha Pacheco MD Discharge: Date of : 38 Report #: [id number] THIS REPORT FOR: cc: Aishwarya De oSuza MD,Samantha Ch MD, MD ~ CC: Aishwarya Pacheco DATE OF SERVICE: 07/07/2020 ENDOCRINE CONSULTATION NOTE CONSULTING PHYSICIAN: Dr. Pacheco. REASON FOR CONSULTATION: Type 2 diabetes mellitus. HISTORY OF PRESENT ILLNESS: This is an 79-year-old female patient whose medical background is significant for longstanding diabetes mellitus type 2. The patient's course has been complicated by chronic kidney disease along with peripheral vascular and arterial disease that resulted in a right BKA in the past. Also, she is noted to have hypertension and iron deficiency anemia. The patient was admitted to [facility] due to progressive generalized weakness in the context of a UTI on 06/29/2020. Following a period of medical stabilization, the patient was admitted to the rehab unit given her overall functional decline. The patient maintains that she has been most recently utilizing Lantus insulin 12 units daily, in addition to NovoLog insulin 15 units with meals. She notes that her blood glucose control has been under excellent conditions and that she has not experienced hypoglycemia. Also, the patient is known to have hypothyroidism and is maintained on levothyroxine 75 mcg daily. She is also hypertensive and is maintained on metoprolol 25 mg b.i.d. and amlodipine 2.5 mg daily. REVIEW OF SYSTEMS: CONSTITUTIONAL: Generalized weakness, tiredness, but not fever or chills or body weight changes. HEENT: Negative for sore throat, sinus pain, ear drainage. PULMONARY: Occasional shortness of breath and cough, but not hemoptysis. CARDIAC: Negative for chest pain, palpitations, syncope or presyncope. GASTROINTESTINAL: Negative for nausea, vomiting or significant changes in bowel movement frequency. NEUROLOGY: Negative for loss of consciousness, seizure activity or frequent [facility] [address] [place] [address] CONSULTATION Name: SIN RAMOS Room #: 514-P [facility] IN ..#: [id number] Admission: 07/03/20 Attend Phys: Mustapha Pacheco MD Discharge: Date of : 38 Report #: [id number] severe headaches. DERMATOLOGY: Negative for rash, ulceration, discoloration or other major abnormalities. Otherwise, review of systems noncontributory other than those mentioned in HPI. PAST MEDICAL HISTORY: 1. Type 2 diabetes mellitus. 2. Hypertension. 3. Hypothyroidism. 4. Hyperlipidemia. 5. CHF. 6. Chronic kidney disease stage 3-4. 7. Peripheral arterial disease, status post right BKA, status post left lower extremity stent placement. 8. Colon cancer, status post colectomy in 2017. 9. Recent UTI and pyelonephritis. 10. Glaucoma. ACTIVE MEDICATIONS: Amlodipine 2.5 mg daily, ascorbic acid 500 mg daily, cyanocobalamin 500 mg daily, Lantus insulin 12 units daily, loratadine 10 mg daily, levothyroxine 75 mcg daily, latanoprost eyedrops, metoprolol 25 mg b.i.d., sodium bicarbonate 650 mg b.i.d., trazodone 75 mg at bedtime, budesonide 0.5 mg b.i.d., ferrous sulfate 325 mg b.i.d. with meals, torsemide 20 mg. ALLERGIES: IRON and ORANGE JUICE. FAMILY HISTORY: Noncontributory. SOCIAL HISTORY: The patient lives with her daughter and grandchildren. PHYSICAL EXAMINATION: GENERAL: Pleasant -[place]ander female patient who is not in apparent pain or distress. VITAL SIGNS: Blood pressure is 153/70 mmHg, heart rate is 89 beats per minute, respirations 16 per minute, temperature 36.8 degrees Celsius. CONSTITUTIONAL: The patient is sitting upright in bed. She appears comfortable, not in apparent distress. HEENT: Anicteric sclerae. Intact extraocular motions. NECK: Supple, without JVD, carotid bruits or thyromegaly. CHEST: Noted for moderate air entry bilaterally with scattered rales and rhonchi. HEART: Regular rate and rhythm without murmurs or gallops. ABDOMEN: Soft, lax. No guarding. Active bowel sounds. EXTREMITIES: Lower extremity exam is noted for a right BKA. Trace ankle edema on the left lower extremity. NEUROLOGIC: Awake, alert, but disoriented, confused a bit, moved all [address] [address] CONSULTATION Name: SIN RAMOS Room #: 514-P [facility] IN M.R.#: [id number] Admission: 07/03/20 Attend Phys: Mustapha Pacheco MD Discharge: Date of : 38 Report #: [id number] extremities spontaneously. PSYCHIATRIC: Pleasant, interactive. Normal mood and affect, but distorted thought content. Specifically, the patient told me towards the end of our interview that her wedding was going to take place later today. LABORATORY DATA: Blood glucose values over the past 48 hours have ranged between 121-224 mg/dL, but have predominantly been under 180 mg/dL. Otherwise, sodium 139, potassium 4.4, chloride 103, CO2 of 25, anion gap 11, BUN 74, creatinine 2.9 and reached as high as 3.6 in 01/2020, glucose 168, AST 30, total bilirubin 0.4, calcium 8.8, magnesium 2.0, alkaline phosphatase 152, ALT 50, total protein 6.4, albumin 2.8, EGFR 19. Lactic acid 0.6. Total CPK 48, troponin negative. BNP 2811. INR 1. White blood count 8.3, hemoglobin 9, hematocrit 26.4, platelets 225. Hemoglobin A1c is 6.8%. TSH 5.95. ASSESSMENT AND PLAN: 1. Type 2 diabetes mellitus. Judging by the patient's reported blood glucose values, which I do not necessarily take it face value given her confused state, as well as her hemoglobin A1c of 6.8%, she appears to be under adequate control. Over the past 3 days, the patient has not needed any insulin coverage as her Lantus has been on hold and she had not had any scheduled insulin coverage. Her only active antidiabetic therapy over the past few days as has been that of linagliptin 5 mg daily in addition to coverage with Humalog supplemental scale as needed. Yet, she has maintained pretty good range of control with most of her blood glucose values falling into target range. I was told by the staff that the patient's daughter, Josefina, has been strongly opposed to giving the patient any insulin and has probably instigated the discontinuation of Lantus few days ago. I have been trying to reach Josefina without success so far. I will continue to do so. While I do not particularly mind a current level of control for the patient as she has mostly had blood glucose values in target range, should she need her therapy advanced, insulin would be the main stay given her comorbidities, especially stage 4 chronic kidney disease. In the immediate setting, I will continue with linagliptin coverage as well as Humalog supplemental scale low intensity, which will be customized so as to avoid insulin intake for blood glucose values less than 200. Blood glucose monitoring will continue a.c. and at bedtime. 2. Hypothyroidism. Longstanding and maintained on levothyroxine 75 mcg daily. The patient's level [facility] [address] [place] [address] CONSULTATION Name: RACHELSIN L Room #: 514-P [facility] IN .R.#: [id number] Admission: 07/03/20 Attend Phys: Mustapha Pacheco MD Discharge: Date of : 38 Report #: [id number] of control is inadequate judging by her TSH of 5.9. I will adjust her levothyroxine upward to 88 mcg daily. A thyroid function study followup will be needed in 6-8 weeks to evaluate the outcome of this therapeutic adjustment. 3. Hypertension. The patient's level of blood pressure control has generally been adequate, although it is marginal today. She is to continue with the current regimen. I have reviewed the patient's clinical care notes past and present, laboratory data and other pertinent clinical information for over 35 minutes in addition to my review time with her. I appreciate this consultation by Dr. Pacheco. <ELECTRONICALLY SIGNED> By: Samantha Yan MD 07/08/20 1224 1213 [id number] Samantha Yan MD /nt
[2020-07-08 19:10] VITALS: BP 140/62
--- NOTE | 2020-07-08 19:18 | NUR ---
PT ALERT TO SELF ONLY. VSS. WINTER TO DD, PT DENIES PAIN/SOA. PT TOLERATES MEDS AND MEALS. PT UP SITTING IN WC FOR SOME PART OF THE DAY. PT DAUGHTER AT BEDSIDE. WILL CONTINUE TO MONITOR.
--- NOTE | 2020-07-08 22:56 | NUR ---
ASSUMED CARE OF PT AT 1915. PT IS A&O TO SELF & PLACE. IS CONFUSED. DENIES PAIN. IS ON ROOM AIR. HAS RBKA. PROSTHETIC IN ROOM. IS UP WITH MAX ASSIST OF 2, GB, WALKER. FALL PRECAUTIONS & HOURLY ROUNDING CONTINUED THIS SHIFT. LABS & VITALS REVIEWED. PT HAS OLD BLISTER ON LEFT HAND POISER. WINTER IN PLACE. PT IS STABLE. PT IS CURRENTLY IN BED SLEEPING. CALL LIGHT WITHIN REACH. WILL CONTINUE TO MONITOR.
[2020-07-09 07:57] VITALS: BP 152/74
--- NOTE | 2020-07-09 19:44 | NUR ---
ASSUMED CARE OF PT AT 0700. PT IS A&OX4 AND VITAL SIGNS ARE STABLE. PT LESS AGITATED THIS SHIFT, BUT STILL MAKES COMMENTS ABOUT GETTING ON THURSDAY. DURING THESE EPISODES PT REMAINS A&OX4. LAST BOWEL MOVEMENT NOTED ON 07/05, PT OFFERED PRUNE JUICE WITH NO RESULTS AT THIS TIME, SENIOR QA AUTOMATION ENGINEER NURSE AWARE AND STATES THAT SHE WILL ADMINISTER ORDERED SUPPOSITORY AT HS. DAUGHTER ON THE UNIT AND ASKED ABOUT PTS SLEEP. INFORMED HER ABOUT THE NIGHT NURSES REPORT. PER DAUGHTER REQUEST PT TO HAVE SLEEP AID ADMINISTERD TONIGHT. ACCU CHECKS ACHS. FALL PRECAUTIONS IN PLACE AND NURSING WILL CONTINUE TO MONITOR.
[2020-07-09 19:50] VITALS: BP 111/58
--- NOTE | 2020-07-10 04:21 | NUR ---
assumed care approx 1900 evening 07/09. pt lying in bed sleeping at change of shift. merrill to dd with clear yellow urine to bag. pt awoke to take hs meds with water tolerating well. pt appears to be sleeping soundly with hourly rounding checks. bed alarm on and call light in reach. will continue to monitor.
[2020-07-10 07:48] VITALS: BP 140/63
--- NOTE | 2020-07-10 10:15 | NUR ---
christelle notified by mk with [facility] they out of net work and cant accept for acute rehab. christelle spoke with daughter deep and she stated will i am little better than over the weekend i was way upset, but spoke with ok now. will see with micaela says when she calls me back"/deep daughter.
--- NOTE | 2020-07-10 19:14 | NUR ---
PT CARE ASSUMED 0700, ALERT AND ORIENTED X4, PT CONTINUES TO BE CONFUSED BUT NOT IMPULSIVE. PT DENIES ANY PAIN. PT IS ON ROOM AIR, NO SIGNS OF DISTRESS NOTED. PT WAS UP IN THE CHAIR FOR MOST OF THE DAY. FALL PRECAUTIONS IN PLACE. CALL LIGHT AND TABLE WAS WITHIN REACH 1800 PT DAUGHTER VISITING UPDATED IN PT CARE 1900 REPORT GIVEN TO PM NURSE.
[2020-07-10 19:47] VITALS: BP 160/93
--- NOTE | 2020-07-11 01:40 | NUR ---
PT ALERT, CONFUSED. YELLING OUT AT TIMES FOR HELP. WANTING SOMETHING TO EAT. OFFERED SNACKS BUT SHE WANTS NURSE TO GO TO STORE AND GET HER CANDY OR COOKIES. BECAME VERY AGITATED WHEN NURSE TRIED TO EXPLAIN TO HER THAT WE DIDN'T HAVE THOSE THINGS ON HAND. PT TOOK HS MEDS WITHOUT DIFFICULTY. WINTER PATENT DRAINING CLEAR YELLOW URINE. PT DENIES PAIN OR DISCOMFORT. BED ALARM ON FOR SAFETY. PT SLEEPING FOR SHORT INTERVALS. SEROQUEL GIVEN AT HS ORDERED.
[2020-07-11 06:07] LABS: HEMATOCRIT 27.6 % (37.0-47.0); HEMOGLOBIN 9.1 gm/dL (12.0-15.0); MCH 31.1 pg (26.0-34.0); MCHC 33.1 g/dL (28.0-37.0); MCV 93.8 fL (80.0-100.0); PLATELET COUNT 303 thou/uL (150-400); RBC 2.94 mil/uL (4.20-5.00); RDW 13.2 % (10.5-14.5); WBC 6.5 thou/uL (4.0-11.0)
[2020-07-11 06:21] LABS: CALCIUM 9.4 mg/dL (8.5-10.1); CREATININE 3.1 mg/dL (0.6-1.0); MAGNESIUM 2.4 mg/dL (1.8-2.4); POTASSIUM 4.8 mmol/L (3.5-5.1)
[2020-07-11 07:33] VITALS: BP 127/83
[2020-07-11 11:00] LABS: ABSOLUTE NEUTROPHILS 3.6 thou/uL (1.4-8.2); PLATELET ESTIMATE NORMAL
--- NOTE | 2020-07-11 13:10 | NUR ---
ASSUMED CARES AT 0700. PT AWAKE, CONFUSED AND DELUSIONAL. ORIENTED TO PERSON ONLY. PT STATED THAT SHE IS GETTING ON THURSDAY AND REFUSED PHYSICAL THERAPY STATING THAT SHE HAS MAKE CALLS TO MAKE HER WEDDING PLANS. PT REFUSED TO EAT HER BREAKFAST AND LUNCH STATING THAT HER DAUGHTER WAS MAKING HER A THANKSGIVING MEAL. MULTIPLE ATTEMPTS TO REORIENT HER BY DIFFERENT STAFF ATTEMPTED WITHOUT SUCCESS. WINTER REMAINS INTACT AND PATENT, URINE IS LIGHT YELLOW AND CLEAR WITH NO FOUL ODOR. PT UP WITH 1-2 MOD-MAX ASSIST, GB AND WALKER. FREQ. VISUAL CHECKS. CALL LIGHT WITHIN REACH. FALL PRECAUTIONS IN PLACE. NB: PT CONTINUES TO STATE THAT SHE HASN'T HAD ANY SLEEP IN 50HRS AND THAT SHE HAS BEEN CALLING MULTIPLE TIMES AND NOBODY ANSWERS HER CALL LIGHT OR DOESN'T HAVE A CALL LIGHT. PT CALLS MULTIPLE TIMES DURING THE DAY AND STAFF HAS BEEN CONSISTENT IN ANSWERING HER CALLS.
[2020-07-11 19:51] VITALS: BP 113/64
--- NOTE | 2020-07-11 23:55 | NUR ---
PT ALERT, CONFUSED. UP IN W/C ALL EVENING. TRANSFERRED TO BED AT HS WITH MAX ASSIST X 2. WINTER PATENT DRAINING ADEQUATE AMTS CLEAR YELLOW URINE. PT DENIES PAIN OR DISCOMFORT. BED ALARM ON FOR SAFETY. PT APPEARS TO BE SLEEPING ON HOURLY ROUNDS. PT SLEEPING AFTER SEROQUEL GIVEN AT HS. TRAZADONE NOT GIVEN.
[2020-07-12 07:02] LABS: ALBUMIN 2.8 g/dL (3.4-5.0); CALCIUM 8.6 mg/dL (8.5-10.1); CREATININE 3.7 mg/dL (0.6-1.0); PHOSPHORUS 5.6 mg/dL (2.5-4.9); POTASSIUM 4.4 mmol/L (3.5-5.1)
[2020-07-12 08:00] VITALS: BP 116/55
--- NOTE | 2020-07-12 16:02 | NUR ---
ASSUMED CARES AT 0700. PT AWAKE, ORIENTED TO PERSON ONLY, FORGETFUL AND CONFUSED. DELUSIONAL, PT TOLD STAFF THAT SHE WAS BUILDING A SCIENTOLOGIST HERE AND THAT SHE WAS GETTING IN THAT SCIENTOLOGIST. VITALS REMAIN STABLE. DENIES PAIN. WINTER CATHETER REMAINS INTACT AND PATENT, URINE IS YELLOW WITH WHITISH SEDIMENTS. 1L NS ADMINISTERED VIA RIGHT AC PIV. PT UP WITH 1-2 MOD-MAX ASSIST, GB AND WALKER. Q1H VISUAL CHECKS. CALL LIGHT WITHIN REACH. FALL PRECAUTIONS IN PLACE
--- NOTE | 2020-07-12 17:29 | HC ---
[facility] [place] [address] CONSULTATION Name: SIN RAMOS Room #: 514-P [facility] IN M.R.#: [id number] Admission: 07/03/20 Attend Phys: Mustapha Pacheco MD Discharge: Date of : 38 Report #: [id number] THIS REPORT FOR: cc: Aishwarya De Souza MD,Aishwarya Carballo,Jose Roper. PhD ~ CC: Aishwarya Pacheco DATE OF SERVICE: 07/08/2020 AGE: 79. ATTENDING PHYSICIAN: Mustapha Pacheco MD.. ERADICATOR: Jose Carballo, PhD. CLINICAL PRESENTATION: The patient is an 79-year-old female admitted to the [facility] on 06/29/2020 with confusion and mental status changes. She was noted to have sepsis, bacteremia and persistent urinary tract infection and chronic kidney disease. Her daughter was concerned about her cognitive functioning and the patient was diagnosed with a toxic metabolic encephalopathy. Her assessment on admission to the rehabilitation unit was toxic metabolic encephalopathy, medical complexity with generalized debilitation, sepsis with bacteremia, recurrent urinary tract infection, chronic kidney disease stage 3, diabetes mellitus type 2 and iron deficiency anemia. A complete description of her medical condition and history along with medications can be found in her medical record. Neuropsychological consultation was requested to provide assistance in the assessment of cognitive and emotional status and to provide recommendations and services. Prior to this most recent admission, the patient was living with the assistance of her daughter in the daughter's home. The patient has 4 children. She is a high school graduate. 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 There is no reported previous history of treatment for mood disorder. TECHNIQUES UTILIZED: Clinical interview, review of medical records, staff consultation and behavioral observation, mini mental status exam 2 standard version, clock drawing and brief category and letter fluency assessment -- interview with daughter. EXAMINATION FINDINGS: The patient was pleasant and cooperative with the assessment. She accurately described events surrounding her initial hospitalization. There is no evidence of aphasia. Her thoughts were goal [facility] [address] [place] [address] CONSULTATION Name: RACHELSIN L Room #: 514-P [facility] IN .R.#: [id number] Admission: 07/03/20 Attend Phys: Mustapha Pacheco MD Discharge: Date of : 38 Report #: [id number] oriented and organized. However, evidence of delusional ideation is noted as she indicates feeling very excited about getting Thursday. She has been experiencing delusional ideation regarding her marriage plans. Her symptoms are reported to include decreased sensitivity to taste and smell, decreased memory, difficulty with word finding. She does not report anxiety or depression or indicate having difficulty with sleep or appetite. As noted, there is no prior history of treatment for anxiety/depression or alcohol/drug abuse. Decreased speed of problem solving and thought organization was noted during the interview. Her daughter describes her as having a several year history of declining cognition. Intermittent disorientation and confusion has been associated with urinary tract infections that do resolve upon management of the infection; however, there has been a continuing decline in cognitive functioning. The patient discontinued driving about 8 years ago. She requires assistance in the management of bill payment which her daughter has taken over for several years. Difficulty managing medication is described and her daughter has started to take it over. The history of delusional ideation is about 1 year duration. Her performance on the MMSE 2 brief version is extremely low with a raw score of 10, T score of 15. She was 3/3 for initial registration, 3/5 for orientation to time, 4/[address]. She was 0/3 for immediate recall of 3 items after a brief time delay and distraction. Performance on the MMSE 2 standard version was a raw score of 20/30, which is a T score of 25 and percentile rank of 1. She was 2/5 for serial sevens, 2/2 for naming, 1/1 for repetition, 3/3 for auditory comprehension. She could read and follow a single command and write a sentence. The patient was unable to copy a simple geometric design. The patient was unable to accurately place the numbers in a clock regarding clock drawing. Numbers were written in reverse order and she was unable to set the hands at a designated time. Brief letter fluency was at the 18th percentile with a T score of 41. Brief assessment of category fluency was extremely low with a raw score of 5 and a T score of 25, which is less than 1%. The patient is presenting with deficits in immediate memory, thought organization, verbal fluency and visual spatial organization. Delusional ideation is also noted. Given her current presentation and history of cognitive decline, a neurodegenerative disorder is suggested. DIAGNOSTIC IMPRESSION: Major neurocognitive disorder (dementia), possibly due to Alzheimer disease, with a decreased insight and delusional ideation -- extent [facility] [address] [place] [address] CONSULTATION Name: SIN RAMOS Room #: 514-P [facility] IN M.R.#: [id number] Admission: 07/03/20 Attend Phys: Mustapha Pacheco MD Discharge: Date of : 38 Report #: [id number] to be determined, likely in the mild to moderate range. RECOMMENDATIONS: The patient would benefit from a workup and treatment program for neurodegenerative disorder with Alzheimer type features. She will require continued assistance in the management of medication, finances and nutrition. Upon discharge, Neurology consultation with a focus on upper extremity tremor as well as neurodegenerative disorder would be beneficial. I have talked with the daughter about followup neuropsychological testing to clarify the severity of cognitive status. Regarding delusional ideation, the patient is compliant with distraction. Redirection of her attention to specific theraputic activities as well reality orientation as necessary will assist in managment. Thank you very much for allowing me to provide the consultation on this patient. <ELECTRONICALLY SIGNED> By: Jose Carballo, PhD 07/12/20 1729 1317 1334 Jose Carballo, PhD /nt
[2020-07-12 19:37] VITALS: BP 136/55
--- NOTE | 2020-07-13 04:00 | NUR ---
assumed care approx 1900 evening 07/12. pt sitting up in bed at change of shift. pt pleasant and cooperative, forgetful and at times confused. merrill to dd with clear, yellow urine to bag. pt took hs meds with water tolerating well. pt calling out at times in the night not sleeping well. pt given sleeping meds as ordered. appears to be sleeping at present. bed alarm on and call light in reach. will continue to monitor.
[2020-07-13 05:31] LABS: ALBUMIN 2.6 g/dL (3.4-5.0); CALCIUM 8.2 mg/dL (8.5-10.1); CREATININE 3.1 mg/dL (0.6-1.0); PHOSPHORUS 4.5 mg/dL (2.5-4.9); POTASSIUM 4.4 mmol/L (3.5-5.1)
[2020-07-13 07:51] VITALS: BP 131/39
[2020-07-13 13:22] LABS: HEMATOCRIT 23.1 % (37.0-47.0); HEMOGLOBIN 7.9 gm/dL (12.0-15.0); MCH 32.5 pg (26.0-34.0); MCHC 34.3 g/dL (28.0-37.0); MCV 94.8 fL (80.0-100.0); RBC 2.44 mil/uL (4.20-5.00); RDW 13.1 % (10.5-14.5); WBC 5.8 thou/uL (4.0-11.0)
[2020-07-13 14:27] LABS: ABSOLUTE NEUTROPHILS 3.2 thou/uL (1.4-8.2); LARGE PLATELETS FEW
[2020-07-13 14:28] LABS: PLATELET COUNT 247 thou/uL (150-400)
--- NOTE | 2020-07-13 15:59 | NUR ---
ASSUMED CARES AT 0700. PT AWAKE, ALERT AND ORIENTED TO PERSON AND SITUATION. CONFUSED AND FORGETFUL. DENIES PAIN. VITALS REMAIN STABLE. WINTER REMAINS INTACT AND PATENT, URINE IS LIGHT YELLOW AND CLEAR WITH NO FOUL ODOR. PT PARTICIPATED WELL IN ALL THERAPIES, WORKED WITH PHYSICAL THERAPY TODAY AND COMPLETED FULL SESSION. WHEN ADMINISTERING EPOETIN ALPHA THIS EVENING PT ASKED, " IS THAT PROCRIT SHOT?, MY DAUGHTER MENTIONED IT THIS MORNING AND WANTED ME TO TAKE IT?". SHE TALKED ABOUT HER SON'S HOME SITUATION BUT NEVER MENTIONED ANYTHING ABOUT "HER WEDDING" OR BUILDING DRUZE. PT HASN'T MADE MULTIPLE CALLS OR REQUESTED MUCH SHE HAS BEEN. NOTED THAT PT HASN'T USED HER CALL LIGHT MUCH OR CALLED FOR SOMEONE TO COME INTO HER ROOM LIKE SHE HAS BEEN DOING. STAFF CHECKED ON HER HOURLY AND SHE DIDN'T NEED ANYTHING EACH TIME. UP WITH 1 MOD ASSIST, GB AND WALKER AND TOLERATED WELL. CALL LIGHT WITHIN REACH. FALL PRECAUTIONS IN PLACE.
[2020-07-13 19:25] VITALS: BP 110/53
--- NOTE | 2020-07-14 01:40 | NUR ---
TRANSFER FROM WITH MODERATE 2P ASSIST TO BED AT 2100, MEDS AN HOUR LATER WITH MANY SIPS OF WATER AND ASLEEP AN HOUR AFTER THAT. HAS BEEN SLEEPING SINCE 2249. MAGGY ALATORRE DD. PLEASANT
--- NOTE | 2020-07-14 06:28 | NUR ---
HAS SLEPT QUIETLY SINCE 2299 LAST NIGHT. WAKES EASILY TO SPOKEN NAME AND SWALLOWS SMALL PILLS AND WATER EASILY AT THIS TIME
[2020-07-14 08:00] VITALS: BP 121/62
[2020-07-14 08:38] LABS: ALBUMIN 2.9 g/dL (3.4-5.0); CALCIUM 8.7 mg/dL (8.5-10.1); CREATININE 2.5 mg/dL (0.6-1.0); PHOSPHORUS 4.2 mg/dL (2.5-4.9); POTASSIUM 4.1 mmol/L (3.5-5.1); TOTAL BILIRUBIN 0.3 mg/dL (0.2-1.0); TOTAL PROTEIN 6.9 g/dL (6.4-8.2)
--- NOTE | 2020-07-14 13:57 | NUR ---
ASSUMED CARE AT 0700. PT WAS STILL SLEEPING AFTER REPORT AND SLOWLY WAS UP WITH OT. SHE REPORTED HAVING A GOOD NIGHT SLEEP. DENIES ANY PAIN OR DISCOMFORT. TOOK ALL HER MEDS WITHOUT ANY DIFFICULTY. BS WAS 95 AND INSULIN WAS NOT INDICATED. PT ATE MORE THAN 50% OF HER BREAKFAST TODAY. WINTER INTACT AND DRAINING WELL. HAD A LARGE BM. PARTICIPATED WITH THERAPY THIS MORNING. NO SIGN OF DELUSION OR HALLUCINATION. ON SEROQUEL. CONT TO MONITOR.
[2020-07-14 19:27] VITALS: BP 112/56
--- NOTE | 2020-07-15 04:58 | NUR ---
PT TRANSFERRING FROM WC TO BED WITH ASSIST AND IS TOLERATING FAIR. DENIES PAIN. RESTING COMFORTABLY. NO NEEDS VOICED. CALL LIGHT WITHIN REACH. FREQUENT OBSERVATION.
[2020-07-15 08:00] VITALS: BP 130/52
--- NOTE | 2020-07-15 16:48 | NUR ---
PT A&OX SELF AND SITUATION. IV INTACT IN R AC. R BKA. WINTER TO DD. PT IN PLEASANT MOOD TODAY. CALL LIGHT W/I REACH, BED ALARM ON.
[2020-07-15 19:36] VITALS: BP 130/49
--- NOTE | 2020-07-16 03:28 | NUR ---
assumed care approx 1900 evening 07/15. pt lying in bed with head of bed elevated at change of shift. pt awake, alert, pleasant, confused at times. pt took hs meds with water tolerating well. merrill to dd with clear, yellow urine to bag. pt appears to be sleeping soundly with hourly rounding checks. bed alarm on and call light in reach. will continue to monitor.
[2020-07-16 06:03] LABS: HEMATOCRIT 24.2 % (37.0-47.0); HEMOGLOBIN 8.1 gm/dL (12.0-15.0)
[2020-07-16 07:38] VITALS: BP 116/48
--- NOTE | 2020-07-16 09:15 | NUR ---
ASSUMED CARE AT 0700. PT IS UP WITH OT AND JUST HAD A BED BATH. SITTING COMFORTABLY IN HER CHAIR, DENIES ANY PAIN. ALERT AND ORIENTATED TO SELF AND PLACE, PLEASANT AND NOT IN ANY DISTRESS. SLEPT WELL LAST NIGHT. NO SIGN OF DELUSIONS OR HALLUCINATIONS. ATE ALMOST 75% OF HER BREAKFAST AND TOOK HER MEDICATIONS WHOLE WITHOUT ANY DIFFICULTY. SPOKE TO KRISS SHREDDER PICKER REGARDING DAUGHTER'S CONCERNS ABOUT MEDICATION (VELTASSA) AND WANTS LABS (BMP) DRAWN PRIOR TO DISCHARGE ON THURSDAY. WINTER DRAINING WELL AND ORDERS RECEIVED TO CLAMP WINTER Q4 HOURS WHILE AWAKE. PARTICIPATING IN THERAPY, SLOW PROGRESSION AND PLAN FOR DISCHARGE ON THURSDAY WITH DAUGHTER. CONT TO MONITOR,
[2020-07-16 10:37] LABS: CALCIUM 8.7 mg/dL (8.5-10.1); CREATININE 2.6 mg/dL (0.6-1.0); MAGNESIUM 2.3 mg/dL (1.8-2.4); POTASSIUM 4.6 mmol/L (3.5-5.1)
--- NOTE | 2020-07-16 10:41 | PLAN ---
[facility] [place] [address] REHAB UNIT PLAN OF CARE Name: LON RAMOSNga Clement Room #: 514-P [facility] IN M.R.#: [id number] Admission: 07/03/20 Attend Phys: Mustapha Pacheco MD Discharge: Date of : 38 Report #: [id number] THIS REPORT FOR: //name// CC: Aishwarya Pacheco DATE OF SERVICE: 07/06/2020 PROGRESS NOTE/OVERALL PLAN OF CARE SUBJECTIVE: The patient was seen back today in followup. She complains that she has been sleeping very well. Temperature 36.3, pulse 92, respirations 16, blood pressure 133/70. She is alert, follows commands. She has been working in her therapies with transfers, bed to wheelchair to max assist with a sliding board. She was able to hop 10 feet min assist with a front-wheeled walker. Bed mobility, sit to supine and has been mod assist. Lower body dressing is dependent. Speech therapy, she has wbhnopjy-ca-lcbnhv cognitive deficits, has some perseveration as noted. Apparently was telling the speech therapist that she thought she was getting . She is however, oriented x 4. ASSESSMENT: An 79-year-old -E[place]ian female with the following problem list: 1. Toxic metabolic encephalopathy. 2. Medical complexity with generalized debilitation. 3. Sepsis with bacteremia. 4. Recurrent urinary tract infection. 5. Chronic kidney disease stage 3. 6. Type 2 diabetes mellitus. Hemoglobin A1c is elevated. 7. Iron deficiency anemia. 8. History of hallucinations. PLAN: The overall plan of care is based on the preadmission screen, post-admission physician evaluation and information garnered from therapy assessments. 1. Estimated length of stay is probably at least 10 days to 2 weeks. 2. Medical prognosis is reasonably good. 3. Anticipated interventions includes the interdisciplinary acute inpatient rehabilitation program. 4. Anticipated functional outcomes would be for the patient to improve as far as basic transfers to hopefully get to the point where she can be at least wheelchair bound and hopefully able to don and doff her prosthesis so she can return back to the home setting. 5. Discharge destination back home with daughter. 6. Expected therapy by discipline includes PT, OT and speech 1 hour per day [address] [address] REHAB UNIT PLAN OF CARE Name: SIN RAMOS Room #: 514-P [facility] IN [facility]#: [id number] Admission: 07/03/20 Attend Phys: Mustapha Pacheco MD Discharge: Date of : 38 Report #: [id number] each five days a week throughout the duration of the acute inpatient rehabilitation program. <ELECTRONICALLY SIGNED> By: Mustapha Pacheco MD 07/16/20 1041 1529 1948 Mustapha Pacheco MD /nt
--- NOTE | 2020-07-16 10:41 | H ---
[facility] [place] [address] HISTORY AND PHYSICAL Name: SIN RAMOS Room #: 514-P [facility] IN M.R.#: [id number] Admission: 07/03/20 Attend Phys: Mustapha Pacheco MD Discharge: Date of : 38 Report #: [id number] THIS REPORT FOR: cc: Aishwarya De Souza MD,Aishwarya Pacheco,Mustapha Aceves MD ~ CC: Aishwarya Pacheco DATE OF SERVICE: 07/03/2020 HISTORY AND PHYSICAL/POST ADMISSION PHYSICIAN EVALUATION HISTORY OF PRESENT ILLNESS: The patient is an 79-year-old female who was originally admitted on 06/29/2020 with confusion and mental status changes. She was noted to have sepsis, bacteremia, persistent urinary tract infection, chronic kidney disease stage 3. She was placed on IV antibiotics. Daughter was concern regarding decreased overall cognition and a toxic metabolic encephalopathy was discussed with her. She was treated for the sepsis with bacteremia. She has had a decline in her overall functional status. She has now been admitted for acute in-hospital inpatient rehabilitation. PAST MEDICAL HISTORY: Prior medical history includes prior history of cardiac arrest and PEA with hypoxic respiratory failure and left-sided weakness on 01/2020. She has a history of a right below-knee amputation, chronic left lower extremity diabetic ulcer, diabetes mellitus type 1, and aspiration pneumonia. SOCIAL HISTORY: Lives in a house with her daughter, a ramp to get in, primarily uses a wheelchair to get around. Daughter is currently working from home with the COVID pandemic. The patient had been able to transfer herself prior to coming to the hospital, was having problems with increased weakness and was needing more assistance by the daughter as far as basic transfers and dressing. She had been able to don her prosthesis, but was needing more assistance in that just recently. REVIEW OF SYSTEMS: No complaints of chest pain, shortness of breath or abdominal discomfort. MEDICATIONS: Please see the full medication listing. ALLERGIES: As noted. PHYSICAL EXAMINATION: GENERAL: An 79-year-old -Gu[place]ian female in no obvious distress. She was sleepy, responsive. VITAL SIGNS: Temperature 97.8, pulse 84, respirations 20, blood pressure [facility] [address] [place] [address] HISTORY AND PHYSICAL Name: SIN RAMOS Room #: 514-P [facility] IN [facility]#: [id number] Admission: 07/03/20 Attend Phys: Mustapha Pacheco MD Discharge: Date of : 38 Report #: [id number] 120/61. HEENT: Facies appeared symmetric. CHEST: Some decreased breath sounds throughout, but appeared clear. CARDIOVASCULAR: Regular rate and rhythm. ABDOMEN: Bowel sounds positive, nontender. GENITOURINARY AND RECTAL: Deferred. EXTREMITIES: She has some decreased range of motion of both of her shoulders that appears chronic. Strength is grade 3+/5 in her upper extremities. Lower extremities; she has the old right below-knee amputation well healed. Bilateral lower extremity strength is probably a grade 3+/5. She has been needing assistance as far as basic transfers. ASSESSMENT: An 79-year-old -Guamanian female with the following problem list: 1. Toxic metabolic encephalopathy. 2. Medical complexity with generalized debilitation. 3. Sepsis with bacteremia. 4. Recurrent urinary tract infection. 5. Chronic kidney disease stage 3. 6. Diabetes mellitus type 2. 7. Iron deficiency anemia. PLAN: The patient was premorbidly primarily wheelchair bound, but was able to transfer herself. We will have her working in therapies to try to hopefully achieve as close to this level as we can. From a postadmission physician evaluation perspective, there are no relevant changes since the preadmission screening. Please see the above review of prior and current medical and functional conditions and comorbidities. Please see the patient's previous and current functional status. As far as risk of complications, the patient has multiple medical comorbidities as noted above. Initial plan of care involves the interdisciplinary acute inpatient rehabilitation program. Measurable functional goals would be for the patient to hopefully improve as far as strength, mobility, ADLs endurance and cognition, so that she can return back to the home setting. Goals to achieve a wheelchair level again. Prognosis is reasonably good. Estimated length of stay is probably at least 10 days to 2 weeks. Potential barriers would include her multiple medical comorbidities and decreased functional status. The patient meets diagnostic criteria for an acute in-hospital inpatient rehabilitation stay. She meets the medical necessity criteria. She does have [address] [address] HISTORY AND PHYSICAL Name: KENNEDIJAONNASIN Room #: 514-P [facility] IN ..#: [id number] Admission: 07/03/20 Attend Phys: Mustapha Pacheco MD Discharge: Date of : 38 Report #: [id number] the tolerance for therapies and has appropriate discharge goals back to the home setting. <ELECTRONICALLY SIGNED> By: Mustapha Pacheco MD 07/16/20 1041 0918 [id number] Mustapha Pacheco MD /nt
[2020-07-16 19:57] VITALS: BP 124/63
--- NOTE | 2020-07-17 04:24 | NUR ---
assumed care approx 1900 evening 07/16. pt sitting up in recliner at change of shift. pt awake, alert and oriented x4, pleasant and cooperative. pt talkative and at times forgetful. merrill to dd unclamped. pt took hs meds with water tolerating well. pt appears to be sleeping soundly with hourly rounding checks. bed alarm on and call light in reach. will continue to monitor.
[2020-07-17 07:20] VITALS: BP 13/43
--- NOTE | 2020-07-17 08:45 | NUR ---
ASSUMED CARE AT 0700. PT IS STILL IN BED, AWAKE AND REPORTED SLEPT WELL. DENIES ANY PAIN. APPETITE FAIR WITH 50% INTAKE PER MEAL. PARTICIPATING WITH THERAPY. ORDERS RECEIVED TO REMOVE WINTER TODAY AND TO BLADDER SCAN Q4 HOURS AND IF PVR ABOVE 400ML TO STRAIGHT CATH. PT ROOM CHANGED TO [facility] AND DAUGHTERGRACIA NOTED DUE TO NEEDED ROOM FOR ANOTHER PATIENT WHO NEEDS FREQUENT SUPERVISION. PLAN FOR DISCHARGE HOME ON THURSDAY WITH DAUGHTER WITH HOME HEALTH SERVICES. PER TEAM MEETING, PT'S DAUGHTER WILL BENEFIT FROM THERAPY TRAINING. NO NEW CONCERNS AND WILL CONT TO MONITOR.
--- NOTE | 2020-07-17 12:16 | NUR ---
team meeting, reccomendation: nursing going to try remove merrill cath today. daughter to work with therapy prior to dc on 17 [facility] ( pt, ot, and nursing). she needs to have assistance with dressing and ananya care. no dme needs. family to assit with bills and pills.
--- NOTE | 2020-07-17 16:00 | NUR ---
WINTER REMOVED AND PT TOLERATED PROCEDURE WELL. BLADDER SCAN AND IF MORE THAN 400ML OK TO STRAIGHT CATH. IF CONTINUES TO HAVE MORE THAN 2 PVR ABOVE 400ML TO CALL .
[2020-07-17 19:25] VITALS: BP 109/57
--- NOTE | 2020-07-18 00:54 | NUR ---
PT IS ALERT TO SELF, PLACE AND SITUATION. SHE SEEMS A LITTLE CONFUSED AT TIMES. REQUIRED ASSIST X 2 TO GO USE THE BATHROOM.DENIES PAIN. BY AROUND 2300 HRS, PT WAS STILL AWAKE AND THEREFORE SHE ASKED FOR TRAZODONE. SHE APPEARS TO BE SLEEPING AT THIS TIME.SHE VOIDED X 1 IN TOILET BEFORE GOING TO BED. OVERALL PATIENT SEEMS HAPPY WITH HER PROGRESS AND CARE.SHE CALLS WITH NEEDS.FALL PREC IN PLACE.
[2020-07-18 07:20] VITALS: BP 133/54
--- NOTE | 2020-07-18 08:41 | NUR ---
PT SPOKE WITH Pt'S DAUGHTER, RANDALL, REGARDING FAMILY TRAINING. DAUGHTER NOT AVAILABLE TO COME IN. PT DISCUSSED Pt'S FUNCTIONAL LEVEL AT THIS TIME, WILL NEED ASSIST WITH FUNCTIONAL MOBILITY. RANDALL VERBALIZES UNDERSTANDING AND DOES NOT VOICE ANY FURTHER QUESTIONS OR CONCERNS
--- NOTE | 2020-07-18 12:53 | NUR ---
ASSUMED CARES AT 0700. PT ORIENTED TO PERSON AND SITUATION, CONFUSED AND DELUSIONAL. PT STATED, " AM GOING TO BUY 100 DONUTS FOR ALL THE STAFF HERE, MY DAUGHTER IS BRINGING IT IN". VITALS REMAIN STABLE. DENIES PAIN. PT PARTICIPATED WELL IN ALL THERAPIES. PT UP WITH 1 MIN ASSIST, GB AND WALKER/WC AND TOLERATED WELL. Q1H VISUAL CHECKS. CALL LIGHT WITHIN REACH. FALL PRECAUTIONS IN PLACE.
[2020-07-18 19:18] VITALS: BP 127/52
--- NOTE | 2020-07-19 05:47 | NUR ---
Assumed pt's care this pm shift. Pt alert and oriented. Forgetful. Pt took meds per emar. Pt slept well this shift. Pt voiced having possible intention of suing the hopsital because there were nights that she reported "not being able to sleep and the doctor did nothing". Pt verbalized it as " neglect". Per nursing report, pt have hx of delusion. Pt anticipated dc home today with dtr. Fall precaution in place. Bladder scan this shift showed 117ml. Call light within reach. Hourly roundings made. Will continue to monitor.
[2020-07-19 05:57] LABS: HEMOGLOBIN 8.2 gm/dL (12.0-15.0); MCHC 34.2 g/dL (28.0-37.0); MCV 93.5 fL (80.0-100.0); PLATELET COUNT 248 thou/uL (150-400); RBC 2.57 mil/uL (4.20-5.00); RDW 13.4 % (10.5-14.5); WBC 6.6 thou/uL (4.0-11.0)
[2020-07-19 06:47] LABS: CALCIUM 8.6 mg/dL (8.5-10.1); MAGNESIUM 2.3 mg/dL (1.8-2.4); POTASSIUM 4.2 mmol/L (3.5-5.1)
[2020-07-19 06:48] LABS: CREATININE 3.7 mg/dL (0.6-1.0)
[2020-07-19 07:15] VITALS: BP 114/46
[2020-07-19] MEDS ORDERED: SEROQUEL 25 MG25 MG PO (10:22)
[2020-07-19] MEDS ORDERED: LEVOTHYROXINE88 MCG PO (10:22)
[2020-07-19] MEDS ORDERED: COLACE100 MG PO (10:22)
[2020-07-19] MEDS ORDERED: GLIPIZIDE ER2.5 MG PO (10:22)
[2020-07-19] MEDS ORDERED: MUCINEX600 MG PO (10:22)
[2020-07-19] MEDS ORDERED: DEPAKOTE SPRIN125 MG PO (10:22)
[2020-07-19] MEDS ORDERED: SEROQUEL 100 M100 MG PO (10:22)
[2020-07-19] MEDS ORDERED: TORSEMIDE20 MG PO (10:22)
[2020-07-19 10:34] LABS: ABSOLUTE NEUTROPHILS 3.4 thou/uL (1.4-8.2); PLATELET ESTIMATE NORMAL
--- NOTE | 2020-07-19 11:43 | NUR ---
ASSUMED CARES AT 0700. PT ORIENTED TO PERSON AND PLACE, CONFUSED AND FORGETFUL. DENIES PAIN AT THIS TIME. VITALS REMAIN STABLE. PT VOIDING WELL, BLADDER SCANNED POST VOID 14CC. URINE IS YELLOW AND CLEAR. PT UP WITH 1 ASSIST, GB AND WALKER AND RLE PROSTHESIS AND TOLERATED WELL. PT TO DC THIS AFTERNOON WITH DAUGHTER AND HOMEHEALTH, DC TEACHING AND INSTRUCTIONS TO BE DISCUSSED WITH DAUGHTER AND PATIENT AT THE BEDSIDE. Q1H VISUAL CHECKS. CALL LIGHT WITHIN REACH. FALL PRECAUTIONS IN PLACE
--- NOTE | 2020-07-19 14:27 | NUR ---
PT DISCHARGING TODAY TO HOME WITH [facility] FAXED DC ORDERS/SUMMARY SPOKE WITH [facility] IN INTAKE THEY RECEIVED ORDERS AND WILL ARRANGE VISITS WITH PT.
== END 2020-07-19 15:02 | disposition home health service (06) | DRG 91 ==
LOC: EDBD 07-03 16:48
PROVIDERS: Hospitalist; Nurse Practitioner; Nurse Practitioner Family; Psychiatry & Neurology Psychiatry; ADMIT Physical Medicine & Rehabilitation; ATTEND Physical Medicine & Rehabilitation
DX: G92 Toxic encephalopathy (principal); A41.9 Sepsis, unspecified organism; N39.0 Urinary tract infection, site not specified; R53.81 Other malaise; D50.9 Iron deficiency anemia, unspecified; N18.3 Chronic kidney disease, stage 3 (moderate); E11.22 Type 2 diabetes mellitus with diabetic chronic kidney disease
CPT/HCPCS: 10112

== ENCOUNTER 2020-11-14 15:02 | Inpatient (IN) | payer OTHER ==
[~2020-11-14] VITALS: Ht 160 cm; Wt 68.9 kg
--- NOTE | ~2020-11-14 | EMS ---
[address] [address] EMS Patient Care Report Name: SIN RAMOS Room #: PRE [facility].Terry#: [id number] Admission: Attend Phys: Discharge: Date of : 38 Report #: [id number] THIS REPORT FOR: //name// Report Transmitted: 11/14/2020 15:17 EMS Care Summary [facility] MED-ACT Incident [id number] @ 11/14/2020 14:27 Incident Location [address] [place] [address] Patient SIN RAMOS Female, 79 Years 1940 Patient Address [address] [place] [address] Patient History Dementia,Diabetes,Chronic Kidney Disease, Chief Complaint increased weakness Disposition Transported No Lights/[place] Reason Sick Person Transported To [facility] Narrative Arrived to find pt seated in wheelchair in the hotel room. Pt a&ox4, NAD and in the presence of family members wearing a disposable face mask. Pts daughter reports pt has been weak for the last several weeks. Pt had blood drawn recently and the lab results returned today. Pts physician reported that pts hemoglobin was 7.5 and needed to get to the hospital urgently. Pts [address] [address] EMS Patient Care Report Name: SIN RAMOS Room #: PRE [facility]#: [id number] Admission: Attend Phys: Discharge: Date of : 38 Report #: [id number] daughter reports she was concerned about moving pt into her car so she called 911. Pt denies any chest pain, sob, cough, fever or drinking much water lately. Pt was assisted to standing position and assisted to cot. Pt secured with cot straps in semi-fowlers position and taken to MICU for non-emergent transport to [place] as pts daughter requested. Pt rested comfortably enroute to [place] without any changes in condition. Pt was moved via sheet from cot to hospital bed without incident. Pt report and transfer of care given to WARDROBE ASSISTANT room #2. Initial Vitals @14:56SpO2: 100,AL Suspected: false @14:45P: 83,R: 16,BP: 171/92,Glucose: 252,SpO2: 99, @14:37P: 82,R: 16,BP: 133/70,Pain: 0/10,GCS: 15,Temp: 98.4F,SpO2: 100,Revised Trauma: 12, @14:57P: 83,R: 16,BP: 179/75,Pain: 0/10,GCS: 15,SpO2: 98,Revised Trauma: 12, Assessments @14:37MENTAL:Person Oriented,Time Oriented,Event Oriented,Place Oriented,SKIN:HEENT:Head/Face: No Abnormalities,Neck/Airway: No Abnormalities,LUNG SOUNDS:General: No Abnormalities,ABDOMEN:General: No Abnormalities,PELVIS//GI:No Abnormalities,EXTREMITIES:Right Leg: Other,Left Arm: No Abnormalities,Right Arm: No Abnormalities,Left Leg: No Abnormalities,PULSE:Radial: 2+ Normal,NEURO:No Abnormalities, Impression Generalized Weakness Procedures @PTASurgical Mask on PatientResponse: Unchanged Timeline [facility],Surgical Mask on Patient,Response: Unchanged 14:25,Call Received 14:25,Psap Call 14:27,Dispatched 14:27,En Route 14:31,On Scene 14:36,At Patient 14:37,BP: 133/70 M,PULSE: 82,RR: 16 R,SPO2: 100 Ox,ETCO2: ,BG: ,PAIN: 0,GCS: 15, 14:45,BP: 171/92 M,PULSE: 83,RR: 16 R,SPO2: 99 Ox,ETCO2: ,B,PAIN: ,GCS: , 14:46,Depart Scene 14:56,BP: / M,PULSE: ,RR: R,SPO2: 100 Ox,ETCO2: ,BG: ,PAIN: ,GCS: , [address] [address] EMS Patient Care Report Name: SIN RAMOS Room #: [facility].R.#: [id number] Admission: Attend Phys: Discharge: Date of : 38 Report #: [id number] 14:57,BP: 179/75 M,PULSE: 83,RR: 16 R,SPO2: 98 Ox,ETCO2: ,BG: ,PAIN: 0,GCS: 15, 14:59,At Destination 15:21,Call Closed Disclaimer v1.1 Copyright 2020 [employer] This EMS Care Summary contains data elements from the applicable legal record (which may be displayed differently). It is designed to provide pertinent information for the following purposes: continuity of care, clinical quality, and state data reporting. The complete legal record is available to ED staff and administrators of the receiving hospital in [employer] Patient Tracker. All data is provided "as is."
[~2020-11-14 15:02] MED LIST changes: +DEPAKOTE SPRIN125 MG PO; +GLIPIZIDE ER2.5 MG PO; +LEVOTHYROXINE88 MCG PO; +SEROQUEL 100 M100 MG PO; +SEROQUEL 25 MG25 MG PO
[2020-11-14 15:03] VITALS: BP 167/61
[2020-11-14 15:47] LABS: ABSOLUTE NEUTROPHILS 4.6 thou/uL (1.4-8.2); BASOPHILS 0.4 % (0.0-2.0); EOSINOPHILS 1.3 % (0.0-3.0); HEMATOCRIT 21.6 % (37.0-47.0); MCH 30.3 pg (26.0-34.0); MCHC 32.3 g/dL (28.0-37.0); MCV 93.9 fL (80.0-100.0); MONOCYTES 12.9 % (1.0-8.0); PLATELET COUNT 163 thou/uL (150-400); POLYS 66.4 % (36.0-66.0); RDW 13.9 % (10.5-14.5); WBC 6.9 thou/uL (4.0-11.0)
[2020-11-14 15:55] LABS: ANION GAP 8 mmol/L (7-16); BUN 64 mg/dL (7-18); CALCIUM 8.8 mg/dL (8.5-10.1); CHLORIDE 105 mmol/L (98-107); CO2 27 mmol/L (21-32); CREATININE 2.4 mg/dL (0.6-1.0); GLUCOSE 219 mg/dL (74-106); POTASSIUM 5.6 mmol/L (3.5-5.1); SODIUM 140 mmol/L (136-145)
[2020-11-14 16:01] LABS: PROTIME 10.6 Seconds (9.3-11.4)
[2020-11-14 16:05] LABS: ALBUMIN 2.8 g/dL (3.4-5.0); SGOT 9 U/L (15-37); SGPT 15 U/L (30-65); TOTAL BILIRUBIN 0.2 mg/dL (0.2-1.0); TOTAL PROTEIN 6.6 g/dL (6.4-8.2); TROPONIN-I <0.06 ng/mL (<0.06)
[2020-11-14 16:49] LABS: URINE BILIRUBIN NEGATIVE (Negative); URINE BLOOD TRACE (Negative); URINE CLARITY SL CLOUDY; URINE COLOR YELLOW; URINE GLUCOSE-RANDOM* NEGATIVE (Negative); URINE KETONES NEGATIVE (Negative); URINE NITRITE-REFLEX NEGATIVE (Negative); URINE PROTEIN (DIPSTICK) 1+ (Negative); URINE SPECIFIC GRAVITY 1.015 (1.005-1.035); URINE UROBILINOGEN 0.2 E.U./dl (0.2-1.0)
[2020-11-14 16:51] LABS: URINE LEUKOCYTES-REFLEX 2+ (Negative)
[2020-11-14 17:00] LABS: BACTERIA-REFLEX >30 Many /HPF (None Seen); CASTS None Seen /LPF (None Seen); CRYSTALS None Seen /LPF (None Seen); SQUAMOUS 0-3 Few /LPF (0-3); URINE RBC 0-2 Rare /HPF (0-2); URINE WBC-REFLEX >25 Many /HPF (0-5)
[2020-11-14] MEDS ORDERED: DULCOLAX STOOL100 M1 PO (17:22)
[2020-11-14] MEDS ORDERED: MUCINEX600 MG PO (17:23)
[2020-11-14] MEDS ORDERED: TORSEMIDE20 MG PO (17:27)
[2020-11-14 18:16] VITALS: BP 170/50
[2020-11-14 19:00] VITALS: BP 170/50
[2020-11-14 19:33] VITALS: BP 161/54
[2020-11-15 06:19] LABS: ABSOLUTE NEUTROPHILS 5.6 thou/uL (1.4-8.2); BASOPHILS 0.4 % (0.0-2.0); EOSINOPHILS 0.9 % (0.0-3.0); HEMATOCRIT 21.3 % (37.0-47.0); LYMPHOCYTES 12.6 % (24.0-44.0); MCV 93.9 fL (80.0-100.0); MONOCYTES 14.7 % (1.0-8.0); PLATELET COUNT 156 thou/uL (150-400); POLYS 71.4 % (36.0-66.0); RBC 2.27 mil/uL (4.20-5.00); RDW 13.7 % (10.5-14.5); WBC 7.9 thou/uL (4.0-11.0)
[2020-11-15 06:45] LABS: CALCIUM 9.7 mg/dL (8.5-10.1); CREATININE 2.1 mg/dL (0.6-1.0); MAGNESIUM 1.7 mg/dL (1.8-2.4); POTASSIUM 5.6 mmol/L (3.5-5.1)
--- NOTE | 2020-11-15 07:18 | EKG ---
[address] [employer] [place] [address] ELECTROCARDIOGRAM REPORT Name: AMARILIS RAMOSEWELINA Clement Room #: 462-P [facility] IN ..#: [id number] Admission: 11/14/20 Attend Phys: Herrera Travis MD Discharge: Date of : 38 Report #: [id number] [facility] ED Test Date: 2020-11-14 Test Time: 15:22:04 Pat Name: SIN RAMOS Department: Room: 462 Gender: F Char Puller: devaughn : 1940 Requested By: Leti Santiago Order Number: [id number] MD: Oscar Monroy Measurements Intervals [place] Rate: 80 P: 61 VT: 214 QRS: -46 QRSD: 118 T: 29 QT: 385 QTc: 445 Interpretive Statements Sinus rhythm Borderline prolonged VT interval Probable left atrial enlargement Left anterior fascicular block Left ventricular hypertrophy Anterior Q waves, possibly due to LVH Compared to ECG 06/25/2020 15:06:32 Left anterior fascicular block now present Q waves now present Intraventricular conduction delay no longer present Poor R-wave progression no longer present Electronically Signed On 11-15-2020 7:18:18 [facility] by Oscar Monroy [email or web address] <ELECTRONICALLY SIGNED> By: Oscar Monroy MD, FACC 11/15/20 0718 1522 1522 Oscar Monroy MD, [facility] /EPI
[2020-11-15 07:38] VITALS: BP 176/78
--- NOTE | 2020-11-15 10:52 | NUR ---
WOUND CONSULT; THE LEFT HEEL HAS A STABLE BLISTER APPROX 4.0 X 4.0 X 0. CURRENTLY IT IS BEING OFFLOADED WITH A PILLOW. NO OTHER AREAS OF CONCERNS. RECOMMENDATIONS; -ORDER A PRAFO BOOT -TURN Q2H -LOW AIRLOSS BED PUMP -PAINT WOUND WITH BETADINE DAILY, LEAVE MARTHA FOR NOW. DISCUSSED WITH SNOW
--- NOTE | 2020-11-15 14:17 | NUR ---
Sp with RN and dtr. Patient resides with dtr in home in [place]. Dtr and patient have been living at [facility] [address] Verified PCP. Dtr reports she wants patient to dc home. Patient with hx of acute rehab at [facility]. Dtr reports they rec [facility] in past. However [facility] only [place]. Once fire [place] moved [place] [facility] could no longer see patient. Although patient weak dtr reports due to COVID no plan for skilled care. Patient A/Ox3 in home setting. Dtr reports when in hospital she can be more off with mentation. Patient utilizes [facility] at home. She can transfer herself to/from. DC digital media planner to inquire into HH agecy. Dtr with no preference. [facility] following
--- NOTE | 2020-11-15 14:55 | NUR ---
FAXED REFERRAL TO [facility] SPOKE WITH JOSEPH IN INTAKE SHE RECEIVED REFERRAL AND WILL ACCEPT AT DISCHARGE.
[2020-11-15 17:04] VITALS: BP 153/62
--- NOTE | 2020-11-15 19:42 | NUR ---
PT A&OX4, VSS, DENIES PAIN. PATIENT HAS HEALING SCAB WOUND LEFT HORVATH AND BOGGY BLISTERED HEEL. PRAFO BOOT ORDERED, IODINE PLACED ON LEFT HEEL. PATIENT UP WITH PT/OT. PATIENT HAS PROSTHESIS HERE WITH HER. PATIENT UP TO RECLINER TODAY. PATIENT EATING AND DRINKING WITHOUT ISSUE. NO SIGNS OF DISTRESS. WILL CONTINUE TO MONITOR.
[2020-11-15 20:15] VITALS: BP 174/75
[2020-11-16 05:21] LABS: MCHC 32.8 g/dL (28.0-37.0)
[2020-11-16 05:24] LABS: HEMATOCRIT 19.5 % (37.0-47.0); MCV 94.7 fL (80.0-100.0); RBC 2.06 mil/uL (4.20-5.00); RDW 13.8 % (10.5-14.5); WBC 5.4 thou/uL (4.0-11.0)
[2020-11-16 05:26] LABS: HEMOGLOBIN 6.4 gm/dL (12.0-15.0)
[2020-11-16 05:43] LABS: ALBUMIN 2.5 g/dL (3.4-5.0); CALCIUM 9.2 mg/dL (8.5-10.1); CREATININE 2.3 mg/dL (0.6-1.0); PHOSPHORUS 4.1 mg/dL (2.6-4.7)
--- NOTE | 2020-11-16 05:54 | NUR ---
VSS-AFEBRILE. LUNGS CLEAR-ROOM AIR. RESTED WELL THROUGH NIGHT WITH FEW NEEDS. NO C/O PAIN. SNACK AT BEDTIME, TOLERATED WELL WITH NO REPORTED N/V. HGB/HCT CRITICAL THIS AM, RESULTS CALLED TO Al BURNETTE, AWAITING ORDERS. ASSISTED TO TURN EVERY TWO HOURS OVERNIGHT. FALL PRECAUTIONS IN PLACE, CALLS APPROPRIATELY FOR ANY NEEDED ASSISTANCE.
[2020-11-16 06:09] LABS: POTASSIUM 6.3 mmol/L (3.5-5.1)
[2020-11-16 07:54] VITALS: BP 171/67
[2020-11-16 11:06] VITALS: BP 167/60; BP 174/74
--- NOTE | 2020-11-16 11:15 | NUR ---
WOUND CARE F/U; THE LEFT HEEL BLISTER REMAINS STABLE. EMPLOYING A PRAFO BOOT. THE PERIWOUND IS WNL. NO S/S OF INFECTION. THE PATIENT RESPONDS AND IS PLEASANT AND COOPERATIVE. RECOMMENDATIONS; CONTINUE CURRENT ORDERS. RN PRESENT
[2020-11-16 15:48] VITALS: BP 174/74
[2020-11-16 17:54] LABS: HEMATOCRIT 30.2 % (37.0-47.0)
[2020-11-16 17:55] LABS: HEMOGLOBIN 10.2 gm/dL (12.0-15.0)
--- NOTE | 2020-11-16 20:18 | NUR ---
Assumed pt care this am, was received with a Hgb of 6.4 and K of 6.3, labs received at 02:50, night nurse had advised night POURING CRANE OPERATOR who inturn mentioned that actions are to be taken by am . Informed Dr. Travis, 1 unit of PRBC given with no adverse reactions noted. Daughter request the sliding scale not be followed and insulin not given unless blood sugar is 250 and up. POC followed with no signs or verbalizarions of distress noted. Endorsed to the night nurse.
--- NOTE | 2020-11-17 05:14 | NUR ---
VSS-AFEBRILE. LUNGS CLEAR-ROOM AIR. C/O GENERALIZED ALL OVER BODY PAIN, RELIEVED WITH PO ULTRAM. INCONTINENT MULTIPLE TIMES OF DARK BROWN WATERY STOOL, AND URINE. PLACED PURE WICK EXTERNAL CATHETER FOR COMFORT. TURNED AND OFFERED ORAL HYDRATION EVERY TWO HOURS FOR COMFORT. FALL PRECAUTIONS IN PLACE.
[2020-11-17 06:59] LABS: HEMATOCRIT 26.8 % (37.0-47.0); HEMOGLOBIN 8.8 gm/dL (12.0-15.0); MCH 30.5 pg (26.0-34.0); MCV 92.6 fL (80.0-100.0); RBC 2.89 mil/uL (4.20-5.00); RDW 13.8 % (10.5-14.5); WBC 6.4 thou/uL (4.0-11.0)
[2020-11-17 07:18] LABS: ALBUMIN 2.6 g/dL (3.4-5.0); CALCIUM 9.6 mg/dL (8.5-10.1); CREATININE 2.2 mg/dL (0.6-1.0); PHOSPHORUS 3.3 mg/dL (2.6-4.7); POTASSIUM 4.8 mmol/L (3.5-5.1)
[2020-11-17 07:53] VITALS: BP 157/69
--- NOTE | 2020-11-17 15:49 | NUR ---
Assumed pt care at 7am.Pt in bed sleeping on and off.Assessment completed.vss. Am meds given and well tolerated.Pt refuse one of the scheduled med this morning but took it when dtr came to visit at lunch time.Drt wanted insulin given only when blood sugar greater than 250.Will notify the doctor.Assisted pt with tray setup and feeding.Fair appetite noted.Will continue to monitor.
[2020-11-17 16:02] VITALS: BP 139/59
[2020-11-17 19:53] VITALS: BP 165/75
--- NOTE | 2020-11-18 03:29 | NUR ---
VSS-AFEBRILE. LUNGS CLEAR-ROOM AIR. RESTED WELL THROUGH NIGHT WITH FEW NEEDS. OCCASIONAL INCONTINENCE OF URINE. FALL PRECAUTIONS IN PLACE, CALLS APPROPRIATELY FOR ANY NEEDED ASSISTANCE.
[2020-11-18 05:15] LABS: CALCIUM 9.2 mg/dL (8.5-10.1); CREATININE 2.7 mg/dL (0.6-1.0); POTASSIUM 4.4 mmol/L (3.5-5.1)
[2020-11-18 05:24] LABS: HEMATOCRIT 25.7 % (37.0-47.0); HEMOGLOBIN 8.6 gm/dL (12.0-15.0); MCH 30.6 pg (26.0-34.0); MCHC 33.3 g/dL (28.0-37.0); RBC 2.8 mil/uL (4.20-5.00); WBC 4.9 thou/uL (4.0-11.0)
[2020-11-18 08:25] VITALS: BP 156/84
[2020-11-18 15:46] VITALS: BP 160/72
--- NOTE | 2020-11-18 20:16 | NUR ---
Assumed pt care this am, VS stable Q2. External FC in place draining light yellow urine. POC followed with no signs or verbalizations of distress noted., VS stable, refused insulin if blood sugar is less than 250, daughter at the bedside. Pt is a set up, hydration and small frequent meals done. Edorsed to the night nurse.
[2020-11-18 21:25] VITALS: BP 152/60
--- NOTE | 2020-11-19 03:22 | NUR ---
ASSUMED PT CARE AT SHIFT CHANGE. PT IS A&OX4. PT SLEEPS FOR MAJORITY OF THE SHIFT BUT IS AROUSABLE. PT IS ON ROOM AIR / HER LUNG SOUNDS ARE DIMINISHED. PT TAKES MEDICATION WHOLE. PT REFUSED TO BE PRICKED FOR INSULIN / PT ALSO REFUSED INSULIN AND SAID THAT HER DOCTOR WAS SUPPOSED TO STOP THIS ORDER. PT HAS A RIGHT FOREARM IV SALINE LOCKED. PT HAS A RIGHT BKA. ENCOURAGED PT TO DRINK FLUIDS. Q2 TURNS PERFORMED. HOURLY ROUNDING PERFORMED ON PT. WILL CONITNUE TO MONITOR.
[2020-11-19 06:15] LABS: HEMATOCRIT 24.7 % (37.0-47.0); HEMOGLOBIN 8.2 gm/dL (12.0-15.0); MCH 30.8 pg (26.0-34.0); MCHC 33.4 g/dL (28.0-37.0); MCV 92.2 fL (80.0-100.0); RBC 2.67 mil/uL (4.20-5.00); RDW 13.9 % (10.5-14.5); WBC 5.6 thou/uL (4.0-11.0)
[2020-11-19 06:37] LABS: CALCIUM 8.8 mg/dL (8.5-10.1); CREATININE 2.9 mg/dL (0.6-1.0); POTASSIUM 3.8 mmol/L (3.5-5.1)
[2020-11-19 07:24] VITALS: BP 157/70
[2020-11-19 11:43] VITALS: BP 157/70
--- NOTE | 2020-11-19 13:10 | NUR ---
ASSUMED PT CARE THIS AM. PT CALLS APPROPRIATELY WHEN NEEDED. FALL PRECAUTIONS IN [;AGUILA. IV PATENT, MEDS TAKEN AND INFUSED WELL WITHOUT COMPLAINT. FEMALE EXTERNAL CATHETER IN PLACE. NO COMPLAINTS OF PAIN. PT BEING REPOSITIONED APPROPRIATELY.
--- NOTE | 2020-11-19 13:43 | NUR ---
PT EVALUATED FOR 5N REHAB AND DETERMINED TO BE APPROPRIATE FOR HOME WITH HH. PT AND FAMILY IN AGREEMENT WITH THIS PLAN.
[2020-11-19] MEDS ORDERED: PROTONIX40 M4 PO (14:09)
[2020-11-19] MEDS ORDERED: KEFLEX500 M1 PO (14:10)
[2020-11-19 15:44] VITALS: BP 131/62
--- NOTE | 2020-11-19 16:23 | NUR ---
CM SPOKE WITH PT'S DTR THIS AM. SHE INDICATED THAT PREFERENCE FOR PT TO RETURN TO THE HOTEL UPON DC WITH HH SERVICES. [facility] CAN ACCEPT PT AND ORDERS HAVE BEEN FAXED. PT'S DTR PROVIDED TRANSPORT HOME THIS DAY. NO OTHER CM INTERVENTION INDICATED. CASE CLOSED.
--- NOTE | 2020-11-19 17:02 | NUR ---
PT DISCHARGING TODAY TO HOME WITH [facility] FAXED DC ORDERS/SUMMARY RECEIVED CONFIRMATION AND SPOKE WITH JOSEPH IN ADM SHE WILL ARRANGE VISITS WITH PT.
--- NOTE | 2020-11-21 11:31 | HC ---
[facility] [place] [address] CONSULTATION Name: SIN RAMOS Urbano Room #: 462-P [facility] .R.#: [id number] Admission: 11/14/20 Attend Phys: Herrera Travis MD Discharge: 11/19/20 Date of : 36 Report #: [id number] THIS REPORT FOR: cc: Alex Carreon Dimitri DO McElhinney, Christian C. MD ~ DATE OF SERVICE: 11/17/2020 HISTORY OF PRESENT ILLNESS: The patient is an 79-year-old female with multiple medical problems including history of iron deficiency anemia requiring EPO. She was feeling weak in general, was noted to have hemoglobin of 7.5 from her primary physician's office. Hemoglobin here dropped to 6.4. She was transfused 1 unit of packed cells. Most recent hemoglobins have been 10.2 yesterday and 8.8. She reports a long history of dark black stools; however, she has been taking oral iron for a long period of time. She denies any abdominal pain. She denies any nausea or vomiting. She does report some heartburn symptoms at times. She takes sodium bicarbonate at home on a p.r.n. basis. She denies any other antacids in general. She denies any dysphagia. She is unsure if she has ever had an upper endoscopy. I looked back through the computer. Her last upper endoscopy was performed in 10/2019 showing mild gastritis, a few erosions, no active bleeding and a duodenal diverticulum. At that time, she was taking Zantac. We switched her to PPI therapy. It does not look like she has been on PPI therapy recently. She has had a previous history of colon cancer, status post resection. Last colonoscopy, apparently in 2018. She states her bowel movements have been fairly normal, somewhat constipation at times. Denies any diarrhea. She does take some Motrin on a p.r.n. basis. She has had multiple hospitalizations over the years. Currently, denies any abdominal pain. No fevers or chills. No chest pain or shortness of breath. PAST MEDICAL HISTORY: Recurrent urinary tract infection; chronic anemia, on EPO; diabetes; hypertension; coronary artery disease; history of peripheral vascular disease, status post stent placement; previous history of right xufpt-gjk-ypqv amputation; hypothyroidism; colon cancer, status post resection; history of pyelonephritis; congestive heart failure; chronic renal insufficiency; glaucoma; hypothyroidism; hypercholesterolemia. REVIEW OF SYSTEMS: As per HPI. SOCIAL HISTORY: Denies any tobacco or alcohol use. FAMILY HISTORY: Negative for colon cancer. MEDICATIONS: On admission, trazodone, metoprolol, Combigan eyedrops, iron orally, Claritin, sodium bicarbonate, Tylenol p.r.n., MiraLax p.r.n., docusate, Mucinex, furosemide, Xalatan. [address] [address] CONSULTATION Name: SIN RAMOS Room #: 462[id number] Admission: 11/14/20 Attend Phys: Herrera Travis MD Discharge: 11/19/20 Date of : 38 Report #: [id number] PHYSICAL EXAMINATION: VITAL SIGNS: Temperature is 36.6, blood pressure 157/69, respiratory rate 17, pulse 83. GENERAL: She is alert and oriented x 3, in no acute distress. HEENT: Sclerae nonicteric. Oropharynx clear. NECK: Supple, without lymphadenopathy. CARDIOVASCULAR: Regular rate and rhythm. CHEST: Clear to auscultation anteriorly bilaterally. ABDOMEN: Soft. She is nontender, nondistended, normoactive bowel sounds. EXTREMITIES: No cyanosis, clubbing or edema. Right vjmmp-vzz-lpwi amputation, well healed. LABORATORY DATA: WBC 6.4, hemoglobin 8.8, platelet count is 163. INR 1.0. Sodium 137, potassium 4.8, chloride 104, bicarbonate 25, BUN 46, creatinine 2.2, glucose 149, calcium 9.6, phosphorus 3.3, magnesium 1.7, iron 57, TIBC 206, percent sat is 28, ferritin 212, total bilirubin 0.2, AST 9, ALT 15, alkaline phosphatase 85. BNP 5506, albumin 2.6. ASSESSMENT AND PLAN: Anemia. The patient with a history of chronic anemia, is on EPO, suspect due to chronic renal insufficiency. She does have black stools; however, she has been taking oral iron. She has undergone an EGD and a colonoscopy in the last 2 years. Upper endoscopy showing mild gastritis with a few erosions, no signs of bleeding at that time. I would recommend switching from sodium bicarbonate to PPI therapy. We will also Hemoccult test stools here. If signs of active bleeding, may need to consider repeat endoscopy at that point. We will continue to monitor hemoglobin closely. Thank you for allowing me to participate in her care. <ELECTRONICALLY SIGNED> By: Elvis Lawson MD 11/21/20 1131 1153 1446 Elvis Lawson MD /nt
== END 2020-11-19 17:19 | disposition home health service (06) | DRG 291 ==
LOC: ER 15:02 → EROBS 17:32 → 4W 17:32
PROVIDERS: Emergency Medicine; Hospitalist; Internal Medicine Nephrology; Nurse Practitioner; ADMIT Hospitalist; ATTEND Hospitalist
PROC: 30233N1 Transfusion of Nonautologous Red Blood Cells into Peripheral Vein, Percutaneous Approach (ICD-10-PCS; principal; 2020-11-14)
DX: I13.0 Hypertensive heart and chronic kidney disease with heart failure and stage 1 through stage 4 chronic kidney disease, or unspecified chronic kidney disease (principal); E43 Unspecified severe protein-calorie malnutrition; N39.0 Urinary tract infection, site not specified; F03.91 Unspecified dementia, unspecified severity, with behavioral disturbance; K92.1 Melena; N17.9 Acute kidney failure, unspecified; D64.9 Anemia, unspecified; E87.5 Hyperkalemia; E03.9 Hypothyroidism, unspecified; E78.00 Pure hypercholesterolemia, unspecified; I50.9 Heart failure, unspecified; E11.22 Type 2 diabetes mellitus with diabetic chronic kidney disease; E11.51 Type 2 diabetes mellitus with diabetic peripheral angiopathy without gangrene; I25.10 Atherosclerotic heart disease of native coronary artery without angina pectoris; E78.5 Hyperlipidemia, unspecified; G47.00 Insomnia, unspecified; N18.30 Chronic kidney disease, stage 3 unspecified; Z20.822 Contact with and (suspected) exposure to COVID-19; Z89.511 Acquired absence of right leg below knee; Z90.49 Acquired absence of other specified parts of digestive tract; Z85.038 Personal history of other malignant neoplasm of large intestine; Z79.84 Long term (current) use of oral hypoglycemic drugs; Z79.899 Other long term (current) drug therapy; Z88.8 Allergy status to other drugs, medicaments and biological substances; Z91.018 Allergy to other foods; Z68.26 Body mass index [BMI] 26.0-26.9, adult
CPT/HCPCS: 10040

== ENCOUNTER 2021-01-13 14:42 | Emergency (ER) | payer OTHER ==
[~2021-01-13] VITALS: Ht 154.9 cm; Wt 59.0 kg
--- NOTE | ~2021-01-13 | EMS ---
[address] [address] EMS Patient Care Report Name: AMARILIS RAMOSEWELINA Clement Room #: DEP BRYAN Joy#: [id number] Admission: 01/13/21 Attend Phys: Discharge: 01/13/21 Date of : 38 Report #: [id number] THIS REPORT FOR: //name// Report Transmitted: 01/13/2021 15:59 EMS Care Summary [facility] MED-ACT Incident [id number] @ 01/13/2021 14:03 Incident Location [address] [place] [address] Patient SIN RAMOS Female, 80 Years 1940 Patient Address [address] [place] [address] Patient History Dementia,Diabetes,Chronic Kidney Disease, Patient Allergies Iron, Patient Medications Other, Chief Complaint Leg Pain Disposition Transported No Lights/[place] Dispatch Reason Falls Transported To [facility] Narrative Dispatched to a Hotel for a C-3 Sick Patient. [facility] [address] [place] [address] EMS Patient Care Report Name: SIN RAMOS Room #: [id number] Admission: 01/13/21 Attend Phys: Discharge: 01/13/21 Date of : 38 Report #: [id number] Upon arrival we find the patient sitting in a wheel chair in her room her daughter. She appears in no apparent distress. The patient has a prosthetic right lower leg below her right knee. Where she has had her leg amputated she has been having pain for the last 3 days. The patient states that the pain is present when she tries to walk or transfer. She denies any recent falls or trauma. The patient has no other complaints of pain or symptoms. Vitals Assessed, PMH, Physical Exam, the patient is assisted onto the cot and moved to the ambulance for transport. The patient's condition remains unchanged and her vital signs are stable during transport. Initial Vitals @14:33P: 86,R: 16,BP: 164/68,GCS: 15,SpO2: 99,Revised Trauma: 12, @14:26P: 85,R: 16,BP: 168/80,Pain: 0/10,GCS: 15,Temp: 97.8F,SpO2: 99,Revised Trauma: 12, Assessments @14:17MENTAL:Person Oriented,Time Oriented,Place Oriented,Event Oriented,SKIN:HEENT:Head/Face: No Abnormalities,LUNG SOUNDS:ABDOMEN:PELVIS//GI:EXTREMITIES:Right Leg: Other,PULSE:NEURO:No Abnormalities, Impression Pain (Non-Traumatic) Procedures @PTASurgical Mask on PatientResponse: Unchanged Timeline INTELLIGENCE ANALYST,Surgical Mask on Patient,Response: Unchanged 14:01,Call Received 14:01,Psap Call 14:03,Dispatched 14:03,En Route 14:12,On Scene 14:17,At Patient 14:25,Depart Scene 14:26,BP: 168/80 M,PULSE: 85,RR: 16 R,SPO2: 99 Ox,ETCO2: ,BG: ,PAIN: 0,GCS: 15, 14:33,BP: 164/68 M,PULSE: 86,RR: 16 R,SPO2: 99 Ox,ETCO2: ,BG: ,PAIN: ,GCS: 15, 14:36,At Destination 14:49,Call Closed Disclaimer v1.1 Copyright 2020 [employer] [facility] [address] [place] [address] EMS Patient Care Report Name: LON RAMOSN Urbano Room #: DEP Rufino#: [id number] Admission: 01/13/21 Attend Phys: Discharge: 01/13/21 Date of : 38 Report #: [id number] This EMS Care Summary contains data elements from the applicable legal record (which may be displayed differently). It is designed to provide pertinent information for the following purposes: continuity of care, clinical quality, and state data reporting. The complete legal record is available to ED staff and administrators of the receiving hospital in [facility]'s Patient Tracker. All data is provided "as is."
[~2021-01-13 14:42] MED LIST changes: +DULCOLAX STOOL100 M1 PO; +PROTONIX40 M4 PO
[2021-01-13] MEDS ORDERED: NORCO5 PO (15:38)
[2021-01-13 16:17] VITALS: BP 142/77
== END 2021-01-13 16:57 | disposition home or self-care (01) ==
LOC: ER 14:42
DX: M25.461 Effusion, right knee (principal); E03.9 Hypothyroidism, unspecified; E78.5 Hyperlipidemia, unspecified; E11.22 Type 2 diabetes mellitus with diabetic chronic kidney disease; I13.0 Hypertensive heart and chronic kidney disease with heart failure and stage 1 through stage 4 chronic kidney disease, or unspecified chronic kidney disease; N18.30 Chronic kidney disease, stage 3 unspecified; I50.9 Heart failure, unspecified; Z79.899 Other long term (current) drug therapy; Z88.8 Allergy status to other drugs, medicaments and biological substances; Z91.041 Radiographic dye allergy status; Z91.018 Allergy to other foods

== ENCOUNTER 2021-01-14 18:34 | Inpatient (IN) | payer OTHER ==
[~2021-01-14] VITALS: Ht 154.9 cm; Wt 75.0 kg
--- NOTE | ~2021-01-14 | EMS ---
[address] [address] EMS Patient Care Report Name: SIN RAMOS Room #: REG BRYAN Joy#: [id number] Admission: 01/14/21 Attend Phys: Discharge: Date of : 38 Report #: [id number] THIS REPORT FOR: //name// Report Transmitted: 01/14/2021 20:41 EMS Care Summary [facility] MED-ACT Incident [id number] @ 01/14/2021 18:00 Incident Location [address] [place] [address] Patient SIN RAMOS Female, 80 Years 1940 Patient Address [address] [place] [address] Patient History Dementia,Diabetes,Chronic Kidney Disease, Patient Allergies Iron, Patient Medications Other, Chief Complaint generalized weakness Disposition Transported No Lights/[place] Dispatch Reason Sick Person Transported To [facility] Narrative Arrived on scene to find the pt sitting on the toilet. Family member in attendance. OPFD providing care. [address] [address] EMS Patient Care Report Name: SIN RAMOS [id number] Admission: 01/14/21 Attend Phys: Discharge: Date of : 38 Report #: [id number] Pt reports generalized weakness over the last 2-3 days that has progressively gotten worse. Pt reports difficulty urinating and constant feeling to urinate. Family member suspects UTI. Family member states the pt just had knee surgery yesterday but was not evaluated for an UTI. Pt denies pain, discomfort, nausea, vomiting, dizziness or shortness of breath. Exam, pt is assisted to her feet by EMS, pivots and sits on a wheelchair. Wheelchair to cot. Pt is then secured to the cot and taken to the ambulance without incident. En route, no changes in complaint or presentation. Biocom given. Pt is assisted to her feet by EMS and moved to a wheelchair in triage. Verbal report given. Initial Vitals @18:24P: 93,BP: 158/68,SpO2: 90, @18:14P: 85,R: 18,BP: 144/70,Pain: 0/10,GCS: 15,Temp: 97.4F,SpO2: 94,Revised Trauma: 12, Assessments @18:10MENTAL:Person Oriented,Time Oriented,Place Oriented,Event Oriented,SKIN:HEENT:Head/Face: No Abnormalities,Neck/Airway: No Abnormalities,LUNG SOUNDS:General: No Abnormalities,ABDOMEN:General: No Abnormalities,PELVIS//GI:EXTREMITIES:Left Arm: No Abnormalities,Right Arm: No Abnormalities,Left Leg: No Abnormalities,Right Leg: No Abnormalities,PULSE:NEURO:No Abnormalities, Impression Generalized Weakness Procedures @PTASurgical Mask on PatientResponse: Unchanged Timeline WIREWORKER,Surgical Mask on Patient,Response: Unchanged 17:47,Call Received 17:47,Psap Call 18:00,Dispatched 18:01,En Route 18:03,On Scene 18:05,At Patient 18:14,BP: 144/70 M,PULSE: 85,RR: 18 R,SPO2: 94 Ox,ETCO2: ,BG: ,PAIN: 0,GCS: 15, 18:15,Depart Scene 18:24,BP: 158/68 M,PULSE: 93,RR: R,SPO2: 90 Ox,ETCO2: ,BG: ,PAIN: ,GCS: , 18:26,At Destination 18:46,Call Closed [facility] [address] [place] [address] EMS Patient Care Report Name: SIN RAMOS [id number] Admission: 01/14/21 Attend Phys: Discharge: Date of : 38 Report #: [id number] Disclaimer v1.1 Copyright 202 [employer] This EMS Care Summary contains data elements from the applicable legal record (which may be displayed differently). It is designed to provide pertinent information for the following purposes: continuity of care, clinical quality, and state data reporting. The complete legal record is available to ED staff and administrators of the receiving hospital in [employer]'s Patient Tracker. All data is provided "as is."
[~2021-01-14 18:34] MED LIST changes: +NORCO5 PO
[2021-01-14 19:06] VITALS: BP 148/55
[2021-01-14 21:38] LABS: URINE BILIRUBIN NEGATIVE (Negative); URINE BLOOD 2+ (Negative); URINE CLARITY TURBID; URINE COLOR YELLOW; URINE GLUCOSE-RANDOM* NEGATIVE (Negative); URINE KETONES NEGATIVE (Negative); URINE LEUKOCYTES-REFLEX 2+ (Negative); URINE NITRITE-REFLEX NEGATIVE (Negative); URINE PROTEIN (DIPSTICK) 1+ (Negative); URINE UROBILINOGEN 0.2 E.U./dl (0.2-1.0)
[2021-01-14 21:43] LABS: BACTERIA-REFLEX >30 Many /HPF (None Seen); SQUAMOUS 0-3 Few /LPF (0-3); URINE WBC-REFLEX >25 Many /HPF (0-5); WBC CLUMPS Packed (None Seen)
[2021-01-14 21:44] LABS: CASTS None Seen /LPF (None Seen); CRYSTALS None Seen /LPF (None Seen); MUCUS 0-3 Light strn/LPF (None Seen)
[2021-01-14 21:48] LABS: ABSOLUTE NEUTROPHILS 4.6 thou/uL (1.4-8.2); BASOPHILS 0.7 % (0.0-2.0); EOSINOPHILS 1.6 % (0.0-3.0); HEMOGLOBIN 8.1 gm/dL (12.0-15.0); LYMPHOCYTES 16.2 % (24.0-44.0); MCH 30.5 pg (26.0-34.0); MCHC 32.5 g/dL (28.0-37.0); MCV 93.9 fL (80.0-100.0); PLATELET COUNT 134 thou/uL (150-400); POLYS 65.5 % (36.0-66.0); RBC 2.66 mil/uL (4.20-5.00); RDW 15.2 % (10.5-14.5); WBC 7.1 thou/uL (4.0-11.0)
[2021-01-14 21:57] LABS: CALCIUM 8.6 mg/dL (8.5-10.1); CREATININE 3.1 mg/dL (0.6-1.0); POTASSIUM 4.9 mmol/L (3.5-5.1)
[2021-01-14 22:04] LABS: ALBUMIN 2.9 g/dL (3.4-5.0); TOTAL BILIRUBIN 0.2 mg/dL (0.2-1.0); TOTAL PROTEIN 6.7 g/dL (6.4-8.2)
[2021-01-15 00:40] VITALS: BP 156/65
[2021-01-15 00:53] VITALS: BP 152/71
[2021-01-15] MEDS ORDERED: PROTONIX40 M2 PO (01:03)
[2021-01-15] MEDS ORDERED: IRON325 PO (01:06)
[2021-01-15 05:43] LABS: HEMATOCRIT 23.2 % (37.0-47.0); HEMOGLOBIN 7.5 gm/dL (12.0-15.0); MCH 30.6 pg (26.0-34.0); MCHC 32.4 g/dL (28.0-37.0); MCV 94.6 fL (80.0-100.0); RBC 2.45 mil/uL (4.20-5.00); RDW 15.1 % (10.5-14.5); WBC 4.8 thou/uL (4.0-11.0)
[2021-01-15 05:53] LABS: CALCIUM 8.4 mg/dL (8.5-10.1); CREATININE 2.7 mg/dL (0.6-1.0); POTASSIUM 4.1 mmol/L (3.5-5.1)
[2021-01-15 07:15] VITALS: BP 156/51
--- NOTE | 2021-01-15 07:15 | NUR ---
Pt transferred from ED on [facility] with possessions. Admission completed with pt signing papers. VSS. assessment as charted. continue with plan of care
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
--- NOTE | 2021-01-15 13:03 | NUR ---
Assess due to notification of wound-left foot ulcer. Hx right BKA, DM, CHF, colon cancer. Advanced age 80. Was starting to eat lunch at time of visit. Did not report any concerns with appetite and feels her wt is stable around 125-130 lb usually. Has drank glucerna in past and agrees to 1x per day-will order. Low nutrition risk with appropriate nutrition interventions in place
[2021-01-15 17:00] VITALS: BP 136/50
--- NOTE | 2021-01-15 18:33 | NUR ---
Assumed pt care this am. Pt is alert & oriented. Pt is RA. Pt has IV site on R Hand. Pt is accucheck achs. Pt is incontinent and has external cath. Pt is difficult seeing and weak. Pt has R BKA with prothesis. Pt refused insulin through out the shift. Daughter was at the bedside this afternoon. Pt is up with assist x 1 and uses gaitbelt for transfer. Turn q2h. Pt has L lateral LE diabetic ulcer. Pt is on the bed, bed on the lowest position, side rails up x2, call light within reach. Follow POC. Endorse night nurse.
[2021-01-15 18:51] VITALS: BP 152/55
--- NOTE | 2021-01-16 03:43 | NUR ---
PT WAS OBSERVED LYING ON HER BED WITH HER EYES OPEN AT START OF SHIFT.PT ALERT/CONFUSED AND FORGETFUL.DRGS TO HER L HEEL WOUND C/D/I.PT REF INSULIN AT HS(BG 201).EXT FEMALE CATH IN PLACE.PT REPOSITIONED WHILE IN BED.L HEEL ELEVATED WITH A PILLOW.PT WITH R BKA.PAIN MANAGED WITH MED.PT SLEEPING ON HER BED AT THIS TIME.CALL LIGHT WTHIN REACH.
[2021-01-16 07:37] VITALS: BP 146/70
[2021-01-16 08:29] LABS: HEMOGLOBIN 6.8 gm/dL (12.0-15.0); MCH 30.3 pg (26.0-34.0)
[2021-01-16 08:30] LABS: HEMATOCRIT 21.1 % (37.0-47.0); MCHC 32.4 g/dL (28.0-37.0); MCV 93.6 fL (80.0-100.0); RBC 2.25 mil/uL (4.20-5.00); RDW 14.9 % (10.5-14.5); WBC 3.8 thou/uL (4.0-11.0)
[2021-01-16 08:33] LABS: CALCIUM 8.2 mg/dL (8.5-10.1); CREATININE 2.1 mg/dL (0.6-1.0); POTASSIUM 4.4 mmol/L (3.5-5.1)
--- NOTE | 2021-01-16 09:09 | NUR ---
[facility] ADVANCED LETTER GIVEN TO FAMILY AND WITH NOTES SEEN FROM CM GAVE A PREFERRED SKILLED LIST.
--- NOTE | 2021-01-16 10:22 | NUR ---
WOUND CONSULT; THE LEFT HEEL IS AN OLD PRESSURE INJURY THE PATIENT HAS HAD FOR SOME TIME. ITS SUPERFICIAL AND HAS NO OBVIOUS S/S OF INFECTION. THE PATIENT COMMUNICATES WELL. THE WOUND MEASURES 6 X 1.0 X 0.1 AND SOME HYPERGRANULATION IS PRESENT. CURRENTLY FLOATING THIS REMAINING EXTREMITY ON A PILLOW BUT WILL ORDER A PRAFO BOOT FOR MORE EFFECTIVE OFFLOADING. THE WOUND BED IS A HEALTHY RED. RECOMMENDATIONS; 1-XEROFORM, ABD,SECURE WITH KERLIX. 2-PRAFO BOOT. 3-TURN PATIENT Q2H. 4-LOW AIR LOSS PUMP ON AT ALL TIMES. DISCUSSED WITH SNOW
[2021-01-16 10:50] VITALS: BP 151/63
--- NOTE | 2021-01-16 11:46 | NUR ---
ON-GOING ASSESSMENT: cm reviewed chart. PT IS RECEIVING BLOOD TODAY DUE TO LOW HEMOGLOBIN. PT REMAINS ON IV ANBX. PHYSICAL THERAPY VARIANCED PATIENT THIS AM DUE TO LOW HEMOGLOBIN AND GOING TO RECEIVED BLOOD. [facility] CONSULT WAS PLACED AND THEY ARE TO EVAL PATIENT. CM WILL CONTINUE TO FOLLOW TO ASSIST NEEDED.
[2021-01-16 13:36] VITALS: BP 154/64; BP 158/62; BP 163/79; BP 166/66
--- NOTE | 2021-01-16 13:51 | NUR ---
ON-GOING ASSESSMENT: CM REVIEWED CHART AND SPOKE WITH ATTENDING. PT IS RECEIVING BLOOD TRANSFUSION DUE TO LOW HEMOGLOBIN. PT UNABLE TO WORK WITH THERAPY AT THIS TIME DUE TO RECEIVING BLOOD. [facility] CONSULT HAS BEEN PLACED AND AWAITING EVALUATION AND PENDING PT/OT. CM NOTIFIED PATIENTS DAUGHTER AND UPDATED. CM WILL CONTINUE TO FOLLOW TO ASSIST NEEDED.
[2021-01-16 15:55] VITALS: BP 168/77
--- NOTE | 2021-01-16 15:58 | NUR ---
Assumed pt care this am. Pt is alert & oriented x3, person, plac, time. Pt has R hand IV site. Pt has a feeder and external cath in place as request by pt. Pt is accucheck achs. Pt has R BKA with prothesis and L lateral lower extremity diabetic ulcer. Pt hg was 6.8. Call DPOA (daughter) for blood transfusion consent via telephone. Pt is currently receiving blood. Will continue to monitor pt. Pt on the bed, bed on the lowest position, side rails up, call light within reach. Follow POC.
[2021-01-16 19:38] LABS: HEMATOCRIT 29.5 % (37.0-47.0); HEMOGLOBIN 9.5 gm/dL (12.0-15.0)
[2021-01-16 20:15] VITALS: BP 177/61
[2021-01-16 22:00] VITALS: BP 116/76
--- NOTE | 2021-01-17 01:43 | NUR ---
ASSESSED AT START OF SHIFT. PT A&OX3 SLIGHT FORGETFUL. EVENING MEDS GIVEN AND PT SINTIA IT WELL.IV INTACT WITH FLUIDS INFUSING. PT HAS A RBKA AND PROSTHESIS BY BEDSIDE. EXT FEMALE CATH IN PLACE AND DRAINING. BSG CHECKED NO COVERAGE. FALL PREC IN PLACE AND CALL LIGHT IN REACH. HGB 9.5 WILL CONT TO MONITOR.
[2021-01-17 03:55] VITALS: BP 157/67
[2021-01-17 05:53] LABS: HEMOGLOBIN 8.2 gm/dL (12.0-15.0); MCH 30.6 pg (26.0-34.0); MCHC 32.7 g/dL (28.0-37.0); MCV 93.6 fL (80.0-100.0); RBC 2.67 mil/uL (4.20-5.00); WBC 4.5 thou/uL (4.0-11.0)
[2021-01-17 05:58] LABS: CALCIUM 7.9 mg/dL (8.5-10.1); POTASSIUM 4.7 mmol/L (3.5-5.1)
[2021-01-17 08:10] VITALS: BP 145/65
--- NOTE | 2021-01-17 13:07 | NUR ---
therapy evaled patient and recommends post acute care. sp with patient and dtr. Dtr reports patient has been at [facility] in past and prefers post acute at [facility]. Faxed referral packet. [facility] can accept. THEY can ONLY accept patient Thursday or Thursday NO weekend acceptance. Patient scheduled for her COVID vaccination on Thursday. If dc thursday [facility] will inquire if they have transport for vaccination and f/u with dtr. [facility] will need [id number] and COVID test prior to admission.
[2021-01-17 16:51] VITALS: BP 205/104
--- NOTE | 2021-01-17 18:38 | NUR ---
ASSUMED PT CARE AROUND 0715. PT ALERT X ORIENTED X3. 1-2 PERSON ASSIST. ON ROOM AIR. PT HAS RBKA AND PROSTHESIS AT BEDSIDE. HAS EXTERNAL CATHETER.IV RT HAND AND SALINE LOCKED. WOUND LEFT FOOT, DRESSING CHANGE ON //.FALL PRECAUTION IN PLACE. CALL LIGHT WITHIN REACH. WILL CONTINUE TO MONITOR.
[2021-01-17 19:24] VITALS: BP 165/66
[2021-01-17 19:28] VITALS: BP 160/68
[2021-01-18 00:29] VITALS: BP 158/58
--- NOTE | 2021-01-18 02:25 | NUR ---
ASSESSED AT START OF SHIFT PT RESTING IN BED. EVENING MEDS GIVEN AND PT SINTIA IT WELL. BSG CHECKED 84 APPLE JUICE PROVIDED. EXT CATH IN PLACE. PT INCONTINENT. IV INTACT AND SALINE LOCKED. REPOSITIONED FOR COMFORT. FALL PREC IN PLACE AND CALL LIGHT AT REACH WILL CONT TO MONITOR.
[2021-01-18 05:18] LABS: CALCIUM 7.9 mg/dL (8.5-10.1); CREATININE 1.7 mg/dL (0.6-1.0); HEMATOCRIT 26.3 % (37.0-47.0); HEMOGLOBIN 8.6 gm/dL (12.0-15.0); MCH 30.6 pg (26.0-34.0); MCHC 32.8 g/dL (28.0-37.0); MCV 93.3 fL (80.0-100.0); POTASSIUM 4.7 mmol/L (3.5-5.1); RBC 2.81 mil/uL (4.20-5.00); RDW 14.8 % (10.5-14.5); WBC 4.8 thou/uL (4.0-11.0)
[2021-01-18 07:45] VITALS: BP 181/78
--- NOTE | 2021-01-18 11:05 | NUR ---
ASSUMED PT CARE THIS AM. PT BP ELEVATED THIS AM, GIVEN BP MEDS PER EMAR. A&OX3. PT COOPERATIVE WITH STAFF AND MAKES NEEDS KNOWN. DRESSING ON LEFT FOOT C/D/I. PATIENT REMAINS INCONTINENT, FEMALE EXTERNAL CATHETER IN PLACE. ON ROOM AIR. TOOK MEDS WHOLE WITHOUT ISSUE THIS AM. IV PATENT, ANTIBIOTICS INFUSED WITHOUT ISSUE. FALL PRECAUTIONS IN PLACE.
--- NOTE | 2021-01-18 12:14 | NUR ---
reggie bernardo/israel will arrange transportation as she stated they can accept pt today to the facility. pt and her dtr, deep have been notified of transfer and are agreeable to plan. us to make chart copy. cm faxed [id number] and covid results to [phone]. rn provided number to call report [phone], [facility] [place].
[2021-01-18] MEDS ORDERED: LOPRESSOR50 PO (14:13)
[2021-01-18] MEDS ORDERED: NORVASC10 MG PO (14:13)
[2021-01-18] MEDS ORDERED: BACTRIM DS TAB1 EAC1 PO (14:14)
--- NOTE | 2021-01-18 15:01 | NUR ---
cm faxed orders and covid results and [id number] to [facility] at [phone].
[2021-01-18 16:28] VITALS: BP 143/75
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
== END 2021-01-18 19:09 | DRG 871 ==
LOC: ER 18:34 → EROBS 22:29 → 4S 22:29
PROVIDERS: Emergency Medicine; Nurse Practitioner; Nurse Practitioner Family; ADMIT Hospitalist; ATTEND Hospitalist
PROC: 30233N1 Transfusion of Nonautologous Red Blood Cells into Peripheral Vein, Percutaneous Approach (ICD-10-PCS; principal; 2021-01-16)
DX: A41.9 Sepsis, unspecified organism (principal); J18.9 Pneumonia, unspecified organism; J96.00 Acute respiratory failure, unspecified whether with hypoxia or hypercapnia; N17.0 Acute kidney failure with tubular necrosis; N39.0 Urinary tract infection, site not specified; I13.0 Hypertensive heart and chronic kidney disease with heart failure and stage 1 through stage 4 chronic kidney disease, or unspecified chronic kidney disease; R65.20 Severe sepsis without septic shock; Z20.822 Contact with and (suspected) exposure to COVID-19; E03.9 Hypothyroidism, unspecified; E78.5 Hyperlipidemia, unspecified; M25.461 Effusion, right knee; E11.51 Type 2 diabetes mellitus with diabetic peripheral angiopathy without gangrene; R53.81 Other malaise; L89.629 Pressure ulcer of left heel, unspecified stage; D50.9 Iron deficiency anemia, unspecified; E11.22 Type 2 diabetes mellitus with diabetic chronic kidney disease; E78.00 Pure hypercholesterolemia, unspecified; I50.9 Heart failure, unspecified; N18.30 Chronic kidney disease, stage 3 unspecified; Z89.511 Acquired absence of right leg below knee; Z95.820 Peripheral vascular angioplasty status with implants and grafts; Z79.4 Long term (current) use of insulin; Z85.038 Personal history of other malignant neoplasm of large intestine; Z88.8 Allergy status to other drugs, medicaments and biological substances; Z91.041 Radiographic dye allergy status; Z86.73 Personal history of transient ischemic attack (TIA), and cerebral infarction without residual deficits
CPT/HCPCS: 10102

== ENCOUNTER 2021-02-03 11:08 | Emergency (ER) | payer OTHER ==
[~2021-02-03] VITALS: Ht 157.5 cm; Wt 68.0 kg
[~2021-02-03 11:08] MED LIST changes: +BACTRIM DS TAB1 EAC1 PO; +PROTONIX40 M2 PO
[2021-02-03 12:43] LABS: CALCIUM 8.8 mg/dL (8.5-10.1); CREATININE 1.9 mg/dL (0.6-1.0); POTASSIUM 5.4 mmol/L (3.5-5.1)
[2021-02-03 16:00] VITALS: BP 154/77
--- NOTE | 2021-02-04 07:24 | EKG ---
[facility] [place] [address] ELECTROCARDIOGRAM REPORT Name: LON RAMOSN Urbano [id number] Admission: 02/03/21 Attend Phys: Discharge: 02/03/21 Date of : 36 Report #: [id number] [facility] ED Test Date: 2021-02-03 Test Time: 13:27:16 Pat Name: SIN RAMOS Department: Room: Gender: F Beater Room Helper: : 1940 Requested By: Maurice Farris Order Number: [id number] MD: Oscar Monroy Measurements Intervals [place] Rate: 87 P: 61 NH: 207 QRS: -55 QRSD: 110 T: 43 QT: 348 QTc: 419 Interpretive Statements Sinus rhythm Abnormal R-wave progression, late transition Left ventricular hypertrophy Compared to ECG 11/14/2020 15:22:04 Q waves no longer present Electronically Signed On 02-04-2021 7:24:10 CDT by Oscar Monroy [email or web address] <ELECTRONICALLY SIGNED> By: Oscar Monroy MD, [facility] 02/04/21 0724 1327 26 Oscar Monroy MD, FAC /EPI
== END 2021-02-03 16:02 ==
LOC: ER 11:08
PROVIDERS: Emergency Medicine
DX: E87.5 Hyperkalemia (principal); E03.9 Hypothyroidism, unspecified; E78.5 Hyperlipidemia, unspecified; E11.22 Type 2 diabetes mellitus with diabetic chronic kidney disease; I13.0 Hypertensive heart and chronic kidney disease with heart failure and stage 1 through stage 4 chronic kidney disease, or unspecified chronic kidney disease; N18.30 Chronic kidney disease, stage 3 unspecified; I50.9 Heart failure, unspecified; Z79.2 Long term (current) use of antibiotics; Z79.899 Other long term (current) drug therapy; Z88.8 Allergy status to other drugs, medicaments and biological substances; Z91.018 Allergy to other foods; Z91.041 Radiographic dye allergy status

== ENCOUNTER 2021-03-14 17:29 | Inpatient (IN) | payer OTHER ==
[~2021-03-14] VITALS: Ht 157.5 cm; Wt 69.9 kg
[2021-03-14 17:29] VITALS: BP 173/66
[2021-03-14 17:50] LABS: RBC 2.12 mil/uL (4.20-5.00)
[2021-03-14 17:51] LABS: ABSOLUTE NEUTROPHILS 3.5 thou/uL (1.4-8.2); BASOPHILS 0.8 % (0.0-2.0); EOSINOPHILS 1.6 % (0.0-3.0); HEMATOCRIT 20.2 % (37.0-47.0); HEMOGLOBIN 6.6 gm/dL (12.0-15.0); LYMPHOCYTES 26.2 % (24.0-44.0); MCH 31.1 pg (26.0-34.0); MCHC 32.7 g/dL (28.0-37.0); MCV 95.1 fL (80.0-100.0); MONOCYTES 12.3 % (1.0-8.0); PLATELET COUNT 186 thou/uL (150-400); POLYS 59.1 % (36.0-66.0); WBC 5.9 thou/uL (4.0-11.0)
[2021-03-14 17:58] LABS: ANION GAP 10 mmol/L (7-16); BUN 68 mg/dL (7-18); CALCIUM 8.6 mg/dL (8.5-10.1); CHLORIDE 108 mmol/L (98-107); CO2 21 mmol/L (21-32); CREATININE 2.4 mg/dL (0.6-1.0); GLUCOSE 246 mg/dL (74-106); SODIUM 139 mmol/L (136-145)
[2021-03-14 18:08] LABS: SGOT 12 U/L (15-37); SGPT 21 U/L (14-59); TOTAL BILIRUBIN 0.2 mg/dL (0.2-1.0); TROPONIN-I <0.06 ng/mL (<0.06)
[2021-03-14 18:11] LABS: URINE BILIRUBIN NEGATIVE (Negative); URINE BLOOD TRACE (Negative); URINE COLOR YELLOW; URINE GLUCOSE-RANDOM* NEGATIVE (Negative); URINE KETONES NEGATIVE (Negative); URINE NITRITE-REFLEX NEGATIVE (Negative); URINE PROTEIN (DIPSTICK) 2+ (Negative); URINE UROBILINOGEN 0.2 E.U./dl (0.2-1.0)
[2021-03-14 18:12] LABS: URINE CLARITY SL HAZY; URINE LEUKOCYTES-REFLEX 3+ (Negative)
[2021-03-14 18:15] LABS: SQUAMOUS 0-3 Few /LPF (0-3); TRANSITIONAL EPITHEL CELL 0-3 Few /LPF (None Seen)
[2021-03-14 18:16] LABS: URINE RBC 1-2 Rare /HPF (NONE SEEN)
[2021-03-14 18:17] LABS: CASTS None Seen /LPF (None Seen); CRYSTALS None Seen /LPF (None Seen)
[2021-03-14 18:18] LABS: BACTERIA-REFLEX >30 Many /HPF (None Seen)
[2021-03-14 18:34] LABS: % SATURATION 28 % (20-39); IRON 70 ug/dL (50-170); TIBC 249 ug/dL (250-450)
[2021-03-14 19:30] VITALS: BP 155/67
[2021-03-14 20:05] VITALS: BP 124/71
[2021-03-14 20:40] VITALS: BP 132/73; BP 142/71
[2021-03-14 23:17] VITALS: BP 132/73; BP 147/66; BP 152/97
[2021-03-15] MEDS ORDERED: TIMOLOL MALEATE5 ML OPHTHALMIC (00:37)
[2021-03-15] MEDS ORDERED: TUMS200 MG PO (00:39)
[2021-03-15] MEDS ORDERED: VELTASSA8.4 GM PO (00:41)
[2021-03-15] MEDS ORDERED: ONDANSETRON HCL4 M2 PO (00:43)
[2021-03-15 05:42] LABS: HEMATOCRIT 29.2 % (37.0-47.0); MCH 31.3 pg (26.0-34.0); MCV 92.1 fL (80.0-100.0); RBC 3.17 mil/uL (4.20-5.00); RDW 16.2 % (10.5-14.5); WBC 8.2 thou/uL (4.0-11.0)
[2021-03-15 05:56] LABS: HEMOGLOBIN 9.9 gm/dL (12.0-15.0)
[2021-03-15 06:04] LABS: CALCIUM 8.9 mg/dL (8.5-10.1); POTASSIUM 5.2 mmol/L (3.5-5.1)
--- NOTE | 2021-03-15 06:48 | EKG ---
[place] [address] [facility] [place] [address] ELECTROCARDIOGRAM REPORT Name: RACHELSIN L Room #: 217-P ADM IN M.R.#: [id number] Admission: 03/14/21 Attend Phys: Sara Ashley Discharge: Date of : 36 Report #: [id number] [facility] ED Test Date: 2021-03-14 Test Time: 18:39:49 Pat Name: SIN RAMOS Department: Room: [facility] Gender: F Senior Tableau Developer: EVE : 1940 Requested By: Phong Downey Order Number: [id number] MD: Oscar Monroy Measurements Intervals Snyder Rate: 74 P: 62 ID: 247 QRS: -47 QRSD: 122 T: 37 QT: 399 QTc: 443 Interpretive Statements Sinus rhythm Prolonged ID interval Nonspecific IVCD with LAD Left ventricular hypertrophy Compared to ECG 02/03/2021 13:27:16 First degree AV block now present Intraventricular conduction delay now present Electronically Signed On 03-15-2021 6:48:26 CDT by Oscar Monroy [email or web address] <ELECTRONICALLY SIGNED> By: Oscar Monroy MD, [facility] 03/15/21 0648 1839 1839 Oscar Monroy MD, [facility] /EPI
[2021-03-15 07:35] VITALS: BP 169/72
[2021-03-15 11:15] VITALS: BP 177/71
[2021-03-15 15:30] VITALS: BP 167/66
[2021-03-15 19:11] VITALS: BP 154/62
[2021-03-16 04:18] VITALS: BP 172/66
[2021-03-16 04:19] VITALS: BP 172/66
[2021-03-16 08:00] VITALS: BP 168/73
[2021-03-16 10:16] LABS: HEMATOCRIT 25.9 % (37.0-47.0); HEMOGLOBIN 8.7 gm/dL (12.0-15.0); MCH 31.1 pg (26.0-34.0); MCHC 33.6 g/dL (28.0-37.0); MCV 92.7 fL (80.0-100.0); RBC 2.79 mil/uL (4.20-5.00); RDW 16.3 % (10.5-14.5); WBC 6.9 thou/uL (4.0-11.0)
[2021-03-16 10:25] LABS: CALCIUM 8.8 mg/dL (8.5-10.1); CREATININE 1.8 mg/dL (0.6-1.0); MAGNESIUM 1.7 mg/dL (1.8-2.4); POTASSIUM 5.1 mmol/L (3.5-5.1)
[2021-03-16 12:17] VITALS: BP 149/76
[2021-03-16 16:00] VITALS: BP 134/72
[2021-03-16 20:00] VITALS: BP 149/64
[2021-03-17 04:40] LABS: HEMOGLOBIN 7.7 gm/dL (12.0-15.0); MCH 31.1 pg (26.0-34.0); MCHC 33.4 g/dL (28.0-37.0); MCV 93.1 fL (80.0-100.0); RBC 2.47 mil/uL (4.20-5.00); RDW 16.3 % (10.5-14.5); WBC 4.5 thou/uL (4.0-11.0)
[2021-03-17 04:49] LABS: CALCIUM 8.4 mg/dL (8.5-10.1); MAGNESIUM 1.7 mg/dL (1.8-2.4); POTASSIUM 5.2 mmol/L (3.5-5.1)
[2021-03-17 05:09] VITALS: BP 135/73
[2021-03-17 08:00] VITALS: BP 159/79
[2021-03-17 12:37] VITALS: BP 153/73
[2021-03-17 16:00] VITALS: BP 172/74
[2021-03-17 19:28] VITALS: BP 155/60
[2021-03-18] VITALS: BP 149/50
[2021-03-18 04:41] VITALS: BP 143/61
[2021-03-18 04:42] LABS: CALCIUM 8.2 mg/dL (8.5-10.1); CREATININE 1.9 mg/dL (0.6-1.0); MAGNESIUM 1.7 mg/dL (1.8-2.4); POTASSIUM 4.9 mmol/L (3.5-5.1)
[2021-03-18 04:54] LABS: HEMATOCRIT 22.8 % (37.0-47.0); HEMOGLOBIN 7.7 gm/dL (12.0-15.0); MCH 31.2 pg (26.0-34.0); MCHC 33.6 g/dL (28.0-37.0); MCV 92.9 fL (80.0-100.0); RBC 2.45 mil/uL (4.20-5.00); RDW 16.2 % (10.5-14.5); WBC 4.6 thou/uL (4.0-11.0)
[2021-03-18 07:40] VITALS: BP 166/57
[2021-03-18 11:25] VITALS: BP 150/75
[2021-03-18] MEDS ORDERED: KEFLEX250 MG PO (11:53)
--- NOTE | 2021-03-18 18:06 | PATH ---
[facility] [address] [place] [address] PATHOLOGY RPT PROCEDURE Name: LON RAMOSNga Clement Room #: 217-P DIS IN M.R.#: [id number] Admission: 03/14/21 Date of : 36 Discharge: 03/18/21 Report #: [id number] Path Case #: [id number] LCA Accession Number: [id number] . 01 Material submitted: . stomach - ANTRAL BX . 01 Clinical history: . R/O H.PYLORI . 02 Diagnosis: Gastric mucosa, antrum to rule out H. pylori, endoscopic biopsy: - Mild reactive gastropathy. - Negative for intestinal metaplasia or atrophy. - Negative for Helicobacter pylori (properly controlled immunohistochemical stain performed). (IUV:outbound sales executive; 03/18/2021) MBR 03/18/2021 1213 Local . 02 Electronically signed: . Michelle Bermudez MD, Pathologist NPI- [id number] . 01 Gross description: . Received in formalin labeled "Niloon, Andressa, antral biopsy rule H. pylori" are 2 fragments of faust-brown soft tissue measuring 0.6 x 0.4 x 0.3 cm and 0.5 x 0.3 x 0.2 cm. The specimen is submitted entirely in A1. ([facility]; 03/16/2021) GZA/GZA 03/16/2021 1142 Local . 02 Pathologist provided ICD-10: K31.9 . 02 CPT . 192940, [id number] Specimen Comment: A courtesy copy of this report has been sent to [phone] Specimen Comment: [phone], Specimen Comment: Report sent to ,DR LE / DR DANIELS Performed at: [address] [facility] [address], [place], [place] [id number] MD Chao Kim MD Phone: [phone] Performed at: [address] [facility] [address] [id number] MD Michelle Bermudez MD Phone: [phone]
== END 2021-03-18 16:25 | DRG 871 ==
LOC: ER 17:29 → 2N 19:21 → EROBS 19:21 → 2N 20:30
PROVIDERS: Nurse Practitioner Family; Physician Assistant; ADMIT Internal Medicine; ATTEND Internal Medicine
PROC: 30233N1 Transfusion of Nonautologous Red Blood Cells into Peripheral Vein, Percutaneous Approach (ICD-10-PCS; principal; 2021-03-14)
PROC: 0DB68ZX Excision of Stomach, Via Natural or Artificial Opening Endoscopic, Diagnostic (ICD-10-PCS; 2021-03-15)
DX: A41.9 Sepsis, unspecified organism (principal); J18.9 Pneumonia, unspecified organism; J96.00 Acute respiratory failure, unspecified whether with hypoxia or hypercapnia; K25.4 Chronic or unspecified gastric ulcer with hemorrhage; N17.0 Acute kidney failure with tubular necrosis; D62 Acute posthemorrhagic anemia; N39.0 Urinary tract infection, site not specified; I13.0 Hypertensive heart and chronic kidney disease with heart failure and stage 1 through stage 4 chronic kidney disease, or unspecified chronic kidney disease; Q39.6 Congenital diverticulum of esophagus; R65.20 Severe sepsis without septic shock; I50.9 Heart failure, unspecified; E03.9 Hypothyroidism, unspecified; E78.00 Pure hypercholesterolemia, unspecified; N18.30 Chronic kidney disease, stage 3 unspecified; E11.51 Type 2 diabetes mellitus with diabetic peripheral angiopathy without gangrene; E11.22 Type 2 diabetes mellitus with diabetic chronic kidney disease; E87.5 Hyperkalemia; K31.9 Disease of stomach and duodenum, unspecified; E78.5 Hyperlipidemia, unspecified; K44.9 Diaphragmatic hernia without obstruction or gangrene; Z20.822 Contact with and (suspected) exposure to COVID-19; Z96.651 Presence of right artificial knee joint; Z90.49 Acquired absence of other specified parts of digestive tract; Z85.038 Personal history of other malignant neoplasm of large intestine; Z86.73 Personal history of transient ischemic attack (TIA), and cerebral infarction without residual deficits; Z79.84 Long term (current) use of oral hypoglycemic drugs; Z79.899 Other long term (current) drug therapy; Z91.041 Radiographic dye allergy status; Z88.8 Allergy status to other drugs, medicaments and biological substances; Z91.018 Allergy to other foods
CPT/HCPCS: 10081; 50010; 62110; 62900; 70005

== ENCOUNTER 2021-04-04 08:57 | Inpatient (IN) | payer OTHER ==
[2021-04-04] VITALS (51 sets, daily range): BP systolic 79–184; BP diastolic 34–79
[~2021-04-04] VITALS: Ht 160 cm; Wt 87.4 kg
[~2021-04-04 08:57] MED LIST changes: +KEFLEX250 MG PO; +ONDANSETRON HCL4 M2 PO; +TIMOLOL MALEATE5 ML OPHTHALMIC; +TUMS200 MG PO
[2021-04-04 09:20] LABS: MCHC 30.5 g/dL (28.0-37.0); RBC 2.07 mil/uL (4.20-5.00); WBC 11.1 thou/uL (4.0-11.0)
[2021-04-04 09:22] LABS: MCV 101.6 fL (80.0-100.0); PLATELET COUNT 190 thou/uL (150-400); RDW 17.6 % (10.5-14.5)
[2021-04-04 09:26] LABS: BE(vivo) -20.8 mmol/L (-2 to +3); HCO3 9.5 mmol/L (22.0-26.0); PCO2 42.7 mmHg (35.0-45.0); PO2 147.3 mmHg (80.0-100.0); sO2 97.4 % (92.0-98.0)
[2021-04-04 09:27] LABS: pH 6.965 (7.360-7.450)
[2021-04-04 09:28] LABS: HEMOGLOBIN 6.4 gm/dL (12.0-15.0)
--- NOTE | 2021-04-04 09:39 | NUR ---
PT HEART RATE NOW 39-40 ON THE MONITOR, ED PROVIDER NOTIFIED. THIS RN REMAINS AT BEDSIDE. NO FURTHER CHANGES TO NOTE
[2021-04-04 09:47] LABS: ALBUMIN 2.3 g/dL (3.4-5.0); ANION GAP 17 mmol/L (7-16); BUN 60 mg/dL (7-18); CALCIUM 8.6 mg/dL (8.5-10.1); CHLORIDE 111 mmol/L (98-107); CO2 12 mmol/L (21-32); CREATININE 2.2 mg/dL (0.6-1.0); GLUCOSE 377 mg/dL (74-106); MAGNESIUM 2.5 mg/dL (1.8-2.4); SGOT 878 U/L (15-37); SGPT 672 U/L (30-65); SODIUM 140 mmol/L (136-145); TOTAL BILIRUBIN 0.5 mg/dL (0.2-1.0); TOTAL PROTEIN 5.7 g/dL (6.4-8.2); TROPONIN-I <0.06 ng/mL (<0.06)
[2021-04-04 09:50] LABS: POTASSIUM 6.7 mmol/L (3.5-5.1)
--- NOTE | 2021-04-04 10:25 | NUR ---
PT IS MAXED OUT ON DOPAMINE DRIP, ED PROVIDER NOTIFIED
[2021-04-04 10:35] LABS: ABSOLUTE NEUTROPHILS 6.1 thou/uL (1.4-8.2); ANISOCYTOSIS 2+; NUCLEATED RBCS 2 /100WBC; PLATELET ESTIMATE NORMAL
[2021-04-04 11:29] LABS: BE(vivo) -14.5 mmol/L (-2 to +3); HCO3 13.1 mmol/L (22.0-26.0); PCO2 37.8 mmHg (35.0-45.0); PO2 315.8 mmHg (80.0-100.0); sO2 99.6 % (92.0-98.0)
[2021-04-04 11:34] LABS: pH 7.157 (7.360-7.450)
--- NOTE | 2021-04-04 12:10 | EKG ---
[place] [address] [facility] [place] [address] ELECTROCARDIOGRAM REPORT Name: AMARILIS RAMOSLYN Urbano Room #: 242-P ADM IN .R.#: [id number] Admission: 04/04/21 Attend Phys: Felipe Nelson MD Discharge: Date of : 36 Report #: [id number] [facility] ED Test Date: 2021-04-04 Test Time: 08:59:37 Pat Name: SIN RAMOS Department: Room: 242 Gender: F Color Grinder: PHILLIP : 1940 Requested By: Micky Chapin Order Number: [id number] MD: Oscar Monroy Measurements Intervals [place] Rate: 47 P: 40 AR: 199 QRS: -65 QRSD: 151 T: 26 QT: 546 QTc: 483 Interpretive Statements Sinus bradycardia RBBB and LAFB Left ventricular hypertrophy Compared to ECG 03/14/2021 18:39:49 Left anterior fascicular block now present Right bundle-branch block now present Sinus rhythm no longer present First degree AV block no longer present Intraventricular conduction delay no longer present Electronically Signed On 04-04-2021 12:10:46 CDT by Oscar Monroy [email or web address] <ELECTRONICALLY SIGNED> By: Oscar Monroy MD, [facility] 04/04/21 1210 0859 0859 Oscar Monroy MD, [facility] /EPI
--- NOTE | 2021-04-04 12:30 | NUR ---
Admitted to the ICU per cart intubated, unresponsive. Plan is to start Hypothermia Protcol. Pt assessment completed and the pads and temp probes placed and the Protocol started at 1230. Call to Dr Ramirez and he came to assess the patient orders recieved. Pt presently in NSR with a BP of 127/34 temp is already 34.4 already. ABG done and reported to Dr Ramirez. Will cont to monitor.
--- NOTE | 2021-04-04 13:15 | NUR ---
Pt's brother and sister here and reason for the Central line explained. Signed and Sneha placed line.
[2021-04-04 13:28] LABS: URINE BILIRUBIN NEGATIVE (Negative); URINE BLOOD 2+ (Negative); URINE CLARITY CLOUDY; URINE COLOR YELLOW; URINE GLUCOSE-RANDOM* NEGATIVE (Negative); URINE KETONES NEGATIVE (Negative); URINE PROTEIN (DIPSTICK) 2+ (Negative); URINE UROBILINOGEN 0.2 E.U./dl (0.2-1.0)
[2021-04-04 13:34] LABS: URINE LEUKOCYTES-REFLEX 3+ (Negative); URINE NITRITE-REFLEX POSITIVE (Negative)
[2021-04-04 14:05] LABS: BACTERIA-REFLEX >30 Many /HPF (None Seen); CASTS None Seen /LPF (None Seen); CRYSTALS None Seen /LPF (None Seen); SQUAMOUS >10 Many /LPF (0-3); URINE WBC-REFLEX >25 Many /HPF (0-5)
[2021-04-04 14:23] LABS: BE(vivo) -6.5 mmol/L (-2 to +3); HCO3 17.9 mmol/L (22.0-26.0); PCO2 31.5 mmHg (35.0-45.0); PO2 64.3 mmHg (80.0-100.0); pH 7.373 (7.360-7.450); sO2 92.4 % (92.0-98.0)
[2021-04-04 14:44] LABS: D-DIMER > 35.20 ug/mLFEU (0.19-0.50); FIBRINOGEN 231 mg/dL (201-437)
[2021-04-04] MEDS ORDERED: TYLENOL325 MG PO (15:01)
--- NOTE | 2021-04-04 16:06 | NUR ---
A #6F TRIPLE LUMEN POWER INJECTABLE CENTRAL LINE WAS PLACED PER POLICY AFTER A TIMEOUT WAS COMPLETED. CONSENT AND ORDER WAS NOTED. THE PATIENT WAS NOT RESPONSIVE TO TEACHING. THE RIGHT JUGULAR WAS WIDLEY PATIENT. THE 6F LINE WAS 25CM AND ADVANCED TO 6CM EXTERNAL WITHOUT DIFFICULTY. A STAT CHEST XRAY CONFIRMED LINE IN GOOD POSITION AND RELEASED FOR USE
--- NOTE | 2021-04-04 16:06 | NUR ---
Chart review. outside arrest. she was at skilled rehab at [facility]. she was recently dc from here on March. prior to hospital and skilled rehab, patient is from home with family support. has dme at home. [facility] home health in the past. family wants to cont. treatment. Will cont. following as needed for dc needs and support. Unable to visit with family.
--- NOTE | 2021-04-04 18:00 | NUR ---
Plan is to give a NS bolus. Will ask for some mild sedation pt's BP seems to be increasing. will cont to monitor.
[2021-04-04 18:09] LABS: ABSOLUTE NEUTROPHILS 8.5 thou/uL (1.4-8.2); BASOPHILS 0.3 % (0.0-2.0); EOSINOPHILS 0.1 % (0.0-3.0); HEMATOCRIT 22.3 % (37.0-47.0); HEMOGLOBIN 7.4 gm/dL (12.0-15.0); LYMPHOCYTES 6.3 % (24.0-44.0); MCH 30.8 pg (26.0-34.0); MCHC 33.1 g/dL (28.0-37.0); MONOCYTES 8.8 % (1.0-8.0); PLATELET COUNT 159 thou/uL (150-400); POLYS 84.5 % (36.0-66.0); RDW 16.6 % (10.5-14.5)
[2021-04-04 18:12] LABS: MCV 93.2 fL (80.0-100.0)
[2021-04-04 18:31] LABS: CALCIUM 8.2 mg/dL (8.5-10.1); CREATININE 2.4 mg/dL (0.6-1.0); MAGNESIUM 2.1 mg/dL (1.8-2.4); TROPONIN-I 0.23 ng/mL (<0.06)
[2021-04-04 18:36] LABS: POTASSIUM 4.5 mmol/L (3.5-5.1)
[2021-04-05] VITALS (90 sets, daily range): BP systolic 87–183; BP diastolic 40–78
[2021-04-05 00:58] LABS: EOSINOPHILS 0.1 % (0.0-3.0)
[2021-04-05 01:00] LABS: ABSOLUTE NEUTROPHILS 6.3 thou/uL (1.4-8.2); BASOPHILS 0.3 % (0.0-2.0); MCH 31.3 pg (26.0-34.0); MCHC 33.7 g/dL (28.0-37.0); MCV 92.8 fL (80.0-100.0); PLATELET COUNT 128 thou/uL (150-400); POLYS 78.6 % (36.0-66.0); RBC 1.93 mil/uL (4.20-5.00); RDW 16.5 % (10.5-14.5)
[2021-04-05 01:01] LABS: HEMATOCRIT 17.9 % (37.0-47.0)
[2021-04-05 01:14] LABS: CALCIUM 7.8 mg/dL (8.5-10.1); CREATININE 2.5 mg/dL (0.6-1.0); POTASSIUM 4.3 mmol/L (3.5-5.1); TROPONIN-I 0.19 ng/mL (<0.06)
--- NOTE | 2021-04-05 05:30 | NUR ---
Patient at goal temp throughout shift. At the beginning of the shift patient did withdrawl all 4 ext to nailbed pressure. Grimace on face was noted. Patient was hypertensive so propofol was started. Titrated to effect throughout the night. Currently at 50 mcgs. Heart rate and rhythm stable in the 60's. No ectopy or dysrhythmias. Supporting blood pressure, keeping MAP > 65 with just 1 mcg of Levophed. Pressure labile at times. Tolerating vent settings with adequate oxygenation. Able to decrease Fio2 from 70 to 40% with O2 sats continuing at 100%. Insulin gtt with q1h accuchecks. Stable in the 120-130's at 0.5-1 unit/hour. Scant U/O. Patient had 2 500 cc NS boluses per James this shift. U/O remains clear yellow. Irrigated merrill without difficulty and did bladder scan which showed zero in the bladder. Total u/o overnight was 100 mls. Midnight labs sent. Results noted. Critical hgb at 6.0. Called to MIDDLEWARE ADMINISTRATOR. Orders for 1 unit packed cells. Pt T&C but unit required additional crossmatching which delayed infusion. Now time for 0600 labs witch will not reflect the unit of PC given. Will make note. Daughter called early in the shift. Update on patient condition given. Also called the daughter to obtain permission for blood. Updated on plan of care. See documentation on interventions for assesment details. Patient is progressing through goals.
[2021-04-05 05:59] LABS: ABSOLUTE NEUTROPHILS 4.3 thou/uL (1.4-8.2); EOSINOPHILS 0.1 % (0.0-3.0)
[2021-04-05 06:01] LABS: BASOPHILS 0.1 % (0.0-2.0); LYMPHOCYTES 12.2 % (24.0-44.0); MCH 30.8 pg (26.0-34.0); MCHC 33.4 g/dL (28.0-37.0); MCV 92.2 fL (80.0-100.0); MONOCYTES 9.6 % (1.0-8.0); PLATELET COUNT 111 thou/uL (150-400); RBC 1.77 mil/uL (4.20-5.00); RDW 16.8 % (10.5-14.5); WBC 5.5 thou/uL (4.0-11.0)
[2021-04-05 06:09] LABS: HEMATOCRIT 16.3 % (37.0-47.0); HEMOGLOBIN 5.5 gm/dL (12.0-15.0)
[2021-04-05 06:31] LABS: CALCIUM 7.7 mg/dL (8.5-10.1); CREATININE 2.5 mg/dL (0.6-1.0); MAGNESIUM 1.9 mg/dL (1.8-2.4); POTASSIUM 3.9 mmol/L (3.5-5.1); TROPONIN-I 0.17 ng/mL (<0.06)
--- NOTE | 2021-04-05 07:17 | NUR ---
Assummed care of this patient from the night nurse, Jacqui ADAMSON. Unit of PRBC's infusing, On the hypothermia protocol. Levophed and Insulin drips continue.
[2021-04-05 08:38] LABS: HEMATOCRIT 21.7 % (37.0-47.0); HEMOGLOBIN 7.3 gm/dL (12.0-15.0)
[2021-04-05 08:39] LABS: BE(vivo) -8.1 mmol/L (-2 to +3); HCO3 15.2 mmol/L (22.0-26.0); PCO2 23.8 mmHg (35.0-45.0); PO2 146.2 mmHg (80.0-100.0); pH 7.424 (7.360-7.450)
--- NOTE | 2021-04-05 09:00 | NUR ---
BEDSIDE ECHO IN PROGRESS.
--- NOTE | 2021-04-05 10:25 | 2DMMODE ---
[facility] [place] [address] 2 D/M-MODE ECHOCARDIOGRAM Name: SIN RAMOS Room #: 242-P ADM IN M.R.#: [id number] Admission: 04/04/21 Attend Phys: Felipe Nelson MD Discharge: Date of : 36 Report #: [id number] THIS REPORT FOR: cc: Yen Hammer,Oscar Ortiz MD [facility] ~ APPROVED REPORT Study performed: 04/05/2021 08:40:02 EXAM: Comprehensive 2D, Doppler, and color-flow Echocardiogram Patient Location: ICU Room #: 242 Status: routine BSA: 1.73 HR: 67 bpm BP: 148/65 mmHg Rhythm: NSR Other Information Study Quality: Good Indications Diabetes Dyspnea Hypertension/HDD Cardiac arrest 2D Dimensions RVDd: 34.76 mm IVSd: 15.95 (7-11mm) LVOT Diam: 20.55 (18-24mm) LVDd: 33.18 mm PWd: 14.25 (7-11mm) Ascending Ao: 28.59 (22-36mm) LVDs: 26.62 (25-40mm) Left Atrium: 34.17 (27-40mm) Aortic Root: 30.31 mm IVC: 23.00 mm Volumes Left Atrial Volume (Systole) Single Plane 4CH: 81.77 mL Single Plane 2CH: 66.63 mL LA ESV Index: 47.00 mL/m2 Aortic Valve AoV Peak Yogesh.: 1.04 m/s [facility] [address] 2 D/M-MODE ECHOCARDIOGRAM Name: SIN RAMOS Room #: 242-P [facility] IN M.R.#: [id number] Admission: 04/04/21 Attend Phys: Felipe Nelson MD Discharge: Date of : 36 Report #: [id number] AO Peak Gr.: 4.29 mmHg LVOT Max P.24 mmHg LVOT Max V: 0.90 m/s VELIA Vmax: 2.88 cm2 Mitral Valve MV Peak Gr.: 11.06 mmHg MV Mean Gr.: 6.46 mmHg E/A Ratio: 0.8 MV Decel. Time: 427.48 ms MV E Max Yogesh.: 1.18 m/s MV A Yogesh.: 1.41 m/s MV Max Yogesh.: 1.66 m/s MV Mean Yogesh.: 1.21 m/s MV VTI: 434.43 mm MV PHT: 123.97 ms MVA (PHT): 2.59 cm2 IVRT: 175.32 ms Pulmonary Valve PV Peak Yogesh.: 0.87 m/s PV Peak Gr.: 3.03 mmHg Pulmonary Vein P Vein S: 0.34 m/s P Vein A: 0.20 m/s P Vein D: 0.21 m/s P Vein A Dur.: 120.0 msec P Vein S/D Ratio: 1.62 Tricuspid Valve TR Peak Yogesh.: 3.86 m/s TR Peak Gr.: 59.58 mmHg PA Pressure: 75.00 mmHg Left Ventricle The left ventricle is normal size. There is normal LV segmental wall motion. Moderate concentric left ventricular hypertrophy. The left ventricular systolic function is normal. The left ventricular ejection fraction is within the normal range. LVEF is 55-60%. Grade I - abnormal relaxation pattern. Right Ventricle The right ventricle is normal size. The right ventricular systolic function is normal. Atria Left atrium is dilated. Right atrium is dilated. Aortic Valve The aortic valve is normal in structure. The Aortic valve is [facility] [address] [place] [address] 2 D/M-MODE ECHOCARDIOGRAM Name: LON RAMOSNga Clement Room #: 242-P [facility] IN .R.#: [id number] Admission: 04/04/21 Attend Phys: Felipe Nelson MD Discharge: Date of : 36 Report #: [id number] sclerotic. Trace aortic regurgitation. There is no aortic valvular stenosis. Mitral Valve The mitral valve is normal in structure. There is heavy mitral annular calcification. Mild to moderate mitral regurgitation. Mild mitral stenosis. Tricuspid Valve The tricuspid valve is normal in structure. There is mild tricuspid regurgitation. Estimated PAP 75 mmHg. There is severe pulmonary hypertension. Pulmonic Valve The pulmonary valve is normal in structure. Mild pulmonic regurgitation. Great Vessels The aortic root is normal in size. The inferior vena cava is dilated with no inspiratory collapse. Pericardium There is no pericardial effusion. <Conclusion> Normal left ventricle size with moderate concentric hypertrophy Ejection fraction 60%, no obvious segmental wall motion abnormality Grade 1 diastolic dysfunction Normal right ventricle size/function Color-flow Doppler study was performed of the aortic/mitral/tricuspid/pulmonary valve Moderate biatrial enlargement Normal aortic valve structure and function Mild to moderate mitral valve insufficiency Moderate mitral annular calcification Mild tricuspid valve insufficiency Severe pulmonary hypertension PA pressure estimated 75 mmHg No pericardial effusion Normal aortic root size. <ELECTRONICALLY SIGNED> By: Oscar Monroy MD, FACC 04/05/21 1025 1025 1025 Oscar Monroy MD, FACC /INF
--- NOTE | 2021-04-05 11:00 | NUR ---
DR CRESPO IN TO EXAMINE PATIENT, UPDATED ON THE HEMAGOBIN, LIABLE BP AND URINE OUTPUT. ORDERS RECEIVED AND LEVOPHED CHANGED TO VASOPRESSIN. WILL CONTINUE TO MONITOR.
[2021-04-05 12:49] LABS: ABSOLUTE NEUTROPHILS 3.9 thou/uL (1.4-8.2); BASOPHILS 0.3 % (0.0-2.0); HEMATOCRIT 20.1 % (37.0-47.0); HEMOGLOBIN 6.8 gm/dL (12.0-15.0); LYMPHOCYTES 8.9 % (24.0-44.0); MCH 30.9 pg (26.0-34.0); MCHC 33.8 g/dL (28.0-37.0); MCV 91.4 fL (80.0-100.0); PLATELET COUNT 95 thou/uL (150-400); POLYS 81.8 % (36.0-66.0); WBC 4.8 thou/uL (4.0-11.0)
--- NOTE | 2021-04-05 13:00 | NUR ---
REWARMING PHASE STARTED. LABS DRAWN PER PROTOCOL AND NOTED.
[2021-04-05 13:13] LABS: CALCIUM 7.3 mg/dL (8.5-10.1); CREATININE 2.6 mg/dL (0.6-1.0); MAGNESIUM 1.9 mg/dL (1.8-2.4); POTASSIUM 4.1 mmol/L (3.5-5.1); TROPONIN-I 0.1 ng/mL (<0.06)
--- NOTE | 2021-04-05 13:53 | NUR ---
Discussed during am rounds with bedside nurse and hospitalist. Hypothermia protocol, vent, and will start rewarming today. Not anticipating dc over the weekend. Cm provided verbal update to [facility]. Will cont. following as needed for dc needs.
--- NOTE | 2021-04-05 15:00 | NUR ---
SPOKE WITH DR SANDOVAL VIA PHONE AT 1430 AND UPDATED HIM ON THE PATIENT'S LAB VALULES AND HBG LESS THAN 7. ORDERS NOTED. DR CRESPO CALLED IN AND UPDATED ON PATIENT STATUS. ORDER NOTED. FAMILY UPDATED ON THE POC. REASSURANCE GIVEN. DR SANDOVAL ALSO UPDATED ON THE NEURO STATUS.
--- NOTE | 2021-04-05 17:17 | NUR ---
PATIENT REMAINS ON THE WARMING PORTION OF THE HYPOTHERMIA PROTOCOL. OVER BREATHING THE VENT, VSS. URINE OUTPUT REMAINS LOW. AWAITING BLOOD TO READY TO TRANSFUSE. PATIENT SLOWLY MOVING TOWARDS OUTCOME GOALS BUT REMAINS CRITICAL.
[2021-04-06] VITALS (48 sets, daily range): BP systolic 141–190; BP diastolic 52–86
[2021-04-06 05:11] LABS: ABSOLUTE NEUTROPHILS 6.9 thou/uL (1.4-8.2); BASOPHILS 0.1 % (0.0-2.0); EOSINOPHILS 0.2 % (0.0-3.0); HEMATOCRIT 25.6 % (37.0-47.0); LYMPHOCYTES 8.9 % (24.0-44.0); MCH 31.1 pg (26.0-34.0); MCHC 34.1 g/dL (28.0-37.0); MONOCYTES 7.8 % (1.0-8.0); PLATELET COUNT 111 thou/uL (150-400); RBC 2.82 mil/uL (4.20-5.00); RDW 15.8 % (10.5-14.5); WBC 8.3 thou/uL (4.0-11.0)
[2021-04-06 05:20] LABS: HEMOGLOBIN 8.8 gm/dL (12.0-15.0)
[2021-04-06 05:31] LABS: BE(vivo) -8.4 mmol/L (-2 to +3); PCO2 29.2 mmHg (35.0-45.0); PO2 100.8 mmHg (80.0-100.0); pH 7.357 (7.360-7.450); sO2 97.5 % (92.0-98.0)
[2021-04-06 05:36] LABS: CALCIUM 7.4 mg/dL (8.5-10.1); CREATININE 2.9 mg/dL (0.6-1.0); MAGNESIUM 1.8 mg/dL (1.8-2.4); POTASSIUM 4.4 mmol/L (3.5-5.1)
--- NOTE | 2021-04-06 06:32 | NUR ---
Patient reached 37 degrees around midnight. At midnight propofol was shut off. By 0030, SBP was up in the 190's, HR was in the upper 90's, and patient RR was in the upper 20's. Neuro assessment was completed at this time. + cough, grimace present, flexion of both upper ext to painful stimuli, no movement of left leg. Propofol turned back on for comfort and blood pressure control. due to the elevated pressures, vasopressin off. Blood sugars checked at 2029 was 88, insulin gtt turned off. Subsequent checks remain < 130. HR continues in the 90's sinus, no ectopy. Adequate oxygenation on current vent settings. Patient is breathing above set vent rate. Still scant u/o. Am labs drawn. Results noted. No criticals. Hbg improved. One loose stool. Called [facility] and got a refferal #. Spoke with Pt's daughter, Summer over the phone last evening. Gave update in patient condition. Patient's other daughter called wanting information. Instructed her to call Summer, as her and David were the only 2 on the list. See documentation on interventions for assessment details. Patient is moving through plan of care.
--- NOTE | 2021-04-06 10:53 | NUR ---
DISCUSSED WITH DTR THE DPOA REGARDING CURRENT CLINICAL PITURE WELL PLANS FOR NEURO EVAL ONCE HYPOTHERMIA PROTOCOL IS OVER. NORMOTHERMIA ACHIEVED AROUND MIDNIGHT LAST EVENING AND PER PROTOCOL NORMOTHERMIA TO BE MAINTAINED WITH MACHINE USAGE FOR NEXT 48 HOURS. PT'S DAUGHTER STATED UNDERSTANDING AND GRATITUDE FOR THE EXPLANATION OF EVENT AND FUTURE PLANNING, STATED SHE WILL BE BACK IN TO SEE THE PT IN FEW HOURS. RN STATED THAT SHE MAY CALL AND WE WILL CALL IF THERE ARE UPDATES NEEDED
[2021-04-07] VITALS (43 sets, daily range): BP systolic 143–200; BP diastolic 58–85
[2021-04-07 04:50] LABS: HEMATOCRIT 25.6 % (37.0-47.0); HEMOGLOBIN 8.8 gm/dL (12.0-15.0); MCH 31.1 pg (26.0-34.0); MCHC 34.3 g/dL (28.0-37.0); MCV 90.7 fL (80.0-100.0); RBC 2.82 mil/uL (4.20-5.00); RDW 15.9 % (10.5-14.5)
[2021-04-07 05:18] LABS: ALBUMIN 2.1 g/dL (3.4-5.0); CALCIUM 6.9 mg/dL (8.5-10.1); CREATININE 3.4 mg/dL (0.6-1.0); POTASSIUM 4.2 mmol/L (3.5-5.1); TOTAL BILIRUBIN 0.6 mg/dL (0.2-1.0); TOTAL PROTEIN 5.5 g/dL (6.4-8.2)
--- NOTE | 2021-04-07 09:35 | NUR ---
PT SEEN BY , RN EXPLAINED SEDATION TURNED OFF AROUND MIDNIGHT LAST NIGHT, WITH NO PROPOFOL GTT, WAS TOLD PLAN IS TO DO ANOTHER EEG THEN EVALUATE. WILL UPDATE DPOA ONCE SHE ARRIVES. STILL ON NORMOTEMPATURE SETTING ON THE [facility] SUN
[2021-04-08] VITALS (49 sets, daily range): BP systolic 124–191; BP diastolic 46–89
[2021-04-08 05:15] LABS: BE(vivo) -4.1 mmol/L (-2 to +3); HCO3 19.4 mmol/L (22.0-26.0); PCO2 29.9 mmHg (35.0-45.0); PO2 78.4 mmHg (80.0-100.0); sO2 96.1 % (92.0-98.0)
[2021-04-08 05:37] LABS: HEMATOCRIT 25.8 % (37.0-47.0); HEMOGLOBIN 8.7 gm/dL (12.0-15.0); MCH 30.4 pg (26.0-34.0); MCHC 33.8 g/dL (28.0-37.0); MCV 89.8 fL (80.0-100.0); RBC 2.88 mil/uL (4.20-5.00); RDW 15.8 % (10.5-14.5); WBC 11.4 thou/uL (4.0-11.0)
[2021-04-08 05:52] LABS: ALBUMIN 2.1 g/dL (3.4-5.0); CALCIUM 6.5 mg/dL (8.5-10.1); CREATININE 3.9 mg/dL (0.6-1.0); MAGNESIUM 1.6 mg/dL (1.8-2.4); POTASSIUM 3.9 mmol/L (3.5-5.1); TOTAL PROTEIN 5.6 g/dL (6.4-8.2)
--- NOTE | 2021-04-08 11:50 | NUR ---
Chart review, Faxed updates to [facility]. discussed during los and am rounds. Cont. to require vent support. EEG ordered for today. CM visited Daughter Josefina outside of room. Active listening and support provided during conversation. will cont. following as needed for dc needs.
--- NOTE | 2021-04-08 18:20 | NUR ---
Patient family, Summer, was in room today. She was updated throughout the day of patient progress and nutrition starting, as well as plan of care. She was able to talk with Dr. Nelson today. Tube feeding started. Patient slowly progressing towards plan of care as it was noted patient did not have a cough reflex and she has a gag and a cough reflex today and shows that she does not like oral care as evidenced by clamping lips closed tightly with each time. Plan of care is to continue to monitor patient status and continue to monitor for signs of improvement in neuro status. Dr. Mota aware of urine output and changed fluids today.
--- NOTE | 2021-04-08 22:27 | NUR ---
Gave update to Josefina Jaeger (DPOA) no significant changes day shift
[2021-04-09] VITALS (47 sets, daily range): BP systolic 89–164; BP diastolic 33–83
--- NOTE | 2021-04-09 03:04 | NUR ---
ASSUMED PT CARE AROUND 2244. PT REMAINS NONRESPONSIVE TO NOXIOUS STIMULI. TOLERATING VENT WELL. ORAL CARE PROVIDED; SOME BLOODY ORAL SECRETIONS NOTED. TF VIA OGT. INCREASING TF RATE SLOWLY TOWARD GOAL OF 55ML/HR. PRN HYDRALAZINE GIVEN FOR SBP >160. SBP NOW 130S-140S. [employer] FOR HOSPITALIST NOTIFIED OF LOW URINE OUTPUT. ONETIME DOSE IV LASIX GIVEN PER ORDER. REPOSITIONED TO PREVENT SKIN BREAKDOWN. NOT PROGRESSING TOWARD POC GOALS. WILL CONTINUE TO MONITOR FURTHER.
[2021-04-09 05:46] LABS: CALCIUM 6.2 mg/dL (8.5-10.1); CREATININE 4.1 mg/dL (0.6-1.0); POTASSIUM 3.6 mmol/L (3.5-5.1)
[2021-04-09 05:53] LABS: HEMATOCRIT 24.6 % (37.0-47.0); HEMOGLOBIN 8.2 gm/dL (12.0-15.0); MCHC 33.1 g/dL (28.0-37.0); MCV 90.6 fL (80.0-100.0); RBC 2.72 mil/uL (4.20-5.00); RDW 15.8 % (10.5-14.5); WBC 7.7 thou/uL (4.0-11.0)
--- NOTE | 2021-04-09 14:12 | NUR ---
AT APPX 1330, PT DEVELOPED EPISTAXIS FROM BOTH NARES W/ FRANKLY BLOODY DRAINAGE SUCTIONED FROM MOUTH AND BLOOD TINGED SECRETIONS FROM ETT. BILAT NARES PACKED W/ 4X4 GAUZE. ORAL CARE PROVIDED. DR. QIU NOTIFIED AND ORDERS NOTED.
--- NOTE | 2021-04-09 14:13 | NUR ---
AT 1400, DR. QIU HERE TO PLACE 5.5 CM RAPID RHINO PACKING TO BILAT NARES. INFLATED W/ 8CC AIR TO EACH PACKING. PT STILL HAVING BLOOD TINGED ORAL SECRETIONS. CALLED DAUGHTER, RANDALL CABEZAS, TO PROVIDE W/ UPDATE. RANDALL STATED THEY WERE ON THEIR WAY BACK. REASSURANCES AND EMOTIONAL SUPPORT PROVIDED.
[2021-04-09 14:26] LABS: APTT 35.6 Seconds (24.5-32.8); INR 0.98; PROTIME 10.7 Seconds (10.5-12.1)
[2021-04-09 14:31] LABS: HEMOGLOBIN 8.5 gm/dL (12.0-15.0)
--- NOTE | 2021-04-09 16:11 | NUR ---
SPOKE W/ PT'S DAUGHTER, RANDALL, REGARDING CODE STATUS WISHES. RANDALL STATED, "IF SHE GOES INTO CARDIAC ARREST WHILE ON THE VENTILATOR, WE DO NOT WANT HER RESUSCITATED. IF SHE IS IMPROVING AND GETS OFF THE VENTILATOR, WE DO WANT EVERYTHING DONE, BECAUSE THAT MEANS THAT SHE HAD BEEN IMPROVING. WE WOULD WANT TO GIVE HER A CHANCE AT THAT POINT." RANDALL IS IN AGREEMENT TO A DNR AT THIS TIME. SPOKE W/ DR. SANDERS, WHO IS ALSO IN AGREEMENT AND VERBALIZED THE ORDER FOR DNR VIA TELEPHONE.
[2021-04-09 16:19] LABS: BE(vivo) -7.3 mmol/L (-2 to +3); PCO2 35.4 mmHg (35.0-45.0); PO2 124.2 mmHg (80.0-100.0); sO2 98.3 % (92.0-98.0)
[2021-04-09 16:21] LABS: pH 7.325 (7.360-7.450)
--- NOTE | 2021-04-09 22:50 | NUR ---
Josefina ([facility]) called for an update on pt@ 2234. Pt was at bedside when pt was bleeding from her nose/ENT at bedside, had to be put on a bear warmer d/t core body temps in 34 C, and seizure like activity when she was being turned for being cleaned up. Pt was being put on at the time on propofol to help with seizure control and comfort. DPOA was undated that she is normothermic, not bleeding with the rhino rockets in place and no evidence of any seizure like activity since then. She was given an update that neurology's note of poor prognosis and comfort care was reccomended if no changes in a few days. Daughter was upset and emotionally on the phone. She stated that she wanted a second opinion from a Neurologist she knows that is willing to look at the test results and images already performed. Daughter is advised to have the physician request medical records. SNOW infoms daughter if she is wanting the second opinion to do it soon since the patient is very critical. RN also informs the [facility] that we will be happy to assist her in getting the second opinion and willing to answer any questions she or any of her family may have. request medical records
[2021-04-10] VITALS (48 sets, daily range): BP systolic 86–195; BP diastolic 38–77
[2021-04-10 03:36] LABS: HEMATOCRIT 23.7 % (37.0-47.0); MCH 30.6 pg (26.0-34.0); MCHC 33.7 g/dL (28.0-37.0); MCV 90.5 fL (80.0-100.0); RBC 2.62 mil/uL (4.20-5.00); RDW 15.7 % (10.5-14.5); WBC 8.9 thou/uL (4.0-11.0)
[2021-04-10 03:53] LABS: CALCIUM 6.1 mg/dL (8.5-10.1); CREATININE 4.4 mg/dL (0.6-1.0); POTASSIUM 3.3 mmol/L (3.5-5.1)
[2021-04-10 04:54] LABS: BE(vivo) -7.4 mmol/L (-2 to +3); HCO3 17.3 mmol/L (22.0-26.0); PCO2 31.5 mmHg (35.0-45.0); PO2 128.9 mmHg (80.0-100.0); pH 7.357 (7.360-7.450); sO2 98.5 % (92.0-98.0)
--- NOTE | 2021-04-10 14:07 | HC ---
[facility] [place] [address] CONSULTATION Name: SIN RAMOS Room #: 242-P ADM IN M.R.#: [id number] Admission: 04/04/21 Attend Phys: Felipe Nelson MD Discharge: Date of : 36 Report #: [id number] THIS REPORT FOR: cc: Yen Hammer,Yen Gaffney,Arnold Degroot MD ~ DOC #: [id number] cc: DO Arnold Phillip MD DATE OF SERVICE: 04/09/2021 EMERGENCY CONSULTATION SURGEON: Arnold Maria MD. REASON FOR CONSULTATION: Uncontrollable epistaxis. HISTORY OF PRESENT ILLNESS: The patient is an 80-year-old female admitted to [facility] on 04/04 after being found down at home from a myocardial infarction. She was being cared for by her nursing staff in the ICU today when she began having uncontrollable bleeding from her nose with hemoptysis. I was called and as I was [place], directed the nurses on how to place a Rapid Rhino epistaxis balloon bilaterally, which did control the bleeding. The patient's protime was 8.7 with an INR of 0.98, but elevated PTT of 35.6, elevated fibrinogen of 477, hemoglobin of 8.5 and hematocrit of 25, 134,000 platelets. The patient is here with her daughter. Apparently, she has had no history of abnormal bleeding. Significant for cwb-si-jlcczown cardiac arrest, anoxic encephalopathy, cardiogenic shock, unresponsive for 20 minutes or greater prior to resuscitation. Neurology has evaluated. There is significant encephalopathy on EEG and prognosis remains guarded. PAST MEDICAL HISTORY: Also significant for chronic diastolic heart failure, anemia, hypertension, diabetes mellitus, hypothyroidism, PVD, CKD and TREVOR. MEDICATIONS: Reviewed in her electronic MAR. ALLERGIES: Also reviewed. REVIEW OF SYSTEMS: Could not be done. PHYSICAL EXAMINATION: GENERAL: Shows an intubated, unresponsive female in the intensive care unit with her daughter at her side. [address] [address] CONSULTATION Name: SIN RAMOS Room #: 242-P [facility] IN M.R.#: [id number] Admission: 04/04/21 Attend Phys: Felipe Nelson MD Discharge: Date of : 36 Report #: [id number] VITAL SIGNS: Show temperature of 97.5, pulse of 77, respirations 19, blood pressure 136/53. HEENT: She has in place bilateral Rapid Rhino anterior, posterior epistaxis balloons with no active bleeding. She is orally intubated. NECK: Trachea is in the midline. I cannot appreciate any significant adenopathy. ASSESSMENT: Uncontrollable epistaxis, controlled now with bilateral Rapid Rhino epistaxis balloon. Once these are in place, they will need to stay 3-5 days. If the patient will need any staphylococcal coverage, I would recommend Unasyn 3.1 gram q.i.d. 2. Out of hospital arrest, resulting in cardiogenic shock and anoxic encephalopathy with significant encephalopathy on EEG. Prognosis remains guarded, but the patient remains full code. 3. Bradycardia. 4. Elevated troponin. 5. Chronic diastolic heart failure. 6. Chronic kidney disease with acute kidney injury. PLAN: We will plan to follow in the periphery and be available for removal of packing or any further bleeding as necessary. The patient is now controlled and safe. I appreciate the consultation. MD TESSA Cheng/JACQUE <ELECTRONICALLY SIGNED> By: Arnold Maria MD 04/10/21 1407 1416 2221 Arnold Maria MD /nt
--- NOTE | 2021-04-10 18:32 | NUR ---
NO EVENTS WITH PATIENT THIS SHIFT. ENT STATED RHINO ROCKETS ARE TO BE KEPT IN FOR 3-5 DAYS. LASIX INCREASED. 10 MEQ OF KCL ADMINISTERED. ANASARCA WORSENING. FAMILY UPDATED.
[2021-04-11] VITALS (50 sets, daily range): BP systolic 87–210; BP diastolic 27–88
--- NOTE | 2021-04-11 06:00 | NUR ---
REMAINS INTUBATED AND NONRESPONSIVE. PROPOFOL OFF FOR 14 HOURS. HAD A LARGE LOOSE STOOL. NOR PROGRESSING TOWArd goals
[2021-04-11 07:54] LABS: ALBUMIN 1.4 g/dL (3.4-5.0); CALCIUM 6.1 mg/dL (8.5-10.1); CREATININE 4.4 mg/dL (0.6-1.0); PHOSPHORUS 4.3 mg/dL (2.5-4.9); POTASSIUM 3.5 mmol/L (3.5-5.1)
--- NOTE | 2021-04-11 14:16 | HC ---
[facility] [place] [address] CONSULTATION Name: SIN RAMOS Room #: 242-P ADM IN M.R.#: [id number] Admission: 04/04/21 Attend Phys: Felipe Nelson MD Discharge: Date of : 36 Report #: [id number] THIS REPORT FOR: cc: Yen Hammer,Yen Miller,Rodriguez Melendez MD ~ DOC #: [id number] Rodriguez Mack MD DATE OF SERVICE: 04/05/2021 HISTORY OF PRESENT ILLNESS: This is an 80-year-old female patient who is unable to provide any history. The patient is intubated and on vent. Neurology consultation was requested to evaluate the patient for hypoxic encephalopathy. History is entirely from the record. The patient apparently lives in a retirement and was found unresponsive. She did have a faint pulse when she came in. REVIEW OF SYSTEMS: From the record indicated sometime along the line, she had left-sided weakness, chronic renal failure, acute kidney injury and anemia, aphasia because of CVA, asymptomatic hypertension, bacteremia, cardiopulmonary arrest, colon mass, congestive heart failure, delirium, diabetes, dizziness, hematuria, hyperkalemia, paroxysmal atrial tachycardia, pyelonephritis, leg swelling. This is all from record. PAST MEDICAL HISTORY: Positive for numerous problems as summarized above. FAMILY HISTORY: Unavailable in this patient. SOCIAL HISTORY: Unavailable in this patient. NEUROLOGIC: Pretty limited. She is completely unresponsive, but she is on propofol. Reflexes cannot be elicited and she does have asymmetrical pupils which I suspect is baseline. The best I can tell. She did not have any imaging study of the brain. Presently, she is on hypothermia protocol. PHYSICAL EXAMINATION: VITAL SIGNS: Temperature is 34.8. Blood pressure is 106/44. LABORATORY DATA: Indicates a hemoglobin of 5.5 and platelet count of only 95. She had a prior amputation. It looks like that is all the examination, which can be carried out in this patient. IMPRESSION: Difficult to tell in this patient, but this patient has a poor quality of the life. Desirable thing is to do very conservative care in this patient, but notes indicate that they want to be aggressive. Because of that, we probably will be doing a CT and EEG, but we will let her stabilize first and come off the hypothermia protocol. [facility] [address] [place] [address] CONSULTATION Name: SIN RAMOS Room #: 242-P ADM IN M.R.#: [id number] Admission: 04/04/21 Attend Phys: Felipe Nelson MD Discharge: Date of : 36 Report #: [id number] Thank you very much for this referral. Rodriguez Mack MD PK/JANA <ELECTRONICALLY SIGNED> By: Rodriguez Mack MD 04/11/21 1416 195 7 Rodriguez Mack MD /shari
--- NOTE | 2021-04-11 14:17 | EEG ---
[facility] [place] [address] ELECTROENCEPHALOGRAM Name: SIN RAMOS Room #: 242-P ADM IN M.R.#: [id number] Admission: 04/04/21 Attend Phys: Felipe Nelson MD Discharge: Date of : 36 Report #: [id number] THIS REPORT FOR: //name// DOC #: [id number] Rodriguez Mack MD DATE OF SERVICE: 04/06/2021 The patient is being evaluated for hypoxic encephalopathy. EEG was done on propofol. EEG demonstrate only low voltage activity, which is difficult to tell because it is low voltage, this appeared to be about 5-6 Hz and 5 microvolt. Photic stimulation is unremarkable. IMPRESSION: This is an abnormal EEG because it shows only low voltage activities. That can be consistent with encephalopathy, but the patient was on propofol when the EEG was done. It will be desirable to get an EEG done when the patient is off propofol. Thank you very much for this referral. Rodriguez Mack MD PK/LEANDRO/LIZETH <ELECTRONICALLY SIGNED> By: Rodriguez Mack MD 04/11/21 1417 0710 0725 Rodriguez Mack MD /nt
--- NOTE | 2021-04-11 14:17 | EEG ---
[facility] [place] [address] ELECTROENCEPHALOGRAM Name: SIN RAMOS Room #: 242-P ADM IN M.R.#: [id number] Admission: 04/04/21 Attend Phys: Felipe Nelson MD Discharge: Date of : 36 Report #: [id number] THIS REPORT FOR: //name// DOC #: [id number] Rodriguez Mack MD DATE OF SERVICE: 04/08/2021 This patient is being evaluated for hypoxic encephalopathy. This EEG was done without any sedation. EEG was done by placing the electrode by standard 10-20 system of electrode placement. Both referential and sequential montages were used for recording. This is a very low voltage activity. That makes it very difficult to sense this patient's EEG. Background activity appeared to be about 4-5 Hz and 5 microvolt. Photic stimulation is unremarkable. IMPRESSION: This is a severely abnormal EEG because it shows only low voltage activity. There is a nonspecific finding which can occur with encephalopathy, effect of psychotropic medication, dementia, etc. Clinical correlation is recommended. Rodriguez Mack MD PK/AMANDA <ELECTRONICALLY SIGNED> By: Rodriguez Mack MD 04/11/21 1417 [id number] Rodriguez Mack MD /nt
--- NOTE | 2021-04-11 17:20 | NUR ---
SPOKE W/ DR. QIU REGARDING HYPOTENSION. ORDER RECEIVED TO RESUME LEVOPHED NEEDED.
--- NOTE | 2021-04-11 17:21 | NUR ---
PT OPENS EYES TO NOXIOUS STIMULI, DOES NOT FOLLOW COMMANDS, DOES NOT MOVE EXTREMITIES. DECORTICATE POSTURING OCCASIONALLY W/ NOXIOUS STIMULI. LASIX DRIP STARTED TODAY. MORPHINE DRIP STARTED TODAY. URINE OUTPUT NOT SIGNIFICANTLY AFFECTED BY LASIX DRIP. PT'S FAMILY VISITING OFTEN. REASSURANCES AND EMOTIONAL SUPPORT PROVIDED NEEDED. PT IN GUARDED CONDITION AND NOT PROGRESSING TOWARD GOALS.
[2021-04-12] VITALS (51 sets, daily range): BP systolic 88–121; BP diastolic 33–73
[2021-04-12 04:30] LABS: BE(vivo) -6.5 mmol/L (-2 to +3); PCO2 37.7 mmHg (35.0-45.0); PO2 98.4 mmHg (80.0-100.0); pH 7.321 (7.360-7.450)
[2021-04-12 04:45] LABS: MCH 31.4 pg (26.0-34.0); MCHC 34.8 g/dL (28.0-37.0); MCV 90.4 fL (80.0-100.0); RBC 1.92 mil/uL (4.20-5.00); RDW 14.9 % (10.5-14.5)
[2021-04-12 05:08] LABS: ALBUMIN 1.2 g/dL (3.4-5.0); CALCIUM 6.3 mg/dL (8.5-10.1); CREATININE 4.7 mg/dL (0.6-1.0); HEMATOCRIT 17.4 % (37.0-47.0); PHOSPHORUS 4.5 mg/dL (2.5-4.9); POTASSIUM 3.6 mmol/L (3.5-5.1)
--- NOTE | 2021-04-12 05:33 | NUR ---
ASSUMED CARE AT 1900. DURING BATH AROUND 2200, REMOVED CLONIDINE PATCH FROM R ARM; TURNED LEVO GTT OFF AT 2340. PT'S DTR RANDALL CALLED AROUND 2340, GAVE HER BRIEF UPDATE ON CONDITION, NO ACUTE CHANGES TO REPORT AT THAT TIME. MIDNIGHT TEMP WAS LOW, AROUND 94 DEG, PLACED ON BAREHUGGER. MINIMAL SECRETIONS OVERNIGHT, OCCASIONAL AMARJIT COLOR OUT. 0500-CALLED CRITICAL ABG RESULT TO DR. QIU, NO ORDERS RECEIVED. 0515-CALLED JOI RIVAS W/CRITICAL H/H RESULT; OBTAINED ORDER TO RE-TYPE AND SCREEN PT AND TRANSFUSE ONE UNIT OF BLOOD. NO OTHER CONCERNS AT THIS TIME, WILL CONTINUE TO MONITOR.
--- NOTE | 2021-04-12 13:40 | NUR ---
Chart review, discussed during los and am rounds. Deep not here and this time. Patient cont to require vent support, and nutritional support. Receiving PRBC. Bedside nurse passed on that daughter was dealing with fmla. CM provided letter per her daughter deep for work, left on front of chart. cm called deep, no answer. Will cont. following as needed for dc needs and support.
--- NOTE | 2021-04-12 18:36 | NUR ---
ONE UNIT OF PRBCS ADMINISTERED. ET TUBE WITHDRAWN 1.5 CM TO NOW 24, CXR SHOWS FOREIGN METAL BODY OVER MEDIASTINUM, PHYSICIANS AWARE. DAUGHTER GIVEN LETTER FROM [employer] FOR WORK REGARDING FMLA REQUEST. PER DR. SANDERS, NO PHYSICIANS TO SPEAK TO FAMILY BESIDES HIMSELF, PER DAUGHTER'S REQUEST. NO OTHER EVENTS THIS SHIFT, WILL CONTINUE TO MONITOR.
[2021-04-13] VITALS (46 sets, daily range): BP systolic 86–145; BP diastolic 33–91
[2021-04-13 05:26] LABS: ALBUMIN 1.1 g/dL (3.4-5.0); CALCIUM 6.3 mg/dL (8.5-10.1); CREATININE 5.1 mg/dL (0.6-1.0); PHOSPHORUS 4.9 mg/dL (2.6-4.7); POTASSIUM 3.7 mmol/L (3.5-5.1)
--- NOTE | 2021-04-13 06:00 | NUR ---
ASSUMED CARE AT 1900. AFEBRILE OVERNIGHT. BP SOFT W/MAPs IN 60'S, HELD HS METOPROLOL. AFTER MIDNIGHT, PT DIDN'T TOLERATE TURNS TO LEFT SIDE, WOULD DESAT IN MID 80'S, IMPROVED ONCE BACK ON RIGHT SIDE. MINIMAL SECRETIONS FROM ETT. NO OTHER CONCERNS, WILL CONTINUE TO MONITOR.
--- NOTE | 2021-04-13 18:30 | NUR ---
PATIENT HAD BEEN HYPOTHERMIC AT BEGINNING OF SHIFT, BEAR HUGGER WAS PLACED. BEAR HUGGER WAS REMOVED AT END OF SHIFT WHEN PATIENT WAS NORMOTHERMIC. LASIX GTT WAS DISCONTINUED TODAY. VITALS REMAINED HEMODYNAMICALLY STABLE. FAMILY WAS AT BEDSIDE. WILL CONTINUE TO MONITOR.
[2021-04-14] VITALS: BP 103/40
--- NOTE | 2021-04-14 07:30 | NUR ---
PTS HR AND BP DROPPED AT 0335 AND PT PASSED AND WAS PRONOUNCED, FAMILY AND PHYCISIANS NOTIFIED.
== END 2021-04-14 03:47 | DRG 870 ==
LOC: ER 08:57 → EROBS 10:46 → ICU 10:46
PROVIDERS: Emergency Medicine; Hospitalist; Internal Medicine Pulmonary Disease; Pediatrics; ADMIT Internal Medicine; ATTEND Internal Medicine
DX: A41.9 Sepsis, unspecified organism (principal); J96.21 Acute and chronic respiratory failure with hypoxia; N17.0 Acute kidney failure with tubular necrosis; G93.41 Metabolic encephalopathy; J69.0 Pneumonitis due to inhalation of food and vomit; G93.1 Anoxic brain damage, not elsewhere classified; I50.32 Chronic diastolic (congestive) heart failure; I13.0 Hypertensive heart and chronic kidney disease with heart failure and stage 1 through stage 4 chronic kidney disease, or unspecified chronic kidney disease; I46.9 Cardiac arrest, cause unspecified; E11.22 Type 2 diabetes mellitus with diabetic chronic kidney disease; N18.30 Chronic kidney disease, stage 3 unspecified; E11.51 Type 2 diabetes mellitus with diabetic peripheral angiopathy without gangrene; E03.9 Hypothyroidism, unspecified; E78.00 Pure hypercholesterolemia, unspecified; I27.20 Pulmonary hypertension, unspecified; E66.01 Morbid (severe) obesity due to excess calories; I95.9 Hypotension, unspecified; R04.0 Epistaxis; Z66 Do not resuscitate; Z51.5 Encounter for palliative care; Z90.49 Acquired absence of other specified parts of digestive tract; Z68.34 Body mass index [BMI] 34.0-34.9, adult; Z85.038 Personal history of other malignant neoplasm of large intestine; Z86.73 Personal history of transient ischemic attack (TIA), and cerebral infarction without residual deficits; Z79.84 Long term (current) use of oral hypoglycemic drugs; Z79.899 Other long term (current) drug therapy; Z91.041 Radiographic dye allergy status; Z88.8 Allergy status to other drugs, medicaments and biological substances; Z91.018 Allergy to other foods
CPT/HCPCS: 10078; 65040; 85076